=== PATIENT | male | born 1955 | race Caucasian/White ===

== ENCOUNTER → 2017-02-28 | Outpatient (CLI) | payer BC ==
--- NOTE | 2017-02-28 17:24 | US ---
EXAMINATION TYPE: US kidneys/renal and bladder DATE OF EXAM: 02/28/2017 4:52 PM COMPARISON: Previous CT scan of the abdomen dated 12/31/2014. CLINICAL HISTORY: N28.1 Cyst of Kidney Acquired. EXAM MEASUREMENTS: Right Kidney: 16.4 x 6.3 x 7.9 cm Left Kidney: 11.6 x 7.5 x 5.9 cm Right Kidney: large 9.2 x 8.5 x 9.7 cm cyst arising from lower pole Left Kidney: No hydronephrosis or masses seen Bladder: distended Bilateral Jets seen: no Large right renal cyst as noted above IMPRESSION: SIMPLE APPEARING 9.7 CM CYST ARISING FROM THE LOWER POLE OF THE RIGHT KIDNEY. PREVIOUSLY THIS WAS GIOVANNY SURED AT 9 CM.
== END | disposition home or self-care (01) ==
LOC: RADUSWWP 16:20
PROVIDERS: ATTEND Family Medicine
DX: N28.1 Cyst of kidney, acquired (principal)
CPT/HCPCS: 76770

== ENCOUNTER → 2020-05-30 | Outpatient (CLI) | payer MEDICARE, OTHER ==
[2020-05-30 19:35] LABS: African American GFR (CKD) >90 (>60 ml/min/1.73 sqM); Blood Urea Nitrogen 19 mg/dL (9-20); Non-African American GFR(CKD) >90 (>60 ml/min/1.73 sqM)
--- NOTE | 2020-05-31 08:20 | CT ---
EXAMINATION TYPE: CT angio neck DATE OF EXAM: 05/30/2020 HISTORY: Carotid stenosis and bilateral arm numbness. COMPARISON: None CT DLP: 256 mGycm. Automated Exposure Control for Dose Reduction was Utilized. TECHNIQUE: CTA scan of the neck is performed with IV Contrast, patient injected with 65ml mL of Isov ue 370, axial images are obtained, coronal and sagittal reformatted images are reviewed. Three-D diane nstructed images are created on an independent workstation and reviewed. FINDINGS: Motion is present on the exam. Carotid/Vascular Structures: Atheromatous changes are present at the carotid bifurcations. High-grade stenosis is present of the proximal internal carotid artery on the right. Stenosis is estimated at 8 0-90% diameter reduction by NASCET criteria, using same criteria estimated stenosis on the left is on ly approximately 50-60%. Other: Upper lobe emphysematous changes are moderate to severe bilaterally. Anterolisthesis grade 1 C 2-3. There is a fusion present anteriorly at C5-C7, degenerative disc changes are present. There is m ultilevel facet arthropathy change. IMPRESSION: Hemodynamically significant stenosis as described of the proximal right internal carotid artery greater than left. Additional findings above.
== END | disposition home or self-care (01) ==
LOC: RADCTMAIN 18:37
PROVIDERS: ATTEND Thoracic Surgery (Cardiothoracic Vascular Surgery)
DX: I65.23 Occlusion and stenosis of bilateral carotid arteries (principal)
CPT/HCPCS: 82565; 84520; 70498; 36415; Q9967

== ENCOUNTER → 2020-07-17 | Outpatient (CLI) | payer MEDICARE ==
[2020-07-17 11:59] LABS: Basophils # (A) 0.1 k/uL (0-0.2); Basophils % (A) 1 %; Eosinophils # (A) 0.3 k/uL (0-0.7); Eosinophils % (A) 4 %; HCT 43.1 % (39.0-53.0); HGB 13.2 gm/dL (13.0-17.5); Hypochromasia Slight; Lymphocytes # (A) 1.1 k/uL (1.0-4.8); Lymphocytes % (A) 15 %; MCH 28.9 pg (25.0-35.0); MCHC 30.5 g/dL (31.0-37.0); MCV 94.7 fL (80.0-100.0); Mean Platelet Volume 9.7; Monocytes # (A) 0.4 k/uL (0-1.0); Monocytes % (A) 6 %; Neutrophils % (A) 72 %; Platelet Count 191 k/uL (150-450); RBC 4.55 m/uL (4.30-5.90); RDW 13.5 % (11.5-15.5); WBC 6.9 k/uL (3.8-10.6)
[2020-07-17 12:24] LABS: Appearance,Urine Clear (Clear); Color,Urine Yellow
[2020-07-17 12:25] LABS: Bilirubin,Urine Negative (Negative); Blood,Urine Negative (Negative); Glucose,Urine (UA) Negative (Negative); Ketones,Urine Negative (Negative); Leukocyte Esterase,Urine Negative (Negative); Nitrite,Urine Negative (Negative); Protein,Urine Negative (Negative); Urobilinogen,Urine <2.0 mg/dL (<2.0)
[2020-07-17 17:00] LABS: African American GFR (CKD) 90.5 (60.0-200.0); Anion Gap 4.1 mmol/L (4.00-12.00); Carbon Dioxide 26.9 mmol/L (21.6-31.8); Non-African American GFR(CKD) 78.1 (60.0-200.0); Potassium 4.6 mmol/L (3.5-5.5)
== END | disposition home or self-care (01) ==
LOC: LABWHC1 11:12
PROVIDERS: ATTEND Surgery
DX: Z01.818 Encounter for other preprocedural examination (principal); I65.21 Occlusion and stenosis of right carotid artery
CPT/HCPCS: 36415; 80051; 81003; 82565; 84520; 85025

== ENCOUNTER 2020-07-21 07:38 | Inpatient (IN) | payer MEDICARE ==
[2020-07-14 17:03] VITALS: BMI 25.9
[~2020-07-21 07:38] MED LIST: DEXAMETHASONE SOD PHOSPHATE 10 MG/ML 1 ML VIAL IV ONE; HYDROmorphone 0.5 MG/0.5 ML SYRINGE IVP PRN; LACTATED RINGERS 1,000 ML IV SCH; MIDAZOLAM 2 MG/2 ML VIAL IV PRN; ONDANSETRON 4 MG/2 ML VIAL IVP ONE
[2020-07-21] MEDS ORDERED: LIDOCAINE 1% (10MG/ML) FOR IV START SQ ONE (08:27)
[2020-07-21] MEDS ORDERED: ONDANSETRON 4 MG/2 ML VIAL ONE (08:30)
[2020-07-21] MEDS ORDERED: MIDAZOLAM 2 MG/2 ML VIAL ONE (09:55)
[2020-07-21] MEDS ORDERED: VASOPRESSIN 20 UNIT/ML 1 ML VIAL ONE (09:55)
[2020-07-21] MEDS ORDERED: PROPOFOL 10 MG/ML 20 ML VIAL IV ONE (09:55)
[2020-07-21] MEDS ORDERED: PHENYLEPHRINE-0.9% NACL SYG 1 MG/10 ML SYRINGE ONE (09:55)
[2020-07-21] MEDS ORDERED: SUCCINYLCHOLINE CHLORIDE 100 MG/5 ML SYR IV ONE (09:55)
[2020-07-21] MEDS ORDERED: LIDOCAINE 1% INJ 10MG/ML (20 ML MDV) ONE (09:55)
[2020-07-21] MEDS ORDERED: ePHEDrine SULFATE/0.9% NACL/PF 50 MG/5 ML SYRINGE IV ONE (09:55)
[2020-07-21] MEDS ORDERED: fentaNYL (PF) 50 MCG/ML 2 ML AMP ONE (09:55)
[2020-07-21] MEDS ORDERED: GELATIN SPONGE,ABSORB (LARGE) 1 EACH SPONGE TOPICAL ONE (10:05)
[2020-07-21] MEDS ORDERED: HEPARIN SODIUM (1,000 UNIT/ML) 2,000 UNIT in SODIUM CHLORIDE 0.9% 1,000 ML IRRIGATION ONE (10:05)
[2020-07-21] MEDS ORDERED: ceFAZolin 2,000 MG in SODIUM CHLORIDE 0.9% 500 ML IRRIGATION ONE (10:05)
[2020-07-21] MEDS ORDERED: LIDOCAINE 1% INJ 10MG/ML (20 ML MDV) SQ ONE (10:05)
[2020-07-21] MEDS ORDERED: THROMBIN (BOVINE) 5,000 UNIT VIAL TOPICAL ONE (10:05)
[2020-07-21] MEDS ORDERED: PHENYLEPHRINE 40 MG in SODIUM CHLORIDE 0.9% 250 ML IV SCH (10:30)
[2020-07-21] MEDS ORDERED: LACTATED RINGERS 1,000 ML IV ONE (10:34)
--- NOTE | 2020-07-21 11:20 | P.OP ---
Date of Procedure: 07/21/20 Description of Procedure: Patient seen and examined in the preoperative area. His resting blood pressure there was normotensive. He was marked Questions are answered. Is brought to the operative suite. He is placed in supine position. An arterial line was placed, attempts previously to place a radial line were unsuccessful therefore brachial line was placed in the right side. A Mccullough catheter was placed after induction. Prior to any prepping draping, the patient's blood pressure began to drop and remained in the 60s over 30s for a significant period of time. He was treated with multiple medications without appropriate response. Finally vasopressin brought his blood pressure to 100. Given the significant, approximately 15-20 minutes of significant hypotension without improvement it was decided to cancel the case. He previously had cardiac evaluation and there was some question of a need for more invasive evaluation in the future, but he was cleared for surgery at this time. The patient was awakened from anesthesia and extubated. Transferred to PACU in stable condition. I will obtain an EKG and if everything goes okay from a PACU standpoint, he will be discharged home for further cardiac evaluation and workup prior to any further surgical intervention attempts. He likely will need to be performed as an awake carotid endarterectomy. Plan - Discharge Summary Discharge Rx Participant: No New Discharge Prescriptions: No Action Simvastatin [Zocor] 40 mg PO DAILY Aspirin 325 mg PO DAILY Magnesium Oxide [Fitzgerald] 500 mg PO DAILY lisinopriL [Zestril] 20 mg PO DAILY ALPRAZolam [Xanax] 1 mg PO TID PRN PRN Reason: Anxiety Acetaminophen [Tylenol Extra Strength] 500 - 1,000 mg PO DIRECTED PRN PRN Reason: Pain Discharge Medication List Aspirin 325 mg PO DAILY 06/28/14 [History] Simvastatin [Zocor] 40 mg PO DAILY 06/28/14 [History] ALPRAZolam [Xanax] 1 mg PO TID PRN 07/14/20 [History] Acetaminophen [Tylenol Extra Strength] 500 - 1,000 mg PO DIRECTED PRN 07/14/20 [History] Magnesium Oxide [Fitzgerald] 500 mg PO DAILY 07/14/20 [History] lisinopriL [Zestril] 20 mg PO DAILY 07/14/20 [History]
[2020-07-21 11:26] VITALS: TEMP 97
[2020-07-21 11:37] VITALS: RESP 16
[2020-07-21 13:09] VITALS: PULSE 82
[2020-07-21 13:11] VITALS: BP 114/72
== END 2020-07-21 13:30 | disposition home or self-care (01) | DRG 68 ==
LOC: 2ORMAIN 07:38
PROVIDERS: ADMIT Surgery; ATTEND Surgery
DX: I65.23 Occlusion and stenosis of bilateral carotid arteries (principal); I95.9 Hypotension, unspecified; I25.10 Atherosclerotic heart disease of native coronary artery without angina pectoris; F17.210 Nicotine dependence, cigarettes, uncomplicated; E78.5 Hyperlipidemia, unspecified; I10 Essential (primary) hypertension; Z98.1 Arthrodesis status; Z79.82 Long term (current) use of aspirin; Z79.899 Other long term (current) drug therapy; Z83.3 Family history of diabetes mellitus; Z82.3 Family history of stroke; Z53.09 Procedure and treatment not carried out because of other contraindication
CPT/HCPCS: 86850; 86900; 86901; 93005

== ENCOUNTER 2020-07-23 17:06 | Observation (INO) | payer MEDICARE ==
[2020-07-23] MEDS ORDERED: ASPIRIN 81 MG PO STA (17:21)
[2020-07-23] MEDS ORDERED: NITROGLYCERIN SL TABS 0.4 MG TAB SUBLINGUAL STA ×3 (17:21)
--- NOTE | 2020-07-23 17:27 | ED ---
General Adult HPI - General Chief complaint: Chest Pain Stated complaint: chest pain Time Seen by Provider: 07/23/20 17:12 Source: patient, RN notes reviewed Mode of arrival: wheelchair Limitations: no limitations - History of Present Illness Initial comments: Patient is a pleasant 64-year-old male presenting to the emergency Department with chest discomfort. Onset of symptoms was 2 days ago. Discomfort is difficult to describe. Patient has had some diaphoresis. No associated dyspnea or nausea. Discomfort is currently 6/10 in the left chest without radiation. No leg pain or leg swelling. Patient was recently in the hospital with plans to do carotid surgery however this was not done secondary to low blood pressure - Related Data Home Medications Medication Instructions Recorded Confirmed Aspirin 325 mg PO DAILY 06/28/14 07/21/20 Simvastatin [Zocor] 40 mg PO DAILY 06/28/14 07/14/20 ALPRAZolam [Xanax] 1 mg PO TID PRN 07/14/20 07/21/20 Acetaminophen [Tylenol Extra 500 - 1,000 mg PO DIRECTED PRN 07/14/20 07/14/20 Strength] Magnesium Oxide [Fitzgerald] 500 mg PO DAILY 07/14/20 07/21/20 lisinopriL [Zestril] 20 mg PO DAILY 07/14/20 07/21/20 Simvastatin 40 mg PO DAILY 07/23/20 07/23/20 Allergies Allergy/AdvReac Type Severity Reaction Status Date / Time No Known Allergies Allergy Verified 07/23/20 19:05 Review of Systems ROS Statement: Those systems with pertinent positive or pertinent negative responses have been documented in the HPI. ROS Other: All systems not noted in ROS Statement are negative. 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 Hx shingles Rt inner ear, wears hearing aids. BPH. 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 SOB w/activity. AAA, Dr monitoring. Mild edema ankles. Coronary Artery Stenosis. Last Myocardial Infarction Date:: unknown History of Any Multi-Drug Resistant Organisms: None Reported Past Surgical History: Heart Catheterization, Heart Catheterization With Stent, Hernia Repair, Tonsillectomy Additional Past Surgical History / Comment(s): 2013 Cervical Fusion. Umb hernia, ing hernia. Heart cath 2011. Past Anesthesia/Blood Transfusion Reactions: No Reported Reaction Date of Last Stent Placement:: 1997 Past Psychological History: Anxiety Smoking Status: Current every day smoker Past Alcohol Use History: None Reported Past Drug Use History: None Reported - Past Family History Brother(s) Family Medical History: Cancer, Diabetes Mellitus Additional Family Medical History / Comment(s): leukemia, lung cancer; another brother had DM, gangrene General Exam Limitations: no limitations General appearance: alert, in no apparent distress Head exam: Present: normocephalic Eye exam: Present: normal appearance Neck exam: Present: normal inspection Respiratory exam: Present: normal lung sounds bilaterally. Absent: chest wall tenderness Cardiovascular Exam: Present: regular rate, normal rhythm Expanded Peripheral pulses: 2+: Radial (R), Radial (L), Posterior Tibialis (R), Posterior Tibialis (L) GI/Abdominal exam: Present: soft. Absent: tenderness Extremities exam: Present: normal inspection. Absent: pedal edema, calf tenderness Neurological exam: Present: alert Psychiatric exam: Present: normal affect, normal mood Skin exam: Present: normal color Course Vital Signs 07/23/20 07/23/20 07/23/20 17:07 18:11 18:19 Temperature 97.5 F L 97.5 F L Pulse Rate 82 76 86 Respiratory 18 18 18 Rate Blood Pressure 103/64 137/60 137/83 O2 Sat by Pulse 100 100 97 Oximetry EKG Findings - EKG Comments: EKG Findings:: Normal sinus rhythm 88. MS 136. QRS 94. QT 372. QTC 450. Normal axis. Normal QRS. No acute ST change. Medical Decision Making - Medical Decision Making Patient reevaluated and updated. Case discussed with Dr. Gonzalez, who will admit for Dr. Henry. Patient is near symptom-free following nitroglycerin. - Lab Data Result diagrams: 07/23/20 17:24 07/23/20 17:24 Lab Results 07/23/20 07/23/20 07/23/20 Range/Units 17:24 17:24 17:24 WBC 8.2 (3.8-10.6) k/uL RBC 4.88 (4.30-5.90) m/uL Hgb 14.4 (13.0-17.5) gm/dL Hct 44.3 (39.0-53.0) % MCV 90.8 (80.0-100.0) fL MCH 29.5 (25.0-35.0) pg MCHC 32.5 (31.0-37.0) g/dL RDW 13.6 (11.5-15.5) % Plt Count 227 (150-450) k/uL Neutrophils % 67 % Lymphocytes % 21 % Monocytes % 6 % Eosinophils % 4 % Basophils % 1 % Neutrophils # 5.5 (1.3-7.7) k/uL Lymphocytes # 1.7 (1.0-4.8) k/uL Monocytes # 0.5 (0-1.0) k/uL Eosinophils # 0.3 (0-0.7) k/uL Basophils # 0.1 (0-0.2) k/uL PT 9.7 (9.0-12.0) sec INR 0.9 (<1.2) APTT 22.6 (22.0-30.0) sec Sodium 135 L (137-145) mmol/L Potassium 4.5 (3.5-5.1) mmol/L Chloride 104 (98-107) mmol/L Carbon Dioxide 24 (22-30) mmol/L Anion Gap 7 mmol/L BUN 13 (9-20) mg/dL Creatinine 0.69 (0.66-1.25) mg/dL Est GFR (CKD-EPI)AfAm >90 (>60 ml/min/1.73 sqM) Est GFR (CKD-EPI)NonAf >90 (>60 ml/min/1.73 sqM) Glucose 94 (74-99) mg/dL Calcium 9.4 (8.4-10.2) mg/dL Magnesium 1.8 (1.6-2.3) mg/dL Total Bilirubin 0.4 (0.2-1.3) mg/dL AST 20 (17-59) U/L ALT 16 (4-49) U/L Alkaline Phosphatase 100 (38-126) U/L Troponin I (0.000-0.034) ng/mL Total Protein 6.9 (6.3-8.2) g/dL Albumin 3.8 (3.5-5.0) g/dL 07/23/20 Range/Units 17:24 WBC (3.8-10.6) k/uL RBC (4.30-5.90) m/uL Hgb (13.0-17.5) gm/dL Hct (39.0-53.0) % MCV (80.0-100.0) fL MCH (25.0-35.0) pg MCHC (31.0-37.0) g/dL RDW (11.5-15.5) % Plt Count (150-450) k/uL Neutrophils % % Lymphocytes % % Monocytes % % Eosinophils % % Basophils % % Neutrophils # (1.3-7.7) k/uL Lymphocytes # (1.0-4.8) k/uL Monocytes # (0-1.0) k/uL Eosinophils # (0-0.7) k/uL Basophils # (0-0.2) k/uL PT (9.0-12.0) sec INR (<1.2) APTT (22.0-30.0) sec Sodium (137-145) mmol/L Potassium (3.5-5.1) mmol/L Chloride (98-107) mmol/L Carbon Dioxide (22-30) mmol/L Anion Gap mmol/L BUN (9-20) mg/dL Creatinine (0.66-1.25) mg/dL Est GFR (CKD-EPI)AfAm (>60 ml/min/1.73 sqM) Est GFR (CKD-EPI)NonAf (>60 ml/min/1.73 sqM) Glucose (74-99) mg/dL Calcium (8.4-10.2) mg/dL Magnesium (1.6-2.3) mg/dL Total Bilirubin (0.2-1.3) mg/dL AST (17-59) U/L ALT (4-49) U/L Alkaline Phosphatase (38-126) U/L Troponin I <0.012 (0.000-0.034) ng/mL Total Protein (6.3-8.2) g/dL Albumin (3.5-5.0) g/dL - Radiology Data Radiology results: image reviewed (Chest x-ray shows atelectasis and small effusions.) Disposition Clinical Impression: Chest pain Disposition: ADMITTED IP TO THIS HOSP Is patient prescribed a controlled substance at d/c from ED?: No Referrals: Radha Henry III, MD [Primary Care Provider] - 1-2 days
[2020-07-23 17:41] LABS: Basophils # (A) 0.1 k/uL (0-0.2); Basophils % (A) 1 %; Eosinophils # (A) 0.3 k/uL (0-0.7); Eosinophils % (A) 4 %; HCT 44.3 % (39.0-53.0); HGB 14.4 gm/dL (13.0-17.5); Lymphocytes # (A) 1.7 k/uL (1.0-4.8); Lymphocytes % (A) 21 %; MCH 29.5 pg (25.0-35.0); MCHC 32.5 g/dL (31.0-37.0); MCV 90.8 fL (80.0-100.0); Monocytes # (A) 0.5 k/uL (0-1.0); Monocytes % (A) 6 %; Neutrophils # (A) 5.5 k/uL (1.3-7.7); Neutrophils % (A) 67 %; Platelet Count 227 k/uL (150-450); RBC 4.88 m/uL (4.30-5.90); RDW 13.6 % (11.5-15.5); WBC 8.2 k/uL (3.8-10.6)
[2020-07-23 17:50] LABS: INR 0.9 (<1.2); Partial Thromboplastin Time 22.6 sec (22.0-30.0); Prothrombin Time 9.7 sec (9.0-12.0)
[2020-07-23 17:51] LABS: ALT 16 U/L (4-49); AST 20 U/L (17-59); African American GFR (CKD) >90 (>60 ml/min/1.73 sqM); Albumin 3.8 g/dL (3.5-5.0); Alkaline Phosphatase 100 U/L (38-126); Anion Gap 7 mmol/L; Blood Urea Nitrogen 13 mg/dL (9-20); Calcium 9.4 mg/dL (8.4-10.2); Carbon Dioxide 24 mmol/L (22-30); Chloride 104 mmol/L (98-107); Glucose 94 mg/dL (74-99); Magnesium 1.8 mg/dL (1.6-2.3); Non-African American GFR(CKD) >90 (>60 ml/min/1.73 sqM); Potassium 4.5 mmol/L (3.5-5.1); Sodium 135 mmol/L (137-145); Total Bilirubin 0.4 mg/dL (0.2-1.3); Total Protein 6.9 g/dL (6.3-8.2)
--- NOTE | 2020-07-23 18:01 | XR ---
EXAMINATION TYPE: XR chest 2V DATE OF EXAM: 07/23/2020 COMPARISON: 06/07/2014 HISTORY: Chest pain TECHNIQUE: FINDINGS: There is mild blunting of the costophrenic angles. Heart size is normal. There is no obviou s heart failure. There are chest leads. There are no hilar masses. Mediastinum is within normal limit s. Bony thorax appears intact. There are chest leads. IMPRESSION: Small pleural effusions and subsegmental atelectasis at the lung bases slightly increased compared to old exam. No obvious heart failure.
[2020-07-23] MEDS ORDERED: NITROGLYCERIN SL TABS 0.4 MG TAB SUBLINGUAL PRN (19:08)
[2020-07-23] MEDS ORDERED: ACETAMINOPHEN TAB 500 MG TAB PO PRN (23:27)
[2020-07-24] MEDS ORDERED: ALPRAZolam 1 MG TAB PO PRN (00:15)
[2020-07-24] MEDS: NITROGLYCERIN OINT 1 INCH/GM PACKET TOPICAL SCH ×2 (02:19→07:25)
[2020-07-24 06:27] LABS: Cholesterol 197 mg/dL (<200); HDL Cholesterol 49 mg/dL (40-60); LDL Cholesterol,Calculated 119 mg/dL (0-99); Triglycerides 146 mg/dL (<150)
[2020-07-24 06:52] VITALS: PULSE 89
[2020-07-24 08:18] VITALS: BP 135/81; RESP 16; TEMP 97.9
[2020-07-24] MEDS ORDERED: NON FORMULARY DRUG (Magnesium Oxide [Phillips] 500 MG) PO SCH (09:00)
[2020-07-24] MEDS ORDERED: ATORVASTATIN 40 MG TAB PO SCH (09:00)
[2020-07-24] MEDS ORDERED: HEPARIN SODIUM,PORCINE 5,000 UNIT/ML 1 ML VIAL SQ SCH (09:00)
[2020-07-24] MEDS ORDERED: FAMOTIDINE 20 MG/2 ML VIAL IV SCH (09:00)
[2020-07-24] MEDS ORDERED: lisinopriL 20 MG TAB PO SCH (09:00)
[2020-07-24] MEDS ORDERED: ASPIRIN 81 MG PO SCH (09:00)
[2020-07-24] MEDS ORDERED: ASPIRIN 325 MG TAB PO SCH (09:00)
--- NOTE | 2020-07-24 10:06 | P.HPIM ---
History of Present Illness Diagnoses: Chest pain, rule out cardiac causes Hypertension Hyperlipidemia Nicotine dependence History of coronary artery disease status post stenting COPD, not an acute issue History of CVA/TIA Primary osteoarthritis Severity, not active tissue Hospital course: This is a pleasant 64 years old male with past medical history of coronary artery disease, status post cardiac cath and stent, CVA, COPD, hyperlipidemia, hypertension, osteoarthritis. Cigarette smoker, anxiety, peripheral vascular disease and aortic aneurysm and he follows up with the vascular surgery. Last Friday, 3 days ago he supposed to get carotid endarterectomy with Dr. Mccullough and he came to this hospital where they found his blood pressure on the low side 90s over 50s so they canceled the surgery and stents at home and send a was dropping some cough and sore throat and They Friday and Friday he developed central and left-sided chest pain, nonradiating. O'clock sharp worse with coughing about 68/10 in severity. So he came to emergency room [facility] looks stable. Labs including CBC, BMP, liver enzymes, serial troponins 3 are unremarkable. Chest x-ray: Small pleural effusion and subsegmental atelectasis. No overt heart failure EKG showed normal sinus rhythm at 88 BPM with no significant ST-T changes. And emergency room patient was started on aspirin, nitroglycerin. However his chest pain coughing and all her symptoms have resolved now and he is back to his normal self, he denies dyspnea. He denies any change in his urine or bowel habits. No fever, no weakness, is eating well. Multiple Wire Sawyer evaluated the patient after him for discharge and patient agrees to go home Problems and management plan were discussed with the patient and he verbalized understanding and acceptance Patient was found stable and can be discharged home however he needs follow-up as an outpatient. Patient was instructed to follow up with PCP Dr. Henry within one week and patient agrees. Also patient was instructed to follow up with steel construction worker Dr. Bean in 2 weeks and he agrees. Patient states he can call and make his own appointment Review of systems: GENERAL: The patient is alert and oriented x3, not in any acute distress. Well developed, well nourished. HEENT: Pupils are round and equally reacting to light. EOMI. No scleral icterus. No conjunctival pallor. Normocephalic, atraumatic. No pharyngeal erythema. No thyromegaly. CARDIOVASCULAR: S1 and S2 present. No murmurs, rubs, or gallops. PULMONARY: Chest is clear to auscultation, no wheezing or crackles. ABDOMEN: Soft, nontender, nondistended, normoactive bowel sounds. No palpable o rganomegaly. MUSCULOSKELETAL: No joint swelling or deformity. EXTREMITIES: No cyanosis, clubbing, or pedal edema. NEUROLOGICAL: Gross neurological examination did not reveal any focal deficits. SKIN: No rashes. 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 Hx shingles Rt inner ear 2008, wears hearing aids. BPH. 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 SOB w/activity. AAA, Dr monitoring. Mild edema ankles. Coronary Artery Stenosis. Last Myocardial Infarction Date:: unknown History of Any Multi-Drug Resistant Organisms: None Reported Past Surgical History: Heart Catheterization, Heart Catheterization With Stent, Hernia Repair, Tonsillectomy Additional Past Surgical History / Comment(s): 2013 Cervical Fusion. Umb hernia, ing hernia. Heart cath 2011. Past Anesthesia/Blood Transfusion Reactions: No Reported Reaction Date of Last Stent Placement:: 1997 Past Psychological History: Anxiety Smoking Status: Current every day smoker Past Alcohol Use History: None Reported Additional Past Alcohol Use History / Comment(s): Smoking 1 ppd since age 3. Heavy drinker after 's , Quit 05/2018. Past Drug Use History: Marijuana Additional Drug Use History / Comment(s): Occasional marijuana use. - Past Family History Brother(s) Family Medical History: Cancer, Diabetes Mellitus Additional Family Medical History / Comment(s): leukemia, lung cancer; another brother had DM, gangrene Medications and Allergies Home Medications Medication Instructions Recorded Confirmed Type Aspirin 325 mg PO DAILY 06/28/14 07/23/20 History ALPRAZolam [Xanax] 1 mg PO TID PRN 07/14/20 07/23/20 History Acetaminophen [Tylenol Extra 500 - 1,000 mg PO Q6H PRN 07/14/20 07/23/20 History Strength] Magnesium Oxide [Fitzgerald] 500 mg PO DAILY 07/14/20 07/23/20 History lisinopriL [Zestril] 20 mg PO DAILY 07/14/20 07/23/20 History Simvastatin 40 mg PO DAILY 07/23/20 07/23/20 History Allergies Allergy/AdvReac Type Severity Reaction Status Date / Time No Known Allergies Allergy Verified 07/23/20 19:05 Physical Exam Vitals: Vital Signs Temp Pulse Pulse Pulse Resp BP BP 07/24/20 08:17 97.9 F 89 16 135/81 07/24/20 05:10 98.1 F 89 18 133/71 07/23/20 21:27 07/23/20 20:15 98.7 F 79 20 135/78 07/23/20 19:50 98.0 F 87 18 146/92 07/23/20 18:19 86 18 137/83 07/23/20 18:11 97.5 F L 76 18 137/60 07/23/20 17:07 97.5 F L 82 18 103/64 Pulse Ox 07/24/20 08:17 93 L 07/24/20 05:10 96 07/23/20 21:27 95 07/23/20 20:15 96 07/23/20 19:50 95 07/23/20 18:19 97 07/23/20 18:11 100 07/23/20 17:07 100 Intake and Output 07/23/20 07/24/20 07/24/20 22:59 06:59 14:59 Other: Voiding Method Toilet Toilet # Voids 1 2 Weight 81.193 kg Results CBC & Chem 7: 07/23/20 17:24 07/23/20 17:24 Labs: Abnormal Lab Results - Last 24 Hours (Table) 07/23/20 07/24/20 Range/Units 17:24 05:53 Sodium 135 L (137-145) mmol/L LDL Cholesterol, Calc 119 H (0-99) mg/dL Thrombosis Risk Factor Assmnt - Choose All That Apply Any of the Below Risk Factors Present?: Yes Each Factor Represents 1 point: Abnormal pulmonary function (COPD) Other Risk Factors: Yes Each Risk Factor Represents 2 Points: Age 61-74 years Thrombosis Risk Factor Assessment Total Risk Factor Score: 3 Thrombosis Risk Factor Assessment Level: Moderate Risk
--- NOTE | 2020-07-24 11:02 | CONS ---
CONSULTATION Mr. Haas is a 64-year-old male who presented with symptoms of chest discomfort. The patient has been followed by Dr. Elias on a regular basis, has a known history of coronary artery disease, underwent stenting in 1997 of the LAD, had a repeat cardiac catheterization by Dr. Elias in 2013. At that time, had a patent stent with chronic occluded right coronary artery. He was found to have severe obstructive disease in the right carotid artery. He was scheduled to undergo surgical intervention on the of this month, but in the operating room became very hypotensive and surgery was canceled. According to the patient, since that time, he has been complaining of chest discomfort, worse with deep breathing and coughing and because of that, he came into the emergency room. He has chronic dyspnea on exertion and chronic tobacco use. He is pain-free this morning. He denies any symptoms of chest pain prior to the . According to him, he has been reasonably stable except for the mild dyspnea on exertion. He has underwent a myocardial perfusion imaging by Dr. Elias recently, but the details of that are not available to me. He denies any dizziness or palpitation. No syncope. No PND. No orthopnea. He has some peripheral edema. His coronary risk factors are remarkable for hypertension, hyperlipidemia and smoking, he is nondiabetic. His medications include Zestril 20 mg daily, simvastatin 40 mg daily, aspirin once a day, and Xanax. REVIEW OF SYSTEMS: RESPIRATORY SYSTEM: He has a history of chronic tobacco use and chronic dyspnea on exertion. He has chronic cough. GI SYSTEM: No recent GI bleeding. No peptic ulcer disease. SYSTEM: No dysuria or hematuria. NERVOUS SYSTEM: No seizure, had a prior history of stroke affecting his left eye. PHYSICAL EXAMINATION: He is a 64-year-old male, alert, oriented, in no apparent distress. Blood pressure 133/70 with a heart rate in the 80s. HEAD: Normocephalic. EYES: Sclerae nonicteric. NECK: Good upstroke. No bruit. No venous distension. LUNGS: Decreased air exchange, no wheezes. HEART: Regular rate and rhythm, S1, S2. No S3 with systolic murmur at the base. No diastolic murmur, no rub. ABDOMEN: Soft, nontender, positive bowel sounds, no organomegaly. EXTREMITIES: Trace edema on the left side of the ankle. LAB DATA: Revealed troponin less than 0.012 for 3 samples. BUN and creatinine 13 and 0.69, potassium 4.5, hemoglobin of 14.4. EKG revealed a sinus mechanism, normal axis and intervals. No acute ST-segment changes. Chest x-ray shows a small pleural effusion with subsegmental atelectasis. IMPRESSION: 1. Symptoms of chest discomfort, have some atypical features for ischemic heart disease, probably noncardiac in etiology, probably related to the irritation of the trachea. 2. History of coronary artery disease with known chronically occluded right coronary artery: The patient had an MPI done recently. Will await results. 3. History of carotid disease. 4. History of hypertension. 5. Hyperlipidemia. 6. Chronic tobacco use. RECOMMENDATION: I will obtain the results of his most recent stress test and review the data and depending on that, recommendation will be made. In the meantime, will continue his present therapy and depending on his progress, further recommendation will be made. Thank you for this consult. Will follow with you. BRANDI / IJN: [id number] /
== END 2020-07-24 10:54 | disposition home or self-care (01) ==
LOC: EC 17:06 → 3NCARDOBS 19:08
PROVIDERS: ADMIT Internal Medicine; ATTEND Internal Medicine
DX: R07.89 Other chest pain (principal); I65.21 Occlusion and stenosis of right carotid artery; J44.9 Chronic obstructive pulmonary disease, unspecified; I25.10 Atherosclerotic heart disease of native coronary artery without angina pectoris; I10 Essential (primary) hypertension; J90 Pleural effusion, not elsewhere classified; J98.11 Atelectasis; E78.5 Hyperlipidemia, unspecified; I25.82 Chronic total occlusion of coronary artery; I73.9 Peripheral vascular disease, unspecified; N40.0 Benign prostatic hyperplasia without lower urinary tract symptoms; I71.4 Abdominal aortic aneurysm, without rupture; F41.9 Anxiety disorder, unspecified; F17.210 Nicotine dependence, cigarettes, uncomplicated; R60.0 Localized edema; R61 Generalized hyperhidrosis; M19.91 Primary osteoarthritis, unspecified site; M51.86 Other intervertebral disc disorders, lumbar region; H91.90 Unspecified hearing loss, unspecified ear; Z79.82 Long term (current) use of aspirin; Z79.899 Other long term (current) drug therapy; Z86.73 Personal history of transient ischemic attack (TIA), and cerebral infarction without residual deficits; I25.2 Old myocardial infarction; Z86.19 Personal history of other infectious and parasitic diseases; Z97.4 Presence of external hearing-aid; Z98.1 Arthrodesis status; Z95.5 Presence of coronary angioplasty implant and graft; Z98.890 Other specified postprocedural states; Z83.3 Family history of diabetes mellitus; Z80.6 Family history of leukemia; Z80.1 Family history of malignant neoplasm of trachea, bronchus and lung
CPT/HCPCS: 93005 ×2; 96374; 99285; 36415; 80061; 80053; 83735; 84484; 85025; 85610; 85730; 71046; G0378 ×2

== ENCOUNTER 2020-08-31 17:26 | Emergency (ER) | payer MEDICARE ==
[2020-08-31] MEDS ORDERED: METOCLOPRAMIDE 5 MG/ML 2 ML VIAL IVP STA (17:48)
[2020-08-31] MEDS ORDERED: SODIUM CHLORIDE 0.9% 1,000 ML IV STA (17:48)
[2020-08-31] MEDS ORDERED: HYDROmorphone 1 MG/ML 1 ML SYRINGE IVP STA (17:49)
--- NOTE | 2020-08-31 17:53 | ED ---
General Adult HPI - General Chief complaint: Headache Stated complaint: headache Time Seen by Provider: 08/31/20 17:34 Source: patient, family, RN notes reviewed Mode of arrival: ambulatory Limitations: no limitations - History of Present Illness Initial comments: Patient is a pleasant 64-year-old male presenting to emergency department complaints of headache. Onset of symptoms was yesterday evening. Headache was quick onset and fairly severe rated 9/10. Patient did have 2 episodes of nausea yesterday. No nausea at this time. Headache is more frontal. No speech from his. No visual changes. No weakness or confusion. No history of chronic h eadaches. Patient took Motrin without much improvement of symptoms. Patient did notice some swelling of his left lower jaw where he has a known tooth problem since yesterday. - Related Data Home Medications Medication Instructions Recorded Confirmed Aspirin 325 mg PO DAILY 06/28/14 07/23/20 ALPRAZolam [Xanax] 1 mg PO TID PRN 07/14/20 07/23/20 Acetaminophen [Tylenol Extra 500 - 1,000 mg PO Q6H PRN 07/14/20 07/23/20 Strength] Magnesium Oxide [Fitzgerald] 500 mg PO DAILY 07/14/20 07/23/20 lisinopriL [Zestril] 20 mg PO DAILY 07/14/20 07/23/20 Simvastatin 40 mg PO DAILY 07/23/20 07/23/20 Previous Rx's Medication Instructions Recorded Atorvastatin [Lipitor] 40 mg PO DAILY #30 tab 07/24/20 Nitroglycerin Sl Tabs [Nitrostat] 0.4 mg SUBLINGUAL Q5M PRN #20 tab 07/24/20 Allergies Allergy/AdvReac Type Severity Reaction Status Date / Time No Known Allergies Allergy Verified 08/31/20 17:27 Review of Systems ROS Statement: Those systems with pertinent positive or pertinent negative responses have been documented in the HPI. ROS Other: All systems not noted in ROS Statement are negative. Constitutional: Denies: fever Eyes: Denies: eye pain ENT: Reports: as per HPI. Denies: ear pain Respiratory: Denies: cough, dyspnea Cardiovascular: Denies: chest pain Endocrine: Denies: fatigue Gastrointestinal: Denies: abdominal pain Genitourinary: Denies: urgency Musculoskeletal: Denies: back pain Skin: Denies: rash Neurological: Reports: headache. Denies: weakness, confusion Past Medical History Past Medical History: Coronary Artery Disease (CAD), COPD, CVA/TIA, Hearing Disorder / Deafness, Hyperlipidemia, Hypertension, Myocardial Infarction ([place]), Osteoarthritis (OA), Prostate Disorder Additional Past Medical History / Comment(s): Stroke left eye 2006 -most of visi on returned. Hx shingles Rt inner ear 2008, wears hearing aids. BPH. 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 SOB w/activity. AAA, Dr monitoring. Mild edema ankles. Coronary Artery Stenosis. Last Myocardial Infarction Date:: unknown History of Any Multi-Drug Resistant Organisms: None Reported Past Surgical History: Heart Catheterization, Heart Catheterization With Stent, Hernia Repair, Tonsillectomy Additional Past Surgical History / Comment(s): 2013 Cervical Fusion. Umb hernia, ing hernia. Heart cath 2011. Past Anesthesia/Blood Transfusion Reactions: No Reported Reaction Date of Last Stent Placement:: 1997 Past Psychological History: Anxiety Smoking Status: Current every day smoker Past Alcohol Use History: None Reported Past Drug Use History: Marijuana - Past Family History Brother(s) Family Medical History: Cancer, Diabetes Mellitus Additional Family Medical History / Comment(s): leukemia, lung cancer; another brother had DM, gangrene General Exam Limitations: no limitations General appearance: alert, in no apparent distress Head exam: Present: normocephalic Eye exam: Present: normal appearance, PERRL, EOMI. Absent: nystagmus ENT exam: Present: normal oropharynx, other (Left lower canine and premolar with tooth decay. There is mild lateral swelling.) Neck exam: Present: normal inspection. Absent: tenderness, meningismus Respiratory exam: Present: normal lung sounds bilaterally Cardiovascular Exam: Present: regular rate, normal rhythm GI/Abdominal exam: Present: soft. Absent: tenderness Extremities exam: Present: normal inspection Neurological exam: Present: alert, CN II-XII intact. Absent: motor sensory deficit Expanded Neurological exam: Present: protecting the airway Speech: Present: fluid speech Cranial nerves: EOM's Intact: Normal, Facial Sensation: Normal Sensory exam: Upper Extremity Light Touch: Normal, Lower Extremity Light Touch: Normal Motor strength exam: RUE: 5, LUE: 5, RLE: 5, LLE: 5 Eye Response: (4) open spontaneously Motor Response: (6) obeys commands Verbal Response: (5) oriented Psychiatric exam: Present: normal affect, normal mood Skin exam: Present: normal color Course Vital Signs 08/31/20 17:27 Temperature 98 F Pulse Rate 91 Respiratory 18 Rate Blood Pressure 137/81 O2 Sat by Pulse 99 Oximetry Medical Decision Making - Medical Decision Making Patient reevaluated and resting comfortably in bed. Discomfort is significantly improved following medications. Patient and family updated on results and need for follow-up. - Lab Data Result diagrams: 08/31/20 18:09 08/31/20 18:09 Lab Results 08/31/20 08/31/20 08/31/20 Range/Units 18:09 18:09 18:09 WBC 11.9 H (3.8-10.6) k/uL RBC 5.16 (4.30-5.90) m/uL Hgb 15.0 (13.0-17.5) gm/dL Hct 47.1 (39.0-53.0) % MCV 91.3 (80.0-100.0) fL MCH 29.2 (25.0-35.0) pg MCHC 32.0 (31.0-37.0) g/dL RDW 13.5 (11.5-15.5) % Plt Count 199 (150-450) k/uL Neutrophils % 76 % Lymphocytes % 13 % Monocytes % 6 % Eosinophils % 3 % Basophils % 1 % Neutrophils # 9.1 H (1.3-7.7) k/uL Lymphocytes # 1.6 (1.0-4.8) k/uL Monocytes # 0.7 (0-1.0) k/uL Eosinophils # 0.4 (0-0.7) k/uL Basophils # 0.1 (0-0.2) k/uL ESR 25 H (0-15) mm/hr PT 9.6 (9.0-12.0) sec INR 0.9 (<1.2) APTT 22.7 (22.0-30.0) sec Sodium 138 (137-145) mmol/L Potassium 4.4 (3.5-5.1) mmol/L Chloride 106 (98-107) mmol/L Carbon Dioxide 26 (22-30) mmol/L Anion Gap 6 mmol/L BUN 12 (9-20) mg/dL Creatinine 0.68 (0.66-1.25) mg/dL Est GFR (CKD-EPI)AfAm >90 (>60 ml/min/1.73 sqM) Est GFR (CKD-EPI)NonAf >90 (>60 ml/min/1.73 sqM) Glucose 119 H (74-99) mg/dL Calcium 9.4 (8.4-10.2) mg/dL Total Bilirubin 0.5 (0.2-1.3) mg/dL AST 20 (17-59) U/L ALT 17 (4-49) U/L Alkaline Phosphatase 101 (38-126) U/L Total Protein 7.1 (6.3-8.2) g/dL Albumin 4.0 (3.5-5.0) g/dL - Radiology Data Radiology results: report reviewed (Computed tomography scan of the brain shows atrophy. No acute intercranial abnormality. CT angios shows subtotal lesion right internal carotid artery not significantly different from previous. Some progression of stenosis on the left.) Disposition Clinical Impression: Cephalgia, Dental abscess Disposition: HOME SELF-CARE Condition: Stable Instructions (If sedation given, give patient instructions): Acute Headache (ED), Dental Abscess (ED) Additional Instructions: Please follow-up with dentist in the next couple days for recheck. Please also follow-up with Dr. Mccullough in the next couple of days for recheck, call her tomorrow and let her know urine emergency department. Please also follow-up with primary care physician in the next couple of days. Return for increased mouth swelling or pain, fevers, weakness or confusion, worsening or changing symptoms or other concerns. Is patient prescribed a controlled substance at d/c from ED?: No Referrals: Olivia Mccullough DO [STAFF PHYSICIAN] - 1-2 days Benito Martinez MD [STAFF PHYSICIAN] - 1-2 days Time of Disposition: 20:07
[2020-08-31 18:21] LABS: Basophils # (A) 0.1 k/uL (0-0.2); Basophils % (A) 1 %; Eosinophils # (A) 0.4 k/uL (0-0.7); Eosinophils % (A) 3 %; HCT 47.1 % (39.0-53.0); Lymphocytes # (A) 1.6 k/uL (1.0-4.8); Lymphocytes % (A) 13 %; MCH 29.2 pg (25.0-35.0); MCV 91.3 fL (80.0-100.0); Mean Platelet Volume 7.8; Monocytes # (A) 0.7 k/uL (0-1.0); Monocytes % (A) 6 %; Neutrophils # (A) 9.1 k/uL (1.3-7.7); Neutrophils % (A) 76 %; Platelet Count 199 k/uL (150-450); RBC 5.16 m/uL (4.30-5.90); RDW 13.5 % (11.5-15.5); WBC 11.9 k/uL (3.8-10.6)
[2020-08-31 18:30] LABS: ALT 17 U/L (4-49); AST 20 U/L (17-59); African American GFR (CKD) >90 (>60 ml/min/1.73 sqM); Alkaline Phosphatase 101 U/L (38-126); Anion Gap 6 mmol/L; Blood Urea Nitrogen 12 mg/dL (9-20); Calcium 9.4 mg/dL (8.4-10.2); Carbon Dioxide 26 mmol/L (22-30); Chloride 106 mmol/L (98-107); Glucose 119 mg/dL (74-99); Non-African American GFR(CKD) >90 (>60 ml/min/1.73 sqM); Potassium 4.4 mmol/L (3.5-5.1); Sodium 138 mmol/L (137-145); Total Bilirubin 0.5 mg/dL (0.2-1.3); Total Protein 7.1 g/dL (6.3-8.2)
[2020-08-31 18:31] LABS: INR 0.9 (<1.2); Partial Thromboplastin Time 22.7 sec (22.0-30.0); Prothrombin Time 9.6 sec (9.0-12.0)
--- NOTE | 2020-08-31 19:22 | CT ---
EXAMINATION TYPE: CT brain wo con DATE OF EXAM: 08/31/2020 COMPARISON: None HISTORY: headache CT DLP: 1069 mGycm Automated exposure control for dose reduction was used. There is mild cerebral atrophy. There is no mass effect nor midline shift. There is no sign of intrac ranial hemorrhage. Calvarium is intact. There is no sign of cortical infarct. There is limited pneumatization of the mastoid sinuses. IMPRESSION: Cerebral atrophy. No acute intracranial abnormality.
[2020-08-31 19:42] LABS: Erythrocyte Sedimentation Rate 25 mm/hr (0-15)
--- NOTE | 2020-08-31 19:54 | CT ---
EXAMINATION TYPE: CT angio head neck DATE OF EXAM: 08/31/2020 COMPARISON: 05/30/2020 HISTORY: headache CT DLP: 441.9 mGycm Automated exposure control for dose reduction was used. CONTRAST: Performed with IV Contrast, patient injected with 100 mL of Isovue 370. There are 3-D post processed images. There is normal branching pattern of the great vessels on the aortic arch. There is bilateral arteria l flow in the subclavian arteries. There is arterial flow in the common internal and external carotid arteries bilaterally. There is arterial flow in both vertebral arteries. There is long segment of lumen narrowing of the left common carotid artery. There is severe stenosis of the proximal left internal carotid artery with 80-90% diameter narrowing. There is plaque formatio n at the right carotid artery bifurcation. There is subtotal occlusion of the right internal carotid artery near the origin. Stenosis is more than 90%. There is arterial flow in both vertebral arteries. There is arterial flow in the vertebrobasilar melchor ry system. There is arterial flow in the anterior middle and posterior cerebral arteries. I see no evidence of i ntracranial arterial stenosis. There is normal contrast opacification of the venous sinuses. There is no mass effect. There is no evidence of intracranial aneurysm or neovascularity. IMPRESSION: Subtotal occlusion of the right internal carotid artery not significantly different than last exam. T here is some progression of the hemodynamic stenosis of the left internal carotid artery compared to old exam. No significant intracranial angiographic abnormality.
[2020-08-31] MEDS ORDERED: PENICILLIN G POTASSIUM 2,000,000 UNIT in DEXTROSE 5% IN WATER 100 ML IVPB STA ×2 (20:00)
[2020-08-31] MEDS ORDERED: ACET/COD 300 MG/30 MG STARTER PACK 6 TAB BTL PO STA (20:08)
[2020-08-31 21:46] VITALS: BP 129/69; PULSE 80; RESP 19; TEMP 97.6
== END 2020-08-31 21:46 | disposition home or self-care (01) ==
LOC: EC 17:26
DX: K04.7 Periapical abscess without sinus (principal); I25.10 Atherosclerotic heart disease of native coronary artery without angina pectoris; I10 Essential (primary) hypertension; E78.5 Hyperlipidemia, unspecified; I25.2 Old myocardial infarction; F41.9 Anxiety disorder, unspecified; F17.200 Nicotine dependence, unspecified, uncomplicated; Z79.82 Long term (current) use of aspirin; Z79.899 Other long term (current) drug therapy; Z86.73 Personal history of transient ischemic attack (TIA), and cerebral infarction without residual deficits; Z98.1 Arthrodesis status; Z95.5 Presence of coronary angioplasty implant and graft; R51.9 Headache, unspecified
CPT/HCPCS: 99284 ×2; 96365 ×2; 96375 ×3; 96361 ×4; 36415; 80053; 85652; 85025; 85610; 85730; 87040; 70496; 70450; 70498; J2765; J1170; J2540; Q9967

== ENCOUNTER 2020-09-02 16:18 | Emergency (ER) | payer MEDICARE ==
[2020-09-02 16:26] VITALS: TEMP 98.1
--- NOTE | 2020-09-02 16:29 | ED ---
General Adult HPI - General Chief complaint: Chest Pain Stated complaint: chest pain Time Seen by Provider: 09/02/20 16:27 Source: patient Mode of arrival: ambulatory Limitations: no limitations - History of Present Illness Initial comments: Patient presents the ED with his girlfriend for evaluation. Patient states that he was outside with his dogs about an hour ago when he developed lower substernal chest pressure. Patient also admits to having associated dyspnea and nausea. Patient states that he took a dose of his nitroglycerin with minimal re lief. Patient states that his pain is currently 6 out of 10 in severity. Patient admits to taking a full dose aspirin earlier today. Patient states that he has had a cardiac stent placement the past. Patient states that he has a pack-a-day smoker. Patient denies trauma or injury, radiation of his pain, fever or chills, headache, focal numbness/weakness/neuro deficit, neck/arm/jaw/back pain, pleuritic pain, leg or calf swelling or pain, cough or cold symptoms, palpitations, dizziness, nausea/vomiting/diaphoresis, abdominal pain, diarrhea or constipation, bloody or melanotic stool, or any other symptoms or complaints. - Related Data Home Medications Medication Instructions Recorded Confirmed Aspirin 325 mg PO DAILY 06/28/14 07/23/20 ALPRAZolam [Xanax] 1 mg PO TID PRN 07/14/20 07/23/20 Acetaminophen [Tylenol Extra 500 - 1,000 mg PO Q6H PRN 07/14/20 07/23/20 Strength] Magnesium Oxide [Fitzgerald] 500 mg PO DAILY 07/14/20 07/23/20 lisinopriL [Zestril] 20 mg PO DAILY 07/14/20 07/23/20 Simvastatin 40 mg PO DAILY 07/23/20 07/23/20 Previous Rx's Medication Instructions Recorded Atorvastatin [Lipitor] 40 mg PO DAILY #30 tab 07/24/20 Nitroglycerin Sl Tabs [Nitrostat] 0.4 mg SUBLINGUAL Q5M PRN #20 tab 07/24/20 Penicillin V Potassium [Pen Vee K] 500 mg PO QID #40 tablet 08/31/20 Allergies Allergy/AdvReac Type Severity Reaction Status Date / Time No Known Allergies Allergy Verified 09/02/20 16:26 Review of Systems ROS Statement: Those systems with pertinent positive or pertinent negative responses have been documented in the HPI. ROS Other: All systems not noted in ROS Statement are negative. Past Medical History Past Medical History: Coronary Artery Disease (CAD), COPD, CVA/TIA, Hearing Disorder / Deafness, Hyperlipidemia, Hypertension, Myocardial Infarction ([place]), Osteoarthritis ([place]), Prostate Disorder Additional Past Medical History / Comment(s): Stroke left eye 2006 -most of vision returned. Hx shingles Rt inner ear 2008, wears hearing aids. BPH. 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 SOB w/activity. AAA, Dr monitoring. Mild edema ankles. Coronary Artery Stenosis. Last Myocardial Infarction Date:: unknown History of Any Multi-Drug Resistant Organisms: None Reported Past Surgical History: Heart Catheterization, Heart Catheterization With Stent, Hernia Repair, Tonsillectomy Additional Past Surgical History / Comment(s): 2013 Cervical Fusion. Umb hernia, ing hernia. Heart cath 2011. Past Anesthesia/Blood Transfusion Reactions: No Reported Reaction Date of Last Stent Placement:: 1997 Past Psychological History: Anxiety Smoking Status: Current every day smoker Past Alcohol Use History: None Reported Past Drug Use History: Marijuana - Past Family History Brother(s) Family Medical History: Cancer, Diabetes Mellitus Additional Family Medical History / Comment(s): leukemia, lung cancer; another brother had DM, gangrene General Exam Limitations: no limitations General appearance: alert, in no apparent distress Head exam: Present: atraumatic, normocephalic Eye exam: Present: normal appearance, EOMI ENT exam: Present: mucous membranes moist Neck exam: Present: other (Trachea is in midline) Respiratory exam: Present: normal lung sounds bilaterally. Absent: respiratory distress, wheezes, rales, rhonchi, chest wall tenderness Cardiovascular Exam: Present: regular rate, normal rhythm, normal heart sounds, other (Normal radial pulses bilaterally) GI/Abdominal exam: Present: soft. Absent: distended, tenderness, guarding Extremities exam: Present: other (Negative Homans sign bilaterally). Absent: tenderness, pedal edema, calf tenderness Neurological exam: Present: alert, oriented X3. Absent: motor sensory deficit Psychiatric exam: Present: normal affect, normal mood Skin exam: Present: warm, dry, intact, normal color Course Vital Signs 09/02/20 09/02/20 16:23 18:05 Temperature 98.1 F Pulse Rate 100 84 Respiratory 20 16 Rate Blood Pressure 104/67 131/82 O2 Sat by Pulse 98 97 Oximetry - Reevaluation(s) Reevaluation #1: 09/02/20 19:04 Case, H&P, test results and ED/prehospital management were discussed with MARIUM Salinas. He accepts hospital admission on behalf of himself and Dr. Dobson. He recommends cardiology consultation. He has no further recommendations at this time. 09/02/20 19:17 Patient was accepted for admission by MARIUM Salinas, but patient now states that he wishes to leave AGAINST MEDICAL ADVICE. Patient states that his chest pain pain has completely resolved, and he denies having any symptoms currently. Patient remains alert and breathing comfortably. I have explained to the patient that given his symptoms and cardiac history, I would strongly recommend hospital admission for further cardiac evaluation. Patient is A and O 4 and completely coherent at this time. I have explained to the patient the risks of leaving AMA, including further morbidity and even in the worst case situation. Patient is able to verbalize understanding of these risks, and he still wishes to leave AMA at this time. Patient agrees to sign AMA form. Patient was counseled about chest pain. He was instructed to return to the ED should he change his mind, or should he develop new or worsening symptoms. Patient was also instructed to follow up closely with his primary care provider. Patient feels comfortable with this plan. EKG Findings - EKG Comments: EKG Findings:: Normal sinus rhythm, ventricular rate of 97 bpm, no ectopy, normal NE and QRS intervals, normal QT interval, normal axis, no ST or T-wave abnormality Medical Decision Making - Lab Data Result diagrams: 09/02/20 16:51 09/02/20 16:51 Lab Results 09/02/20 09/02/20 09/02/20 Range/Units 16:51 16:51 16:51 WBC 9.9 (3.8-10.6) k/uL RBC 4.92 (4.30-5.90) m/uL Hgb 14.3 (13.0-17.5) gm/dL Hct 45.1 (39.0-53.0) % MCV 91.7 (80.0-100.0) fL MCH 29.1 (25.0-35.0) pg MCHC 31.7 (31.0-37.0) g/dL RDW 13.7 (11.5-15.5) % Plt Count 209 (150-450) k/uL Neutrophils % 72 % Lymphocytes % 17 % Monocytes % 6 % Eosinophils % 3 % Basophils % 1 % Neutrophils # 7.1 (1.3-7.7) k/uL Lymphocytes # 1.6 (1.0-4.8) k/uL Monocytes # 0.6 (0-1.0) k/uL Eosinophils # 0.3 (0-0.7) k/uL Basophils # 0.1 (0-0.2) k/uL PT 10.3 (9.0-12.0) sec INR 1.0 (<1.2) APTT 24.6 (22.0-30.0) sec D-Dimer 1.02 H (<0.60) mg/L FEU Sodium 137 (137-145) mmol/L Potassium 4.2 (3.5-5.1) mmol/L Chloride 105 (98-107) mmol/L Carbon Dioxide 25 (22-30) mmol/L Anion Gap 7 mmol/L BUN 12 (9-20) mg/dL Creatinine 0.72 (0.66-1.25) mg/dL Est GFR (CKD-EPI)AfAm >90 (>60 ml/min/1.73 sqM) Est GFR (CKD-EPI)NonAf >90 (>60 ml/min/1.73 sqM) Glucose 132 H (74-99) mg/dL Calcium 9.2 (8.4-10.2) mg/dL Magnesium 1.8 (1.6-2.3) mg/dL Total Bilirubin 0.5 (0.2-1.3) mg/dL AST 20 (17-59) U/L ALT 15 (4-49) U/L Alkaline Phosphatase 88 (38-126) U/L Troponin I (0.000-0.034) ng/mL NT-Pro-B Natriuret Pep pg/mL Total Protein 7.0 (6.3-8.2) g/dL Albumin 3.9 (3.5-5.0) g/dL Lipase 333 H (23-300) U/L 09/02/20 09/02/20 Range/Units 16:51 16:51 WBC (3.8-10.6) k/uL RBC (4.30-5.90) m/uL Hgb (13.0-17.5) gm/dL Hct (39.0-53.0) % MCV (80.0-100.0) fL MCH (25.0-35.0) pg MCHC (31.0-37.0) g/dL RDW (11.5-15.5) % Plt Count (150-450) k/uL Neutrophils % % Lymphocytes % % Monocytes % % Eosinophils % % Basophils % % Neutrophils # (1.3-7.7) k/uL Lymphocytes # (1.0-4.8) k/uL Monocytes # (0-1.0) k/uL Eosinophils # (0-0.7) k/uL Basophils # (0-0.2) k/uL PT (9.0-12.0) sec INR (<1.2) APTT (22.0-30.0) sec D-Dimer (<0.60) mg/L FEU Sodium (137-145) mmol/L Potassium (3.5-5.1) mmol/L Chloride (98-107) mmol/L Carbon Dioxide (22-30) mmol/L Anion Gap mmol/L BUN (9-20) mg/dL Creatinine (0.66-1.25) mg/dL Est GFR (CKD-EPI)AfAm (>60 ml/min/1.73 sqM) Est GFR (CKD-EPI)NonAf (>60 ml/min/1.73 sqM) Glucose (74-99) mg/dL Calcium (8.4-10.2) mg/dL Magnesium (1.6-2.3) mg/dL Total Bilirubin (0.2-1.3) mg/dL AST (17-59) U/L ALT (4-49) U/L Alkaline Phosphatase (38-126) U/L Troponin I <0.012 (0.000-0.034) ng/mL NT-Pro-B Natriuret Pep 183 pg/mL Total Protein (6.3-8.2) g/dL Albumin (3.5-5.0) g/dL Lipase (23-300) U/L - Radiology Data Radiology results: report reviewed (Chest x-ray: mild subsegmental atelectasis at posterior lung bases similar to old exam, normal heart; CT angiogram chest: Atherosclerotic vascular disease, no evidence of pulmonary embolism, pulmonary fibrotic changes, COPD) Disposition Clinical Impression: Chest pain Disposition: Left Against Medical Advice Condition: Stable Instructions (If sedation given, give patient instructions): Chest Pain (ED) Additional Instructions: Return to the ER immediately should you change your mind or develop new or worsening symptoms. Follow up closely with your primary care provider. Is patient prescribed a controlled substance at d/c from ED?: No Referrals: Radha Henry III, MD [Primary Care Provider] - 1-2 days Time of Disposition: 19:21
[2020-09-02] MEDS ORDERED: NITROGLYCERIN SL TABS 0.4 MG TAB SUBLINGUAL STA (16:45)
[2020-09-02] MEDS ORDERED: ONDANSETRON 4 MG/2 ML VIAL IVP STA (16:45)
[2020-09-02 16:59] LABS: Basophils # (A) 0.1 k/uL (0-0.2); Basophils % (A) 1 %; Eosinophils # (A) 0.3 k/uL (0-0.7); Eosinophils % (A) 3 %; HCT 45.1 % (39.0-53.0); HGB 14.3 gm/dL (13.0-17.5); Lymphocytes # (A) 1.6 k/uL (1.0-4.8); Lymphocytes % (A) 17 %; MCH 29.1 pg (25.0-35.0); MCHC 31.7 g/dL (31.0-37.0); MCV 91.7 fL (80.0-100.0); Mean Platelet Volume 7.9; Monocytes # (A) 0.6 k/uL (0-1.0); Monocytes % (A) 6 %; Neutrophils # (A) 7.1 k/uL (1.3-7.7); Neutrophils % (A) 72 %; Platelet Count 209 k/uL (150-450); RBC 4.92 m/uL (4.30-5.90); RDW 13.7 % (11.5-15.5); WBC 9.9 k/uL (3.8-10.6)
[2020-09-02 17:09] LABS: ALT 15 U/L (4-49); AST 20 U/L (17-59); African American GFR (CKD) >90 (>60 ml/min/1.73 sqM); Albumin 3.9 g/dL (3.5-5.0); Alkaline Phosphatase 88 U/L (38-126); Anion Gap 7 mmol/L; Blood Urea Nitrogen 12 mg/dL (9-20); Calcium 9.2 mg/dL (8.4-10.2); Carbon Dioxide 25 mmol/L (22-30); Chloride 105 mmol/L (98-107); Glucose 132 mg/dL (74-99); Magnesium 1.8 mg/dL (1.6-2.3); Non-African American GFR(CKD) >90 (>60 ml/min/1.73 sqM); Potassium 4.2 mmol/L (3.5-5.1); Sodium 137 mmol/L (137-145); Total Bilirubin 0.5 mg/dL (0.2-1.3)
[2020-09-02 17:20] LABS: Partial Thromboplastin Time 24.6 sec (22.0-30.0); Prothrombin Time 10.3 sec (9.0-12.0)
[2020-09-02] MEDS ORDERED: KETOROLAC 15 MG/ML 1 ML VIAL IVP STA (17:20)
[2020-09-02] MEDS ORDERED: KETOROLAC 15 MG/ML 1 ML VIAL ONE (17:20)
--- NOTE | 2020-09-02 17:25 | XR ---
EXAMINATION TYPE: XR chest 2V DATE OF EXAM: 09/02/2020 COMPARISON: NONE HISTORY: Chest pain TECHNIQUE: 2 views FINDINGS: Heart is normal. Lungs are clear of consolidation. There is no heart failure. There is some mild linear density at the lung bases. Thoracic aorta is atheromatous. There are chest leads. IMPRESSION: Mild subsegmental atelectasis at the posterior lung bases similar to old exam. Normal hea rt..
[2020-09-02 17:29] LABS: D-Dimer 1.02 mg/L FEU (<0.60)
[2020-09-02] MEDS ORDERED: SODIUM CHLORIDE 0.9% 500 ML 500 ML IV ONE (17:30)
[2020-09-02 18:06] VITALS: BP 131/82; PULSE 84; RESP 16
--- NOTE | 2020-09-02 18:54 | CT ---
EXAMINATION TYPE: CT chest angio for PE DATE OF EXAM: 09/02/2020 COMPARISON: None HISTORY: Chest pain, dyspnea, elevated d-dimer, Hx stroke, heart cath w/ stent CT DLP: 423.8 mGycm Automated exposure control for dose reduction was used. CONTRAST: Performed with IV Contrast, patient injected with 100 mL of Isovue 370. There are 3-D post processed images. There is bullous pulmonary emphysema in both upper lobes. There is coarse interstitial density in the lungs posteriorly. There is some atelectasis at the posterior l hemanth bases. There is no pleural effusion. There is no pericardial effusion. There is coronary artery c alcification. Thoracic aorta is intact. There is no aneurysm or dissection. Ascending aorta measures 3.6 cm. There are no hilar masses. There is no mediastinal adenopathy. There are a few bilateral bronchial lymph no jamie that measure up to 1 cm. The bony thorax is intact. IMPRESSION: Atherosclerotic vascular disease. No evidence of pulmonary embolism. Pulmonary fibrotic changes. COPD .
[2020-09-02] MEDS ORDERED: PENICILLIN VK 500MG STARTER 4 TAB BTL PO SCH (22:00)
[2020-09-03] MEDS ORDERED: lisinopriL 20 MG TAB PO SCH (09:00)
[2020-09-03] MEDS ORDERED: ASPIRIN 325 MG TAB PO SCH (09:00)
== END 2020-09-02 19:20 | disposition left against medical advice (07) ==
LOC: EC 16:18
DX: R07.89 Other chest pain (principal); F17.200 Nicotine dependence, unspecified, uncomplicated; F41.9 Anxiety disorder, unspecified; Z79.82 Long term (current) use of aspirin; Z79.899 Other long term (current) drug therapy; I25.2 Old myocardial infarction; Z98.1 Arthrodesis status; Z86.73 Personal history of transient ischemic attack (TIA), and cerebral infarction without residual deficits; Z53.29 Procedure and treatment not carried out because of patient's decision for other reasons
CPT/HCPCS: 36415; 93005; 85379; 83880; 80053; 83690; 83735; 84484; 85025; 85610; 85730; 71046; 71275; 99285; 96374; 96375; J2405; J1885; Q9967

== ENCOUNTER 2020-09-27 05:50 | Inpatient (IN) | payer MEDICARE ==
[2020-09-21 11:14] VITALS: BMI 27.6
[~2020-09-27 05:50] MED LIST changes: -DEXAMETHASONE SOD PHOSPHATE 10 MG/ML 1 ML VIAL IV ONE; -ONDANSETRON 4 MG/2 ML VIAL IVP ONE; +ONDANSETRON 4 MG/2 ML VIAL IVP PRN; +fentaNYL (PF) 50 MCG/ML 2 ML AMP IV PRN; +fentaNYL (PF) 50 MCG/ML 2 ML AMP IVP PRN
[2020-09-27] MEDS ORDERED: DEXAMETHASONE SOD PHOSPHATE 10 MG/ML 1 ML VIAL IV ONE (06:40)
[2020-09-27] MEDS ORDERED: LIDOCAINE 1% INJ 10MG/ML (20 ML MDV) ONE ×2 (07:08→07:25)
[2020-09-27] MEDS ORDERED: ePHEDrine SULFATE/0.9% NACL/PF 50 MG/5 ML SYRINGE IV ONE (07:25)
[2020-09-27] MEDS ORDERED: SUCCINYLCHOLINE CHLORIDE 100 MG/5 ML SYR IV ONE (07:25)
[2020-09-27] MEDS ORDERED: PHENYLEPHRINE-0.9% NACL SYG 1 MG/10 ML SYRINGE ONE (07:25)
[2020-09-27] MEDS ORDERED: MIDAZOLAM 2 MG/2 ML VIAL ONE (07:25)
[2020-09-27] MEDS ORDERED: NEOSTIGMINE 1 MG/ML 10 ML VIAL ONE (07:25)
[2020-09-27] MEDS ORDERED: HEPARIN SODIUM,PORCINE 10,000 UNIT/ML 1 ML VIAL ONE (07:25)
[2020-09-27] MEDS ORDERED: PROPOFOL 10 MG/ML 20 ML VIAL IV ONE (07:25)
[2020-09-27] MEDS ORDERED: CALCIUM CHLORIDE 100 MG/ML 10 ML SYRINGE ONE (07:25)
[2020-09-27] MEDS ORDERED: GLYCOPYRROLATE 0.2 MG/ML 2 ML VIAL ONE (07:25)
[2020-09-27] MEDS ORDERED: fentaNYL (PF) 50 MCG/ML 2 ML AMP ONE (07:25)
[2020-09-27] MEDS ORDERED: ROCURONIUM 10 MG/ML (10 ML VIAL) IV ONE (07:25)
[2020-09-27] MEDS ORDERED: LIDOCAINE 1% (PF) 10 MG/ML (30 ML SDV) SQ ONE (07:30)
--- NOTE | 2020-09-27 07:40 | P.HPIHPCON ---
History of Present Illness H&P Date: 09/27/20 Meet is a 64-year-old male here in the hospital for carotid artery stenosis undergoing a right carotid endarterectomy. This was initially attempted previously for a systolic velocity of 339 with a ratio of 3.3, there is a computed tomography scan which confirmed 80-99% stenosis. There were attempts to undergo this previously but at the time of the procedure he had significant hypotension therefore the injury was canceled and further cardiac workup was performed. He was found to be cleared from all cardiac standpoint for anesthesia and the procedure itself. The instrument was elucidated that the patient was using illicit drugs and prior to the surgery had utilized methamphetamines within the week or so prior. At that time a rescheduling he was found to have a tooth abscess that preadmission testing therefore was postponed once more who appropriately treat his infection. Given all the things, he has been cleared at this time to go forth with interventions. He denies chest pains, shortness of breath, unilateral weakness, word finding difficulties or issues otherwise. He has been utilizing his statin and aspirin medication. He states he has not utilized any illicit drugs since the last hospitalization. Consent for Procedure: I have explained the operation/procedure to the patient, including the risks, benefits, side effects, alternative therapies (including not receiving the proposed treatment or service), the likelihood of the patient achieving his/her goals, and potential recuperation problems for the procedure/sedation/analgesia, as well as any blood products, if indicated. I also explained to the patient the risks, benefits and side effects of the alternatives, as well as the risks related to not receiving the proposed procedure, care, treatment, or services. - Review of Systems Comment: This 14 point review of systems is performed. 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 Hx shingles Rt inner ear 2008, wears hearing aids. BPH, ED. Missing disc lumbar spine. SOB w/activity. AAA, Dr monitoring. Hx sl edema ankles. Rt carotid stenosis. Abscessed tooth sev wks ago, completed AB Rx. Last Myocardial Infarction Date:: unknown History of Any Multi-Drug Resistant Organisms: None Reported Past Surgical History: Heart Catheterization, Heart Catheterization With Stent, Hernia Repair, Tonsillectomy Additional Past Surgical History / Comment(s): 2013 Cervical Fusion. Umb hernia, ing hernia. Heart cath 2011. Bilat Cataracts Past Anesthesia/Blood Transfusion Reactions: No Reported Reaction Date of Last Stent Placement:: 1997 Smoking Status: Current every day smoker - Past Family History Brother(s) Family Medical History: Cancer, Diabetes Mellitus Additional Family Medical History / Comment(s): leukemia, lung cancer; another brother had DM, gangrene Medications and Allergies Home Medications Medication Instructions Recorded Confirmed Type Aspirin 325 mg PO DAILY 06/28/14 09/21/20 History ALPRAZolam [Xanax] 1 mg PO TID PRN 07/14/20 09/21/20 History Acetaminophen [Tylenol Extra 500 - 1,000 mg PO Q6H PRN 07/14/20 09/21/20 History Strength] lisinopriL [Zestril] 2.5 mg PO DAILY 07/14/20 09/21/20 History Simvastatin 80 mg PO DAILY 07/23/20 09/21/20 History Nitroglycerin Sl Tabs [Nitrostat] 0.4 mg SUBLINGUAL Q5M PRN #20 tab 07/24/20 09/21/20 Rx Ergocalciferol [Vitamin D2 50,000 unit PO HURTADO 09/21/20 09/21/20 History (DRISDOL)] Allergies Allergy/AdvReac Type Severity Reaction Status Date / Time No Known Allergies Allergy Verified 09/21/20 10:38 Surgical - Exam Vital Signs Temp Pulse Resp BP Pulse Ox 97.5 F L 86 16 145/67 95 09/27/20 06:30 09/27/20 06:30 09/27/20 06:30 09/27/20 06:30 09/27/20 06:30 Gen. is a pleasant and cooperative male in no acute distress. HEENT is normocephalic, atraumatic, extraocular motion intact. Heart is regular in rate and rhythm. Lungs are clear bilaterally. Abdomen is soft, nontender and nondistended. Extremity show no clubbing, cyanosis or edema. Normal mood and affect. Cranial nerves II through XII grossly intact Results US and CTA results reviewed from previous Assessment and Plan Assessment: 1. High-grade right internal carotid artery stenosis #2 high-grade left internal carotid artery stenosis #3 hypertension #4 history of illicit drug use Plan: Having been cleared from all preoperative concerns regarding his cardiac, we plan to go forth today with a right carotid endarterectomy with patch angioplasty. Discussion was had with anesthesia regarding his previous issues and we will plan to treat medically during the procedure. Risks and benefits were passed with the patient and family at the bedside. They seemingly understand and are willing to proceed
[2020-09-27] MEDS ORDERED: HEPARIN SODIUM (1,000 UNIT/ML) 2,000 UNIT in SODIUM CHLORIDE 0.9% 1,000 ML IRRIGATION ONE (08:24)
[2020-09-27] MEDS ORDERED: ceFAZolin 2,000 MG in SODIUM CHLORIDE 0.9% 500 ML IRRIGATION ONE (08:25)
[2020-09-27] MEDS ORDERED: MAG HYDROX/AL HYDROX/SIMETH 30 ML CUP PO PRN (10:21)
[2020-09-27] MEDS ORDERED: TRIMETHOBENZAMIDE 100 MG/ML 2 ML VIAL IM PRN (10:21)
--- NOTE | 2020-09-27 10:21 | P.OP ---
Date of Procedure: 09/27/20 Description of Procedure: Preoperative Diagnosis: [High grade right] Internal carotid artery stenosis Postoperative Diagnosis: Same Procedure: [Right] carotid endarterectomy with patch angioplasty Anesthesia: GET Surgeon: Olivia Mccullough DO Estimated Blood Loss (ml): [30 mL] IV Fluids: [800 mL] Urine Output: [See records] Specimen: [Right carotid plaque, right cervical lymph nodes] Condition: stable Disposition: PACU Findings and indications: [The patient is a 64-year-old male with high-grade right internal carotid stenosis and some findings on ophthalmologic exam consistent with a symptomatic right carotid stenosis. He did not have any signs of weakness, lateralizing symptoms, facial droop or word finding difficulties., he initially presented for revascularization but at that time had significant hypotension at the time of induction, therefore the case was canceled and further cardiac work up was performed. It was also elucidated that he had utilized amphetamines in the weeks before the surgery. Given all these findings his workup was performed and he was cleared for intervention. He is brought to the operative suite today after risks and benefits were discussed with he and his family. They seemingly understood and are willing to proceed. There was significant high-grade stenosis, near occlusive. There is also significantly enlarged right cervical lymph nodes which were sent for pathology] Procedure in detail: After written informed consent was obtained the patient all risks benefits and competitions were described the patient is brought to the operative suite and laid in a supine position. The area of the neck was prepped and draped in usual sterile fashion after appropriate anesthetic was performed per the anesthesiologist. A timeout was performed in normal fashion and antibiotics were administered prior to incision. An oblique incision was then created just anterior to the sternocleidomastoid musculature with a 10 blade scalpel and dissection was carried down to the carotid sheath. After transection of the platysma, the very enlarged asked her jugular vein was again tied. It was doubly clamped ligated and sutured with 3-0 silk. The carotid sheath was then entered after facial vein was located and suture ligated in normal fashion. After entering the carotid sheath, the patient was heparinized and ACT is were followed. The common carotid, internal carotid, external carotid and superior thyroid arteries were located and dissected free in a meticulous fashion circumferentially and controlled with vessel loops. Attention was then placed to locating the vagus nerve as well as hypoglossal nerve which were both spared. Once ACT was appropriate, the proximal and distal aspects of the dissection were then controlled with vascular clamps. Arteriotomy was then created with 11 blade scalpel and extended with Hinds Reyes scissors. Utilizing pressure tubing stump pressures were obtained and were in the 60s. No shunt was required. An endarterectomy was then performed with a [place] elevator. The plaque was transected proximally and then feathered at the distal aspect of the internal carotid artery and removed. The area was copiously irrigated with heparinized saline and all free debris was removed. The distal area was tacked with 7-0 Prolene to ensure no flap A 0.8 x 8 cm bovine pericardial patch was then chosen and patch angioplasty was performed with 6-0 Prolene suture in a running fashion. Prior to last sutures being placed the inflow was released flushing any free debris out of the patch. This was reclamped and the internal carotid artery was released revealing good brisk flow and was once again reclamped. The external carotid and superior thyroid artery were then released followed by the common carotid artery to allow any free debris to be flushed into the external system. Final sutures were placed and secured. Internal carotid artery control was then released. Good pulsatile flow was noted through the patch and a Doppler was utilized demonstrating good brisk flow into the internal, external carotid arteries without any signs of obstruction. Hemostasis was then assured with interrupted sutures of 6-0 Prolene as well as surgicell. A 10-Iranian DIONE drain was then placed in normal fashion and secured w ith 3-0 silk suture. The incision was then closed in a multilayer fashion after hemostasis was assured. The skin was then cleansed and dressings were placed. Patient tolerated the procedure well and was following commands and moving all extremities. Patient was then sent to PACU for recovery.
[2020-09-27 10:47] LABS: Glucose,Whole Blood 191 mg/dL (75-99)
[2020-09-27] MEDS: PHENYLEPHRINE 40 MG in SODIUM CHLORIDE 0.9% 250 ML IV SCH ×2 (10:58→21:07)
[2020-09-27] MEDS: LACTATED RINGERS 1,000 ML IV SCH (11:30)
[2020-09-27 11:54] LABS: Glucose,Whole Blood 212 mg/dL (75-99)
[2020-09-27] MEDS ORDERED: ATROPINE SULFATE 0.1 MG/ML 10ML SYRINGE ONE (12:01)
[2020-09-27] MEDS ORDERED: HYDROcodone/APAP 5-325MG 1 EACH TAB PO PRN (12:10)
[2020-09-27] MEDS ORDERED: MORPHINE SULFATE 4 MG/ML SYRINGE IVP PRN (12:10)
[2020-09-27] MEDS: INSULIN ASPART (NovoLOG) 100 UNIT/ML VIAL SQ SCH ×3 (13:55→21:04)
[2020-09-27] MEDS: ALPRAZolam 0.5 MG TAB PO PRN ×2 (14:51→16:11)
--- NOTE | 2020-09-27 16:20 | P.CNPUL ---
History of Present Illness Consult date: 09/27/20 Chief complaint: Post carotid artery endarterectomy History of present illness: This is a 64-year-old male patient continued to underwent a right carotid endarterectomy with patch angioplasty. Estimated blood loss was 30 mL. IV fluids given Intra-Op was 800 mL and the patient is currently in the intensive care unit being monitored neurologically and hemodynamically. Noted the patient had high-grade right internal carotid artery stenosis and some findings on ophthalmologic exam consistent with symptomatic right carotid artery stenosis. He did not have any signs of weakness or lateralizing symptoms or facial droop or any word finding difficulties. The patient was to get revascularization earlier, however the procedure got canceled and the patient got quite hypotensive the time of induction. He was advised for him to undergo a cardiac evaluation. It was also elucidated that he had utilizing phentermine in the weeks before the surgery. Ultimately was cleared for the procedure and he was brought into the operating room and he underwent surgery and he was brought into the intensive care unit. The patient had a right internal carotid artery stenosis in the order of 80-99%. He is known to have hypertension and hyperlipidemia. He is currently on Miguel-Synephrine for blood pressure control which is running at 0.5 g per KG per minute. His most recent blood pressure is in the order of 127/51. His is sinus bradycardia with a heart rate of 43 and the respirations are 12. He is on 2 L of oxygen by nasal cannula with a pulse ox above 90%. Cardiac clearance was given to him by Dr. Wray. The patient is known to have coronary artery disease and chronic total occlusion of the RCA as well as stenting of the LAD. He has hypertension and hyperlipidemia and history of smoking as well as an abdominal aortic aneurysm. His catheterization was done on 06/29/2014 indicating 100% proximal RCA lesion and a mild restenosis of the mid LAD lesion. His echocardiogram showed a normal ejection fraction from 06/28/2020. Review of Systems Constitutional: Denies chills, Denies fever Eyes: denies as per HPI, denies blurred vision, denies bulging eye, denies decreased vision, denies diplopia, denies discharge, denies dry eye, denies irritation, denies itching, denies pain, denies photophobia, denies loss of peripheral vision, denies loss of vision, denies tunnel vision/blind spots Ears: deny: decreased hearing, ear discharge, earache, tinnitus Ears, nose, mouth and throat: Reports as per HPI Breasts: absent: as per HPI, gynecomastia Cardiovascular: Reports as per HPI Respiratory: Reports as per HPI Gastrointestinal: Reports as per HPI Genitourinary: Reports as per HPI Musculoskeletal: Reports as per HPI Musculoskeletal: absent: ankle pain, ankle stiffness, ankle swelling Integumentary: Reports as per HPI Neurological: Reports as per HPI Psychiatric: Reports as per HPI Endocrine: Reports as per HPI Hematologic/Lymphatic: Reports as per HPI Allergic/Immunologic: Reports as per HPI Past Medical History Past Medical History: Coronary Artery Disease (CAD), Chest Pain / Angina, COPD, CVA/TIA, Hearing Disorder / Deafness, Hyperlipidemia, Hypertension, Myocardial Infarction ([place]), Musculoskeletal Disorder, Osteoarthritis (OA), Prostate Disorder Additional Past Medical History / Comment(s): Stroke left eye 2006, 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 Hx shingles Rt inner ear 2008, wears hearing aids. BPH, ED, disc lumbar spine. SOB w/activity. AAA, Rt carotid stenosis. Abscessed tooth sev wks ago, completed AB Rx. Last Myocardial Infarction Date:: unknown History of Any Multi-Drug Resistant Organisms: None Reported Past Surgical History: Heart Catheterization, Heart Catheterization With Stent, Hernia Repair, Tonsillectomy Additional Past Surgical History / Comment(s): 2013 Cervical Fusion. Umb hernia, ing hernia. Heart cath 2011. Bilat Cataracts Past Anesthesia/Blood Transfusion Reactions: No Reported Reaction Date of Last Stent Placement:: 1997 Smoking Status: Current every day smoker - Past Family History Brother(s) Family Medical History: Cancer, Diabetes Mellitus Additional Family Medical History / Comment(s): leukemia, lung cancer; another brother had DM, gangrene Medications and Allergies Home Medications Medication Instructions Recorded Confirmed Type Aspirin 325 mg PO DAILY 06/28/14 09/21/20 History ALPRAZolam [Xanax] 1 mg PO TID PRN 07/14/20 09/21/20 History Acetaminophen [Tylenol Extra 500 - 1,000 mg PO Q6H PRN 07/14/20 09/21/20 History Strength] lisinopriL [Zestril] 2.5 mg PO DAILY 07/14/20 09/21/20 History Simvastatin 80 mg PO DAILY 07/23/20 09/21/20 History Nitroglycerin Sl Tabs [Nitrostat] 0.4 mg SUBLINGUAL Q5M PRN #20 tab 07/24/20 09/21/20 Rx Ergocalciferol [Vitamin D2 50,000 unit PO HURTADO 09/21/20 09/21/20 History (DRISDOL)] Allergies Allergy/AdvReac Type Severity Reaction Status Date / Time No Known Allergies Allergy Verified 09/21/20 10:38 Physical Exam Vitals: Vital Signs Temp Pulse Pulse Resp BP BP BP 09/27/20 13:50 43 L 12 09/27/20 13:45 39 L 15 116/59 09/27/20 13:40 42 L 17 116/59 09/27/20 13:35 44 L 16 116/59 09/27/20 13:30 47 L 18 09/27/20 13:00 53 L 14 09/27/20 12:30 48 L 12 09/27/20 12:00 45 L 17 09/27/20 11:40 97.8 F 61 13 114/55 09/27/20 11:10 56 L 16 125/60 09/27/20 10:55 97.3 F L 59 L 16 124/56 09/27/20 10:40 70 16 110/56 09/27/20 10:25 70 16 116/59 09/27/20 10:10 97.3 F L 72 16 09/27/20 06:30 97.5 F L 86 16 135/68 BP Pulse Ox 09/27/20 13:50 97 09/27/20 13:45 98 09/27/20 13:40 98 09/27/20 13:35 97 09/27/20 13:30 96 09/27/20 13:00 97 09/27/20 12:30 98 09/27/20 12:00 97 09/27/20 11:40 95 09/27/20 11:10 121/60 97 09/27/20 10:55 121/60 97 09/27/20 10:40 114/57 99 09/27/20 10:25 116/56 99 09/27/20 10:10 122/58 99 09/27/20 06:30 145/67 95 Intake and Output 09/26/20 09/27/20 09/27/20 22:59 06:59 14:59 Intake Total 200 2532.070 Output Total 930 Balance 200 1602.070 Intake: IV 200 2520 Lactated Ringers 1,000 ml 160 @ 80 mls/hr IV .[id number] GIAN Rx#:[id number] Intake, IV Titration 12.070 Amount Phenylephrine 40 mg In 12.070 Sodium Chloride 0.9% 250 ml @ 0.5 MCG/KG/MIN 16. 535 mls/hr IV .[id number] GIAN Rx#:[id number] Output: Urine 900 Estimated Blood Loss 30 Other: Weight 86.8 kg ABP, PAP, CO, CI - Last 8 Hours Arterial Blood Pressure 127/51 Arterial Blood Pressure 122/48 Arterial Blood Pressure 122/49 Arterial Blood Pressure 108/46 Arterial Blood Pressure 117/49 Arterial Blood Pressure 115/54 Arterial Blood Pressure 118/53 Arterial Blood Pressure 133/52 The patient appeared well nourished and normally developed. Vital signs as documented. Head exam is unremarkable. No scleral icterus or corneal arcus noted. Neck is without jugular venous distension, thyromegaly, or carotid bruits. Carotid upstrokes are brisk bilaterally. This surgical wound site over the right carotid area dry clean and intact. No swelling. No ecchymosis or erythema. the patient has a DIONE drain in the right neck and also from the DIONE is been in the order of 20 mL of serosanguineous material since his arrival from the operating room. Lungs are clear to auscultation and percussion. Cardiac exam reveals the PMI to be normally sized and situated. Rhythm is regular. First and second heart sounds normal. No murmurs, rubs or gallops. Abdominal exam reveals normal bowel sounds, no masses, no organomegaly and no aortic enlargement. Extremities are nonedematous and both femoral and pedal pulses are normal.Examination of the skin revealed no evidence of significant rashes, suspicious appearing nevi or other concerning lesions.Neurologically, the patient is awake and alert and the patient does not have any focal neurological deficit. Cranial nerves are essentially intact. Results - Laboratory Findings Abnormal lab findings: Abnormal Labs 09/27/20 09/27/20 10:45 11:53 POC Glucose (mg/dL) 191 H 212 H Assessment and Plan Plan: 1 carotid endarterectomy with patch and opacity and the patient is postop day #0. The patient a high-grade stenosis of the right internal carotid artery, symptomatic 2 sinusbradycardia and hypotension postop currently on phenylephrine drip for hemodynamic support. This is probably related to autonomic ulcerations following carotid surgery. The patient is maintaining an adequate blood pressure while being on phenylephrine at a dose of 0.5 g per KG per minute. Hemodynamic being monitored 3 coronary artery disease with previous stenting of the LAD. The patient a total occlusion of the RCA. Please refer to the cardiac catheter insertion from 2013. He has a preserved LV function 4 hypertension 5 hyperlipidemia 6 history of CVA/TIA and CVA involving the left eye in 2006 7 degenerative lumbar disc disease 8 BPH 9 history of cervical spine fusion 10 abdominal aortic and isn't being monitored on outpatient basis Plan Monitor hemodynamics in the intensive care unit Monitor the surgical wound site Keep the patient on phenylephrine drip for now at a dose of 0.5 mg per KG per minute and maintain a mean atrial pressure above 65 Dilaudid for pain control 0.5 mg every 4-6 hours on a when necessary basis Lactated Ringer at the rate of 80 mL an hour Continue aspirin 160 mg by mouth daily We'll continue to follow. No neurological deficit at this point in time.
[2020-09-27 17:13] LABS: Glucose,Whole Blood 175 mg/dL (75-99)
[2020-09-27] MEDS: BENZOCAINE/MENTHOL LOZENG 1 EACH LOZENGE MUCOUS MEM PRN ×2 (18:15→21:06)
[2020-09-27 20:57] LABS: Glucose,Whole Blood 225 mg/dL (75-99)
[2020-09-27] MEDS: HEPARIN SODIUM,PORCINE 5,000 UNIT/ML 1 ML VIAL SQ SCH (21:03)
[2020-09-28] MEDS: LACTATED RINGERS 1,000 ML IV SCH ×2 (00:45→13:26)
[2020-09-28] MEDS: NOREPINEPHRINE 4 MG in SODIUM CHLORIDE 0.9% 250 ML IV SCH ×2 (02:04→10:48)
[2020-09-28 04:43] LABS: Basophils % (A) 0 %; Eosinophils # (A) 0.2 k/uL (0-0.7); Eosinophils % (A) 1 %; HCT 43.4 % (39.0-53.0); HGB 12.9 gm/dL (13.0-17.5); Hypochromasia Moderate; Lymphocytes # (A) 2.4 k/uL (1.0-4.8); Lymphocytes % (A) 16 %; MCHC 29.8 g/dL (31.0-37.0); Monocytes # (A) 0.9 k/uL (0-1.0); Monocytes % (A) 6 %; Neutrophils % (A) 76 %; Platelet Count 235 k/uL (150-450); RBC 4.46 m/uL (4.30-5.90); WBC 15.7 k/uL (3.8-10.6)
[2020-09-28 04:52] LABS: MCV 97.4 fL (80.0-100.0)
[2020-09-28 05:52] LABS: African American GFR (CKD) >90 (>60 ml/min/1.73 sqM); Anion Gap 4 mmol/L; Blood Urea Nitrogen 16 mg/dL (9-20); Calcium 9.6 mg/dL (8.4-10.2); Carbon Dioxide 26 mmol/L (22-30); Chloride 106 mmol/L (98-107); Glucose 155 mg/dL (74-99); Magnesium 1.9 mg/dL (1.6-2.3); Non-African American GFR(CKD) >90 (>60 ml/min/1.73 sqM); Potassium 4.4 mmol/L (3.5-5.1); Sodium 136 mmol/L (137-145)
[2020-09-28 06:22] LABS: Glucose,Whole Blood 151 mg/dL (75-99)
[2020-09-28] MEDS: INSULIN ASPART (NovoLOG) 100 UNIT/ML VIAL SQ SCH ×4 (06:25→21:58)
[2020-09-28] MEDS: PHENYLEPHRINE 40 MG in SODIUM CHLORIDE 0.9% 250 ML IV SCH (06:25)
[2020-09-28] MEDS: MAGNESIUM SULFATE-D5W PMX 1 GM in DEXTROSE/WATER 1 100ML.BAG IVPB SCH ×2 (06:31→12:15)
--- NOTE | 2020-09-28 07:02 | P.CONS ---
History of Present Illness - History of Present Illness This is a pleasant 64 years old male with past medical history of coronary ar cheryl disease, COPD, CVA/TIA, hyperlipidemia, hypertension, musculoskeletal disorders with osteoarthritis, benign prostatic hypertrophy, and right carotid stenosis, Anxiety. Patient was admitted for elective right carotid artery endarterectomy for his right internal carotid artery stenosis of 80-99%. Postoperatively he was lying comfortable in the ICU, he denies any specific complaint. Denies chest pain or dyspnea. No GI or urinary complaints. Vitals checked and looks stable, no fever, slightly bradycardic. He is currently on cefazolin, morphine as needed for, Xanax as needed for anxiety, insulin sliding scale needing A few extra units of coverage Review of Systems CONSTITUTIONAL: No fever, no malaise, no fatigue. HEENT: No recent visual problems or hearing problems. Denied any sore throat. CARDIOVASCULAR: No orthopnea, PND, no palpitations, no syncope. PULMONARY: No shortness of breath, no cough, no hemoptysis. GASTROINTESTINAL: No diarrhea, no nausea, no vomiting, no abdominal pain. Normoactive bowel sounds. NEUROLOGICAL: No headaches, no weakness, no numbness. HEMATOLOGICAL: Denies any bleeding or petechiae. GENITOURINARY: Denies any burning micturition, frequency, or urgency. MUSCULOSKELETAL/RHEUMATOLOGICAL: Denies any joint pain, swelling, or any muscle pain. ENDOCRINE: Denies any polyuria or polydipsia. 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 Hx shingles Rt inner ear 2008, wears hearing aids. BPH, ED, disc lumbar spine. SOB w/activity. AAA, Rt carotid stenosis. Abscessed tooth sev wks ago, completed AB Rx. Last Myocardial Infarction Date:: unknown History of Any Multi-Drug Resistant Organisms: None Reported Past Surgical History: Heart Catheterization, Heart Catheterization With Stent, Hernia Repair, Tonsillectomy Additional Past Surgical History / Comment(s): 2013 Cervical Fusion. Umb hernia, ing hernia. Heart cath 2011. Bilat Cataracts Past Anesthesia/Blood Transfusion Reactions: No Reported Reaction Date of Last Stent Placement:: 1997 Smoking Status: Current every day smoker - Past Family History Brother(s) Family Medical History: Cancer, Diabetes Mellitus Additional Family Medical History / Comment(s): leukemia, lung cancer; another brother had DM, gangrene Medications and Allergies Home Medications Medication Instructions Recorded Confirmed Type Aspirin 325 mg PO DAILY 06/28/14 09/21/20 History ALPRAZolam [Xanax] 1 mg PO TID PRN 07/14/20 09/21/20 History Acetaminophen [Tylenol Extra 500 - 1,000 mg PO Q6H PRN 07/14/20 09/21/20 History Strength] lisinopriL [Zestril] 2.5 mg PO DAILY 07/14/20 09/21/20 History Simvastatin 80 mg PO DAILY 07/23/20 09/21/20 History Nitroglycerin Sl Tabs [Nitrostat] 0.4 mg SUBLINGUAL Q5M PRN #20 tab 07/24/20 09/21/20 Rx Ergocalciferol [Vitamin D2 50,000 unit PO HURTADO 09/21/20 09/21/20 History (DRISDOL)] Allergies Allergy/AdvReac Type Severity Reaction Status Date / Time No Known Allergies Allergy Verified 09/21/20 10:38 Physical Exam Vitals: Vital Signs Temp Pulse Pulse Pulse Resp BP BP 09/28/20 06:30 44 L 18 131/66 09/28/20 06:00 46 L 18 119/58 09/28/20 05:30 53 L 17 124/60 09/28/20 05:00 47 L 18 110/64 09/28/20 04:30 46 L 16 135/69 09/28/20 04:00 97.9 F 44 L 20 128/65 09/28/20 03:30 47 L 17 134/67 09/28/20 03:00 44 L 18 123/61 09/28/20 02:30 48 L 17 126/57 09/28/20 02:00 50 L 18 124/63 09/28/20 01:30 46 L 21 124/67 09/28/20 01:00 48 L 20 117/59 09/28/20 00:30 46 L 17 124/62 09/28/20 00:00 98.1 F 49 L 19 125/63 09/27/20 23:30 45 L 19 126/66 09/27/20 23:00 45 L 18 128/67 09/27/20 22:30 46 L 20 123/69 09/27/20 22:17 48 L 19 09/27/20 22:00 45 L 23 135/68 09/27/20 21:00 55 L 16 130/60 09/27/20 20:00 98.3 F 49 L 19 122/57 09/27/20 19:00 48 L 17 124/57 09/27/20 18:00 56 L 20 187/80 09/27/20 17:00 45 L 15 118/65 09/27/20 16:15 43 L 21 09/27/20 16:00 53 L 21 112/57 09/27/20 15:00 43 L 14 120/61 09/27/20 14:00 42 L 17 09/27/20 13:50 43 L 12 09/27/20 13:45 39 L 15 116/59 09/27/20 13:40 42 L 17 116/59 09/27/20 13:35 44 L 16 116/59 09/27/20 13:30 47 L 18 09/27/20 13:00 53 L 14 09/27/20 12:30 48 L 12 09/27/20 12:00 45 L 43 L 17 09/27/20 11:40 97.8 F 61 13 114/55 09/27/20 11:10 56 L 16 125/60 09/27/20 10:55 97.3 F L 59 L 16 124/56 09/27/20 10:40 70 16 110/56 09/27/20 10:25 70 16 116/59 09/27/20 10:10 97.3 F L 72 16 BP Pulse Ox 09/28/20 06:30 95 09/28/20 06:00 96 09/28/20 05:30 95 09/28/20 05:00 93 L 09/28/20 04:30 95 09/28/20 04:00 95 09/28/20 03:30 96 09/28/20 03:00 96 09/28/20 02:30 96 09/28/20 02:00 95 09/28/20 01:30 96 09/28/20 01:00 95 09/28/20 00:30 96 09/28/20 00:00 95 09/27/20 23:30 95 09/27/20 23:00 95 09/27/20 22:30 94 L 09/27/20 22:17 95 09/27/20 22:00 90 L 09/27/20 21:00 92 L 09/27/20 20:00 92 L 09/27/20 19:00 92 L 09/27/20 18:00 92 L 09/27/20 17:00 92 L 09/27/20 16:15 09/27/20 16:00 97 09/27/20 15:00 97 09/27/20 14:00 98 09/27/20 13:50 97 09/27/20 13:45 98 09/27/20 13:40 98 09/27/20 13:35 97 09/27/20 13:30 96 09/27/20 13:00 97 09/27/20 12:30 98 09/27/20 12:00 97 09/27/20 11:40 95 09/27/20 11:10 121/60 97 09/27/20 10:55 121/60 97 09/27/20 10:40 114/57 99 09/27/20 10:25 116/56 99 09/27/20 10:10 122/58 99 Intake and Output 09/27/20 09/27/20 09/28/20 14:59 22:59 06:59 Intake Total 2655.668 1054.860 938.232 Output Total 668 027 3908 Balance 1675.668 204.860 -101.768 Intake: IV 2600 640 640 Lactated Ringers 1,000 ml 240 640 640 @ 80 mls/hr IV .[id number] [facility] Rx#:[id number] Intake, IV Titration 55.668 164.860 298.232 Amount Phenylephrine 40 mg In 55.668 164.860 248.232 Sodium Chloride 0.9% 250 ml @ 0.5 MCG/KG/MIN 16. 535 mls/hr IV .[id number] [facility] Rx#:[id number] ceFAZolin 2 gm In Sodium 50 Chloride 0.9% 50 ml @ 100 mls/hr IVPB ONCE ONE Rx# :[id number] Oral 250 Output: Drainage 20 Right Neck 20 Urine 008 570 3947 Estimated Blood Loss 30 Other: Voiding Method Indwelling Catheter Indwelling Catheter Indwelling Catheter Weight 88.2 kg ABP, PAP, CO, CI - Last 8 Hours Arterial Blood Pressure 129/51 Arterial Blood Pressure 137/52 Arterial Blood Pressure 129/54 Arterial Blood Pressure 119/46 Arterial Blood Pressure 130/51 Arterial Blood Pressure 136/51 Arterial Blood Pressure 142/53 Arterial Blood Pressure 131/51 Arterial Blood Pressure 127/49 Arterial Blood Pressure 117/47 Arterial Blood Pressure 121/48 Arterial Blood Pressure 129/52 Arterial Blood Pressure 119/49 Arterial Blood Pressure 126/50 Arterial Blood Pressure 122/48 Arterial Blood Pressure 127/50 GENERAL: The patient is alert and oriented x3, not in any acute distress. Well developed, well nourished. -HEENT: Pupils are round and equally reacting to light. EOMI. No scleral icterus. No conjunctival pallor. Normocephalic, atraumatic. No pharyngeal erythema. No thyromegaly. Right neck surgical wound with dressing is in place CARDIOVASCULAR: S1 and S2 present. No murmurs, rubs, or gallops. PULMONARY: Chest is clear to auscultation, no wheezing or crackles. ABDOMEN: Soft, nontender, nondistended, normoactive bowel sounds. No palpable organomegaly. MUSCULOSKELETAL: No joint swelling or deformity. EXTREMITIES: No cyanosis, clubbing, or pedal edema. NEUROLOGICAL: Gross neurological examination did not reveal any focal deficits. SKIN: No rashes. No petechiae Results CBC & Chem 7: 09/28/20 04:25 09/28/20 04:25 Labs: Abnormal Lab Results - Last 24 Hours (Table) 09/27/20 09/27/20 09/27/20 Range/Units 10:45 11:53 17:12 WBC (3.8-10.6) k/uL Hgb (13.0-17.5) gm/dL MCHC (31.0-37.0) g/dL Neutrophils # (1.3-7.7) k/uL Sodium (137-145) mmol/L Glucose (74-99) mg/dL POC Glucose (mg/dL) 191 H 212 H 175 H (75-99) mg/dL 09/27/20 09/28/20 09/28/20 Range/Units 20:55 04:25 04:25 WBC 15.7 H (3.8-10.6) k/uL Hgb 12.9 L (13.0-17.5) gm/dL MCHC 29.8 L (31.0-37.0) g/dL Neutrophils # 12.0 H (1.3-7.7) k/uL Sodium 136 L (137-145) mmol/L Glucose 155 H (74-99) mg/dL POC Glucose (mg/dL) 225 H (75-99) mg/dL 09/28/20 Range/Units 06:21 WBC (3.8-10.6) k/uL Hgb (13.0-17.5) gm/dL MCHC (31.0-37.0) g/dL Neutrophils # (1.3-7.7) k/uL Sodium (137-145) mmol/L Glucose (74-99) mg/dL POC Glucose (mg/dL) 151 H (75-99) mg/dL Assessment and Plan Assessment: Right carotid artery stenosis status post right endarterectomy Hypertension Hyperlipidemia Prostatic hypertrophy History of Aortic aneurysm Osteoarthritis Anxiety no active tissue Plan: This is a pleasant 64 years old male who presents with right endarterectomy. Continue with pain management. Labs and medication were reviewed.. Continue same treatment. Continue with symptomatic treatment. Resume home medication. Monitor lytes and vitals. DVT and GI prophylaxis. Further recommendationsas per clinical course of the patient DVT prophylaxis: Subcutaneous heparin Thank you for consulting us
--- NOTE | 2020-09-28 11:15 | P.DS ---
Providers Date of admission: 09/27/20 05:50 Attending physician: Olivia Mccullough, Consults: 09/27/20 10:21 Consult Physician Routine Consulting Provider: Otilia Polo Consult Reason/Comments: icu mgmnt, post CEA Do you want consulting provider notified?: Yes 09/27/20 10:26 Consult Physician Routine Consulting Provider: Radha Henry III Consult Reason/Comments: post op CEA Do you want consulting provider notified?: Yes 09/27/20 12:23 Consult Physician Routine Consulting Provider: Ponce Ocampo Consult Reason/Comments: medical management Do you want consulting provider notified?: Yes Primary care physician: Radha Sharif [facility] Course: This is a 64-year-old male patient that was scheduled for a right carotid endarterectomy for right carotid artery stenosis estimated 80-99%. He is postop day #1 for a right carotid endarterectomy with patch angioplasty. He was admitted into the ICU from recovery room for close observation. He had a DIONE drain in which gave out approximately 20-30 mL of serosanguineous drainage. He still had a Mccullough catheter and arterial line intact. The patient is on Levophed. He has been sinus bradycardia. He required 2 L of oxygen by nasal c annula to keep the pulse ox above 90%. This morning upon evaluation he denied any shortness of breath, chest pain, upper extremity weakness, visual changes, or speech difficulties. The patient denies any use of home oxygen. Assessment: General appearance: The patient is alert, oriented, in no acute distress. HET: Head is normocephalic and atraumatic. Pupils are equal and reactive. Oropharynx is clear without lesions. Neck: Supple without lymphadenopathy. Trachea midline. Right side of neck with incision with dressing clean dry and intact and DIONE drain. Resting and DIONE drain removed, no ecchymosis or erythema.. Sterile 4 x 4 and Tegaderm applied. Heart: S1 S2. Regular rate and rhythm. Lungs: Clear to auscultation Abdomen: Soft, nontender, nondistended with bowel sounds. Extremities: Normal skin color and turgor. No cyanosis, rash, ulceration, clubbing, or edema. Radial pulses are 2/4 bilaterally. Neurological: No focal deficits. Strength and sensation are grossly intact. Assessment: 1. Right internal carotid artery stenosis, status post op day #1 for right carotid endarterectomy with angioplasty 2. Sinus bradycardia and hypotension postop, currently on levophed 3. Hypertension 4. Coronary artery disease with previous stenting of the LAD 5. Hyperlipidemia 6. History of CVA/TIA 7. Tobacco use 8. History of abdominal aortic aneurysm Plan: 1. DIONE drain removed 2. Discontinue Mccullough catheter 3. Cardiology consult 4. Try to decrease pressors, if MAP remains greater than 60 patient may be discharged home if cleared by cardiology The impression and plan of care has been dictated as directed. Dr. Mccullough I performed a history and examination of this patient, discussed the same with the dictator. I agree with the dictator's note ,documented as a scribe. Any additional findings or plans will be noted. Procedures: Carotid endarterectomy with patch angioplasty Plan - Discharge Summary Discharge Rx Participant: No New Discharge Prescriptions: Continue Aspirin 325 mg PO DAILY lisinopriL [Zestril] 2.5 mg PO DAILY ALPRAZolam [Xanax] 1 mg PO TID PRN PRN Reason: Anxiety Acetaminophen [Tylenol Extra Strength] 500 - 1,000 mg PO Q6H PRN PRN Reason: Pain Simvastatin 80 mg PO DAILY Nitroglycerin Sl Tabs [Nitrostat] 0.4 mg SUBLINGUAL Q5M PRN #20 tab PRN Reason: Chest Pain Ergocalciferol [Vitamin D2 (DRISDOL)] 50,000 unit PO HURTADO Discharge Medication List Aspirin 325 mg PO DAILY 06/28/14 [History] ALPRAZolam [Xanax] 1 mg PO TID PRN 07/14/20 [History] Acetaminophen [Tylenol Extra Strength] 500 - 1,000 mg PO Q6H PRN 07/14/20 [History] lisinopriL [Zestril] 2.5 mg PO DAILY 07/14/20 [History] Simvastatin 80 mg PO DAILY 07/23/20 [History] Nitroglycerin Sl Tabs [Nitrostat] 0.4 mg SUBLINGUAL Q5M PRN #20 tab 07/24/20 [Rx] Ergocalciferol [Vitamin D2 (DRISDOL)] 50,000 unit PO HURTADO 09/21/20 [History] Follow up Appointment(s)/Referral(s): Olivia Mccullough DO [STAFF PHYSICIAN] - 1 Week Activity/Diet/Wound Care/Special Instructions: Patient may shower tomorrow, keep incision clean and dry. Watch for signs of infection including redness, fever greater than 100.4 No heavy lifting greater than 10 pounds 2 weeks. Discharge Disposition: HOME SELF-CARE
[2020-09-28 11:48] LABS: Glucose,Whole Blood 164 mg/dL (75-99)
[2020-09-28] MEDS: HEPARIN SODIUM,PORCINE 5,000 UNIT/ML 1 ML VIAL SQ SCH ×2 (12:15→18:15)
[2020-09-28] MEDS: ASPIRIN 81 MG PO SCH (12:16)
--- NOTE | 2020-09-28 13:56 | P.PN ---
Subjective Progress Note Date: 09/28/20 On 09/28/2020, the patient is postop day #1. The DIONE drain from the right neck has been removed. The patient surgical with that dry clean and intact. The patient remains on a low dose of phenylephrine infusion running at 43 g per minute. This can be easily weaned off. No respiratory distress. No cough or sputum production. No chest pain. No focal neurological deficits. The patient is on room air oxygen. Hoarseness has improved. No stridor. The patient is on normal saline running at 80 mL an hour. No other significant events overnight. Mccullough catheter will be taken out today. Objective - Vital Signs Vital signs: Vital Signs Temp 98.2 F 09/28/20 12:00 Pulse 72 09/28/20 13:00 Resp 24 09/28/20 13:00 BP 89/57 09/28/20 13:00 Pulse Ox 92 L 09/28/20 13:00 Intake & Output 09/27/20 09/28/20 09/28/20 18:59 06:59 18:59 Intake Total 3316.614 1332.146 660 Output Total 1460 1410 775 Balance 1856.614 -77.854 -115 Weight 88.2 kg Intake: IV 2920 960 560 Lactated Ringers 1,000 ml 560 960 560 @ 80 mls/hr IV .[id number] [facility] Rx#:[id number] Intake, IV Titration 146.614 372.146 100 Amount Magnesium Sulfate-D5w Pmx 100 1 gm In Dextrose/Water 1 100ml.bag @ 100 mls/hr IVPB Q1H [facility] Rx#: [id number] Phenylephrine 40 mg In 146.614 322.146 Sodium Chloride 0.9% 250 ml @ 0.5 MCG/KG/MIN 16. 535 mls/hr IV .[id number] [facility] Rx#:[id number] ceFAZolin 2 gm In Sodium 50 Chloride 0.9% 50 ml @ 100 mls/hr IVPB ONCE ONE Rx# :[id number] Oral 250 Output: Drainage 20 Right Neck 20 Urine 1430 1390 775 Estimated Blood Loss 30 Other: Voiding Method Indwelling Catheter Indwelling Catheter Indwelling Catheter ABP, PAP, CO, CI - Last Documented Arterial Blood Pressure 96/67 - Exam The patient appeared well nourished and normally developed. Vital signs as documented. Head exam is unremarkable. No scleral icterus or corneal arcus noted. Neck is without jugular venous distension, thyromegaly, or carotid bruits. Carotid upstrokes are brisk bilaterally. This surgical wound site over the right carotid area dry clean and intact. No swelling. No ecchymosis or erythema. . Lungs are clear to auscultation and percussion. Cardiac exam reveals the PMI to be normally sized and situated. Rhythm is regular. First and second heart sounds normal. No murmurs, rubs or gallops. Abdominal exam reveals normal bowel sounds, no masses, no organomegaly and no aortic enlargement. Extre mities are nonedematous and both femoral and pedal pulses are normal.Examination of the skin revealed no evidence of significant rashes, suspicious appearing nevi or other concerning lesions.Neurologically, the patient is awake and alert and the patient does not have any focal neurological deficit. Cranial nerves are essentially intact. - Labs CBC & Chem 7: 09/28/20 04:25 09/28/20 04:25 Labs: Abnormal Lab Results - Last 24 Hours (Table) 09/27/20 09/27/20 09/28/20 Range/Units 17:12 20:55 04:25 WBC 15.7 H (3.8-10.6) k/uL Hgb 12.9 L (13.0-17.5) gm/dL MCHC 29.8 L (31.0-37.0) g/dL Neutrophils # 12.0 H (1.3-7.7) k/uL Sodium (137-145) mmol/L Glucose (74-99) mg/dL POC Glucose (mg/dL) 175 H 225 H (75-99) mg/dL 09/28/20 09/28/20 09/28/20 Range/Units 04:25 06:21 11:47 WBC (3.8-10.6) k/uL Hgb (13.0-17.5) gm/dL MCHC (31.0-37.0) g/dL Neutrophils # (1.3-7.7) k/uL Sodium 136 L (137-145) mmol/L Glucose 155 H (74-99) mg/dL POC Glucose (mg/dL) 151 H 164 H (75-99) mg/dL Assessment and Plan Plan: 1 carotid endarterectomy with patch and opacity and the patient is postop day # 1. The patient a high-grade stenosis of the right internal carotid artery, symptomatic 2 sinus bradycardia and hypotension postop currently on phenylephrine drip for hemodynamic support. The patient is also receiving fluids with normal saline at rate of 80 mL an hour 3 coronary artery disease with previous stenting of the LAD. The patient a total occlusion of the RCA. Please refer to the cardiac catheter insertion from 2013. He has a preserved LV function 4 hypertension 5 hyperlipidemia 6 history of CVA/TIA and CVA involving the left eye in 2006 7 degenerative lumbar disc disease 8 BPH 9 history of cervical spine fusion 10 abdominal aortic and isn't being monitored on outpatient basis Plan Monitor hemodynamics in the intensive care unit Wean off the phenylephrine infusion DIONE drain has been removed Remove the Mccullough catheter We'll continue to follow. No neurological deficit at this point in time.
--- NOTE | 2020-09-28 14:54 | CDI ---
Documentation Clarification Form Date: 09/28/2020 02:14:57 PM From: Karlee Jo Admit Date: 09/27/2020 05:50:00 AM Patient Name: Meet Haas Visit Number: [id number] Discharge Date: ATTENTION: The Clinical Documentation Specialists (CDI) and [facility] Coding Staff appreciate your assistance in clarifying documentation. Please respond to the clarification below the line at the bottom and electronically sign. The CDI & [facility] Coding staff will review the response and follow-up if needed. Please note: Queries are made part of the Legal Health Record. If you have any questions, please contact the author of this message via ITS. Dr. Olivia Mccullough Sinus bradycardia and hypotension postop, currently on Levophed is documented in the Discharge Summary 09/28/20 Patients Admitting Diagnosis: High grade right Internal carotid artery stenosis Post-Operative Diagnosis: High grade right Internal carotid artery stenosis Procedure performed: Right carotid endarterectomy with patch angioplasty History/Risk Factors: 64-year-old male presents to [facility] for elective Right carotid endarterectomy. Medical History: CAD; Angina; COPD; HTN; and [facility] Clinical Indicators: 09/27 10:10 B/P: 122/58; HR: 72; Temp 97.3 F Temporal; RR: 16; SpO2: 99% Simple mask 8L; Sitting 09/27 10:25 B/P: 116/59; HR: 70; RR: 16; SpO2: 99% Simple mask 8L; Sitting 09/27 10:40 B/P: 110/56; HR: 70; RR: 16; SpO2: 99% Simple mask 8L; Sitting 09/27 10:55 B/P: 124/56; HR; 59; RR 16; SpO2: 97% Simple mask 8L; Sitting 09/27 12:00 HR: 43; RR: 12; 09/27 12:00 B/P: 133/52; HR: 45; RR: 17; SpO2 97% 2L nasal cannula 09/27 12:30 B/P: 118/53; HR: 48; RR; 12; SpO2 98% 2L nasal cannula Treatment: Phenylephrine dose of 0.5 mcg per KG per minute. 09/27 Critical Care Consult 09/27: Sinus bradycardia and hypotension postop currently on phenylephrine drip for hemodynamic support. This is probably related to autonomic ulcerations following carotid surgery. In order to accurately reflect this patients severity of illness, please clarify if the hypotension postop: -is an expected outcome of the surgical procedure MTDD
[2020-09-28 17:39] LABS: Glucose,Whole Blood 157 mg/dL (75-99)
[2020-09-28 17:40] LABS: Hemoglobin A1C 6.9 % (4.0-6.0)
[2020-09-28] MEDS: ALPRAZolam 1 MG TAB PO PRN (18:15)
[2020-09-28] MEDS: ACETAMINOPHEN TAB 325 MG TAB PO PRN (18:21)
[2020-09-28 21:49] LABS: Glucose,Whole Blood 136 mg/dL (75-99)
[2020-09-29] MEDS: HEPARIN SODIUM,PORCINE 5,000 UNIT/ML 1 ML VIAL SQ SCH ×2 (00:29→09:17)
[2020-09-29] MEDS: ACETAMINOPHEN TAB 325 MG TAB PO PRN (03:02)
[2020-09-29 06:35] LABS: Glucose,Whole Blood 117 mg/dL (75-99)
[2020-09-29] MEDS: LACTATED RINGERS 1,000 ML IV SCH (06:37)
[2020-09-29] MEDS: INSULIN ASPART (NovoLOG) 100 UNIT/ML VIAL SQ SCH ×2 (06:38→12:05)
[2020-09-29] MEDS: PHENYLEPHRINE 40 MG in SODIUM CHLORIDE 0.9% 250 ML IV SCH (08:59)
[2020-09-29] MEDS: NOREPINEPHRINE 4 MG in SODIUM CHLORIDE 0.9% 250 ML IV SCH (08:59)
[2020-09-29] MEDS ORDERED: ATORVASTATIN 40 MG TAB PO SCH (09:00)
[2020-09-29] MEDS: ASPIRIN 81 MG PO SCH (09:18)
[2020-09-29 09:27] VITALS: TEMP 98.1
[2020-09-29] MEDS: ALPRAZolam 1 MG TAB PO PRN (09:32)
[2020-09-29] MEDS ORDERED: IPRATROPIUM-ALBUTEROL 3 ML NEB INHALATION PRN (09:44)
--- NOTE | 2020-09-29 10:38 | XR ---
EXAMINATION TYPE: XR chest 1V portable DATE OF EXAM: 09/29/2020 CLINICAL HISTORY: Cough. TECHNIQUE: Single AP portable frontal upright view of the chest is obtained. COMPARISON: CTA chest and chest x-ray September 02, 2020 FINDINGS: There is background chronic emphysematous and parenchymal change with new right basilar op acity. There is new small to tiny left pleural effusion . The cardiac silhouette size is upper limits of normal with atherosclerotic change aortic knob. Anterior fusion plate in the cervical spine is re demonstrated. IMPRESSION: Chronic emphysematous change with new small to tiny left pleural effusion and associated left basilar atelectasis. More suspicious new right basilar acute infiltrate is felt present. Progres s study advised.
--- NOTE | 2020-09-29 11:40 | P.CRDCN ---
History of Present Illness Consult date: 09/29/20 Reason for Consult (text): Bradycardia Consult reason: hypotension Chief complaint: status post right carotid endarterectomy History of present illness: this is a pleasant 64-year-old gentleman who follows regularly with Dr. Wray in the office. He has a history of hypertension, hyperlipidemia, nicotine dependence, coronary artery disease with known chronic total occlusion of the RCA as well as prior stenting of the LAD, abdominal aortic aneurysm, high-grade stenosis of the right internal carotid artery for which the patient underwent a carotid endarterectomy. He is postoperative day #2.cardiology consultation had been requested because of some postoperative hypotension and bradycardia.his chest x-ray from this morning showed chronic emphysema changes with new small tiny left pleural effusions. Suspicious that there may be an new right basilar acute infiltrate.blood pressure 132/70 with a heart rate in the 60s to 70s, 98.1 temperature, 94% on room air. No laboratory data today.the patients lab data from yesterday, white blood cell count 15.7, hemoglobin 12.9, platelet count 235. Sodium 136, potassium 4.4, BUN 16, creatinine 0.6.magnesium 1.9.patient was seen and examined in the intensive care unit this morning, feels well, no complaints. 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 Hx shingles Rt inner ear 2008, wears hearing aids. BPH, ED, disc lumbar spine. SOB w/activity. AAA, Rt carotid stenosis. Abscessed tooth sev wks ago, completed AB Rx. Last Myocardial Infarction Date:: unknown History of Any Multi-Drug Resistant Organisms: None Reported Past Surgical History: Heart Catheterization, Heart Catheterization With Stent, Hernia Repair, Tonsillectomy Additional Past Surgical History / Comment(s): 2013 Cervical Fusion. Umb hernia, ing hernia. Heart cath 2011. Bilat Cataracts Past Anesthesia/Blood Transfusion Reactions: No Reported Reaction Date of Last Stent Placement:: 1997 Smoking Status: Current every day smoker - Past Family History Brother(s) Family Medical History: Cancer, Diabetes Mellitus Additional Family Medical History / Comment(s): leukemia, lung cancer; another brother had DM, gangrene Medications and Allergies Home Medications Medication Instructions Recorded Confirmed Type Aspirin 325 mg PO DAILY 06/28/14 09/21/20 History ALPRAZolam [Xanax] 1 mg PO TID PRN 07/14/20 09/21/20 History Acetaminophen [Tylenol Extra 500 - 1,000 mg PO Q6H PRN 07/14/20 09/21/20 History Strength] lisinopriL [Zestril] 2.5 mg PO DAILY 07/14/20 09/21/20 History Simvastatin 80 mg PO DAILY 07/23/20 09/21/20 History Nitroglycerin Sl Tabs [Nitrostat] 0.4 mg SUBLINGUAL Q5M PRN #20 tab 07/24/20 09/21/20 Rx Ergocalciferol [Vitamin D2 50,000 unit PO HURTADO 09/21/20 09/21/20 History (DRISDOL)] Allergies Allergy/AdvReac Type Severity Reaction Status Date / Time No Known Allergies Allergy Verified 09/21/20 10:38 Physical Exam Vitals: Vital Signs Temp Pulse Resp BP Pulse Ox 09/29/20 11:29 76 09/29/20 08:00 98.1 F 68 19 133/78 94 L 09/29/20 06:00 98.4 F 70 22 110/56 91 L 09/29/20 05:00 75 20 110/56 91 L 09/29/20 04:00 98.4 F 68 17 115/65 90 L 09/29/20 03:00 70 22 90 L 09/29/20 02:00 74 20 105/56 92 L 09/29/20 01:00 73 24 94 L 09/29/20 00:05 73 22 92 L 09/29/20 00:00 72 22 107/72 93 L 09/28/20 23:00 71 22 107/72 93 L 09/28/20 22:00 75 21 117/67 93 L 09/28/20 21:00 65 21 94 L 09/28/20 20:00 98.3 F 81 22 110/58 92 L 09/28/20 19:00 77 25 H 108/75 92 L 09/28/20 18:00 74 14 93 L 09/28/20 17:00 71 19 90 L 09/28/20 16:00 97.4 F L 90 22 109/69 92 L 09/28/20 15:00 74 21 107/57 89 L 09/28/20 14:30 72 20 104/53 90 L 09/28/20 14:00 75 22 110/56 90 L 09/28/20 13:30 73 22 109/56 90 L 09/28/20 13:00 72 24 89/57 92 L 09/28/20 12:30 82 24 106/54 92 L 09/28/20 12:00 98.2 F 69 21 125/63 91 L Intake and Output 09/28/20 09/29/20 09/29/20 22:59 06:59 14:59 Intake Total 652.346 130 Output Total 75 0 Balance 577.346 130 Intake: IV 400 80 Lactated Ringers 1,000 ml 400 80 @ 80 mls/hr IV .[id number] [facility] Rx#:[id number] Intake, IV Titration 252.346 50 Amount Phenylephrine 40 mg In 252.346 Sodium Chloride 0.9% 250 ml @ 0.5 MCG/KG/MIN 16. 535 mls/hr IV .[id number] [facility] Rx#:[id number] ceFAZolin 2 gm In Sodium 50 Chloride 0.9% 50 ml @ 100 mls/hr IVPB Q8HR [facility] Rx# :[id number] Output: Urine 75 0 Other: Voiding Method Urinal Urinal Urinal # Bowel Movements 1 1 Weight 88 kg PHYSICAL EXAMINATION: GENERAL:64-year-old gentleman in no acute distress at the time of my examination HEENT: Head is atraumatic, normocephalic. Pupils equal, round. Sclera anicteric. Conjunctiva are clear. Mucous membranes of the mouth are moist. Neck is supple. There is no elevated jugular venous pressure.dressing in place at right carotid surgical site. Dressing dry and intact HEART EXAMINATION: [Heart S1, S2 normal. No murmur or gallop heard.] CHEST EXAMINATION:[ Lungs are clear to auscultation and precussion. No chest wall tenderness is noted on palpation or with deep breathing.] ABDOMEN: [ Soft, nontender. Bowel sounds are heard. No organomegaly noted]. EXTREMITIES:[ 2+ peripheral pulses with no evidence of peripheral edema and no calf tenderness noted]. NEUROLOGIC [patient is awake, alert and oriented 3.] . Results 09/28/20 04:25 09/28/20 04:25 Current Medications Generic Name Dose Route Start Last Admin Trade Name Freq PRN Reason Stop Dose Admin Acetaminophen 650 mg 09/27/20 10:21 09/29/20 03:02 Acetaminophen Tab 325 Mg Tab PO 650 mg Q4HR PRN Administration Pain Hydrocodone Bitart/Acetaminophen 1 each 09/27/20 12:10 Hydrocodone/Apap 5-325mg 1 Each Tab PO Q4HR PRN Pain Al Hydroxide/Mg Hydroxide 30 ml 09/27/20 10:21 Mag Hydrox/Al Hydrox/Simeth 30 Ml Cup PO Q6HR PRN Indigestion Albuterol/Ipratropium 3 ml 09/29/20 13:00 09/29/20 11:29 Ipratropium-Albuterol 3 Ml Neb INHALATION 3 ml RT-TID [facility] Administration Albuterol/Ipratropium 3 ml 09/29/20 09:44 Ipratropium-Albuterol 3 Ml Neb INHALATION RT-Q2H PRN Shortness Of Breath Or Wheezing Alprazolam 0.5 mg 09/27/20 14:44 09/27/20 16:11 Alprazolam 0.5 Mg Tab PO 0.5 mg TID PRN Administration Anxiety Alprazolam 1 mg 09/27/20 14:45 09/29/20 09:32 Alprazolam 1 Mg Tab PO 1 mg TID PRN Administration Anxiety Aspirin 162 mg 09/28/20 09:00 09/29/20 09:18 Aspirin 81 Mg PO 162 mg DAILY [facility] Administration Atorvastatin Calcium 40 mg 09/29/20 09:00 09/29/20 09:18 Atorvastatin 40 Mg Tab PO Not Given DAILY [facility] Benzocaine/Menthol 1 each 09/27/20 10:21 09/27/20 21:06 Benzocaine/Menthol Lozeng 1 Each Lozenge MUCOUS MEM 1 each Q2HR PRN Administration Sore Throat Heparin Sodium (Porcine) 5,000 unit 09/28/20 00:00 09/29/20 09:17 Heparin Sodium,Porcine 5,000 Unit/Ml 1 Ml Vial SQ 5,000 unit Q8HR [facility] Administration Cefazolin Sodium 2 gm/ Sodium 50 mls @ 100 mls/hr 09/27/20 16:00 09/29/20 09:32 Chloride IVPB 100 mls/hr Q8HR [facility] Administration Phenylephrine HCl 40 mg/ 254 mls @ 16.535 mls/hr 09/27/20 10:45 09/29/20 08:59 Sodium Chloride IV Not Given .[id number] [facility] Protocol 0.5 MCG/KG/MIN Lactated Ringer's 1,000 mls @ 80 mls/hr 09/27/20 12:12 09/29/20 06:37 Lactated Ringers IV 80 mls/hr .[id number] [facility] Administration Norepinephrine Bitartrate 4 mg 254 mls @ 16.535 mls/hr 09/27/20 17:45 1 08:59 / Sodium Chloride IV Not Given .[id number] [facility] Protocol 0.05 MCG/KG/MIN Insulin Aspart 0 unit 09/27/20 12:30 09/29/20 06:38 Insulin Aspart (Novolog) 100 Unit/Ml Vial SQ Not Given ACHS [facility] Protocol Lisinopril 2.5 mg 09/29/20 09:00 09/29/20 09:17 Lisinopril 2.5 Mg Tab PO 2.5 mg DAILY [facility] Administration Morphine Sulfate 4 mg 09/27/20 12:10 Morphine Sulfate 4 Mg/Ml Syringe IVP Q2HR PRN Pain Trimethobenzamide HCl 200 mg 09/27/20 10:21 Trimethobenzamide 100 Mg/Ml 2 Ml Vial IM Q4HR PRN Nausea And Vomiting Intake and Output 09/28/20 09/29/20 09/29/20 22:59 06:59 14:59 Intake Total 652.346 130 Output Total 75 0 Balance 577.346 130 Intake: IV 400 80 Lactated Ringers 1,000 ml 400 80 @ 80 mls/hr IV .[id number] [facility] Rx#:[id number] Intake, IV Titration 252.346 50 Amount Phenylephrine 40 mg In 252.346 Sodium Chloride 0.9% 250 ml @ 0.5 MCG/KG/MIN 16. 535 mls/hr IV .[id number] [facility] Rx#:[id number] ceFAZolin 2 gm In Sodium 50 Chloride 0.9% 50 ml @ 100 mls/hr IVPB Q8HR [facility] Rx# :[id number] Output: Urine 75 0 Other: Voiding Method Urinal Urinal Urinal # Bowel Movements 1 1 Weight 88 kg 09/28/20 04:25 09/28/20 04:25 EKG Interpretations (text) EKG shows a normal sinus rhythm with no acute changes. Assessment and Plan Plan: Assessment and plan #1 status post right carotid endarterectomy with patch for high grade stenosis of the right internal carotid artery, symptomatic #2 bradycardia and hypotension postoperatively, resolved, hemodynamically stable #3 coronary artery disease with prior LAD stenting, patient has a known [employer] of the RCA, preserved LV function #4 hypertension #5 hyperlipidemia #6 history of CVA/TIA #7 nicotine dependence #8 abdominal aortic aneurysm, monitored as an outpatient Plan From cardiology's perspective, the patient may be discharged home once cleared by vascular surgery. We will make him a follow-up appointment to see Dr. Wray in the office post discharge. DNP note has been reviewed, I agree with a documented findings and plan of care. Patient was seen and examined.
[2020-09-29 11:51] LABS: Glucose,Whole Blood 143 mg/dL (75-99)
[2020-09-29] MEDS ORDERED: IPRATROPIUM-ALBUTEROL 3 ML NEB INHALATION SCH (13:00)
[2020-09-29 13:20] VITALS: BP 134/69; PULSE 76; RESP 23
--- NOTE | 2020-09-29 13:42 | P.PN ---
Subjective Progress Note Date: 09/29/20 09/29/2020, the patient is off phenylephrine effusion that was started postop for hypotension. The patient also had some sinus bradycardia which improved. The patient's blood pressure improved and the patient is currently off the phenylephrine drip. Doing well. No specific complaints. The only issue is some drop in her pulse ox down to 88-89% and this was attributed to his underlying COPD. The patient is a congested cough and some increased wheeze. He was provided incentive spirometer. He was started on some prednisone about treatments around the clock. Surgical site over the neck area dry clean and intact. No neurologic abnormalities. No stridor. Overall, the patient is doing well. His heart is up to 85 beats per minute, sinus. The chest x-ray was done and showed emphysema along with a tiny left-sided pleural effusion and some atelectasis left lung base. Objective - Vital Signs Vital signs: Vital Signs Temp 98.1 F 09/29/20 12:00 Pulse 76 09/29/20 12:00 Resp 23 09/29/20 12:00 BP 134/69 09/29/20 12:00 Pulse Ox 95 09/29/20 12:00 Intake & Output 09/28/20 09/29/20 09/29/20 18:59 06:59 18:59 Intake Total 1060 462.346 Output Total 925 0 Balance 135 462.346 Weight 88 kg Intake: IV 960 160 Lactated Ringers 1,000 ml 960 160 @ 80 mls/hr IV .[id number] [facility] Rx#:[id number] Intake, IV Titration 100 302.346 Amount Magnesium Sulfate-D5w Pmx 100 1 gm In Dextrose/Water 1 100ml.bag @ 100 mls/hr IVPB Q1H [facility] Rx#: [id number] Phenylephrine 40 mg In 252.346 Sodium Chloride 0.9% 250 ml @ 0.5 MCG/KG/MIN 16. 535 mls/hr IV .[id number] [facility] Rx#:[id number] ceFAZolin 2 gm In Sodium 50 Chloride 0.9% 50 ml @ 100 mls/hr IVPB Q8HR [facility] Rx# :[id number] Output: Urine 925 0 Other: Voiding Method Indwelling Catheter Urinal Urinal # Voids 1 # Bowel Movements 1 ABP, PAP, CO, CI - Last Documented Arterial Blood Pressure 75/50 - Exam The patient appeared well nourished and normally developed. Vital signs as documented. Head exam is unremarkable. No scleral icterus or corneal arcus noted. Neck is without jugular venous distension, thyromegaly, or carotid bruit s. Carotid upstrokes are brisk bilaterally. This surgical wound site over the right carotid area dry clean and intact. No swelling. No ecchymosis or erythema. . Lungs are clear to auscultation and percussion. Cardiac exam reveals the PMI to be normally sized and situated. Rhythm is regular. First and second heart sounds normal. No murmurs, rubs or gallops. Abdominal exam reveals normal bowel sounds, no masses, no organomegaly and no aortic enlargement. Extremities are nonedematous and both femoral and pedal pulses are normal.Examination of the skin revealed no evidence of significant rashes, suspicious appearing nevi or other concerning lesions.Neurologically, the patient is awake and alert and the patient does not have any focal neurological deficit. Cranial nerves are essentially intact. - Labs CBC & Chem 7: 09/28/20 04:25 09/28/20 04:25 Labs: Abnormal Lab Results - Last 24 Hours (Table) 09/28/20 09/28/20 09/28/20 Range/Units 04:25 17:38 21:47 POC Glucose (mg/dL) 157 H 136 H (75-99) mg/dL Hemoglobin A1c 6.9 H (4.0-6.0) % 09/29/20 09/29/20 Range/Units 06:34 11:49 POC Glucose (mg/dL) 117 H 143 H (75-99) mg/dL Hemoglobin A1c (4.0-6.0) % Assessment and Plan Plan: 1 carotid endarterectomy with patch and opacity and the patient is postop day # 2. The patient a high-grade stenosis of the right internal carotid artery, symptomatic. 2 sinus bradycardia and hypotension postop currently on phenylephrine drip for hemodynamic support. The patient's hypotension recovered and the heart is also improved and the patient is currently on mechanical ventilation. 3 coronary artery disease with previous stenting of the LAD. The patient a total occlusion of the RCA. Please refer to the cardiac catheter insertion from 2013. He has a preserved LV function 4 hypertension, history of 5 hyperlipidemia 6 history of CVA/TIA and CVA involving the left eye in 2007 7 degenerative lumbar disc disease 8 BPH 9 history of cervical spine fusion 10 abdominal aortic and isn't being monitored on outpatient basis 11 COPD, with secondary hypoxemia 12 smoker 13 small left-sided pleural effusion/atelectasis. Plan The patient incentive spirometer. Give the patient is on nebulized treatments. Deep breathing and monitor the oxygenation and his current pulse ox up to 94% Surgical wound site over the neck area dry clean and intact No neurologic deficits Smoking cessation counseling was done May be able to discharge home today. Cardiology will see the patient prior to his discharge.
== END 2020-09-29 14:15 | disposition home or self-care (01) | DRG 38 ==
LOC: 2ORMAIN 05:50 → 2SICU 10:18
PROVIDERS: ADMIT Surgery; ATTEND Surgery
PROC: 03UK0KZ Supplement Right Internal Carotid Artery with Nonautologous Tissue Substitute, Open Approach (ICD-10-PCS; 2020-09-27)
PROC: 3E033XZ Introduction of Vasopressor into Peripheral Vein, Percutaneous Approach (ICD-10-PCS; 2020-09-27)
PROC: 03CK0ZZ Extirpation of Matter from Right Internal Carotid Artery, Open Approach (ICD-10-PCS; principal; 2020-09-27 07:30)
DX: I65.23 Occlusion and stenosis of bilateral carotid arteries (principal); J98.11 Atelectasis; I25.82 Chronic total occlusion of coronary artery; I95.9 Hypotension, unspecified; I71.4 Abdominal aortic aneurysm, without rupture; J43.9 Emphysema, unspecified; E78.5 Hyperlipidemia, unspecified; I10 Essential (primary) hypertension; R00.1 Bradycardia, unspecified; I25.10 Atherosclerotic heart disease of native coronary artery without angina pectoris; F17.210 Nicotine dependence, cigarettes, uncomplicated; H91.90 Unspecified hearing loss, unspecified ear; I25.2 Old myocardial infarction; M19.90 Unspecified osteoarthritis, unspecified site; N40.0 Benign prostatic hyperplasia without lower urinary tract symptoms; B02.9 Zoster without complications; F41.9 Anxiety disorder, unspecified; M51.36 Other intervertebral disc degeneration, lumbar region; R09.02 Hypoxemia; Z79.899 Other long term (current) drug therapy; Z79.82 Long term (current) use of aspirin; Z95.5 Presence of coronary angioplasty implant and graft; Z86.73 Personal history of transient ischemic attack (TIA), and cerebral infarction without residual deficits; Z97.4 Presence of external hearing-aid; Z98.42 Cataract extraction status, left eye; Z98.41 Cataract extraction status, right eye; Z98.1 Arthrodesis status; Z98.890 Other specified postprocedural states; Z80.1 Family history of malignant neoplasm of trachea, bronchus and lung; Z80.6 Family history of leukemia; Z83.3 Family history of diabetes mellitus
CPT/HCPCS: 36415; 71045; 80048; 83036; 83735; 85025; 86850; 86900; 86901; 88304; 88305; 94640

== ENCOUNTER 2022-06-02 07:51 | Inpatient (IN) | payer MEDICARE ==
[2022-06-02] MEDS ORDERED: methylPREDNISolone SOD SUCCI 125 MG/2 ML VIAL IV STA (08:22)
[2022-06-02] MEDS ORDERED: IPRATROPIUM 0.5 MG/2.5 ML NEBU INHALATION STA (08:22)
[2022-06-02] MEDS ORDERED: ALBUTEROL NEBULIZED 2.5 MG/3 ML INHALATION STA (08:22)
[2022-06-02 08:57] LABS: Basophils # (A) 0.1 k/uL (0-0.2); Basophils % (A) 1 %; Eosinophils # (A) 0.2 k/uL (0-0.7); Eosinophils % (A) 2 %; HCT 38.9 % (39.0-53.0); HGB 12.5 gm/dL (13.0-17.5); Hypochromasia Slight; Lymphocytes # (A) 1.1 k/uL (1.0-4.8); Lymphocytes % (A) 13 %; MCH 30.2 pg (25.0-35.0); MCV 94.4 fL (80.0-100.0); Mean Platelet Volume 8.3; Monocytes # (A) 0.5 k/uL (0-1.0); Monocytes % (A) 6 %; Neutrophils # (A) 6.6 k/uL (1.3-7.7); Neutrophils % (A) 77 %; Platelet Count 185 k/uL (150-450); RBC 4.12 m/uL (4.30-5.90); RDW 13.4 % (11.5-15.5); WBC 8.7 k/uL (3.8-10.6)
[2022-06-02 09:08] LABS: ALT 11 U/L (4-49); AST 17 U/L (17-59); African American GFR (CKD) >90 (>60 ml/min/1.73 sqM); Albumin 3.6 g/dL (3.5-5.0); Alkaline Phosphatase 97 U/L (38-126); Anion Gap 8 mmol/L; Blood Urea Nitrogen 13 mg/dL (9-20); Calcium 8.4 mg/dL (8.4-10.2); Carbon Dioxide 23 mmol/L (22-30); Chloride 107 mmol/L (98-107); Glucose 179 mg/dL (74-99); Magnesium 1.8 mg/dL (1.6-2.3); Non-African American GFR(CKD) 89 (>60 ml/min/1.73 sqM); Potassium 4.3 mmol/L (3.5-5.1); Sodium 138 mmol/L (137-145); Total Bilirubin 0.3 mg/dL (0.2-1.3); Total Protein 6.4 g/dL (6.3-8.2)
[2022-06-02 09:26] LABS: Partial Thromboplastin Time 23.7 sec (22.0-30.0); Prothrombin Time 10.8 sec (9.0-12.0)
--- NOTE | 2022-06-02 09:36 | ED ---
General Adult HPI - General Chief complaint: Shortness of Breath Stated complaint: SOB Time Seen by Provider: 06/02/22 07:55 Source: patient, RN notes reviewed, old records reviewed Mode of arrival: wheelchair Limitations: no limitations - History of Present Illness Initial comments: This a 66-year-old male who presents to the emergency department with a past medical history significant for COPD he continues to smoke and has had a history of congestive heart failure. Patient states he came up from [place] did not bring his oxygen because he stated it was difficult to do. Patient states he woke this morning having difficulty breathing and some chest pain and he states the chest pain is the typical chest pain he has when he has difficulty breathing. Patient states he decided to go out and smoke this morning and see if that improved his breathing it did not so he came to the emergency department. Patient denies any recent fever chills or cough. Patient denies any abdominal pain. Patient denies any nausea vomiting diarrhea. Patient denies any lightheadedness dizziness or near syncopal episode. - Related Data Home Medications Medication Instructions Recorded Confirmed Aspirin 325 mg PO DAILY 06/28/14 09/21/20 ALPRAZolam [Xanax] 1 mg PO TID PRN 07/14/20 09/21/20 Acetaminophen [Tylenol Extra 500 - 1,000 mg PO Q6H PRN 07/14/20 09/21/20 Strength] lisinopriL [Zestril] 2.5 mg PO DAILY 07/14/20 09/21/20 Simvastatin 80 mg PO DAILY 07/23/20 09/21/20 Ergocalciferol [Vitamin D2 50,000 unit PO HURTADO 09/21/20 09/21/20 (DRISDOL)] Previous Rx's Medication Instructions Recorded Nitroglycerin Sl Tabs [Nitrostat] 0.4 mg SUBLINGUAL Q5M PRN #20 tab 07/24/20 Allergies Allergy/AdvReac Type Severity Reaction Status Date / Time codeine Allergy Unknown Verified 06/02/22 07:58 Review of Systems ROS Statement: Those systems with pertinent positive or pertinent negative responses have been documented in the HPI. ROS Other: All systems not noted in ROS Statement are negative. 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 Hx shingles Rt inner ear 2008, wears hearing aids. BPH, ED, disc lumbar spine. SOB w/activity. AAA, Rt carotid stenosis. Abscessed tooth sev wks ago, completed AB Rx. Last Myocardial Infarction Date:: unknown History of Any Multi-Drug Resistant Organisms: None Reported Past Surgical History: Heart Catheterization, Heart Catheterization With Stent, Hernia Repair, Tonsillectomy Additional Past Surgical History / Comment(s): 2013 Cervical Fusion. Umb hernia, ing hernia. Heart cath 2011. Bilat Cataracts Past Anesthesia/Blood Transfusion Reactions: No Reported Reaction Date of Last Stent Placement:: 1997 Past Psychological History: Anxiety Smoking Status: Current every day smoker Past Alcohol Use History: Occasional Past Drug Use History: None Reported - Past Family History Brother(s) Family Medical History: Cancer, Diabetes Mellitus Additional Family Medical History / Comment(s): leukemia, lung cancer; another brother had DM, gangrene General Exam - General Exam Comments Initial Comments: GENERAL: Patient is well-developed and well-nourished. Patient is nontoxic and well- hydrated and is in mild distress. ENT: Neck is soft and supple. No significant lymphadenopathy is noted. Oropharynx is clear. Moist mucous membranes. Neck has full range of motion without eliciting any pain. EYES: The sclera were anicteric and conjunctiva were pink and moist. Extraocular movements were intact and pupils were equal round and reactive to light. Eyeli ds were unremarkable. PULMONARY: Patient has diffuse expiratory wheezing. CARDIOVASCULAR: There is a regular rate and rhythm without any murmurs gallops or rubs. ABDOMEN: Soft and nontender with normal bowel sounds. SKIN: Skin is clear with no lesions or rashes and otherwise unremarkable. NEUROLOGIC: Patient is alert and oriented x3. Cranial nerves II through XII are grossly intact. Motor and sensory are also intact. Normal speech, volume and content. Symmetrical smile. MUSCULOSKELETAL: Normal extremities with adequate strength and full range of motion. LYMPHATICS: No significant lymphadenopathy is noted PSYCHIATRIC: Normal psychiatric evaluation. Limitations: no limitations Course Vital Signs 06/02/22 06/02/22 06/02/22 07:54 09:00 09:14 Temperature 98.4 F Pulse Rate 97 87 87 Respiratory 20 Rate Blood Pressure 125/75 O2 Sat by Pulse 94 L Oximetry 06/02/22 10:12 Temperature Pulse Rate 89 Respiratory 18 Rate Blood Pressure 126/79 O2 Sat by Pulse 96 Oximetry Medical Decision Making - Medical Decision Making EKG shows sinus rhythm at 89 bpm NM interval 158 QRSs 106 QT interval 390 QTC is 437. Patient's EKG shows no ST segment elevation or depression. Patient received 2 breathing treatments as well as steroids. Patient chest x-ray shows pulmonary vascular congestion. Patient was given Lasix at this time. I spoke with some physicians agreed to admit the patient admitted the patient I wrote admitting orders. - Lab Data Result diagrams: 06/02/22 08:49 06/02/22 08:49 Lab Results 06/02/22 06/02/22 06/02/22 Range/Units 08:49 08:49 08:49 WBC 8.7 (3.8-10.6) k/uL RBC 4.12 L (4.30-5.90) m/uL Hgb 12.5 L (13.0-17.5) gm/dL Hct 38.9 L (39.0-53.0) % MCV 94.4 (80.0-100.0) fL MCH 30.2 (25.0-35.0) pg MCHC 32.0 (31.0-37.0) g/dL RDW 13.4 (11.5-15.5) % Plt Count 185 (150-450) k/uL MPV 8.3 Neutrophils % 77 % Lymphocytes % 13 % Monocytes % 6 % Eosinophils % 2 % Basophils % 1 % Neutrophils # 6.6 (1.3-7.7) k/uL Lymphocytes # 1.1 (1.0-4.8) k/uL Monocytes # 0.5 (0-1.0) k/uL Eosinophils # 0.2 (0-0.7) k/uL Basophils # 0.1 (0-0.2) k/uL Hypochromasia Slight PT 10.8 (9.0-12.0) sec INR 1.0 (<1.2) APTT 23.7 (22.0-30.0) sec Sodium 138 (137-145) mmol/L Potassium 4.3 (3.5-5.1) mmol/L Chloride 107 (98-107) mmol/L Carbon Dioxide 23 (22-30) mmol/L Anion Gap 8 mmol/L BUN 13 (9-20) mg/dL Creatinine 0.88 (0.66-1.25) mg/dL Est GFR (CKD-EPI)AfAm >90 (>60 ml/min/1.73 sqM) Est GFR (CKD-EPI)NonAf 89 (>60 ml/min/1.73 sqM) Glucose 179 H (74-99) mg/dL Plasma Lactic Acid Lion (0.7-2.0) mmol/L Calcium 8.4 (8.4-10.2) mg/dL Magnesium 1.8 (1.6-2.3) mg/dL Total Bilirubin 0.3 (0.2-1.3) mg/dL AST 17 (17-59) U/L ALT 11 (4-49) U/L Alkaline Phosphatase 97 (38-126) U/L Troponin I (0.000-0.034) ng/mL NT-Pro-B Natriuret Pep pg/mL Total Protein 6.4 (6.3-8.2) g/dL Albumin 3.6 (3.5-5.0) g/dL 06/02/22 06/02/22 06/02/22 Range/Units 08:49 08:49 08:49 WBC (3.8-10.6) k/uL RBC (4.30-5.90) m/uL Hgb (13.0-17.5) gm/dL Hct (39.0-53.0) % MCV (80.0-100.0) fL MCH (25.0-35.0) pg MCHC (31.0-37.0) g/dL RDW (11.5-15.5) % Plt Count (150-450) k/uL MPV Neutrophils % % Lymphocytes % % Monocytes % % Eosinophils % % Basophils % % Neutrophils # (1.3-7.7) k/uL Lymphocytes # (1.0-4.8) k/uL Monocytes # (0-1.0) k/uL Eosinophils # (0-0.7) k/uL Basophils # (0-0.2) k/uL Hypochromasia PT (9.0-12.0) sec INR (<1.2) APTT (22.0-30.0) sec Sodium (137-145) mmol/L Potassium (3.5-5.1) mmol/L Chloride (98-107) mmol/L Carbon Dioxide (22-30) mmol/L Anion Gap mmol/L BUN (9-20) mg/dL Creatinine (0.66-1.25) mg/dL Est GFR (CKD-EPI)AfAm (>60 ml/min/1.73 sqM) Est GFR (CKD-EPI)NonAf (>60 ml/min/1.73 sqM) Glucose (74-99) mg/dL Plasma Lactic Acid Lion 1.3 (0.7-2.0) mmol/L Calcium (8.4-10.2) mg/dL Magnesium (1.6-2.3) mg/dL Total Bilirubin (0.2-1.3) mg/dL AST (17-59) U/L ALT (4-49) U/L Alkaline Phosphatase (38-126) U/L Troponin I 0.057 H* (0.000-0.034) ng/mL NT-Pro-B Natriuret Pep 6410 pg/mL Total Protein (6.3-8.2) g/dL Albumin (3.5-5.0) g/dL Critical Care Time Critical Care Time: Yes Total Critical Care Time: 35 Disposition Clinical Impression: COPD exacerbation, Acute pulmonary edema, Elevated troponin Disposition: ADMITTED IP TO THIS HOSP Referrals: Radha Henry III, MD [Primary Care Provider] - 1-2 days Time of Disposition: 09:52
--- NOTE | 2022-06-02 09:49 | XR ---
EXAMINATION TYPE: XR chest 2V DATE OF EXAM: 06/02/2022 8:55 AM COMPARISON: Chest radiographs from 09/02/2020 TECHNIQUE: XR chest 2V Frontal and lateral views of the chest. CLINICAL INDICATION:Male, 66 years old with history of difficulty breathing; FINDINGS: Lungs/Pleura: There is no evidence of pleural effusion, or pneumothorax. Increased haziness througho ut the lungs compared to 09/02/2020 with more airspace opacities in the bases . Pulmonary vascularity: Mild pulmonary vascular congestion. Heart/mediastinum: Cardiomediastinal silhouette is prominent in size. Musculoskeletal: No acute osseous pathology. There is fixation hardware in the lower cervical spine. IMPRESSION: Increased haziness throughout the lungs compared to 09/02/2020 correlate for pneumonia.
[2022-06-02] MEDS ORDERED: FUROSEMIDE 10 MG/ML 4 ML VIAL IV STA (09:51)
[2022-06-02] MEDS ORDERED: IPRATROPIUM-ALBUTEROL 3 ML NEB INHALATION PRN (10:36)
[2022-06-02 11:56] LABS: Glucose,Whole Blood 141 mg/dL (70-110)
--- NOTE | 2022-06-02 12:31 | P.CRDCN ---
History of Present Illness Consult date: 06/02/22 History of present illness: History of Present Illness: The patient is a 58 year old male with a known history of CAD, PAD, hyperlipidemia, and chronic tobacco use who presented with symptoms of progressive dyspnea. While in [place] in January he was admitted twice to the hospital with symptoms of CHF and exacerbation of COPD. Yesterday the patient said he became quite short of breath, went out and had a cigarette with improvement in his symptoms and then it reoccurred and when he took his second cigarettes it wasn't getting better so he came into the emergency room. He has some discomfort midsternal, he had some peripheral edema but better today after diuresis. He has chronic cough and wheezing and is smoking about a pack and a half a day. He denies any dizziness or palpitations. He has no PND or orthopnea. He has been followed by Dr. Elias the past and has a known chronically occluded RCA with stent of the LAD. He has a history of carotid disease, status post right carotid endarterectomy, has been seen by Dr. Mccullough in the past. He has a history of abdominal aortic aneurysm. He's feeling better this morning. He had mild elevation of the troponin, he was in sinus mechanism on presentation. His coronary risk factors are positive for hypertension, hyperlipidemia, diabetes mellitus and chronic tobacco use Medications: Lasix 20 mg daily, metformin, aspirin, Zestril 2.5 mg daily Review of Systems: Respiratory: He has chronic dyspnea on exertion with wheezing and cough GI: No nausea or vomiting . No history of peptic ulcer disease. No recent GI bleed. : No hematuria or dysuria. Nervous System: He had a prior stroke in the past, affecting his vision, no seizure. Physical Examination: 66-year-old male, alert and oriented no apparent distress,Blood pressure when 31/80, Heart rate 80 Head: Normocephalic. Eyes: Sclerae nonicteric. Neck: Good carotid upstroke, scar noted on the right side with bruit, no jugular venous distention. Lungs: Significant decrease in the air exchange with scattered rhonchi Heart: Regular rate and rhythm, S1-S2, no S3, no rub. Systolic ejection murmur. Abdomen: Soft nontender, positive bowel sounds no organomegaly. Extremities: No edema, intact distal pulses. Labs: Troponin 0.057, NT proBNP 6410. BUN 13, creatinine 0.88. Potassium 4.3, hemoglobin 12.5. Chest x-ray was haziness, rule out pneumonia EKG: Sinus mechanism normal axis and intervals with nonspecific ST-T wave changes Impression: 1. Progressive dyspnea with evidence of CHF, systolic function unknown with a combination of exacerbation of COPD 2. Mild troponin elevation, most likely type II event. Patient has a known chronically occluded RCA 3. Chronic tobacco use with COPD 4. History of carotid disease and abdominal aortic aneurysm 5. History of diabetes, induced by steroids 6. History of hypertension 7. Hyperlipidemia Plan: 1. Add beta jenny and KIM inhibitor 2. Start statin 3. Obtain an echocardiogram with Doppler 4. Smoking cessation 5. Pulmonary consultation 6. Depending on the rest of his lab work in the results of his echocardiogram further recommendation will be made 7. Thank you for this consult we will follow with you. 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 Hx shingles Rt inner ear 2008, wears hearing aids. BPH, ED, disc lumbar spine. SOB w/activity. AAA, Rt carotid stenosis. Abscessed tooth sev wks ago, completed AB Rx. Last Myocardial Infarction Date:: unknown History of Any Multi-Drug Resistant Organisms: None Reported Past Surgical History: Heart Catheterization, Heart Catheterization With Stent, Hernia Repair, Tonsillectomy Additional Past Surgical History / Comment(s): 2013 Cervical Fusion. Umb herni a, ing hernia. Heart cath 2011. Bilat Cataracts Past Anesthesia/Blood Transfusion Reactions: No Reported Reaction Date of Last Stent Placement:: 1997 Past Psychological History: Anxiety Smoking Status: Current every day smoker Past Alcohol Use History: Occasional Past Drug Use History: None Reported - Past Family History Brother(s) Family Medical History: Cancer, Diabetes Mellitus Additional Family Medical History / Comment(s): leukemia, lung cancer; another brother had DM, gangrene Medications and Allergies Home Medications Medication Instructions Recorded Confirmed Type Aspirin 325 mg PO DAILY 06/28/14 06/02/22 History ALPRAZolam [Xanax] 1 mg PO TID PRN 07/14/20 09/21/20 History Acetaminophen [Tylenol Extra 500 - 1,000 mg PO Q6H PRN 07/14/20 06/02/22 History Strength] lisinopriL [Zestril] 2.5 mg PO DAILY 07/14/20 09/21/20 History Nitroglycerin Sl Tabs [Nitrostat] 0.4 mg SUBLINGUAL Q5M PRN #20 tab 07/24/20 06/02/22 Rx Ergocalciferol [Vitamin D2 50,000 unit PO HURTADO 09/21/20 09/21/20 History (DRISDOL)] Budesonide [Pulmicort] 0.5 mg INHALATION RT-BID 06/02/22 06/02/22 History Furosemide [Lasix] 20 mg PO DAILY PRN 06/02/22 06/02/22 History metFORMIN HCL 500 mg PO BID PRN 06/02/22 06/02/22 History Allergies Allergy/AdvReac Type Severity Reaction Status Date / Time codeine Allergy Unknown Verified 06/02/22 11:48 Physical Exam Vitals: Vital Signs Temp Pulse Pulse Resp BP BP Pulse Ox 06/02/22 11:50 97.5 F L 89 131/81 97 06/02/22 11:02 72 18 136/89 99 06/02/22 10:12 89 18 126/79 96 06/02/22 09:14 87 06/02/22 09:00 87 06/02/22 07:54 98.4 F 97 20 125/75 94 L Intake and Output 06/01/22 06/02/22 06/02/22 22:59 06:59 14:59 Other: Weight 83.915 kg Results 06/02/22 08:49 06/02/22 08:49 Cardiac Enzymes 06/02/22 06/02/22 Range/Units 08:49 08:49 AST 17 (17-59) U/L Troponin I 0.057 H* (0.000-0.034) ng/mL Coagulation 06/02/22 Range/Units 08:49 PT 10.8 (9.0-12.0) sec APTT 23.7 (22.0-30.0) sec CBC 06/02/22 Range/Units 08:49 WBC 8.7 (3.8-10.6) k/uL RBC 4.12 L (4.30-5.90) m/uL Hgb 12.5 L (13.0-17.5) gm/dL Hct 38.9 L (39.0-53.0) % Plt Count 185 (150-450) k/uL Comprehensive Metabolic Panel 06/02/22 Range/Units 08:49 Sodium 138 (137-145) mmol/L Potassium 4.3 (3.5-5.1) mmol/L Chloride 107 (98-107) mmol/L Carbon Dioxide 23 (22-30) mmol/L BUN 13 (9-20) mg/dL Creatinine 0.88 (0.66-1.25) mg/dL Glucose 179 H (74-99) mg/dL Calcium 8.4 (8.4-10.2) mg/dL AST 17 (17-59) U/L ALT 11 (4-49) U/L Alkaline Phosphatase 97 (38-126) U/L Total Protein 6.4 (6.3-8.2) g/dL Albumin 3.6 (3.5-5.0) g/dL Current Medications Generic Name Dose Route Start Last Admin Trade Name Freq PRN Reason Stop Dose Admin Albuterol/Ipratropium 3 ml 06/02/22 10:36 Ipratropium-Albuterol 3 Ml Neb INHALATION RT-Q4H PRN Shortness Of Breath Or Wheezing Aspirin 81 mg 06/02/22 12:30 Aspirin 81 Mg PO DAILY GIAN Atorvastatin Calcium 40 mg 06/02/22 12:30 Atorvastatin 40 Mg Tab PO DAILY GIAN Furosemide 40 mg 06/02/22 21:00 Furosemide 10 Mg/Ml 4 Ml Vial IV Q12HR GIAN Lisinopril 2.5 mg 06/02/22 12:30 Lisinopril 2.5 Mg Tab PO BID GIAN Methylprednisolone Sodium Succinate 60 mg 06/02/22 16:00 Methylprednisolone Sod Succi 125 Mg/2 Ml Vial IV Q6H GIAN Metoprolol Tartrate 25 mg 06/02/22 12:30 Metoprolol Tartrate 25 Mg Tab PO BID GIAN Intake and Output 06/01/22 06/02/22 06/02/22 22:59 06:59 14:59 Other: Weight 83.915 kg Patient Weight 06/03/22 06:59 Weight 83.915 kg 06/02/22 08:49 06/02/22 08:49
[2022-06-02] MEDS: ATORVASTATIN 40 MG TAB PO SCH (12:45)
[2022-06-02] MEDS: ASPIRIN 81 MG PO SCH (12:45)
[2022-06-02] MEDS: METOPROLOL TARTRATE 25 MG TAB PO SCH ×2 (12:45→20:17)
[2022-06-02] MEDS ORDERED: ALBUTEROL NEBULIZED 2.5 MG/3 ML INHALATION PRN (13:49)
--- NOTE | 2022-06-02 14:16 | P.HPIM ---
History of Present Illness H&P Date: 06/02/22 Chief Complaint: Shortness of breath Patient is a 66-year-old male with a past medical history of coronary artery disease, COPD, CVA/TIA, hyperlipidemia, hypertension, osteoarthritis, BPH, right carotid status post right carotid artery endarterectomy stenosis, anxiety, diabetes, who presents to the ED with shortness of breath. Patient states that during the courtney he lives in [place] and during the summer he comes back home to [place]. He states that this year he returned from [place] to [place] in March 2022. He states that he was supposed to be on 3 L oxygen however did not bring his oxygen with him from [place]. He also states that he cannot find a physician to refill his Lasix. So he states that he was taking Lasix from a friend. He states he was taking it as needed and not daily. Last night he states that he was short of breath and could not catch his breath. He also had pressure-like chest pain in the middle of his chest 8 out of 10 nonradiating. He did a breathing treatment however did not help so he came into the ED. Patient states that he continues to smoke about a pack per day. In the ED patient's chest x- ray showed increased haziness throughout the lungs with mild pulmonary vascular congestion. Patient also found to have bilateral wheezing. He was put on oxygen and was given breathing treatments and steroids after which the patient states he was feeling much better and his chest pain has resolved. Patient was also given 1 dose of IV Lasix. Patient also had an elevated troponin of 0.056 - > 0.053 Review of Systems 10 ROS reviewed and are negative except as noted in HPI Past Medical History Past Medical History: Coronary Artery Disease (CAD), Chest Pain / Angina, COPD, CVA/TIA, Hearing Disorder / Deafness, Hyperlipidemia, Hypertension, Myocardial Infarction ([place]), Musculoskeletal Disorder, Osteoarthritis (OA), Prostate Disorder Additional Past Medical History / Comment(s): Stroke left eye 2006, 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 Hx shingles Rt inner ear 2008, wears hearing aids. BPH, ED, disc lumbar spine. SOB w/activity. AAA, Rt carotid stenosis. Abscessed tooth sev wks ago, completed AB Rx. Last Myocardial Infarction Date:: unknown History of Any Multi-Drug Resistant Organisms: None Reported Past Surgical History: Heart Catheterization, Heart Catheterization With Stent, Hernia Repair, Tonsillectomy Additional Past Surgical History / Comment(s): 2014 Cervical Fusion. Umb hernia, ing hernia. Heart cath 2011. Bilat Cataracts Past Anesthesia/Blood Transfusion Reactions: No Reported Reaction Date of Last Stent Placement:: 1997 Past Psychological History: Anxiety Smoking Status: Current every day smoker Past Alcohol Use History: Occasional Past Drug Use History: None Reported - Past Family History Brother(s) Family Medical History: Cancer, Diabetes Mellitus Additional Family Medical History / Comment(s): leukemia, lung cancer; another brother had DM, gangrene Medications and Allergies Home Medications Medication Instructions Recorded Confirmed Type Aspirin 325 mg PO DAILY 06/28/14 06/02/22 History ALPRAZolam [Xanax] 1 mg PO TID PRN 07/14/20 06/02/22 History Acetaminophen [Tylenol Extra 500 - 1,000 mg PO Q6H PRN 07/14/20 06/02/22 History Strength] lisinopriL [Zestril] 2.5 mg PO DAILY 07/14/20 06/02/22 History Nitroglycerin Sl Tabs [Nitrostat] 0.4 mg SUBLINGUAL Q5M PRN #20 tab 07/24/20 06/02/22 Rx Ergocalciferol [Vitamin D2 50,000 unit PO HURTADO 09/21/20 06/02/22 History (DRISDOL)] Albuterol Nebulized [Ventolin 2.5 mg INHALATION RT-Q4H PRN 06/02/22 06/02/22 History Nebulized] Budesonide [Pulmicort] 0.5 mg INHALATION RT-BID 06/02/22 06/02/22 History Furosemide [Lasix] 20 mg PO DAILY PRN 06/02/22 06/02/22 History Ipratropium-Albuterol Nebulize 3 ml INHALATION RT-QID PRN 06/02/22 06/02/22 History [Duoneb 0.5 mg-3 mg/3 ml Soln] Rosuvastatin Calcium [Crestor] 20 mg PO HS 06/02/22 06/02/22 History Tamsulosin [Flomax] 0.4 mg PO DAILY 06/02/22 06/02/22 History metFORMIN HCL 500 mg PO BID PRN 06/02/22 06/02/22 History Allergies Allergy/AdvReac Type Severity Reaction Status Date / Time codeine Allergy Unknown Verified 06/02/22 11:48 Physical Exam Osteopathic Statement: *. No significant issues noted on an osteopathic structural exam other than those noted in the History and Physical/Consult. Vitals: Vital Signs Temp Pulse Pulse Resp BP BP Pulse Ox 06/02/22 11:50 97.5 F L 89 131/81 97 06/02/22 11:02 72 18 136/89 99 06/02/22 10:12 89 18 126/79 96 06/02/22 09:14 87 06/02/22 09:00 87 06/02/22 07:54 98.4 F 97 20 125/75 94 L Intake and Output 06/01/22 06/02/22 06/02/22 22:59 06:59 14:59 Output Total 400 Balance -400 Output: Stool 400 Other: # Voids 1 Weight 83.915 kg General: [Alert and oriented, in mild respiratory distress, pulmonary cachexia, appears chronically debilitated]. Eye: [PERRL, EOMI, normal conjunctiva]. HENT: [Normocephalic, clear tympanic membranes, normal hearing, moist oral mucosa, no scleral icterus, no sinus tenderness]. Neck: [Supple, non-tender, no carotid bruits, no JVD, no lymphadenopathy]. Lungs: [Bilateral wheezing, non-labored respiration]. Heart: [Normal rate, regular rhythm, no murmur, gallop or edema]. Abdomen: [Soft, non-tender, non-distended, normal bowel sounds, no masses]. Musculoskeletal: [Normal range of motion and strength, no tenderness or swelling]. Skin: [Skin is warm, dry and pink, no rashes or lesions]. Neurologic: [Awake, alert, and oriented X3, CN II-XII intact]. Psychiatric: [Cooperative, appropriate mood and affect]. Results CBC & Chem 7: 06/02/22 08:49 06/02/22 08:49 Labs: Abnormal Lab Results - Last 24 Hours (Table) 06/02/22 06/02/22 06/02/22 Range/Units 08:49 08:49 08:49 RBC 4.12 L (4.30-5.90) m/uL Hgb 12.5 L (13.0-17.5) gm/dL Hct 38.9 L (39.0-53.0) % Glucose 179 H (74-99) mg/dL POC Glucose (mg/dL) (70-110) mg/dL Troponin I 0.057 H* (0.000-0.034) ng/mL 06/02/22 06/02/22 Range/Units 11:37 12:04 RBC (4.30-5.90) m/uL Hgb (13.0-17.5) gm/dL Hct (39.0-53.0) % Glucose (74-99) mg/dL POC Glucose (mg/dL) 141 H (70-110) mg/dL Troponin I 0.053 H* (0.000-0.034) ng/mL Thrombosis Risk Factor Assmnt - Choose All That Apply Each Factor Represents 1 point: Abnormal pulmonary function (COPD), Varicose veins Each Risk Factor Represents 2 Points: Age 61-74 years Thrombosis Risk Factor Assessment Total Risk Factor Score: 4 Thrombosis Risk Factor Assessment Level: Moderate Risk Assessment and Plan Assessment: Acute respiratory distress Acute on chronic systolic heart failure Acute COPD exacerbation -Resume IV Lasix 40 mg twice a day -Resume IV Solu-Medrol 60 mg every 6 hours -Doxycycline for COPD exacerbation -Resume DuoNeb as needed and standing -Patient currently satting well on his home O2 at 3 L. He left his oxygen in [place]. -Will need home O2 eval prior to discharge. If he does qualifies will need CM to set up the oxygen. -Echocardiogram ordered -Cardiology and pulmonology consult Mild troponin elevation likely type II secondary to heart failure and COPD exacerbation -Resume aspirin and statin. 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 Cardiology started metoprolol. Tobacco abuse -Patient counseled on smoking cessation CODE STATUS:full code DPOA: Daughter DVT prophylaxis: SC heparin Discussed with: Patient, ER, rn Anticipated length of stay < than [address]: home A total of 50 minutes was spent on the care of this complex patient more than 50% of the time was spent in counseling and care coordination.
[2022-06-02] MEDS: IPRATROPIUM-ALBUTEROL 3 ML NEB INHALATION SCH ×2 (15:05→19:06)
[2022-06-02] MEDS: ALPRAZolam 1 MG TAB PO PRN (15:11)
[2022-06-02] MEDS: methylPREDNISolone SOD SUCCI 125 MG/2 ML VIAL IV SCH ×2 (15:11→23:05)
[2022-06-02] MEDS: HEPARIN SODIUM,PORCINE/PF 5,000 UNIT/0.5 ML SYRINGE SQ SCH ×2 (15:12→23:05)
[2022-06-02] MEDS: NICOTINE 21MG/24HR PATCH TRANSDERM SCH (15:12)
[2022-06-02 17:06] LABS: Glucose,Whole Blood 255 mg/dL (70-110)
[2022-06-02] MEDS: INSULIN ASPART (NovoLOG) 100 UNIT/ML VIAL SQ SCH ×2 (17:20→20:18)
[2022-06-02] MEDS: BUDESONIDE 0.5 MG/2 ML NEBU INHALATION SCH (19:06)
[2022-06-02 19:58] LABS: Glucose,Whole Blood 560 mg/dL (70-110)
[2022-06-02 19:59] LABS: Glucose,Whole Blood 337 mg/dL (70-110)
[2022-06-02] MEDS: FUROSEMIDE 10 MG/ML 4 ML VIAL IV SCH (20:17)
[2022-06-02] MEDS: DOXYCYCLINE 100 MG CAP PO SCH (20:17)
[2022-06-02] MEDS ORDERED: NON FORMULARY DRUG (Rosuvastatin Calcium [Crestor] 40 MG Tablet) PO SCH (21:00)
[2022-06-03] MEDS: methylPREDNISolone SOD SUCCI 125 MG/2 ML VIAL IV SCH ×3 (03:00→16:59)
[2022-06-03 06:33] LABS: Glucose,Whole Blood 162 mg/dL (70-110)
[2022-06-03] MEDS: INSULIN ASPART (NovoLOG) 100 UNIT/ML VIAL SQ SCH ×4 (06:36→20:14)
[2022-06-03] MEDS: BUDESONIDE 0.5 MG/2 ML NEBU INHALATION SCH ×2 (08:29→20:37)
[2022-06-03] MEDS: ASPIRIN 81 MG PO SCH (08:29)
[2022-06-03] MEDS: DOXYCYCLINE 100 MG CAP PO SCH ×2 (08:29→20:14)
[2022-06-03] MEDS: TAMSULOSIN 0.4 MG CAP.ER.24H PO SCH (08:29)
[2022-06-03] MEDS: HEPARIN SODIUM,PORCINE/PF 5,000 UNIT/0.5 ML SYRINGE SQ SCH ×3 (08:29→23:10)
[2022-06-03] MEDS: ATORVASTATIN 40 MG TAB PO SCH (08:29)
[2022-06-03] MEDS: METOPROLOL TARTRATE 25 MG TAB PO SCH ×2 (08:30→20:05)
[2022-06-03] MEDS: IPRATROPIUM-ALBUTEROL 3 ML NEB INHALATION SCH ×4 (08:30→20:38)
[2022-06-03] MEDS: FUROSEMIDE 10 MG/ML 4 ML VIAL IV SCH (08:30)
[2022-06-03] MEDS: NICOTINE 21MG/24HR PATCH TRANSDERM SCH (08:30)
[2022-06-03] MEDS: ALPRAZolam 1 MG TAB PO PRN ×2 (08:31→20:14)
[2022-06-03 08:39] LABS: HCT 41.1 % (39.0-53.0); Hypochromasia Slight; MCH 30.1 pg (25.0-35.0); MCHC 31.6 g/dL (31.0-37.0); MCV 95.4 fL (80.0-100.0); Mean Platelet Volume 8.7; Platelet Count 212 k/uL (150-450); RBC 4.31 m/uL (4.30-5.90); RDW 13.3 % (11.5-15.5); WBC 8.6 k/uL (3.8-10.6)
[2022-06-03 08:51] LABS: Calcium 8.9 mg/dL (8.4-10.2); Potassium 4.5 mmol/L (3.5-5.1)
[2022-06-03] MEDS ORDERED: lisinopriL 20 MG TAB PO SCH (09:00)
[2022-06-03] MEDS ORDERED: ASPIRIN 325 MG TAB PO SCH (09:00)
--- NOTE | 2022-06-03 10:09 | P.PN ---
Subjective The patient is a 58 year old male with a known history of coronary artery disease s/p PCI LAD and chronically totally occluded RCA, PAD, hyperlipidemia, and chronic tobacco use, diabetes, hypertension abdominal aortic aneurysm. He has a history of carotid disease, status post right carotid endarterectomy, has been seen by Dr. Mccullough in the past He has been followed by Dr. Elias. We have been asked to see in consultation for elevated troponin. He presented with symptoms of progressive dyspnea. He had mild elevation of the troponin, he was in sinus mechanism on presentation. EKG revealed Sinus mechanism normal axis and intervals with nonspecific ST-T wave changes. 06/03/2022 Patient seen and examined at bedside, no acute distress. His shortness of breath has improved. He states he is feeling much better. He denies any chest pain. 3.2L urine output over the past 24 hours. Decreased in weight noted. Vital signs are stable. Labs pending. PHYSICAL EXAMINATION Vitals reviewed Head: Normocephalic. Eyes: Sclerae nonicteric. Neck: Good carotid upstroke, scar noted on the right side with bruit, no jugular venous distention. Lungs: Significant decrease in the air exchange with scattered rhonchi, crackles in the bases Heart: Regular rate and rhythm, S1-S2, no S3, no rub. Systolic ejection murmur. Abdomen: Soft nontender, positive bowel sounds no organomegaly. Extremities: No edema, intact distal pulses. ASSESSMENT Progressive dyspnea with evidence of CHF, systolic function unknown with a combination of exacerbation of COPD Mild troponin elevation, most likely type II event. Patient has a known chronically occluded RCA Chronic tobacco use with COPD History of carotid disease and abdominal aortic aneurysm History of diabetes, induced by steroids History of hypertension Hyperlipidemia PLAN Continue aspirin, statin, metoprolol tartrate lisinopril Transition to PO Lasix 40mg BID Monitor I/Os, daily weights, renal function and electrolytes. Obtain an echocardiogram with Doppler Smoking cessation discussed and highly recommended Pulmonary consultation Further recommendations based on clinical course Nurse practitioner note has been reviewed by physician. Signing provider agrees with the documented findings, assessment, and plan of care. Objective - Vital Signs Vital signs: Vital Signs Temp 97.4 F L 06/02/22 15:26 Pulse 84 06/02/22 15:26 Resp 25 H 06/02/22 15:26 BP 130/75 07/03/22 15:26 Pulse Ox 94 L 06/02/22 15:26 FiO2 Intake & Output 06/01/22 06/02/22 06/02/22 18:59 06:59 18:59 Output Total 725 Balance -725 Weight 83.915 kg Output: Urine 325 Stool 400 Other: # Voids 1 - Labs CBC & Chem 7: 06/03/22 08:01 06/03/22 08:01 Labs: Abnormal Lab Results - Last 24 Hours (Table) 06/02/22 06/02/22 06/02/22 Range/Units 08:49 08:49 08:49 RBC 4.12 L (4.30-5.90) m/uL Hgb 12.5 L (13.0-17.5) gm/dL Hct 38.9 L (39.0-53.0) % Glucose 179 H (74-99) mg/dL POC Glucose (mg/dL) (70-110) mg/dL Troponin I 0.057 H* (0.000-0.034) ng/mL 06/02/22 06/02/22 06/02/22 Range/Units 11:37 12:04 15:01 RBC (4.30-5.90) m/uL Hgb (13.0-17.5) gm/dL Hct (39.0-53.0) % Glucose (74-99) mg/dL POC Glucose (mg/dL) 141 H (70-110) mg/dL Troponin I 0.053 H* 0.049 H* (0.000-0.034) ng/mL
[2022-06-03 11:39] LABS: Glucose,Whole Blood 342 mg/dL (70-110)
--- NOTE | 2022-06-03 13:43 | P.CNPUL ---
History of Present Illness Consult date: 06/03/22 Reason for consult: dyspnea History of present illness: A pleasant 58-year-old male patient with known history of COPD. The patient last COPD exacerbation was in [place] where he was given steroids and breathing treatments and the patient had an episode back in January 2022. The patient came into the hospital because of worsening shortness of breath. He is known to have COPD, previous CVA, hypertension and hyperlipidemia and BPH and is also known to have coronary artery disease and the patient has undergone a right carotid endarterectomy urine output. The patient lives between [place] and [place]. The patient is not using oxygen regular basis. He has home O2 which she was on basis. Denies having any chest pain. No pleurisy. No hemoptysis.. Have increased cough and congestion along with some chest prior bypass without any radiation. In the ED, the patient's chest x-ray is consistent with COPD and there was also increase in pulmonary vascular markings. The patient was given a dose of Lasix. Troponins were minimally elevated and the patient's proBNP level was 6410. Based on that, the patient was admitted to the hospital. Cardiology and pulmonary consultation was requested. Echocardiogram is pending for now. Meanwhile, the patient on DuoNeb nebulized treatments around the clock, the patient was started on IV Solu-Medrol. The patient is receiving Lasix initially IV and currently on Lasix 40 mg by mouth twice a day.. The patient is a chronic smoker. The patient has completed his COVID 19 vaccination 2 including a booster. Review of Systems Constitutional: Reports fatigue Eyes: denies as per HPI, denies blurred vision, denies bulging eye, denies decreased vision, denies diplopia, denies discharge, denies dry eye, denies irritation, denies itching, denies pain, denies photophobia, denies loss of peripheral vision, denies loss of vision, denies tunnel vision/blind spots Ears: deny: decreased hearing, ear discharge, earache, tinnitus Ears, nose, mouth and throat: Reports as per HPI Breasts: absent: as per HPI, gynecomastia Cardiovascular: Reports decreased exercise tolerance, Reports dyspnea on exertion Gastrointestinal: Reports as per HPI Genitourinary: Reports as per HPI Musculoskeletal: Reports as per HPI Musculoskeletal: absent: ankle pain, ankle stiffness, ankle swelling Integumentary: Reports as per HPI Neurological: Reports as per HPI Psychiatric: Reports as per HPI Endocrine: Reports as per HPI Hematologic/Lymphatic: Reports as per HPI Allergic/Immunologic: Reports as per HPI Past Medical History Past Medical History: Coronary Artery Disease (CAD), Chest Pain / Angina, COPD, CVA/TIA, Hearing Disorder / Deafness, Hyperlipidemia, Hypertension, Myocardial Infarction (ID), Musculoskeletal Disorder, Osteoarthritis (OA), Prostate Di sorder Additional Past Medical History / Comment(s): Stroke left eye 2006, 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 Hx shingles Rt inner ear 2008, wears hearing aids. BPH, ED, disc lumbar spine. SOB w/activity. AAA, Rt carotid stenosis. Abscessed tooth sev wks ago, completed AB Rx. Last Myocardial Infarction Date:: unknown History of Any Multi-Drug Resistant Organisms: None Reported Past Surgical History: Heart Catheterization, Heart Catheterization With Stent, Hernia Repair, Tonsillectomy Additional Past Surgical History / Comment(s): 2013 Cervical Fusion. Umb hernia, ing hernia. Heart cath 2011. Bilat Cataracts Past Anesthesia/Blood Transfusion Reactions: No Reported Reaction Date of Last Stent Placement:: 1997 Past Psychological History: Anxiety Smoking Status: Current every day smoker Past Alcohol Use History: Occasional Past Drug Use History: None Reported - Past Family History Brother(s) Family Medical History: Cancer, Diabetes Mellitus Additional Family Medical History / Comment(s): leukemia, lung cancer; another brother had DM, gangrene Medications and Allergies Home Medications Medication Instructions Recorded Confirmed Type Aspirin 325 mg PO DAILY 06/28/14 06/02/22 History ALPRAZolam [Xanax] 1 mg PO TID PRN 07/14/20 06/02/22 History Acetaminophen [Tylenol Extra 500 - 1,000 mg PO Q6H PRN 07/14/20 06/02/22 History Strength] lisinopriL [Zestril] 2.5 mg PO DAILY 07/14/20 06/02/22 History Nitroglycerin Sl Tabs [Nitrostat] 0.4 mg SUBLINGUAL Q5M PRN #20 tab 07/24/20 Rx Ergocalciferol [Vitamin D2 50,000 unit PO HURTADO 09/21/20 06/02/22 History (DRISDOL)] Albuterol Nebulized [Ventolin 2.5 mg INHALATION RT-Q4H PRN 06/02/22 06/02/22 History Nebulized] Budesonide [Pulmicort] 0.5 mg INHALATION RT-BID 06/02/22 06/02/22 History Furosemide [Lasix] 20 mg PO DAILY PRN 06/02/22 06/02/22 History Ipratropium-Albuterol Nebulize 3 ml INHALATION RT-QID PRN 06/02/22 06/02/22 History [Duoneb 0.5 mg-3 mg/3 ml Soln] Rosuvastatin Calcium [Crestor] 20 mg PO HS 06/02/22 06/02/22 History Tamsulosin [Flomax] 0.4 mg PO DAILY 06/02/22 06/02/22 History metFORMIN HCL 500 mg PO BID PRN 06/02/22 06/02/22 History Allergies Allergy/AdvReac Type Severity Reaction Status Date / Time codeine Allergy Unknown Verified 06/02/22 11:48 Physical Exam Vitals: Vital Signs Temp Pulse Pulse Pulse Pulse Resp BP 06/03/22 10:43 84 89 06/03/22 08:45 80 06/03/22 08:30 80 06/03/22 08:00 97.8 F 81 20 06/03/22 03:47 97.8 F 86 20 06/03/22 00:00 98.1 F 83 19 06/02/22 20:00 97.5 F L 83 20 06/02/22 19:17 88 06/02/22 19:06 86 06/02/22 15:26 97.4 F L 84 25 H 06/02/22 15:08 88 16 06/02/22 11:50 97.5 F L 89 06/02/22 11:02 72 18 136/89 BP Pulse Ox Pulse Ox Pulse Ox 06/03/22 10:43 94 L 91 L 06/03/22 08:45 06/03/22 08:30 06/03/22 08:00 108/59 98 06/03/22 03:47 112/71 93 L 06/03/22 00:00 114/61 94 L 06/02/22 20:00 106/66 93 L 06/02/22 19:17 06/02/22 19:06 06/02/22 15:26 130/75 94 L 06/02/22 15:08 06/02/22 11:50 131/81 97 06/02/22 11:02 99 Intake and Output 06/02/22 06/03/22 06/03/22 22:59 06:59 14:59 Intake Total 600 600 Output Total 1175 1300 Balance -575 -1300 600 Intake: Oral 600 600 Output: Urine 1175 1300 Other: Voiding Method Urinal Urinal # Voids 2 Weight 80.9 kg Results - Laboratory Findings CBC and BMP: 06/03/22 08:01 06/03/22 08:01 PT/INR, D-dimer PT 10.8 sec (9.0-12.0) 06/02/22 08:49 INR 1.0 (<1.2) 06/02/22 08:49 Abnormal lab findings: Abnormal Labs 06/02/22 06/02/22 06/02/22 08:49 08:49 08:49 RBC 4.12 L Hgb 12.5 L Hct 38.9 L Sodium Glucose 179 H POC Glucose (mg/dL) Hemoglobin A1c Troponin I 0.057 H* 06/02/22 06/02/22 06/02/22 08:49 11:37 12:04 RBC Hgb Hct Sodium Glucose POC Glucose (mg/dL) 141 H Hemoglobin A1c 6.6 H Troponin I 0.053 H* 06/02/22 06/02/22 06/02/22 15:01 16:52 19:56 RBC Hgb Hct Sodium Glucose POC Glucose (mg/dL) 255 H 560 H Hemoglobin A1c Troponin I 0.049 H* 06/02/22 06/03/22 06/03/22 19:58 06:32 08:01 RBC Hgb Hct Sodium 136 L Glucose 289 H POC Glucose (mg/dL) 337 H 162 H Hemoglobin A1c Troponin I - Diagnostic Findings Chest x-ray: image reviewed Assessment and Plan Plan: Acute dyspnea, a combination of COPD/CHF exacerbation CHF, clinically suspected. ProBNP level is elevated COPD , based on severity is not known. Nevertheless, the patient seems to have advanced COPD, using oxygen only as needed. No maintenance inhaler. Using albuterol updrafts on a when necessary basis. Vaccinated for, COVID 192 in addition to booster J & J shot Mild troponin elevation, most likely type II event. Patient has a known chronically occluded RCA carotid endarterectomy . The patient a high-grade stenosis of the right internal carotid artery, symptomatic coronary artery disease with previous stenting of the LAD. The patient a total occlusion of the RCA. Please refer to the cardiac catheter insertion from 2013. He has a preserved LV function hypertension hyperlipidemia history of CVA/TIA and CVA involving the left eye in 2006 degenerative lumbar disc disease BPH history of cervical spine fusion abdominal aortic and is being monitored on outpatient basis Smoker Moderna x2 and then a booster J & J shot Plan Agree on the current management Continue bronchodilators Continue IV Solu-Medrol Continue Lasix orally Echocardiogram to assess LV function Smoking cessation counseling Outpatient PFTs to evaluate severity of COPD and make further adjustments on his maintenance asthma medications
[2022-06-03 16:52] LABS: Glucose,Whole Blood 381 mg/dL (70-110)
[2022-06-03] MEDS: FUROSEMIDE 40 MG TAB PO SCH (16:59)
--- NOTE | 2022-06-03 17:34 | P.PN ---
Subjective Progress Note Date: 06/03/22 Principal diagnosis: COPD exacerbation, heart failure exacerbation Patient states that he is feeling much better today. He feels he is back to his baseline. Cardiology is patient to oral diuretics. Patient had home O2 eval done and he does not need oxygen. Objective - Vital Signs Vital signs: Vital Signs Temp 98 F 06/03/22 12:17 Pulse 96 06/03/22 16:07 Resp 16 06/03/22 12:17 BP 138/72 06/03/22 12:17 Pulse Ox 94 L 06/03/22 12:17 FiO2 Intake & Output 06/02/22 06/03/22 06/03/22 18:59 06:59 18:59 Intake Total 724 057 5553 Output Total 1000 2200 1000 Balance -640 -1960 560 Weight 83.915 kg 80.9 kg Intake: Oral 896 206 5077 Output: Urine 600 2200 1000 Stool 400 Other: Voiding Method Urinal # Voids 1 2 - Exam General examination - Alert and Oriented 3 in NAD Heart - + S1S2 no murmurs Lungs - Clear to auscultation Abdomen soft NT ND +ve BS Extremities - No edema [employer]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 Psych - Calm and cooperative - Labs CBC & Chem 7: 06/03/22 08:01 06/03/22 08:01 Labs: Abnormal Lab Results - Last 24 Hours (Table) 06/02/22 06/02/22 06/02/22 Range/Units 08:49 19:56 19:58 Sodium (137-145) mmol/L Glucose (74-99) mg/dL POC Glucose (mg/dL) 560 H 337 H (70-110) mg/dL Hemoglobin A1c 6.6 H (0.0-6.0) % 06/03/22 06/03/22 06/03/22 Range/Units 06:32 08:01 11:35 Sodium 136 L (137-145) mmol/L Glucose 289 H (74-99) mg/dL POC Glucose (mg/dL) 162 H 342 H (70-110) mg/dL Hemoglobin A1c (0.0-6.0) % 06/03/22 Range/Units 16:37 Sodium (137-145) mmol/L Glucose (74-99) mg/dL POC Glucose (mg/dL) 381 H (70-110) mg/dL Hemoglobin A1c (0.0-6.0) % Assessment and Plan Assessment: Acute respiratory distress Acute on chronic systolic heart failure Acute COPD exacerbation -Cardiology transition the patient to oral Lasix 40 mg twice a day -We'll transition the patient to oral steroids -Doxycycline for COPD exacerbation -Resume DuoNeb as needed and standing -Patient had home O2 eval and did not qualify for oxygen -Echocardiogram pending -Cardiology and pulmonology following Mild troponin elevation likely type II secondary to heart failure and COPD exacerbation -Resume aspirin and statin. 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 Cardiology started metoprolol. Tobacco abuse -Patient counseled on smoking cessation CODE STATUS:full code DPOA: Daughter DVT prophylaxis: SC heparin Anticipated length of stay : Patient can be discharged tomorrow if echocardiogram is unremarkable Anticipated discharge place: home
[2022-06-03 20:04] LABS: Glucose,Whole Blood 316 mg/dL (70-110)
[2022-06-04 06:12] LABS: Glucose,Whole Blood 154 mg/dL (70-110)
[2022-06-04] MEDS: INSULIN ASPART (NovoLOG) 100 UNIT/ML VIAL SQ SCH ×4 (06:46→20:45)
[2022-06-04] MEDS: BUDESONIDE 0.5 MG/2 ML NEBU INHALATION SCH ×2 (07:09→19:36)
[2022-06-04] MEDS: IPRATROPIUM-ALBUTEROL 3 ML NEB INHALATION SCH ×4 (07:09→19:36)
[2022-06-04 08:05] LABS: Calcium 9.1 mg/dL (8.4-10.2)
[2022-06-04 08:10] LABS: Potassium 4.6 mmol/L (3.5-5.1)
[2022-06-04] MEDS: ASPIRIN 81 MG PO SCH (08:30)
[2022-06-04] MEDS: HEPARIN SODIUM,PORCINE/PF 5,000 UNIT/0.5 ML SYRINGE SQ SCH ×3 (08:30→23:23)
[2022-06-04] MEDS: FUROSEMIDE 40 MG TAB PO SCH (08:30)
[2022-06-04] MEDS: DOXYCYCLINE 100 MG CAP PO SCH ×2 (08:30→20:45)
[2022-06-04] MEDS: predniSONE 20 MG TAB PO SCH (08:30)
[2022-06-04] MEDS: ATORVASTATIN 40 MG TAB PO SCH (08:30)
[2022-06-04] MEDS: TAMSULOSIN 0.4 MG CAP.ER.24H PO SCH (08:30)
[2022-06-04] MEDS: NICOTINE 21MG/24HR PATCH TRANSDERM SCH (08:31)
[2022-06-04] MEDS: METOPROLOL TARTRATE 25 MG TAB PO SCH ×2 (08:31→20:34)
[2022-06-04] MEDS: ALPRAZolam 1 MG TAB PO PRN ×2 (08:32→20:45)
[2022-06-04 11:44] LABS: Glucose,Whole Blood 163 mg/dL (70-110)
[2022-06-04] MEDS ORDERED: SODIUM CHLORIDE 0.9% 1,000 ML IV ONE (13:21)
--- NOTE | 2022-06-04 14:08 | P.PN ---
Subjective The patient is a 58 year old male with a known history of coronary artery disease s/p PCI LAD and chronically totally occluded RCA, PAD, hyperlipidemia, and chronic tobacco use, diabetes, hypertension abdominal aortic aneurysm. He has a history of carotid disease, status post right carotid endarterectomy, has been seen by Dr. Mccullough in the past He has been followed by Dr. Elias. We have been asked to see in consultation for elevated troponin. He presented with symptoms of progressive dyspnea. He had mild elevation of the troponin, he was in sinus mechanism on presentation. EKG revealed Sinus mechanism normal axis and intervals with nonspecific ST-T wave changes. 06/04/2022 Patient seen and examined at bedside, no acute distress. His shortness of breath has improved. He states he is feeling much better. He denies any chest pain. 1575L urine output over the past 24 hours. Decreased in weight noted. Vital signs are stable. He has been transition to PO Lasix. Telemetry reviewed, patient maintaining sinus mechanism with one 10beat run of NSVT no further episodes. patient asymptomatic. Sodium 139, potassium 4.6, BUN 37, serum creatinine 1.1. PHYSICAL EXAMINATION Vitals reviewed Head: Normocephalic. Eyes: Sclerae nonicteric. Neck: Good carotid upstroke, scar noted on the right side with bruit, no jugular venous distention. Lungs: Significant decrease in the air exchange with scattered rhonchi, crackles in the bases Heart: Regular rate and rhythm, S1-S2, no S3, no rub. Systolic ejection murmur. Abdomen: Soft nontender, positive bowel sounds no organomegaly. Extremities: No edema, intact distal pulses. ASSESSMENT Progressive dyspnea with evidence of CHF, systolic function unknown with a combination of exacerbation of COPD Mild troponin elevation, most likely type II event. Patient has a known chronically occluded RCA Chronic tobacco use with COPD History of carotid disease and abdominal aortic aneurysm History of diabetes, induced by steroids History of hypertension Hyperlipidemia PLAN Continue aspirin, statin, metoprolol tartrate lisinopril Continue PO Lasix 40mg BID Smoking cessation discussed and highly recommended From cardiology perspective, patient stable. If echocardiogram with no acute findings, Follow up outpatient with Dr. Elias. Please reach out with any further questions or concerns. Nurse practitioner note has been reviewed by physician. Signing provider agrees with the documented findings, assessment, and plan of care. Objective - Vital Signs Vital signs: Vital Signs Temp 97.6 F 06/04/22 08:26 Pulse 84 06/04/22 11:08 Resp 20 06/04/22 08:26 BP 119/62 06/04/22 08:26 Pulse Ox 94 L 06/04/22 08:26 FiO2 Intake & Output 06/03/22 06/04/22 06/04/22 18:59 06:59 18:59 Intake Total 1560 240 Output Total 1000 575 Balance 560 -335 Weight 81.5 kg Intake: Oral 1560 240 Output: Urine 1000 575 Other: Voiding Method Urinal - Labs CBC & Chem 7: 06/03/22 08:01 06/04/22 07:13 Labs: Abnormal Lab Results - Last 24 Hours (Table) 06/03/22 06/03/22 06/03/22 Range/Units 11:35 16:37 20:03 BUN (9-20) mg/dL Glucose (74-99) mg/dL POC Glucose (mg/dL) 342 H 381 H 316 H (70-110) mg/dL 06/04/22 06/04/22 Range/Units 06:11 07:13 BUN 37 H (9-20) mg/dL Glucose 161 H (74-99) mg/dL POC Glucose (mg/dL) 154 H (70-110) mg/dL
--- NOTE | 2022-06-04 14:59 | P.PN ---
Subjective Progress Note Date: 06/04/22 Principal diagnosis: Dyspnea A pleasant 58-year-old male patient with known history of COPD. The patient last COPD exacerbation was in [place] where he was given steroids and breathing treatments and the patient had an episode back in January 2022. The patient came into the hospital because of worsening shortness of breath. He is known to have COPD, previous CVA, hypertension and hyperlipidemia and BPH and is also known to have coronary artery disease and the patient has undergone a right carotid endarterectomy urine output. The patient lives between [place] and [place]. The patient is not using oxygen regular basis. He has home O2 which she was on basis. Denies having any chest pain. No pleurisy. No hemoptysis.. Have increased cough and congestion along with some chest prior bypass without any radiation. In the ED, the patient's chest x-ray is consistent with COPD and there was also increase in pulmonary vascular markings. The patient was given a dose of Lasix. Troponins were minimally elevated and the patient's proBNP level was 6410. Based on that, the patient was admitted to the hospital. Cardiology and pulmonary consultation was requested. Echocardiogram is pending for now. Meanwhile, the patient on DuoNeb nebulized treatments around the clock, the patient was started on IV Solu-Medrol. The patient is receiving Lasix initially IV and currently on Lasix 40 mg by mouth twice a day.. The patient is a chronic smoker. The patient has completed his COVID 19 vaccination 2 including a booster. On 06/04/2022 patient seen in follow-up on selective care unit, he is awake and alert, in no acute distress, states his breathing is improving, still has a congested cough, no, but the chest discomfort, he is on room air with a pulse ox of 93-94%, afebrile, hemodynamically stable. His admission chest x-ray showed increased haziness throughout the lungs, with increased air space opacities at the bases. Patient had a elevated proBNP level of 6410, consistent with acute exacerbation of CHF and patient has been diuresed, and transitioned over to oral Lasix. Patient is also on doxycycline for acute exacerbation of COPD. Patient is in -750 ML no fluid balance over the last 24 hours. Electrolytes were within normal limits, BUN is 37 and creatinine is 1.12. Objective - Vital Signs Vital signs: Vital Signs Temp 97.8 F 06/04/22 12:34 Pulse 92 06/04/22 12:34 Resp 20 06/04/22 08:26 BP 119/68 06/04/22 12:34 Pulse Ox 93 L 06/04/22 12:34 FiO2 Intake & Output 06/03/22 06/04/22 06/04/22 18:59 06:59 18:59 Intake Total 1560 240 Output Total 1000 575 750 Balance 560 335 -750 Weight 81.5 kg Intake: Oral 1560 240 Output: Urine 1000 575 750 Other: Voiding Method Urinal # Voids 2 - Exam GENERAL EXAM: Alert, very pleasant, 66-year-old white male on room air with a pulse ox of 93-94% comfortable in no apparent distress. HEAD: Normocephalic/atraumatic. EYES: Normal reaction of pupils, equal size. Conjunctiva pink, sclera white. NOSE: Clear with pink turbinates. THROAT: No erythema or exudates. NECK: No masses, no JVD, no thyroid enlargement, no adenopathy. CHEST: No chest wall deformity. Symmetrical expansion. LUNGS: Equal air entry with no crackles, wheeze, rhonchi or dullness. CVS: Regular rate and rhythm, normal S1 and S2, no gallops, no murmurs, no rubs ABDOMEN: Soft, nontender. No hepatosplenomegaly, normal bowel sounds, no guarding or rigidity. EXTREMITIES: No clubbing, no edema, no cyanosis, 2+ pulses and upper and lower extremities. MUSCULOSKELETAL: Muscle strength and tone normal. SPINE: No scoliosis or deformity SKIN: No rashes CENTRAL NERVOUS SYSTEM: Alert and oriented -3. No focal deficits, tone is normal in all 4 extremities. PSYCHIATRIC: Alert and oriented -3. Appropriate affect. Intact judgment and insight. - Labs CBC & Chem 7: 06/03/22 08:01 06/04/22 07:13 Labs: Abnormal Lab Results - Last 24 Hours (Table) 06/03/22 06/03/22 06/04/22 Range/Units 16:37 20:03 06:11 BUN (9-20) mg/dL Glucose (74-99) mg/dL POC Glucose (mg/dL) 381 H 316 H 154 H (70-110) mg/dL 06/04/22 06/04/22 Range/Units 07:13 11:43 BUN 37 H (9-20) mg/dL Glucose 161 H (74-99) mg/dL POC Glucose (mg/dL) 163 H (70-110) mg/dL Assessment and Plan Plan: Assessment: Acute dyspnea, a combination of COPD/CHF exacerbation CHF, clinically suspected. ProBNP level is elevated COPD , based on severity is not known. Nevertheless, the patient seems to have advanced COPD, using oxygen only as needed. No maintenance inhaler. Using albuterol updrafts on a when necessary basis. Vaccinated for, COVID 192 in addition to booster J & J shot Mild troponin elevation, most likely type II event. Patient has a known chronically occluded RCA carotid endarterectomy . The patient a high-grade stenosis of the right internal carotid artery, symptomatic coronary artery disease with previous stenting of the LAD. The patient a total occlusion of the RCA. Please refer to the cardiac catheter insertion from 2013. He has a preserved LV function hypertension hyperlipidemia history of CVA/TIA and CVA involving the left eye in 2006 degenerative lumbar disc disease BPH history of cervical spine fusion abdominal aortic and is being monitored on outpatient basis Smoker Moderna x2 and then a booster J & J shot Plan: Continue diuretics, Patient is maintaining negative fluid balance Continue oral steroids and bronchodilators Echocardiogram has been completed, results are pending Increase activity as tolerated Continue to follow Follow-up chest x-ray tomorrow I have personally seen and examined the patient, performed the documentation and the assessment and plan as written. Number of minutes spent on the visit: [10] Time with Patient: Less than 30
[2022-06-04 16:12] LABS: Glucose,Whole Blood 348 mg/dL (70-110)
--- NOTE | 2022-06-04 17:37 | P.PN ---
Subjective Progress Note Date: 06/04/22 (delayed charting seen at 0945) Patient is a 66-year-old male with COPD, prior CVA and hypertension, dyslipidemia, diabetes, and congestive heart failure who presented to the ER with complaint of shortness of breath. He had run out of his Lasix. In the ER he was found have acute exacerbation of COPD and possible CHF. He was admitted and started on steroids, bronchodilators, and Lasix. Cardiology and pulmonary were following. He had a successful improvement in his symptoms. We're hoping to discharge him home on 06/04 however echocardiogram was not available. Patient seen and examined at bedside. Breathing is much better and back to baseline. Lower extremity edema has resolved. Feeling that he can manage at home. General: nontoxic, no distress, appears at stated age Derm: warm, dry Head: atraumatic, normocephalic, symmetric Eyes: EOMI, no lid lag, anicteric sclera Mouth: no lip lesion, mucus membranes moist Cardiovascular: S1S2 reg, no murmur, positive posterior tibial pulse bilateral, Lungs: CTA bilateral, no rhonchi, no rales , no accessory muscle use Abdominal: soft, nontender to palpation, no guarding, no appreciable organomegaly Ext: no gross muscle atrophy, trace edema, no contractures Neuro: CN II-XI grossly intact, no focal neuro deficits Psych: Alert, oriented, appropriate affect Assessment: Acute exacerbation of COPD Acute exacerbation of congestive heart failure Non-ST segment elevated myocardial infarction Chronic tobacco abuse Coronary artery disease Steroid induced Type 2 diabetes, A1C 6.6 continue with dietiary modifications Dyslipidemia Hypertension - was hoping to discharge home but echo report still not available at 1732 - cardio and pulm recs - conitnue with doxy, prednisone , and bronchodilators - conitnue with lasix but decreased to once daily. home in AM once echo available Objective - Vital Signs Vital signs: Vital Signs Temp 97.9 F 06/04/22 15:20 Pulse 85 06/04/22 15:45 Resp 25 H 06/04/22 15:45 BP 122/63 06/04/22 15:20 Pulse Ox 91 L 06/04/22 15:32 FiO2 Intake & Output 06/03/22 06/04/22 06/04/22 18:59 06:59 18:59 Intake Total 1560 240 Output Total 1000 575 750 Balance 560 -335 -750 Weight 81.5 kg Intake: Oral 1560 240 Output: Urine 1000 575 750 Other: Voiding Method Urinal # Voids 2 - Labs CBC & Chem 7: 06/03/22 08:01 06/04/22 07:13 Labs: Abnormal Lab Results - Last 24 Hours (Table) 06/03/22 06/04/22 06/04/22 Range/Units 20:03 06:11 07:13 BUN 37 H (9-20) mg/dL Glucose 161 H (74-99) mg/dL POC Glucose (mg/dL) 316 H 154 H (70-110) mg/dL 06/04/22 06/04/22 Range/Units 11:43 16:10 BUN (9-20) mg/dL Glucose (74-99) mg/dL POC Glucose (mg/dL) 163 H 348 H (70-110) mg/dL
[2022-06-04 20:11] LABS: Glucose,Whole Blood 403 mg/dL (70-110)
[2022-06-05 06:04] LABS: Glucose,Whole Blood 151 mg/dL (70-110)
[2022-06-05] MEDS: INSULIN ASPART (NovoLOG) 100 UNIT/ML VIAL SQ SCH ×4 (06:31→20:11)
--- NOTE | 2022-06-05 07:08 | XR ---
EXAMINATION TYPE: XR chest 1V portable DATE OF EXAM: 06/05/2022 CLINICAL HISTORY: Dyspnea progress study. TECHNIQUE: Single AP portable upright view of the chest is obtained. COMPARISON: Chest x-ray from 3 days earlier and older studies. FINDINGS: Stable mild cardiomegaly with atherosclerotic thoracic aorta. Anterior fusion plate in the mid to lower cervical spine is redemonstrated. Increased interstitial markings in the periphery of b oth lungs remains present. Improved bilateral pleural effusions. No pneumothorax evident bilaterally. IMPRESSION: Improved bilateral pleural effusions. Cardiomegaly with mild bilateral interstitial edema redemonstrated. Findings consistent with improving CHF exacerbation thought present, correlate clini georgina.
[2022-06-05] MEDS ORDERED: FUROSEMIDE 40 MG TAB PO SCH (09:00)
[2022-06-05] MEDS: BUDESONIDE 0.5 MG/2 ML NEBU INHALATION SCH (09:09)
[2022-06-05] MEDS: IPRATROPIUM-ALBUTEROL 3 ML NEB INHALATION SCH ×4 (09:10→19:12)
--- NOTE | 2022-06-05 10:02 | CA ---
Transthoracic Echo Report Name: Meet Haas Age: 66 Gender: M : 1955 Exam Date: 06/04/2022 11:18 Exam Location: [place] [facility] Ht (in): 69 Wt (lb): 179 Ordering Physician: Pedro Luis Ulloa MD ([id number]) Attending/Referring Phys: [facility], [facility] [employer] Jnael Rosenthal RDCS Procedure CPT: Indications: CAD Cardiac Hx: Technical Quality: Fair Contrast 1: Total Dose (mL): Contrast 2: Total Dose (mL): MEASUREMENTS (Male / Female) Normal Values 2D ECHO LV Diastolic Diameter PLAX 5.9 cm 4.2 - 5.9 / 3.9 - 5.3 cm LV Systolic Diameter PLAX 5.3 cm IVS Diastolic Thickness 1.4 cm 0.6 - 1.0 / 0.6 - 0.9 cm LVPW Diastolic Thickness 1.4 cm 0.6 - 1.0 / 0.6 - 0.9 cm LV Relative Wall Thickness 0.5 RV Internal Dim ED PLAX 3.7 cm LA Volume 105.5 cm??? 18 - 58 / 22 - 52 cm??? M-MODE Aortic Root Diameter MM 3.0 cm LA Systolic Diameter MM 4.8 cm LA Ao Ratio MM 1.6 AV Cusp Separation MM 1.6 cm DOPPLER AV Peak Velocity 153.2 cm/s AV Peak Gradient 9.4 mmHg LVOT Peak Velocity 64.0 cm/s LVOT Peak Gradient 1.6 mmHg MV Area PHT 6.2 cm??? Mitral E Point Velocity 98.1 cm/s Mitral A Point Velocity 48.2 cm/s Mitral E to A Ratio 2.0 MV Deceleration Time 122.3 ms TR Peak Velocity 312.6 cm/s TR Peak Gradient 39.1 mmHg Right Ventricular Systolic Press 41.4 mmHg FINDINGS Left Ventricle Moderately increased left ventricular wall thickness. Moderately reduced global left ventricular systolic function. Left ventricular ejection fraction is estimated at 25-30 %. Right Ventricle Moderate right ventricular dilatation. Mild pulmonary hypertension. Right Atrium Normal right atrial size. Left Atrium Severely increased left atrial volume. No evidence for an atrial septal defect. Mitral Valve Mild mitral annular calcification. [id number] mitral regurgitation. Aortic Valve No aortic valve stenosis or regurgitation. Aortic valve sclerosis. Tricuspid Valve Structurally normal tricuspid valve. Moderate tricuspid regurgitation. Pulmonic Valve Trace pulmonic regurgitation. Pericardium No pericardial or pleural effusion. Aorta Normal size aortic root and proximal ascending aorta. CONCLUSIONS Impaired LV function with EF between 25-30% with global hypokinesia and dilated LV Moderate to severe mitral regurgitation Previewed by: Dr. Chuy Elias MD (Electronically Signed) Final Date: 05 June 2022 10:01
[2022-06-05] MEDS: METOPROLOL TARTRATE 25 MG TAB PO SCH (10:05)
[2022-06-05] MEDS: TAMSULOSIN 0.4 MG CAP.ER.24H PO SCH (10:06)
[2022-06-05] MEDS: predniSONE 20 MG TAB PO SCH (10:06)
[2022-06-05] MEDS: ATORVASTATIN 40 MG TAB PO SCH (10:08)
[2022-06-05] MEDS: DOXYCYCLINE 100 MG CAP PO SCH ×2 (10:08→20:11)
[2022-06-05] MEDS: ASPIRIN 81 MG PO SCH (10:08)
[2022-06-05] MEDS: HEPARIN SODIUM,PORCINE/PF 5,000 UNIT/0.5 ML SYRINGE SQ SCH ×2 (10:09→15:29)
[2022-06-05] MEDS: ALPRAZolam 1 MG TAB PO PRN (10:11)
[2022-06-05] MEDS: NICOTINE 21MG/24HR PATCH TRANSDERM SCH (10:14)
[2022-06-05 11:45] LABS: Glucose,Whole Blood 295 mg/dL (70-110)
[2022-06-05] MEDS: methylPREDNISolone SOD SUCCI 125 MG/2 ML VIAL IV SCH ×2 (12:45→18:29)
--- NOTE | 2022-06-05 13:12 | P.PN ---
Subjective The patient is a 58 year old male with a known history of coronary artery disease s/p PCI LAD and chronically totally occluded RCA, PAD, hyperlipidemia, and chronic tobacco use, diabetes, hypertension abdominal aortic aneurysm. He has a history of carotid disease, status post right carotid endarterectomy, has been seen by Dr. Mccullough in the past He has been followed by Dr. Elias. We have been asked to see in consultation for elevated troponin. He presented with symptoms of progressive dyspnea. He had mild elevation of the troponin, he was in sinus mechanism on presentation. EKG revealed Sinus mechanism normal axis and intervals with nonspecific ST-T wave changes. 06/05/2022 Patient seen and examined at bedside, no acute distress. He states his shortness of breath has improved, however patient appears to be short of breath on exam. He thinks he his back at baseline. He denies any chest pain. 1575L urine output over the past 24 hours. Decreased in weight noted. Vital signs are stable. He has been transition to PO Lasix. Telemetry reviewed, patient maintaining sinus mechanism. Echocardiogram revealed EF 25-30%, moderate to severe MR PHYSICAL EXAMINATION Vitals reviewed Head: Normocephalic. Eyes: Sclerae nonicteric. Neck: Good carotid upstroke, scar noted on the right side with bruit, no jugular venous distention. Lungs: Significant decrease in the air exchange with scattered rhonchi bilaterally Heart: Regular rate and rhythm, S1-S2, no S3, no rub. Systolic ejection murmur. Abdomen: Soft nontender, positive bowel sounds no organomegaly. Extremities: No edema, intact distal pulses. ASSESSMENT Progressive dyspnea with evidence of acute congestive heart failure with reduced ejection fraction Mild troponin elevation, most likely type II event. 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 Currently CXray mostly improved and today feeling much worse with increased wheeze, suspect more pulmonary. Likely will need catheterization and may consider if more stable from respiratory standpoint however may be performed on an outpt basis as well. Transition to carvedilol 3.125mg BID Continue aspirin, statin, lisinopril Continue PO Lasix 40mg BID Smoking cessation discussed and highly recommended Nurse practitioner note has been reviewed by physician. Signing provider agrees with the documented findings, assessment, and plan of care. Objective - Vital Signs Vital signs: Vital Signs Temp 97.9 F 06/05/22 12:00 Pulse 97 06/05/22 12:00 Resp 26 H 06/05/22 12:00 BP 133/78 06/05/22 12:00 Pulse Ox 96 06/05/22 12:00 FiO2 Intake & Output 06/04/22 06/05/22 06/05/22 18:59 06:59 18:59 Intake Total 240 240 240 Output Total 750 1250 Balance -510 -1010 240 Weight 82.5 kg Intake: Oral 240 240 240 Output: Urine 750 1250 Other: Voiding Method Urinal # Voids 2 - Labs CBC & Chem 7: 06/03/22 08:01 06/04/22 07:13 Labs: Abnormal Lab Results - Last 24 Hours (Table) 06/04/22 06/04/22 06/05/22 Range/Units 16:10 20:08 06:02 POC Glucose (mg/dL) 348 H 403 H 151 H (70-110) mg/dL 06/05/22 Range/Units 11:44 POC Glucose (mg/dL) 295 H (70-110) mg/dL
--- NOTE | 2022-06-05 13:51 | P.PN ---
Subjective Progress Note Date: 06/05/22 Principal diagnosis: Dyspnea A pleasant 58-year-old male patient with known history of COPD. The patient last COPD exacerbation was in [place] where he was given steroids and breathing treatments and the patient had an episode back in January 2022. The patient came into the hospital because of worsening shortness of breath. He is known to have COPD, previous CVA, hypertension and hyperlipidemia and BPH and is also known to have coronary artery disease and the patient has undergone a right carotid endarterectomy urine output. The patient lives between [place] and [place]. The patient is not using oxygen regular basis. He has home O2 which she was on basis. Denies having any chest pain. No pleurisy. No hemoptysis.. Have increased cough and congestion along with some chest prior bypass without any radiation. In the ED, the patient's chest x-ray is consistent with COPD and there was also increase in pulmonary vascular markings. The patient was given a dose of Lasix. Troponins were minimally elevated and the patient's proBNP level was 6410. Based on that, the patient was admitted to the hospital. Cardiology and pulmonary consultation was requested. Echocardiogram is pending for now. Meanwhile, the patient on DuoNeb nebulized treatments around the clock, the patient was started on IV Solu-Medrol. The patient is receiving Lasix initially IV and currently on Lasix 40 mg by mouth twice a day.. The patient is a chronic smoker. The patient has completed his COVID 19 vaccination 2 including a booster. On 06/04/2022 patient seen in follow-up on selective care unit, he is awake and alert, in no acute distress, states his breathing is improving, still has a congested cough, no, but the chest discomfort, he is on room air with a pulse ox of 93-94%, afebrile, hemodynamically stable. His admission chest x-ray showed increased haziness throughout the lungs, with increased air space opacities at the bases. Patient had a elevated proBNP level of 6410, consistent with acute exacerbation of CHF and patient has been diuresed, and transitioned over to oral Lasix. Patient is also on doxycycline for acute exacerbation of COPD. Patient is in -750 ML no fluid balance over the last 24 hours. Electrolytes were within normal limits, BUN is 37 and creatinine is 1.12. On 06/05/2022 patient seen in follow-up on selective care unit. Patient is up i n a chair, however very bronchospastic, and short of breath with conversation and any activity, he is currently on 2 L of oxygen pulse ox is 96%, his Lasix is currently down to 40 mg once daily, his chest x-ray does show improved bilateral pleural effusions, cardiomegaly with mild bilateral interstitial edema. Patient continues on nebulized bronchodilators and prednisone however he continues to be very short of breath. His echocardiogram showed moderately reduced global left ventricular systolic function with EF of 25-30%, moderate to severe mitral regurgitation. Overall patient is in -1.5 L net fluid balance over the last 24 hours. Today's labs are still pending. Patient seems to be very frustrated with slow improvement, he wants to go home, however he understands the consequences of going home AGAINST MEDICAL ADVICE. Objective - Vital Signs Vital signs: Vital Signs Temp 97.9 F 06/05/22 12:00 Pulse 97 06/05/22 12:00 Resp 26 H 06/05/22 12:00 BP 133/78 06/05/22 12:00 Pulse Ox 96 06/05/22 12:00 FiO2 Intake & Output 06/04/22 06/05/22 06/05/22 18:59 06:59 18:59 Intake Total 240 240 240 Output Total 750 1250 Balance -510 -1010 240 Weight 82.5 kg Intake: Oral 240 240 240 Output: Urine 750 1250 Other: Voiding Method Urinal # Voids 2 - Exam GENERAL EXAM: Alert, very pleasant, 66-year-old white male 2 L of oxygen and the pulse ox of 96% comfortable in no apparent distress. HEAD: Normocephalic/atraumatic. EYES: Normal reaction of pupils, equal size. Conjunctiva pink, sclera white. NOSE: Clear with pink turbinates. THROAT: No erythema or exudates. NECK: No masses, no JVD, no thyroid enlargement, no adenopathy. CHEST: No chest wall deformity. Symmetrical expansion. LUNGS: Equal air entry with no crackles, wheeze, rhonchi or dullness. CVS: Regular rate and rhythm, normal S1 and S2, no gallops, no murmurs, no rubs ABDOMEN: Soft, nontender. No hepatosplenomegaly, normal bowel sounds, no guarding or rigidity. EXTREMITIES: No clubbing, no edema, no cyanosis, 2+ pulses and upper and lower extremities. MUSCULOSKELETAL: Muscle strength and tone normal. SPINE: No scoliosis or deformity SKIN: No rashes CENTRAL NERVOUS SYSTEM: Alert and oriented -3. No focal deficits, tone is normal in all 4 extremities. PSYCHIATRIC: Alert and oriented -3. Appropriate affect. Intact judgment and i nsight. - Labs CBC & Chem 7: 06/03/22 08:01 06/04/22 07:13 Labs: Abnormal Lab Results - Last 24 Hours (Table) 06/04/22 06/04/22 06/05/22 Range/Units 16:10 20:08 06:02 POC Glucose (mg/dL) 348 H 403 H 151 H (70-110) mg/dL 06/05/22 Range/Units 11:44 POC Glucose (mg/dL) 295 H (70-110) mg/dL Assessment and Plan Plan: Assessment: #1. Acute dyspnea, a combination of COPD/CHF exacerbation #2. CHF, clinically suspected. ProBNP level is elevated #3. COPD , based on severity is not known. Nevertheless, the patient seems to have advanced COPD, using oxygen only as needed. No maintenance inhaler. Using albuterol updrafts on a when necessary basis. Vaccinated for, COVID 192 in addition to booster J & J shot #4. Mild troponin elevation, most likely type II event. Patient has a known chronically occluded RCA #5. Carotid endarterectomy . The patient a high-grade stenosis of the right internal carotid artery, symptomatic #6. Coronary artery disease with previous stenting of the LAD. The patient a total occlusion of the RCA. Please refer to the cardiac catheter insertion from 2013. He has a preserved LV function #7. Hypertension #8. Hyperlipidemia #9. 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 Degenerative lumbar disc disease #11. BPH #12. History of cervical spine fusion #13. Abdominal aortic and is being monitored on outpatient basis #14. Smoker Plan: Follow-up chest x-ray has been reviewed showing improvement in the appearance of interstitial infiltrates However patient is still quite short of breath, and bronchospastic We will increase the oral diuretics to 40 mg twice daily We'll switch the patient to IV steroids with Solu-Medrol 60 mg every 6 hours Daily labs including electrolytes and renal profile We'll continue to follow I have personally seen and examined the patient, performed the documentation and the assessment and plan as written. Number of minutes spent on the visit: [10] Time with Patient: Less than 30
--- NOTE | 2022-06-05 14:10 | P.PN ---
Subjective Progress Note Date: 06/05/22 (delayed charting seen at 1030) Patient is a 66-year-old male with COPD, prior CVA and hypertension, dyslipidemia, diabetes, and congestive heart failure who presented to the ER with complaint of shortness of breath. He had run out of his Lasix. In the ER he was found have acute exacerbation of COPD and possible CHF. He was admitted and started on steroids, bronchodilators, and Lasix. Cardiology and pulmonary were following. He had a successful improvement in his symptoms. Initially, and was for discharge after echocardiogram. Echo came back showing an ejection fraction of 25-30%, which is newly known for patient. He also developed worsening of his respiratory status and wheezing after transition to oral steroids. Patient seen and examined at bedside. Breathing is much better and back to baseline. Lower extremity edema has resolved. Feeling that he can manage at home. General: nontoxic, no distress, appears at stated age Derm: warm, dry Head: atraumatic, normocephalic, symmetric Eyes: EOMI, no lid lag, anicteric sclera Mouth: no lip lesion, mucus membranes moist Cardiovascular: S1S2 reg, no murmur, positive posterior tibial pulse bilateral, Lungs: 3-word conversational dyspnea, significant wheezing Abdominal: soft, nontender to palpation, no guarding, no appreciable organomegaly Ext: no gross muscle atrophy, trace edema, no contractures Neuro: CN II-XI grossly intact, no focal neuro deficits Psych: Alert, oriented, appropriate affect Assessment: Acute exacerbation of COPD -Worsening wheezing today -Pulmonary recommendations appreciated -Patient resumed on IV Solu-Medrol -Continue with bronchodilators - Doxy Acute exacerbation of systolic congestive heart failure and newly discovered- ejection fraction 25-30% Non-ST segment elevated myocardial infarction Coronary artery disease - Lasix - D/W cardiology due to significant respiratory difficulties recommend outpatient cath with Dr. Elias - transition from metoprolol to coreg as patient has not tolerated coreg in the past - lasix increased, add aldactone in BP and renal function can tolerate Steroid induced Type 2 diabetes, -A1C 6.6 continue with dietiary modifications - SSI Chronic tobacco abuse Dyslipidemia Hypertension Resistant to inpatient status. Awaiting call back from [facility] Re: accepting patient to their service. Objective - Vital Signs Vital signs: Vital Signs Temp 97.9 F 06/05/22 12:00 Pulse 97 06/05/22 12:00 Resp 26 H 06/05/22 12:00 BP 133/78 06/05/22 12:00 Pulse Ox 96 06/05/22 12:00 FiO2 Intake & Output 06/04/22 06/05/22 06/05/22 18:59 06:59 18:59 Intake Total 240 240 240 Output Total 750 1250 Balance -510 -1010 240 Weight 82.5 kg Intake: Oral 240 240 240 Output: Urine 750 1250 Other: Voiding Method Urinal # Voids 2 - Labs CBC & Chem 7: 06/03/22 08:01 06/04/22 07:13 Labs: Abnormal Lab Results - Last 24 Hours (Table) 06/04/22 06/04/22 06/05/22 Range/Units 16:10 20:08 06:02 POC Glucose (mg/dL) 348 H 403 H 151 H (70-110) mg/dL 06/05/22 Range/Units 11:44 POC Glucose (mg/dL) 295 H (70-110) mg/dL
[2022-06-05] MEDS ORDERED: FUROSEMIDE 10 MG/ML 4 ML VIAL IV STA (14:54)
[2022-06-05] MEDS: FUROSEMIDE 40 MG TAB PO SCH (14:55)
[2022-06-05 17:03] LABS: Glucose,Whole Blood 227 mg/dL (70-110)
[2022-06-05] MEDS: carvediloL 3.125 MG TAB PO SCH (18:30)
[2022-06-05] MEDS: SYMBICORT 160-4.5 MCG INHALER INHALATION SCH (19:12)
[2022-06-05 20:05] LABS: Glucose,Whole Blood 452 mg/dL (70-110)
[2022-06-05] MEDS: INSULIN DETEMIR (LEVEMIR) 100 UNIT/ML SYR SQ SCH (21:04)
[2022-06-06] MEDS: methylPREDNISolone SOD SUCCI 125 MG/2 ML VIAL IV SCH ×2 (00:40→05:26)
[2022-06-06] MEDS: HEPARIN SODIUM,PORCINE/PF 5,000 UNIT/0.5 ML SYRINGE SQ SCH ×3 (00:40→16:54)
[2022-06-06 06:10] LABS: Glucose,Whole Blood 208 mg/dL (70-110)
[2022-06-06] MEDS: carvediloL 3.125 MG TAB PO SCH ×2 (06:41→16:54)
[2022-06-06] MEDS: INSULIN DETEMIR (LEVEMIR) 100 UNIT/ML SYR SQ SCH (06:41)
[2022-06-06] MEDS: INSULIN ASPART (NovoLOG) 100 UNIT/ML VIAL SQ SCH ×4 (06:41→21:40)
[2022-06-06] MEDS ORDERED: metFORMIN 500 MG TAB PO PRN (06:55)
[2022-06-06] MEDS: SYMBICORT 160-4.5 MCG INHALER INHALATION SCH ×3 (07:34→19:53)
[2022-06-06] MEDS: IPRATROPIUM-ALBUTEROL 3 ML NEB INHALATION SCH ×4 (07:34→19:53)
[2022-06-06] MEDS: ASPIRIN 81 MG PO SCH (08:48)
[2022-06-06] MEDS: FUROSEMIDE 40 MG TAB PO SCH ×2 (08:49→16:55)
[2022-06-06] MEDS: TAMSULOSIN 0.4 MG CAP.ER.24H PO SCH (08:49)
[2022-06-06] MEDS: ATORVASTATIN 40 MG TAB PO SCH (08:49)
[2022-06-06] MEDS: ALPRAZolam 1 MG TAB PO PRN ×2 (08:53→16:54)
[2022-06-06] MEDS: DOXYCYCLINE 100 MG CAP PO SCH ×2 (08:53→21:40)
[2022-06-06 09:12] LABS: Calcium 9.4 mg/dL (8.4-10.2); Potassium 4.3 mmol/L (3.5-5.1)
[2022-06-06 09:39] LABS: HCT 46.1 % (39.0-53.0); HGB 14.7 gm/dL (13.0-17.5); Hypochromasia Slight; MCH 30.4 pg (25.0-35.0); MCHC 31.9 g/dL (31.0-37.0); MCV 95.1 fL (80.0-100.0); Mean Platelet Volume 8.6; Platelet Count 236 k/uL (150-450); RBC 4.85 m/uL (4.30-5.90); RDW 13.3 % (11.5-15.5)
--- NOTE | 2022-06-06 10:19 | CDI ---
Documentation Clarification Form Date: 06/06/2022 09:40:01 AM From: Tiffanie Larsen RN, CCDS Admit Date: 06/05/2022 01:56:00 PM Patient Name: Meet Haas Visit Number: [id number] Discharge Date: ATTENTION: The Clinical Documentation Specialists (CDI) and [facility] Coding Staff appreciate your assistance in clarifying documentation. Please respond to the clarification below the line at the bottom and electronically sign. The CDI & [facility] Coding staff will review the response and follow-up if needed. Please note: Queries are made part of the Legal Health Record. If you have any questions, please contact the author of this message via ITS. Dr. Joan Villalba Conflicting documentation has been found in the medical record. As attending physician, please provide clarification. 06/02 Cardiology consult and subsequent documentation: Mild troponin elevation, most likely type II event. Patient with known chronically occluded RCA 06/02 H/P: Mild troponin elevation likely type II secondary to heart failure and COPD exacerbation 06/04 Attending progress notes: Non-ST segment elevated myocardial infarction History/Risk Factors: COPD, CHF, Hypertension, [place], Clinical Indicators: 66-year-old with complaints of shortness of breath and some chest pain typical when he has difficulty breathing. 06/02 Troponin I: 0.057, 0.049, BNP 6410 06/02 CXR: Increased haziness throughout the lungs compared to 09/02/2020 correlate for pneumonia. 06/02 EKG: sinus rhythm at [address]pm[address] no [address] elevation or depression. Cardiology assessment (06/02) EKG sinus mechanism normal axis and intervals with nonspecific ST-T wave changes. 06/04 ECHO: Impaired LV function with EF between 25-30 % with global hypokinesia and dilated LV Moderate to severe mitral regurgitation. Treatment: Cardiac/Telemetry monitoring ASA 81 mg po daily, Coreg 3.125 mg po bid, Lipitor 40 mg po daily, Zestril 2.5 mg po daily Lasix 40 mg IV once (06/05) 40 po bid Duoneb 3 ml inhalation RT-QID Please clarify which diagnosis is most appropriate: [X ] Non-ST segment elevated myocardial infarction, Type II [place] due to CHF and COPD [ ] Non-ST segment myocardial infarction [ ] Other (please specify) [ ] Unable to determine (Template Last Revised: January 2021) MTDD
--- NOTE | 2022-06-06 12:17 | P.PN ---
Subjective This is a pleasant 58 inches old male with past medical history of hypertension, hyperlipidemia, pulmonary embolism, hypothyroidism, coronary artery disease status post stent and pacemaker. He was admitted on 06/02 to the general medical floor for acute respiratory distress and his been diagnosed with acute on chronic systolic heart failure secondary to acute COPD exacerbation with elevated troponin. 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 This morning he was still short of breath . He was saturating 92% on 3 L oxygen via nasal cannula. His WBC is 10.0, hemoglobin 14.7, platelet count 236. INR is 1.0. Sodium 141, creatinine 1.0. Glucose was elevated at 452 last night and we started him on Levemir 7 units daily. His glucose this morning is better controlled to 108 and 178. Troponin is elevated at 0.05 [place] [address]. Liver enzymes not elevated. Chest x-ray: Improved bilateral pleural effusions. Cardiomegaly with mild bilateral interstitial edema abdomen demonstrated. Findings consistent with improvement CHF exacerbation. Present. Correlate clinically. Echocardiogram showed ejection fraction of 25-30% with global hypokinesia and dilated left ventricle with moderate to severe mitral regurgitation Objective - Vital Signs Vital signs: Vital Signs Temp 98.0 F 06/06/22 08:32 Pulse 85 06/06/22 08:32 Resp 20 06/06/22 08:32 BP 134/72 06/06/22 08:32 Pulse Ox 93 L 06/06/22 08:32 FiO2 Intake & Output 06/05/22 06/06/22 06/06/22 18:59 06:59 18:59 Intake Total 240 0 Output Total 398 763 4901 Balance -291 -850 Weight 79.8 kg Intake: Oral 240 0 Output: Urine 557 642 7829 Other: Voiding Method Urinal - Exam GENERAL: The patient is alert and oriented x3, not in any acute distress. Well developed, well nourished. HEENT: Pupils are round and equally reacting to light. EOMI. No scleral icterus. No conjunctival pallor. Normocephalic, atraumatic. No pharyngeal erythema. No thyromegaly. CARDIOVASCULAR: S1 and S2 present. No murmurs, rubs, or gallops. -PULMONARY: Chest is clear to auscultation, no wheezing bilateral scattered wheezing and bilateral basal crepitation ABDOMEN: Soft, nontender, nondistended, normoactive bowel sounds. No palpable organomegaly. MUSCULOSKELETAL: No joint swelling or deformity. -EXTREMITIES: No cyanosis, clubbing,. Bilateral bilateral patellar ligament edema NEUROLOGICAL: Gross neurological examination did not reveal any focal deficits. SKIN: No rashes. no petechiae. - Labs CBC & Chem 7: 06/06/22 08:32 06/06/22 08:32 Labs: Abnormal Lab Results - Last 24 Hours (Table) 06/05/22 06/05/22 06/05/22 Range/Units 11:44 16:57 20:03 Carbon Dioxide (22-30) mmol/L BUN (9-20) mg/dL Glucose (74-99) mg/dL POC Glucose (mg/dL) 295 H 227 H 452 H (70-110) mg/dL 06/06/22 06/06/22 Range/Units 06:08 08:32 Carbon Dioxide 35 H (22-30) mmol/L BUN 40 H (9-20) mg/dL Glucose 178 H (74-99) mg/dL POC Glucose (mg/dL) 208 H (70-110) mg/dL Assessment and Plan Assessment: Acute on chronic systolic CHF with ejection fraction of 25-30% Elevated troponin, patient will need cardiac cath went respiratory status is more stable. Echocardiogram showed global hypokinesia Moderate to severe mitral regurgitation Coronary artery disease status post stent Acute hypoxic respiratory failure Acute COPD exacerbation Hyperlipidemia Hypertension Hypothyroidism History of pulmonary embolism Plan: This is a pleasant 66 years old male with CHF and COPD. Continue with steroids and bronchodilators Continue with aspirin Follow-up with cardiology and pulmonary consult Check urinalysis Labs and medication were reviewed.. Continue same treatment. Continue with symptomatic treatment. Resume home medication. Monitor lytes and vitals. DVT and GI prophylaxis. Further recommendationsas per clinical course of the patient DVT prophylaxis: Subcutaneous heparin GI Prophylaxis: Pepcid PT/OT: Pending Prognosis is guarded
[2022-06-06 12:18] LABS: Glucose,Whole Blood 169 mg/dL (70-110)
--- NOTE | 2022-06-06 13:24 | P.PN ---
Subjective Progress Note Date: 06/06/22 Principal diagnosis: Dyspnea A pleasant 58-year-old male patient with known history of COPD. The patient last COPD exacerbation was in [place] where he was given steroids and breathing treatments and the patient had an episode back in January 2022. The patient came into the hospital because of worsening shortness of breath. He is known to have COPD, previous CVA, hypertension and hyperlipidemia and BPH and is also known to have coronary artery disease and the patient has undergone a right carotid endarterectomy urine output. The patient lives between [place] and [place]. The patient is not using oxygen regular basis. He has home O2 which she was on basis. Denies having any chest pain. No pleurisy. No hemoptysis.. Have increased cough and congestion along with some chest prior bypass without any radiation. In the ED, the patient's chest x-ray is consistent with COPD and there was also increase in pulmonary vascular markings. The patient was given a dose of Lasix. Troponins were minimally elevated and the patient's proBNP level was 6410. Based on that, the patient was admitted to the hospital. Cardiology and pulmonary consultation was requested. Echocardiogram is pending for now. Meanwhile, the patient on DuoNeb nebulized treatments around the clock, the patient was started on IV Solu-Medrol. The patient is receiving Lasix initially IV and currently on Lasix 40 mg by mouth twice a day.. The patient is a chronic smoker. The patient has completed his COVID 19 vaccination 2 including a booster. On 06/04/2022 patient seen in follow-up on selective care unit, he is awake and alert, in no acute distress, states his breathing is improving, still has a congested cough, no, but the chest discomfort, he is on room air with a pulse ox of 93-94%, afebrile, hemodynamically stable. His admission chest x-ray showed increased haziness throughout the lungs, with increased air space opacities at the bases. Patient had a elevated proBNP level of 6410, consistent with acute exacerbation of CHF and patient has been diuresed, and transitioned over to oral Lasix. Patient is also on doxycycline for acute exacerbation of COPD. Patient is in -750 ML no fluid balance over the last 24 hours. Electrolytes were within normal limits, BUN is 37 and creatinine is 1.12. On 06/05/2022 patient seen in follow-up on selective care unit. Patient is up i n a chair, however very bronchospastic, and short of breath with conversation and any activity, he is currently on 2 L of oxygen pulse ox is 96%, his Lasix is currently down to 40 mg once daily, his chest x-ray does show improved bilateral pleural effusions, cardiomegaly with mild bilateral interstitial edema. Patient continues on nebulized bronchodilators and prednisone however he continues to be very short of breath. His echocardiogram showed moderately reduced global left ventricular systolic function with EF of 25-30%, moderate to severe mitral regurgitation. Overall patient is in -1.5 L net fluid balance over the last 24 hours. Today's labs are still pending. Patient seems to be very frustrated with slow improvement, he wants to go home, however he understands the consequences of going home AGAINST MEDICAL ADVICE. On 06/06/2022 patient seen in follow-up on selective care unit, still bronchospastic, but seems to have slightly improved. Short of breath with exertion, but no acute distress, yesterday he received an extra dose of IV Lasix, he continues on Lasix 40 mg twice a day, he is a -2.7 kg her last 24 hours. he was also transitioned back to IV steroids. Remains on nebulized bronchodilators, still has a mildly congested cough, no hemoptysis, no phlegm production, no chest pain. Yesterday's chest x-ray showed improving but persistent changes of CHF. Today's labs have been reviewed, white blood cell count is 10.0, hemoglobin is 14.7, sodium is 141, potassium is 4.3, chloride is 98, CO2 is 35, BUN is 40, creatinine is 1.04. Patient continues on oral doxycycline 100 mg twice a day. Objective - Vital Signs Vital signs: Vital Signs Temp 98.5 F 06/06/22 12:49 Pulse 82 06/06/22 12:49 Resp 20 06/06/22 12:49 BP 96/57 06/06/22 12:49 Pulse Ox 96 06/06/22 12:49 FiO2 Intake & Output 06/05/22 06/06/22 06/06/22 18:59 06:59 18:59 Intake Total 240 0 675 Output Total 014 882 6704 Weight 79.8 kg Intake: Oral 240 0 675 Output: Urine 120 583 5018 Other: Voiding Method Urinal Urinal - Exam GENERAL EXAM: Alert, very pleasant, 66-year-old white male 2 L of oxygen and the pulse ox of 96% comfortable in no apparent distress. HEAD: Normocephalic/atraumatic. EYES: Normal reaction of pupils, equal size. Conjunctiva pink, sclera white. NOSE: Clear with pink turbinates. THROAT: No erythema or exudates. NECK: No masses, no JVD, no thyroid enlargement, no adenopathy. CHEST: No chest wall deformity. Symmetrical expansion. LUNGS: Equal air entry with no crackles, wheeze, rhonchi or dullness. CVS: Regular rate and rhythm, normal S1 and S2, no gallops, no murmurs, no rubs ABDOMEN: Soft, nontender. No hepatosplenomegaly, normal bowel sounds, no guarding or rigidity. EXTREMITIES: No clubbing, no edema, no cyanosis, 2+ pulses and upper and lower extremities. MUSCULOSKELETAL: Muscle strength and tone normal. SPINE: No scoliosis or deformity SKIN: No rashes CENTRAL NERVOUS SYSTEM: Alert and oriented -3. No focal deficits, tone is normal in all 4 extremities. PSYCHIATRIC: Alert and oriented -3. Appropriate affect. Intact judgment and insight. - Labs CBC & Chem 7: 06/06/22 08:32 06/06/22 08:32 Labs: Abnormal Lab Results - Last 24 Hours (Table) 06/05/22 06/05/22 06/06/22 Range/Units 16:57 20:03 06:08 Carbon Dioxide (22-30) mmol/L BUN (9-20) mg/dL Glucose (74-99) mg/dL POC Glucose (mg/dL) 227 H 452 H 208 H (70-110) mg/dL 06/06/22 06/06/22 Range/Units 08:32 12:00 Carbon Dioxide 35 H (22-30) mmol/L BUN 40 H (9-20) mg/dL Glucose 178 H (74-99) mg/dL POC Glucose (mg/dL) 169 H (70-110) mg/dL Assessment and Plan Plan: Assessment: #1. Acute dyspnea, a combination of COPD/CHF exacerbation #2. CHF, clinically suspected. ProBNP level is elevated #3. COPD , based on severity is not known. Nevertheless, the patient seems to have advanced COPD, using oxygen only as needed. No maintenance inhaler. Using albuterol updrafts on a when necessary basis. Vaccinated for, COVID 192 in addition to booster J & J shot #4. Mild troponin elevation, most likely type II event. Patient has a known chronically occluded RCA #5. Carotid endarterectomy . The patient a high-grade stenosis of the right internal carotid artery, symptomatic #6. Coronary artery disease with previous stenting of the LAD. The patient a total occlusion of the RCA. Please refer to the cardiac catheter insertion from 2013. He has a preserved LV function #7. Hypertension #8. Hyperlipidemia #9. 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 Degenerative lumbar disc disease #11. BPH #12. History of cervical spine fusion #13. Abdominal aortic and is being monitored on outpatient basis #14. Smoker Plan: Still bronchospastic, but improving Yesterday he received an extra dose of Lasix, he is in negative net fluid balance No acute events overnight Patient has underlying COPD, and ischemic cardiomyopathy, chronic systolic CHF Patient is a high risk for readmission He is frustrated, he wants to go home He was advised to continue with current inpatient treatment We'll switch his IV steroids to prednisone Continue current dose of Lasix Follow-up chest x-ray tomorrow I have personally seen and examined the patient, performed the documentation and the assessment and plan as written. Number of minutes spent on the visit: [10] Time with Patient: Less than 30
--- NOTE | 2022-06-06 14:07 | P.PN ---
Subjective The patient is a 58 year old male with a known history of coronary artery disease s/p PCI LAD and chronically totally occluded RCA, PAD, hyperlipidemia, and chronic tobacco use, diabetes, hypertension abdominal aortic aneurysm. He has a history of carotid disease, status post right carotid endarterectomy, has been seen by Dr. Mccullough in the past He has been followed by Dr. Elias. We have been asked to see in consultation for elevated troponin. He presented with symptoms of progressive dyspnea. He had mild elevation of the troponin, he was in sinus mechanism on presentation. EKG revealed Sinus mechanism normal axis and intervals with nonspecific ST-T wave changes. 06/06/2022 Patient seen and examined at bedside, no acute distress. He states his shortness of breath has improved, however patient continues to appear short of breath on exam and wheezing. Shortness of breath worse with activity. He denies any chest pain. 2650mL urine output over the past 24 hours. Decreased in weight noted since admission. Vital signs are stable. He has been transition to PO Lasix. Telemetry reviewed, patient maintaining sinus mechanism. Echocardiogram revealed EF 25-30%, moderate to severe MR PHYSICAL EXAMINATION Vitals reviewed Head: Normocephalic. Eyes: Sclerae nonicteric. Neck: Good carotid upstroke, scar noted on the right side with bruit, no jugular venous distention. Lungs: Significant decrease in the air exchange with scattered rhonchi b ilaterally Heart: Regular rate and rhythm, S1-S2, no S3, no rub. Systolic ejection murmur. Abdomen: Soft nontender, positive bowel sounds no organomegaly. Extremities: No edema, intact distal pulses. ASSESSMENT Progressive dyspnea with evidence of acute congestive heart failure with reduced ejection fraction Mild troponin elevation, most likely type II event. 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 Currently chest xray mostly improved and today feeling much worse with increased wheeze, suspect more pulmonary. Likely will need catheterization and may consider if more stable from respiratory standpoint however may be performed on an outpatient basis as well. Patient to follow up with Dr. Elias as an outpatient Continue carvedilol 3.125mg BID, aspirin, statin, lisinopril Continue PO Lasix 40mg BID Smoking cessation discussed and highly recommended We will follow the patient as needed. Patient with a follow up appointment on 06/11/[address] Elias Nurse practitioner note has been reviewed by physician. Signing provider agrees with the documented findings, assessment, and plan of care. Objective - Vital Signs Vital signs: Vital Signs Temp 98.5 F 06/06/22 12:49 Pulse 82 06/06/22 12:49 Resp 20 06/06/22 12:49 BP 96/57 06/06/22 12:49 Pulse Ox 96 06/06/22 12:49 FiO2 Intake & Output 06/05/22 06/06/22 06/06/22 18:59 06:59 18:59 Intake Total 240 0 675 Output Total 587 603 6563 Weight 79.8 kg Intake: Oral 240 0 675 Output: Urine 008 722 9343 Other: Voiding Method Urinal Urinal - Labs CBC & Chem 7: 06/06/22 08:32 06/06/22 08:32 Labs: Abnormal Lab Results - Last 24 Hours (Table) 06/05/22 06/05/22 06/06/22 Range/Units 16:57 20:03 06:08 Carbon Dioxide (22-30) mmol/L BUN (9-20) mg/dL Glucose (74-99) mg/dL POC Glucose (mg/dL) 227 H 452 H 208 H (70-110) mg/dL 06/06/22 06/06/22 Range/Units 08:32 12:00 Carbon Dioxide 35 H (22-30) mmol/L BUN 40 H (9-20) mg/dL Glucose 178 H (74-99) mg/dL POC Glucose (mg/dL) 169 H (70-110) mg/dL
[2022-06-06 16:22] LABS: Appearance,Urine Clear (Clear); Bilirubin,Urine Negative (Negative); Blood,Urine Negative (Negative); Color,Urine Light Yellow; Glucose,Urine (UA) 3+ (Negative); Ketones,Urine Negative (Negative); Leukocyte Esterase,Urine Negative (Negative); Nitrite,Urine Negative (Negative); PH, Urine 6.5 (5.0-8.0); Protein,Urine Negative (Negative); Urobilinogen,Urine <2.0 mg/dL (<2.0)
[2022-06-06 16:37] LABS: Glucose,Whole Blood 219 mg/dL (70-110)
[2022-06-06] MEDS: NICOTINE 21MG/24HR PATCH TRANSDERM SCH (16:55)
[2022-06-06 20:17] LABS: Glucose,Whole Blood 149 mg/dL (70-110)
[2022-06-07] MEDS: HEPARIN SODIUM,PORCINE/PF 5,000 UNIT/0.5 ML SYRINGE SQ SCH ×2 (00:26→10:02)
[2022-06-07] MEDS: ALPRAZolam 1 MG TAB PO PRN (00:29)
[2022-06-07 02:06] VITALS: RESP 20
[2022-06-07 05:59] VITALS: TEMP 97.8
[2022-06-07 06:05] LABS: Glucose,Whole Blood 145 mg/dL (70-110)
[2022-06-07] MEDS: INSULIN DETEMIR (LEVEMIR) 100 UNIT/ML SYR SQ SCH (06:50)
[2022-06-07] MEDS: carvediloL 3.125 MG TAB PO SCH ×2 (06:50→16:36)
[2022-06-07] MEDS: INSULIN ASPART (NovoLOG) 100 UNIT/ML VIAL SQ SCH ×2 (06:50→12:24)
[2022-06-07] MEDS: IPRATROPIUM-ALBUTEROL 3 ML NEB INHALATION SCH ×3 (07:39→15:37)
[2022-06-07] MEDS: SYMBICORT 160-4.5 MCG INHALER INHALATION SCH (07:39)
--- NOTE | 2022-06-07 08:41 | XR ---
EXAMINATION TYPE: XR chest 1V portable DATE OF EXAM: 06/07/2022 CLINICAL HISTORY: Difficulty breathing progress study. TECHNIQUE: Single AP portable upright view of the chest is obtained. COMPARISON: Chest x-ray from 2 days earlier FINDINGS: Anterior fusion plate lower cervical spine is redemonstrated. New bibasilar opacities on c urrent study. Stable mild cardiomegaly. Patient more rotated to the right. IMPRESSION: Persistent cardiomegaly with developing right greater than left side bibasilar acute infi ltrates and/or atelectasis.
[2022-06-07] MEDS ORDERED: predniSONE 20 MG TAB PO SCH (09:00)
[2022-06-07 09:05] LABS: Basophils % (A) 0 %; Eosinophils # (A) 0.1 k/uL (0-0.7); Eosinophils % (A) 1 %; HCT 46.7 % (39.0-53.0); HGB 15.1 gm/dL (13.0-17.5); Lymphocytes # (A) 2.5 k/uL (1.0-4.8); Lymphocytes % (A) 28 %; MCH 30.7 pg (25.0-35.0); MCHC 32.3 g/dL (31.0-37.0); MCV 95.1 fL (80.0-100.0); Mean Platelet Volume 8.6; Monocytes # (A) 0.6 k/uL (0-1.0); Monocytes % (A) 7 %; Neutrophils # (A) 5.6 k/uL (1.3-7.7); Neutrophils % (A) 62 %; Platelet Count 212 k/uL (150-450); RBC 4.91 m/uL (4.30-5.90); RDW 13.7 % (11.5-15.5)
[2022-06-07 09:39] LABS: Albumin 3.6 g/dL (3.5-5.0); Calcium 8.9 mg/dL (8.4-10.2); Potassium 4.2 mmol/L (3.5-5.1); Total Bilirubin 0.5 mg/dL (0.2-1.3); Total Protein 6.4 g/dL (6.3-8.2)
[2022-06-07] MEDS: ATORVASTATIN 40 MG TAB PO SCH (10:02)
[2022-06-07] MEDS: TAMSULOSIN 0.4 MG CAP.ER.24H PO SCH (10:02)
[2022-06-07] MEDS: ASPIRIN 81 MG PO SCH (10:02)
[2022-06-07] MEDS: FUROSEMIDE 40 MG TAB PO SCH ×2 (10:02→16:36)
[2022-06-07] MEDS: DOXYCYCLINE 100 MG CAP PO SCH (10:02)
[2022-06-07] MEDS: NICOTINE 21MG/24HR PATCH TRANSDERM SCH (10:07)
[2022-06-07 11:58] LABS: Glucose,Whole Blood 121 mg/dL (70-110)
--- NOTE | 2022-06-07 14:12 | P.PN ---
Subjective Progress Note Date: 06/07/22 Principal diagnosis: Shortness of breath secondary to acute COPD exacerbation and acute on chronic systolic congestive heart failure ejection fraction of 20 5. A pleasant 58-year-old male patient with known history of COPD. The patient last COPD exacerbation was in [place] where he was given steroids and breathing treatments and the patient had an episode back in January 2022. The patient came into the hospital because of worsening shortness of breath. He is known to have COPD, previous CVA, hypertension and hyperlipidemia and BPH and is also known to have coronary artery disease and the patient has undergone a right carotid endarterectomy urine output. The patient lives between [place] and [place]. The patient is not using oxygen regular basis. He has home O2 which she was on basis. Denies having any chest pain. No pleurisy. No hemoptysis.. Have increased cough and congestion along with some chest prior bypass without any radiation. In the ED, the patient's chest x-ray is consistent with COPD and there was also increase in pulmonary vascular markings. The patient was given a dose of Lasix. Troponins were minimally elevated and the patient's proBNP level was 6410. Based on that, the patient was admitted to the hospital. Cardiology and pulmonary consultation was requested. Echocardiogram is pending for now. Meanwhile, the patient on DuoNeb nebulized treatments around the clock, the patient was started on IV Solu-Medrol. The patient is receiving Lasix initially IV and currently on Lasix 40 mg by mouth twice a day.. The patient is a chronic smoker. The patient has completed his COVID 19 vaccination 2 including a booster. On 06/04/2022 patient seen in follow-up on selective care unit, he is awake and alert, in no acute distress, states his breathing is improving, still has a congested cough, no, but the chest discomfort, he is on room air with a pulse ox of 93-94%, afebrile, hemodynamically stable. His admission chest x-ray showed increased haziness throughout the lungs, with increased air space opacities at the bases. Patient had a elevated proBNP level of 6410, consistent with acute exacerbation of CHF and patient has been diuresed, and transitioned over to oral Lasix. Patient is also on doxycycline for acute exacerbation of COPD. Patient is in -750 ML no fluid balance over the last 24 hours. Electrolytes were within normal limits, BUN is 37 and creatinine is 1.12. On 06/05/2022 patient seen in follow-up on selective care unit. Patient is up in a chair, however very bronchospastic, and short of breath with conversation and any activity, he is currently on 2 L of oxygen pulse ox is 96%, his Lasix is currently down to 40 mg once daily, his chest x-ray does show improved bilateral pleural effusions, cardiomegaly with mild bilateral interstitial edema. Patient continues on nebulized bronchodilators and prednisone however he continues to be very short of breath. His echocardiogram showed moderately reduced global left ventricular systolic function with EF of 25-30%, moderate to severe mitral regurgitation. Overall patient is in -1.5 L net fluid balance over the last 24 hours. Today's labs are still pending. Patient seems to be very frustrated with slow improvement, he wants to go home, however he understands the consequences of going home AGAINST MEDICAL ADVICE. On 06/06/2022 patient seen in follow-up on selective care unit, still bronchospastic, but seems to have slightly improved. Short of breath with exertion, but no acute distress, yesterday he received an extra dose of IV Lasix, he continues on Lasix 40 mg twice a day, he is a -2.7 kg her last 24 hours. he was also transitioned back to IV steroids. Remains on nebulized bronchodilators, still has a mildly congested cough, no hemoptysis, no phlegm production, no chest pain. Yesterday's chest x-ray showed improving but persist ent changes of CHF. Today's labs have been reviewed, white blood cell count is 10.0, hemoglobin is 14.7, sodium is 141, potassium is 4.3, chloride is 98, CO2 is 35, BUN is 40, creatinine is 1.04. Patient continues on oral doxycycline 100 mg twice a day. Reevaluated today on 06/07/2022, patient is feeling better, he would like to go home. Chest x-ray showed slight improvement in his pulmonary edema, on physical examination he sounds much better today compared to the last few days. Hence I will clear the patient for discharge if cleared by other consultants/cardiology. Objective - Vital Signs Vital signs: Vital Signs Temp 97.8 F 06/07/22 12:00 Pulse 82 06/07/22 12:00 Resp 20 06/07/22 12:00 BP 101/56 06/07/22 12:00 Pulse Ox 94 L 06/07/22 12:00 FiO2 Intake & Output 06/06/22 06/07/22 06/07/22 18:59 06:59 18:59 Intake Total 675 0 Output Total 2650 300 650 Balance -1974 -639 -118 Intake: Oral 675 0 Output: Urine 2650 300 650 Other: Voiding Method Urinal Urinal # Voids 1 - Exam Physical Exam: Revealed a 66-year-old white male in no distress, on 3 L nasal cannula O2 sats is 95%. HEENT:[Neck is supple.] [No neck masses.] [No thyromegaly.] [No JVD.] Chest: [Minimal crackles and some wheezing on forced expiratory maneuver.] Cardiac Exam: [Normal S1 and S2, no S3 gallop, 2/6 systolic murmur thought the precordium. Abdomen: [Soft, nontender, no megaly, no rebound, no guarding, normal bowel sounds.] Extremities: [No clubbing, no edema, no cyanosis.] Neurological Exam: [No focal neurologic deficit. Alert oriented 3.] - Labs CBC & Chem 7: 06/07/22 07:47 06/07/22 07:47 Labs: Abnormal Lab Results - Last 24 Hours (Table) 06/06/22 06/06/22 06/06/22 Range/Units 16:12 16:31 20:16 Chloride (98-107) mmol/L Carbon Dioxide (22-30) mmol/L BUN (9-20) mg/dL Glucose (74-99) mg/dL POC Glucose (mg/dL) 219 H 149 H (70-110) mg/dL Urine Glucose (UA) 3+ H (Negative) 06/07/22 06/07/22 06/07/22 Range/Units 06:03 07:47 11:57 Chloride 95 L (98-107) mmol/L Carbon Dioxide 36 H (22-30) mmol/L BUN 47 H (9-20) mg/dL Glucose 123 H (74-99) mg/dL POC Glucose (mg/dL) 145 H 121 H (70-110) mg/dL Urine Glucose (UA) (Negative) Assessment and Plan Assessment: Impression: Acute on chronic hypoxic respiratory failure secondary to COPD exacerbation and acute on chronic systolic congestive heart failure Benign essential hypertension Coronary artery disease and suspect underlying ischemic cardiomyopathy, ech ocardiogram from 06/04 showed ejection fraction of 25-30% with moderate to severe mitral regurgitation History of CVA Abdominal aortic aneurysm Tobacco dependence syndrome less history of carotid endarterectomy Recommendation: We'll clear the patient to be discharged home if cleared by other consultants Patient to continue his cardiac and his pulmonary medications Taper prednisone on outpatient basis starting at 30 mg daily tapered over the next 2 weeks until discontinued. Continue Symbicort Continue DuoNeb updrafts 4 times a day and when necessary Continue oxygen Will follow as needed Time with Patient: Less than 30
[2022-06-07 16:29] LABS: Glucose,Whole Blood 171 mg/dL (70-110)
[2022-06-07 17:12] VITALS: BP 88/53; PULSE 86
--- NOTE | 2022-06-07 19:02 | P.DS ---
Providers Date of admission: 06/05/22 13:56 Expected date of discharge: 06/07/22 Attending physician: Delbert Dobson Consults: 06/02/22 10:36 Consult Physician Urgent Consulting Provider: [facility] Consult Reason/Comments: Pulmonary edema, elevated troponin Do you want consulting provider notified?: Yes 06/02/22 12:19 Consult Physician Routine Consulting Provider: Otilia Polo Consult Reason/Comments: copd Do you want consulting provider notified?: Already Contacted Primary care physician: Radha Olguin [facility] Course: 58-year-old male patient with known history of COPD. The patient last COPD exacerbation was in [place] where he was given steroids and breathing treatments and the patient had an episode back in January 2022. The patient came into the hospital because of worsening shortness of breath. He is known to have COPD, previous CVA, hypertension and hyperlipidemia and BPH and is also known to have coronary artery disease and the patient has undergone a right carotid endarterectomy urine output. The patient lives between [place] and [place]. The patient is not using oxygen regular basis. He has home O2 which she was on basis. Denies having any chest pain. No pleurisy. No hemoptysis.. Have increased cough and congestion along with some chest prior bypass without any radiation. In the ED, the patient's chest x-ray is consistent with COPD and there was also increase in pulmonary vascular markings. The patient was given a dose of Lasix. Troponins were minimally elevated and the patient's proBNP level was 6410. Based on that, the patient was admitted to the hospital. Cardiology and pulmonary consultation was requested. Echocardiogram is pending for now. Meanwhile, the patient on DuoNeb nebulized treatments around the clock, the patient was started on IV Solu-Medrol. The patient is receiving Lasix initially IV and currently on Lasix 40 mg by mouth twice a day.. The patient is a chronic smoker. The patient has completed his COVID 19 vaccination 2 including a booster. On 06/04/2022 patient seen in follow-up on selective care unit, he is awake and alert, in no acute distress, states his breathing is improving, still has a congested cough, no, but the chest discomfort, he is on room air with a pulse ox of 93-94%, afebrile, hemodynamically stable. His admission chest x-ray showed increased haziness throughout the lungs, with increased air space opacities at the bases. Patient had a elevated proBNP level of 6410, consistent with acute exacerbation of CHF and patient has been diuresed, and transitioned over to oral Lasix. Patient is also on doxycycline for acute exacerbation of COPD. Patient is in -750 ML no fluid balance over the last 24 hours. Electrolytes were within normal limits, BUN is 37 and creatinine is 1.12. On 06/05/2022 patient seen in follow-up on selective care unit. Patient is up in a chair, however very bronchospastic, and short of breath with conversation and any activity, he is currently on 2 L of oxygen pulse ox is 96%, his Lasix is currently down to 40 mg once daily, his chest x-ray does show improved bilateral pleural effusions, cardiomegaly with mild bilateral interstitial edema. Patient continues on nebulized bronchodilators and prednisone however he continues to be very short of breath. His echocardiogram showed moderately reduced global left ventricular systolic function with EF of 25-30%, moderate to severe mitral regurgitation. Overall patient is in -1.5 L net fluid balance over the last 24 hours. Today's labs are still pending. Patient seems to be very frustrated with slow improvement, he wants to go home, however he understands the consequences of going home AGAINST MEDICAL ADVICE. On 06/06/2022 patient seen in follow-up on selective care unit, still bronchospastic, but seems to have slightly improved. Short of breath with exertion, but no acute distress, yesterday he received an extra dose of IV Lasix, he continues on Lasix 40 mg twice a day, he is a -2.7 kg her last 24 hours. he was also transitioned back to IV steroids. Remains on nebulized bronchodilators, still has a mildly congested cough, no hemoptysis, no phlegm production, no chest pain. Yesterday's chest x-ray showed improving but persistent changes of CHF. Today's labs have been reviewed, white blood cell count is 10.0, hemoglobin is 14.7, sodium is 141, potassium is 4.3, chloride is 98, CO2 is 35, BUN is 40, creatinine is 1.04. Patient continues on oral doxycycline 100 mg twice a day. Reevaluated today on 06/07/2022, patient is feeling better, he would like to go home. Chest x-ray showed slight improvement in his pulmonary edema, on physical examination he sounds much better today compared to the last few days. Hence I will clear the patient for discharge if cleared by other consultants/cardiology. Patient discharged home on prednisone taper starting with 30 mg daily and taper slowly over 2 weeks and doxycycline for 7 days Patient Condition at Discharge: Stable Plan - Discharge Summary New Discharge Prescriptions: New Furosemide [Lasix] 40 mg PO BID@0900,1600 30 Days #60 tab Atorvastatin [Lipitor] 40 mg PO DAILY 30 Days #30 tab predniSONE 10 mg PO DIRECTED 15 Days #30 tab Budesonide-Formot 160-4.5 Mcg [Symbicort 160-4.5 Mcg Inhaler] 2 puff INHALATION RT-BID 30 Days #1 each lisinopriL [Zestril] 2.5 mg PO DAILY 30 Days #30 tab carvediloL [Coreg] 3.125 mg PO BID-W/MEALS 30 Days #60 tab Doxycycline [Vibramycin] 100 mg PO BID 7 Days #7 cap Continue Aspirin 325 mg PO DAILY ALPRAZolam [Xanax] 1 mg PO TID PRN PRN Reason: Anxiety Acetaminophen [Tylenol Extra Strength] 500 - 1,000 mg PO Q6H PRN PRN Reason: Pain Nitroglycerin Sl Tabs [Nitrostat] 0.4 mg SUBLINGUAL Q5M PRN #20 tab PRN Reason: Chest Pain Ergocalciferol [Vitamin D2 (DRISDOL)] 50,000 unit PO HURTADO metFORMIN HCL 500 mg PO BID PRN PRN Reason: HIGH BLOOD SUGAR Albuterol Nebulized [Ventolin Nebulized] 2.5 mg INHALATION RT-Q4H PRN PRN Reason: Shortness Of Breath Ipratropium-Albuterol Nebulize [Duoneb 0.5 mg-3 mg/3 ml Soln] 3 ml INHALATION RT-QID PRN PRN Reason: Shortness Of Breath Budesonide [Pulmicort] 0.5 mg INHALATION RT-BID Rosuvastatin Calcium [Crestor] 20 mg PO HS Tamsulosin [Flomax] 0.4 mg PO DAILY Discontinued lisinopriL [Zestril] 2.5 mg PO DAILY Furosemide [Lasix] 20 mg PO DAILY PRN PRN Reason: Edema Discharge Medication List Aspirin 325 mg PO DAILY 07/29/14 [History] ALPRAZolam [Xanax] 1 mg PO TID PRN 07/14/20 [History] Acetaminophen [Tylenol Extra Strength] 500 - 1,000 mg PO Q6H PRN 07/14/20 [History] Nitroglycerin Sl Tabs [Nitrostat] 0.4 mg SUBLINGUAL Q5M PRN #20 tab 07/24/20 [Rx] Ergocalciferol [Vitamin D2 (DRISDOL)] 50,000 unit PO HURTADO 09/21/20 [History] Albuterol Nebulized [Ventolin Nebulized] 2.5 mg INHALATION RT-Q4H PRN 06/02/22 [History] Budesonide [Pulmicort] 0.5 mg INHALATION RT-BID 06/02/22 [History] Ipratropium-Albuterol Nebulize [Duoneb 0.5 mg-3 mg/3 ml Soln] 3 ml INHALATION RT-QID PRN 06/02/22 [History] Rosuvastatin Calcium [Crestor] 20 mg PO HS 06/02/22 [History] Tamsulosin [Flomax] 0.4 mg PO DAILY 06/02/22 [History] metFORMIN HCL 500 mg PO BID PRN 06/02/22 [History] Atorvastatin [Lipitor] 40 mg PO DAILY 30 Days #30 tab 06/07/22 [Rx] Budesonide-Formot 160-4.5 Mcg [Symbicort 160-4.5 Mcg Inhaler] 2 puff INHALATION RT-BID 30 Days #1 each 06/07/22 [Rx] Doxycycline [Vibramycin] 100 mg PO BID 7 Days #7 cap 06/07/22 [Rx] Furosemide [Lasix] 40 mg PO BID@0900,1600 30 Days #60 tab 06/07/22 [Rx] carvediloL [Coreg] 3.125 mg PO BID-W/MEALS 30 Days #60 tab 06/07/22 [Rx] lisinopriL [Zestril] 2.5 mg PO DAILY 30 Days #30 tab 06/07/22 [Rx] predniSONE 10 mg PO DIRECTED 15 Days #30 tab 06/07/22 [Rx] Follow up Appointment(s)/Referral(s): Chuy Elias MD [STAFF PHYSICIAN] - 06/11/22 9:45 am Radha Henry III, MD [Primary Care Provider] - 1-2 days (call when office is open to set up follow up appointment) Patient Instructions/Handouts: COPD (Chronic Obstructive Pulmonary Disease) (DC) Discharge Disposition: HOME SELF-CARE
== END 2022-06-07 18:17 | disposition home or self-care (01) | DRG 280 ==
LOC: EC 07:51 → 3SCARD 10:36 → OBSVTOIN 06-05 13:56
PROVIDERS: ADMIT Hospitalist; ATTEND Hospitalist
DX: I11.0 Hypertensive heart disease with heart failure (principal); I21.A1 Myocardial infarction type 2; I50.23 Acute on chronic systolic (congestive) heart failure; J96.21 Acute and chronic respiratory failure with hypoxia; R64 Cachexia; I47.2 Ventricular tachycardia; J44.1 Chronic obstructive pulmonary disease with (acute) exacerbation; I73.9 Peripheral vascular disease, unspecified; E09.9 Drug or chemical induced diabetes mellitus without complications; I71.4 Abdominal aortic aneurysm, without rupture; I65.21 Occlusion and stenosis of right carotid artery; T38.0X5A Adverse effect of glucocorticoids and synthetic analogues, initial encounter; I25.10 Atherosclerotic heart disease of native coronary artery without angina pectoris; I69.398 Other sequelae of cerebral infarction; H54.40 Blindness, one eye, unspecified eye; F41.9 Anxiety disorder, unspecified; E78.5 Hyperlipidemia, unspecified; E03.9 Hypothyroidism, unspecified; I25.5 Ischemic cardiomyopathy; I34.0 Nonrheumatic mitral (valve) insufficiency; M51.36 Other intervertebral disc degeneration, lumbar region; N40.0 Benign prostatic hyperplasia without lower urinary tract symptoms; I25.2 Old myocardial infarction; H91.90 Unspecified hearing loss, unspecified ear; M19.90 Unspecified osteoarthritis, unspecified site; F17.210 Nicotine dependence, cigarettes, uncomplicated; Z71.9 Counseling, unspecified; Z79.51 Long term (current) use of inhaled steroids; Z79.82 Long term (current) use of aspirin; Z79.84 Long term (current) use of oral hypoglycemic drugs; Z79.899 Other long term (current) drug therapy; Z86.711 Personal history of pulmonary embolism; Z95.5 Presence of coronary angioplasty implant and graft; Z98.1 Arthrodesis status; Z88.5 Allergy status to narcotic agent
CPT/HCPCS: 36415; 71045; 71046; 80048; 80053; 81003; 83036; 83605; 83735; 83880; 84484; 85025; 85027; 85610; 85730; 93005; 93306; 94640; 94760; 96374; 96375; 99291

== ENCOUNTER 2022-06-24 10:57 | Day surgery (SDC) | payer MEDICARE ==
[~2022-06-24 10:57] MED LIST changes: +ALPRAZolam 0.25 MG TAB PO PRN; +ALPRAZolam 0.5 MG TAB PO PRN; +ASPIRIN 325 MG TAB PO ONE; -HYDROmorphone 0.5 MG/0.5 ML SYRINGE IVP PRN; -LACTATED RINGERS 1,000 ML IV SCH; -MIDAZOLAM 2 MG/2 ML VIAL IV PRN; +NITROGLYCERIN SL TABS 0.4 MG TAB SUBLINGUAL PRN; -ONDANSETRON 4 MG/2 ML VIAL IVP PRN; -fentaNYL (PF) 50 MCG/ML 2 ML AMP IV PRN; -fentaNYL (PF) 50 MCG/ML 2 ML AMP IVP PRN
[2022-06-24] MEDS: SODIUM CHLORIDE 0.9% 1,000 ML in EMPTY BAG 1 BAG IV SCH (11:10)
[2022-06-24 11:30] LABS: Glucose,Whole Blood 155 mg/dL (70-110)
[2022-06-24] MEDS ORDERED: SODIUM CHLORIDE 0.9% 1,000 ML IV ONE (11:34)
[2022-06-24] MEDS ORDERED: ACETAMINOPHEN TAB 325 MG TAB ONE (13:33)
[2022-06-24] MEDS ORDERED: IPRATROPIUM-ALBUTEROL 3 ML NEB INHALATION PRN (15:37)
[2022-06-24] MEDS: MIDAZOLAM 2 MG/2 ML VIAL IV ONE ×2 (18:15→18:22)
[2022-06-24] MEDS ORDERED: VERAPAMIL 2.5 MG/ML 2 ML AMP ONE (18:16)
[2022-06-24] MEDS ORDERED: LIDOCAINE 1% INJ 10MG/ML (5 ML VIAL-PF) SQ ONE ×3 (18:20→18:24)
[2022-06-24] MEDS ORDERED: VERAPAMIL SYRINGE (5 MG/10 ML) INTRAARTER ONE (18:22)
[2022-06-24] MEDS ORDERED: HEPARIN SODIUM 1,000 UN/ML (10ML VL) ONE (18:38)
[2022-06-24] MEDS ORDERED: TICAGRELOR 90 MG TAB PO ONE (19:02)
[2022-06-24] MEDS ORDERED: TICAGRELOR 90 MG TAB ONE (19:02)
[2022-06-24] MEDS ORDERED: IOPAMIDOL-370 125ML BTL INJ ONE (19:16)
[2022-06-24] MEDS ORDERED: NITROGLYCERIN 1000MCG/10ML SYRINGE IV ONE (19:25)
[2022-06-24] MEDS ORDERED: IOPAMIDOL-370 100ML BTL INJ ONE (19:26)
[2022-06-24] MEDS ORDERED: NITROGLYCERIN SL TABS 0.4 MG TAB SUBLINGUAL PRN ×2 (19:41→19:42)
[2022-06-24] MEDS ORDERED: ALPRAZolam 1 MG TAB PO PRN (19:41)
[2022-06-24] MEDS ORDERED: MAG HYDROX/AL HYDROX/SIMETH 30 ML CUP PO PRN (19:42)
[2022-06-24] MEDS ORDERED: ATROPINE SULFATE 0.1 MG/ML 10ML SYRINGE IV PRN (19:42)
[2022-06-24] MEDS ORDERED: ZOLPIDEM 5 MG TAB PO PRN (19:42)
[2022-06-24] MEDS ORDERED: RX INFO: IV CONTRAST WAS GIVEN 1 EACH MISC MISCELLANE PRN (19:42)
[2022-06-24] MEDS ORDERED: SODIUM CHLORIDE 0.9% 1,000 ML in EMPTY BAG 1 BAG IV SCH (19:45)
[2022-06-24 20:18] LABS: Glucose,Whole Blood 213 mg/dL (70-110)
[2022-06-24] MEDS ORDERED: ATORVASTATIN 40 MG TAB PO SCH (21:00)
--- NOTE | 2022-06-24 21:02 | P.PCN ---
Date of Procedure: 06/24/22 Operative Findings: CARDIAC CATHETERIZATION AND PERCUTANEOUS CORONARY INTERVENTION PERFORMING PHYSICIAN: Chuy Elias MD, [facility] PROCEDURE PERFORMED: 1. Selective right and left coronary angiogram 2. Left heart catheterization 3. Successful stenting of LCx using 3.5 x 15 and 3.0 x 12 Xience JONO with an excellent angiographic results 4. Successful balloon angioplasty of the LAD using 3.5 mm balloon with adequate good result 5. iFR of the LCX an LAD 6. Gradient measurement across the right common/external iliac artery 7. Right common femoral artery angiogram INDICATION: This is a 66-year-old gentleman with CAD and prior stenting of the LAD as well as known chronic total occlusion of the RCA as well as significant history of smoking and hypertension and dyslipidemia was diagnosed recently with cardiomyopathy. The EF was 20-25%. In the light of that a heart catheterization was advised to rule out severe CAD COMPLICATION: None APPROACH: Right common femoral artery LEVEL OF SEDATION: Moderate with the sedation time off 75 minutes PROCEDURE DESCRIPTION: After obtaining informed consent the patient was brought to the cardiac nitriles lab technician. Initially attempted accessing the right radial artery but the right radial artery pulse was weak. I decided at that point to access the right common femoral artery. Right common femoral artery was cannulated using micropuncture technique under ultrasound guidance, the micropuncture wire passed easily then I placed initially an 11 cm 6 Turkish 8 at the right common femoral artery but subsequently I did change my 11 cm 6 Turkish sheath into a 35 mm 6 Turkish sheath because the right iliac was extremely tortuous and with extreme resistance/friction of the catheter upon torquing it. Selective right and left coronary angiogram was performed using JR4 and JL 4 catheters. After that I did left heart catheterization using 6 Turkish pigtail catheter. After that I did intervene on the LCx and LAD. The procedure was completed without any Medication SELECTIVE CORONARY ANGIOGRAM: The right coronary artery: The RCA is chronically occluded in the proximal portion fills by collateral from the left coronary system. Left main: Calcified with mild disease only. Bifurcates into LCx and LAD The left circumflex: Is a large caliber vessel and nondominant vessel. The left circumflex gives rise into a large OM branch which has a lesion in the midportion appeared to be in the range of 60%. I did an FFR of the lesion and that came in to be ischemic. The left anterior descending artery: The proximal LAD is a stented. There is intermediate in-stent restenosis. Also I did an FFR of that lesion and that came in to be ischemic. The LAD in the mid and distal portion appears to have mild disease only. The LAD gives as into multiple small diagonal branches. HEMODYNAMICS: The LVEDP was 10-12 mmHg was no significant gradient across the aortic valve PCI OF THE LAD and LCx: Anticoagulation was initiated and continued using heparin with continuous ACT monitoring throughout the case. After zeroing the Doppler wire and equalizing between the Doppler wire and the guiding catheter which was JL 4.5 guiding catheter I did pass FFR wire distal to the lesion in the proximal left anterior descending artery. As a matter of fact we did not have to do an FFR because the iFR are came in to be ischemic for the LAD at 0.75. Subsequently I pulled the wire back and I did an FFR of the OM1. Dad also came in to be ischemic without FFR only with iFR and that came in to be ischemic at 0.80. For that reason I decided to do angioplasty of both. For the LAD I did an angioplasty using initially 3.5 x 12 mm balloon and subsequently 3.0 x 10 mm angiosculp balloon. The following angiogram showed adequate angiographic results and I decided not to place another layer of metal in the LAD. The final angiographic results showed a stenosis around 40-50%. Subsequently I did leave the wire in the LAD and I wired the left circumflex using a rental wire. Balloon angioplasty was performed using 3.5 x 12 mm balloon. Subsequently I deployed in the OM 3.5 x 15 mm stent where the stent was positioned under fluoroscopy guidance and deployed under its nominal pressure. The following angiogram showed distal edge dissection probably from the balloon. I decided to cover that with a stent so I placed a 3.0 x 12 mm and the other stent with about 1 mm overlap between the first and second stent. The final angiogram showed good angiographic results and the procedure was completed without any complication CONCLUSION: 1.Recently diagnosed is off cardiomyopathy in this 66-year-old gentleman with known CAD as well as known multiple risk factors for CAD including smoking 2.Chronic total occlusion of the RCA which is a known finding from before 3.Severe disease involving the proximal LAD, in-stent restenosis with a focal lesion 4.Severe de thomas disease involving large OM branch with also a focal lesion 5.Normal left-sided filling pressure NumberSevere right aortoiliac disease POSTPROCEDURE MANAGEMENT: #1 dual antiplatelet therapy using aspirin and Brilinta for 12 months #2 aggressive cholesterol control #3 follow-up with the patient
[2022-06-25] MEDS: SODIUM CHLORIDE 0.9% 1,000 ML in EMPTY BAG 1 BAG IV SCH ×2 (02:59→06:23)
[2022-06-25 06:13] LABS: Glucose,Whole Blood 145 mg/dL (70-110)
[2022-06-25] MEDS ORDERED: carvediloL 3.125 MG TAB PO SCH (07:30)
[2022-06-25] MEDS ORDERED: TICAGRELOR 90 MG TAB PO SCH (09:00)
[2022-06-25] MEDS ORDERED: ASPIRIN 325 MG TAB PO SCH (09:00)
[2022-06-25] MEDS ORDERED: TAMSULOSIN 0.4 MG CAP.ER.24H PO SCH (09:00)
[2022-06-25] MEDS ORDERED: FUROSEMIDE 40 MG TAB PO SCH (09:00)
[2022-06-25] MEDS ORDERED: predniSONE 10 MG TAB PO SCH (09:00)
[2022-06-25] MEDS ORDERED: ASPIRIN 81 MG PO SCH (09:00)
[2022-06-25 09:06] VITALS: BP 115/71; PULSE 77; RESP 20; TEMP 97.6
[2022-06-25 09:36] LABS: Basophils % (A) 0 %; Eosinophils # (A) 0.3 k/uL (0-0.7); Eosinophils % (A) 4 %; HCT 42.4 % (39.0-53.0); HGB 13.4 gm/dL (13.0-17.5); Lymphocytes # (A) 1.1 k/uL (1.0-4.8); Lymphocytes % (A) 12 %; MCH 29.6 pg (25.0-35.0); MCHC 31.5 g/dL (31.0-37.0); MCV 93.9 fL (80.0-100.0); Mean Platelet Volume 8.5; Monocytes # (A) 0.5 k/uL (0-1.0); Monocytes % (A) 6 %; Neutrophils # (A) 7.2 k/uL (1.3-7.7); Neutrophils % (A) 78 %; Platelet Count 141 k/uL (150-450); RBC 4.51 m/uL (4.30-5.90); RDW 13.4 % (11.5-15.5); WBC 9.2 k/uL (3.8-10.6)
[2022-06-25 09:42] LABS: African American GFR (CKD) >90 (>60 ml/min/1.73 sqM); Anion Gap 2 mmol/L; Blood Urea Nitrogen 15 mg/dL (9-20); Calcium 8.5 mg/dL (8.4-10.2); Carbon Dioxide 30 mmol/L (22-30); Chloride 107 mmol/L (98-107); Glucose 153 mg/dL (74-99); Non-African American GFR(CKD) 89 (>60 ml/min/1.73 sqM); Potassium 4.4 mmol/L (3.5-5.1); Sodium 139 mmol/L (137-145)
== END 2022-06-25 11:24 | disposition home or self-care (01) ==
LOC: CATHCVL 10:57 → 3SCARD 19:51 → CATHCVL 06-25 11:24
PROVIDERS: ATTEND Internal Medicine Interventional Cardiology
DX: I25.10 Atherosclerotic heart disease of native coronary artery without angina pectoris (principal); I25.82 Chronic total occlusion of coronary artery; Z95.5 Presence of coronary angioplasty implant and graft; Z20.822 Contact with and (suspected) exposure to COVID-19; Z87.891 Personal history of nicotine dependence; E78.5 Hyperlipidemia, unspecified
CPT/HCPCS: 94640; 93458; 93799; 92920; 80048; 85025; 87635; C9600; C1769 ×5; C1887; C1894 ×3; C1725 ×2; C1874 ×2; J2250; J2001; J1644; J7512; Q9967 ×2

== ENCOUNTER 2022-06-28 07:44 | Observation (INO) | payer MEDICARE ==
[2022-06-28] MEDS ORDERED: IPRATROPIUM-ALBUTEROL 3 ML NEB INHALATION STA (08:04)
[2022-06-28] MEDS ORDERED: DEXAMETHASONE SOD PHOSPHATE 10 MG/ML 1 ML VIAL IV STA (08:04)
[2022-06-28 08:05] LABS: Basophils % (A) 0 %; Eosinophils # (A) 0.6 k/uL (0-0.7); Eosinophils % (A) 6 %; HCT 41.2 % (39.0-53.0); HGB 13.3 gm/dL (13.0-17.5); Lymphocytes # (A) 1.3 k/uL (1.0-4.8); Lymphocytes % (A) 13 %; MCH 29.7 pg (25.0-35.0); MCHC 32.2 g/dL (31.0-37.0); MCV 92.3 fL (80.0-100.0); Mean Platelet Volume 8.4; Monocytes # (A) 0.6 k/uL (0-1.0); Monocytes % (A) 5 %; Neutrophils # (A) 7.6 k/uL (1.3-7.7); Neutrophils % (A) 75 %; Platelet Count 139 k/uL (150-450); RBC 4.47 m/uL (4.30-5.90); RDW 13.6 % (11.5-15.5); WBC 10.2 k/uL (3.8-10.6)
--- NOTE | 2022-06-28 08:08 | ED ---
General Adult HPI - General Chief complaint: Shortness of Breath Stated complaint: SOB Time Seen by Provider: 06/28/22 07:46 Source: EMS Mode of arrival: EMS Limitations: no limitations - History of Present Illness Initial comments: Dictation was produced using [employer] dictation software. please excuse any grammatical, word or spelling errors. Chief Complaint: Patient is a 66-year-old male past medical history of COPD. 4 days ago had coronary artery stent placed presents to the ER for cough, shortness of breath History of Present Illness: 66-year-old male he has multiple comorbidities. Patient's history of COPD continues to use tobacco. Patient states that her last 48 hours his develop worsening shortness of breath. Patient was seen here 4 days ago where a coronary artery stent was placed. Patient has any issues post procedure. Patient states that yesterday he started coughing. His cough is productive of white sputum. He has been feeling short of breath. This morning at approximately 1 AM and shortness of breath acutely worsened. He provided himself with breathing treatments however symptoms did not improve e nough so he called EMS and was brought to the ER. EMS reports the patient was hypoxic into the upper 80s without oxygen. Patient does have prescription for when necessary supplemental oxygen. He was given a breathing treatment per EMS which improved his symptoms. Patient denies any orthopnea however he has not tried to sleep laying flat in several weeks. The ROS documented in this emergency department record has been reviewed and confirmed by me. Those systems with pertinent positive or negative responses have been documented in the HPI. All other systems are other negative and/or noncontributory. PHYSICAL EXAM: General Impression: Alert and oriented x3, not in acute distress HEENT: Normocephalic atraumatic, extra-ocular movements intact, pupils equal and reactive to light bilaterally, mucous membranes moist. Cardiovascular: Heart regular rate and rhythm Chest: 7 word sentences, diffuse rhonchi and wheezes, very mild retractions Abdomen: abdomen soft, non-tender, non-distended, no organomegaly Musculoskeletal: Pulses present and equal in all extremities, no peripheral edema Motor: no focal deficits noted Neurological: CN II-XII grossly intact, no focal motor or sensory deficits noted Skin: Intact with no visualized rashes Psych: Normal affect and mood ED course: 66-year-old male presents emergency department for chief complaint of dyspnea. His multiple comorbidities. Patient recently had coronary artery stent placed 4 days ago. Signs upon arrival are within acceptable limits. Laboratory evaluation obtained. CBC, coag panel, metabolic panel is unremarkable. Troponin is elevated 0.841 however this to be expected given that patient had cardiac catheterization 4 days ago. Prematurity peptide is 2640. Per's to be lower than patient's baseline. Chest x-ray is unremarkable. Patient reevaluated after Atrovent containing breathing treatment with even furt her improvement of symptoms. Patient still however requiring supplemental oxygen. Given patient's clinical presentation he would benefit from inpatient admission with pulmonology consult. Unlikely that patient's symptomatology is secondary to, patient's from recent cardiac catheterization. Patient will be further monitored from a cardiac standpoint. Clinical presentation is COPD exacerbation with component of hypoxic respiratory failure. Patient started on daily azithromycin orally. Pulmonology consultation for this admission. EKG interpretation: Ventricular rate 73, sinus rhythm, MT interval 154, QS 106, QTC 426. No MT prolongation, no QTC prolongation, no ST or T-wave changes noted. Overall, this EKG is unremarkable - Related Data Home Medications Medication Instructions Recorded Confirmed Aspirin 325 mg PO DAILY 06/28/14 06/24/22 ALPRAZolam [Xanax] 1 mg PO TID PRN 07/14/20 06/24/22 Acetaminophen [Tylenol Extra 500 - 1,000 mg PO Q6H PRN 07/14/20 06/24/22 Strength] Ipratropium-Albuterol Nebulize 3 ml INHALATION RT-QID PRN 06/02/22 06/24/22 [Duoneb 0.5 mg-3 mg/3 ml Soln] Rosuvastatin Calcium [Crestor] 20 mg PO HS 06/02/22 06/24/22 Tamsulosin [Flomax] 0.4 mg PO DAILY 06/02/22 06/24/22 Previous Rx's Medication Instructions Recorded Nitroglycerin Sl Tabs [Nitrostat] 0.4 mg SUBLINGUAL Q5M PRN #20 tab 07/24/20 Furosemide [Lasix] 40 mg PO BID@0900,1600 30 Days #60 06/07/22 tab carvediloL [Coreg] 3.125 mg PO BID-W/MEALS 30 Days 06/07/22 #60 tab lisinopriL [Zestril] 2.5 mg PO DAILY 30 Days #30 tab 06/07/22 predniSONE 10 mg PO DIRECTED 15 Days #30 06/07/22 tab Ticagrelor [Brilinta] 90 mg PO BID #90 tab 06/25/22 Allergies Allergy/AdvReac Type Severity Reaction Status Date / Time codeine Allergy Unknown Verified 06/28/22 07:53 Review of Systems ROS Statement: Those systems with pertinent positive or pertinent negative responses have been documented in the HPI. ROS Other: All systems not noted in ROS Statement are negative. 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 Hx shingles Rt inner ear 2008, wears hearing aids. BPH, ED, disc lumbar spine. SOB w/activity. AAA, Rt carotid stenosis. Abscessed tooth sev wks ago, completed AB Rx. Last Myocardial Infarction Date:: unknown History of Any Multi-Drug Resistant Organisms: None Reported Past Surgical History: Heart Catheterization, Heart Catheterization With Stent, Hernia Repair, Tonsillectomy Additional Past Surgical History / Comment(s): 2013 Cervical Fusion. Umb hernia, ing hernia. Heart cath 2011. Bilat Cataracts Past Anesthesia/Blood Transfusion Reactions: No Reported Reaction Date of Last Stent Placement:: 1997 Past Psychological History: Anxiety Smoking Status: Current every day smoker Past Alcohol Use History: Occasional Past Drug Use History: None Reported - Past Family History Brother(s) Family Medical History: Cancer, Diabetes Mellitus Additional Family Medical History / Comment(s): leukemia, lung cancer; another brother had DM, gangrene General Exam Limitations: no limitations Course Vital Signs 06/28/22 06/28/22 06/28/22 07:47 08:18 08:26 Temperature 97.4 F L Pulse Rate 76 76 72 Respiratory 18 Rate Blood Pressure 121/71 O2 Sat by Pulse 97 Oximetry 06/28/22 06/28/22 08:29 09:19 Temperature Pulse Rate 76 74 Respiratory 20 20 Rate Blood Pressure 100/66 139/83 O2 Sat by Pulse 98 99 Oximetry Medical Decision Making - Lab Data Result diagrams: 06/28/22 07:54 06/28/22 07:54 Lab Results 06/28/22 06/28/22 06/28/22 Range/Units 07:54 07:54 07:54 WBC 10.2 (3.8-10.6) k/uL RBC 4.47 (4.30-5.90) m/uL Hgb 13.3 (13.0-17.5) gm/dL Hct 41.2 (39.0-53.0) % MCV 92.3 (80.0-100.0) fL MCH 29.7 (25.0-35.0) pg MCHC 32.2 (31.0-37.0) g/dL RDW 13.6 (11.5-15.5) % Plt Count 139 L (150-450) k/uL MPV 8.4 Neutrophils % 75 % Lymphocytes % 13 % Monocytes % 5 % Eosinophils % 6 % Basophils % 0 % Neutrophils # 7.6 (1.3-7.7) k/uL Lymphocytes # 1.3 (1.0-4.8) k/uL Monocytes # 0.6 (0-1.0) k/uL Eosinophils # 0.6 (0-0.7) k/uL Basophils # 0.0 (0-0.2) k/uL PT 10.3 (9.0-12.0) sec INR 0.9 (<1.2) APTT 22.4 (22.0-30.0) sec Sodium 139 (137-145) mmol/L Potassium 3.8 (3.5-5.1) mmol/L Chloride 107 (98-107) mmol/L Carbon Dioxide 26 (22-30) mmol/L Anion Gap 6 mmol/L BUN 20 (9-20) mg/dL Creatinine 0.86 (0.66-1.25) mg/dL Est GFR (CKD-EPI)AfAm >90 (>60 ml/min/1.73 sqM) Est GFR (CKD-EPI)NonAf 89 (>60 ml/min/1.73 sqM) Glucose 135 H (74-99) mg/dL Calcium 8.8 (8.4-10.2) mg/dL Magnesium 1.7 (1.6-2.3) mg/dL Total Bilirubin 0.6 (0.2-1.3) mg/dL AST 16 L (17-59) U/L ALT 12 (4-49) U/L Alkaline Phosphatase 88 (38-126) U/L CK-MB (CK-2) (0.0-2.4) ng/mL Troponin I (0.000-0.034) ng/mL NT-Pro-B Natriuret Pep pg/mL Total Protein 6.2 L (6.3-8.2) g/dL Albumin 3.6 (3.5-5.0) g/dL 06/28/22 06/28/22 Range/Units 07:54 07:54 WBC (3.8-10.6) k/uL RBC (4.30-5.90) m/uL Hgb (13.0-17.5) gm/dL Hct (39.0-53.0) % MCV (80.0-100.0) fL MCH (25.0-35.0) pg MCHC (31.0-37.0) g/dL RDW (11.5-15.5) % Plt Count (150-450) k/uL MPV Neutrophils % % Lymphocytes % % Monocytes % % Eosinophils % % Basophils % % Neutrophils # (1.3-7.7) k/uL Lymphocytes # (1.0-4.8) k/uL Monocytes # (0-1.0) k/uL Eosinophils # (0-0.7) k/uL Basophils # (0-0.2) k/uL PT (9.0-12.0) sec INR (<1.2) APTT (22.0-30.0) sec Sodium (137-145) mmol/L Potassium (3.5-5.1) mmol/L Chloride (98-107) mmol/L Carbon Dioxide (22-30) mmol/L Anion Gap mmol/L BUN (9-20) mg/dL Creatinine (0.66-1.25) mg/dL Est GFR (CKD-EPI)AfAm (>60 ml/min/1.73 sqM) Est GFR (CKD-EPI)NonAf (>60 ml/min/1.73 sqM) Glucose (74-99) mg/dL Calcium (8.4-10.2) mg/dL Magnesium (1.6-2.3) mg/dL Total Bilirubin (0.2-1.3) mg/dL AST (17-59) U/L ALT (4-49) U/L Alkaline Phosphatase (38-126) U/L CK-MB (CK-2) 2.7 H (0.0-2.4) ng/mL Troponin I 0.841 H* (0.000-0.034) ng/mL NT-Pro-B Natriuret Pep 2640 pg/mL Total Protein (6.3-8.2) g/dL Albumin (3.5-5.0) g/dL Critical Care Time Critical Care Time: Yes Total Critical Care Time: 33 Disposition Clinical Impression: COPD exacerbation, Hypoxia Disposition: ADMITTED IP TO THIS HOSP Condition: Fair Referrals: Radha Henry III, MD [Primary Care Provider] - 1-2 days Decision Time: 09:32
[2022-06-28] MEDS ORDERED: ACETAMINOPHEN TAB 500 MG TAB PO STA (08:14)
[2022-06-28 08:16] LABS: INR 0.9 (<1.2); Partial Thromboplastin Time 22.4 sec (22.0-30.0); Prothrombin Time 10.3 sec (9.0-12.0)
--- NOTE | 2022-06-28 08:18 | XR ---
EXAMINATION TYPE: XR chest 1V portable DATE OF EXAM: 06/28/2022 COMPARISON: 06/07/2022 INDICATION: Dyspnea short of breath TECHNIQUE: Single frontal view of the chest is obtained. FINDINGS: The heart size is normal. The pulmonary vasculature is normal. The lungs are clear. IMPRESSION: 1. No acute pulmonary process.
[2022-06-28 08:22] LABS: ALT 12 U/L (4-49); AST 16 U/L (17-59); African American GFR (CKD) >90 (>60 ml/min/1.73 sqM); Albumin 3.6 g/dL (3.5-5.0); Alkaline Phosphatase 88 U/L (38-126); Anion Gap 6 mmol/L; Blood Urea Nitrogen 20 mg/dL (9-20); Calcium 8.8 mg/dL (8.4-10.2); Carbon Dioxide 26 mmol/L (22-30); Chloride 107 mmol/L (98-107); Glucose 135 mg/dL (74-99); Magnesium 1.7 mg/dL (1.6-2.3); Non-African American GFR(CKD) 89 (>60 ml/min/1.73 sqM); Potassium 3.8 mmol/L (3.5-5.1); Sodium 139 mmol/L (137-145); Total Bilirubin 0.6 mg/dL (0.2-1.3); Total Protein 6.2 g/dL (6.3-8.2)
[2022-06-28 08:32] LABS: Creatine Kinase MB 2.7 ng/mL (0.0-2.4)
[2022-06-28 09:04] LABS: Troponin I 0.841 ng/mL (0.000-0.034)
[2022-06-28] MEDS ORDERED: NALOXONE 0.4 MG/ML 1 ML VIAL IVP PRN (09:29)
[2022-06-28] MEDS ORDERED: NICOTINE GUM (POLACRILEX) 2 MG GUM BUCCAL PRN (09:29)
[2022-06-28] MEDS: AZITHROMYCIN 500 MG TAB PO SCH (10:48)
[2022-06-28] MEDS ORDERED: FUROSEMIDE 20 MG TAB PO SCH (11:15)
[2022-06-28] MEDS: IPRATROPIUM-ALBUTEROL 3 ML NEB INHALATION SCH ×3 (11:20→20:57)
--- NOTE | 2022-06-28 11:27 | P.CRDCN ---
History of Present Illness Consult date: 06/28/22 History of present illness: Patient has a known history of multivessel coronary artery disease, and is post stent to the LAD and a totally occluded RCA, COPD, hyperlipidemia, hypertension, cardiomyopathy with an EF of 2025%, moderate to severe mitral regurgitation, current smoker. Patient follows with Dr. Elias in the office. 4 days ago patient underwent a cardiac catheterization with Dr. Elias and received PCI to the circumflex and balloon angioplasty to the LAD. He presented to the ER with cough and increased shortness of breath. Patient was at home woke up in the [place] night short of breath he has supplemental oxygen at home took a breathing treatment and was not receiving any relief. Called EMS and was found to be hypoxic in the upper 80s on room air. Patient was placed on supplemental oxygen and received another breathing treatment. Shortness of breath was improved. Initial EKG showed sinus rhythm. Chest x-ray was negative for acute cardiopulm onary process. Initial troponin was 0.841 and BNP was 2640. Additional labs show WBC 10.2 Hbg13.3 platelets 139 sodium 139 potassium 3.8 BUN 20 creatinine 0.86 magnesium 1.7 AST 16 ALT 12. Blood pressure 139/83 pulse 74, oxygen 99% on 2 L nasal cannula. Will obtain a limited 2-D echo, will reorder home medications including Brilinta. Will start IV Lasix 40 mg twice a day Review of Systems REVIEW OF SYSTEMS At the time of my exam: CONSTITUTIONAL: Denies fever or chills. EYES: Negative for vision changes ENT: Negative for hearing loss CARDIOVASCULAR: Denies chest pain, shortness of breath, diaphoresis, orthopnea, PND or palpitations. VASCULAR: Denies edema RESPIRATORY: Denies cough. GASTROINTESTINAL: Denies abdominal pain, diarrhea, constipation, nausea or vomiting. MUSCULOSKELETAL: Denies myalgias. NEUROLOGIC: Denies numbness, tingling, headache or weakness. ENDOCRINE: Denies fatigue, weight change, polydipsia or polyurina. GENITOURINARY: Denies burning, hematuria or urgency with micturation. HEMATOLOGIC: Denies history of anemia or bleeding. DERMATOLOGY: Denies rash or skin sores PSYCH: Negative for depression or hallucinations. Past Medical History Past Medical History: Coronary Artery Disease (CAD), Chest Pain / Angina, COPD, CVA/TIA, Hearing Disorder / Deafness, Hyperlipidemia, Hypertension, Myocardial Infarction ([place]), Musculoskeletal Disorder, Osteoarthritis (OA), Prostate Disorder Additional Past Medical History / Comment(s): Stroke left eye 2006, 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 Hx shingles Rt inner ear 2008, wears hearing aids. BPH, ED, disc lumbar spine. SOB w/activity. AAA, Rt carotid stenosis. Abscessed tooth sev wks ago, completed AB Rx. Last Myocardial Infarction Date:: unknown History of Any Multi-Drug Resistant Organisms: None Reported Past Surgical History: Heart Catheterization, Heart Catheterization With Stent, Hernia Repair, Tonsillectomy Additional Past Surgical History / Comment(s): 2013 Cervical Fusion. Umb hernia, ing hernia. Heart cath 2011. Bilat Cataracts Past Anesthesia/Blood Transfusion Reactions: No Reported Reaction Date of Last Stent Placement:: 1997 Past Psychological History: Anxiety Smoking Status: Current every day smoker Past Alcohol Use History: Occasional Past Drug Use History: None Reported - Past Family History Brother(s) Family Medical History: Cancer, Diabetes Mellitus Additional Family Medical History / Comment(s): leukemia, lung cancer; another brother had DM, gangrene Medications and Allergies Home Medications Medication Instructions Recorded Confirmed Type Aspirin 325 mg PO DAILY 06/28/14 06/24/22 History ALPRAZolam [Xanax] 1 mg PO TID PRN 07/14/20 06/24/22 History Acetaminophen [Tylenol Extra 500 - 1,000 mg PO Q6H PRN 07/14/20 06/24/22 History Strength] Nitroglycerin Sl Tabs [Nitrostat] 0.4 mg SUBLINGUAL Q5M PRN #20 tab 07/24/20 06/24/22 Rx Ipratropium-Albuterol Nebulize 3 ml INHALATION RT-QID PRN 06/02/22 06/24/22 History [Duoneb 0.5 mg-3 mg/3 ml Soln] Rosuvastatin Calcium [Crestor] 20 mg PO HS 06/02/22 06/24/22 History Tamsulosin [Flomax] 0.4 mg PO DAILY 06/02/22 06/24/22 History Furosemide [Lasix] 40 mg PO BID@0900,1600 30 Days #60 06/07/22 06/24/22 Rx tab carvediloL [Coreg] 3.125 mg PO BID-W/MEALS 30 Days 06/07/22 06/24/22 Rx #60 tab lisinopriL [Zestril] 2.5 mg PO DAILY 30 Days #30 tab 06/07/22 06/24/22 Rx predniSONE 10 mg PO DIRECTED 15 Days #30 06/07/22 06/24/22 Rx tab Ticagrelor [Brilinta] 90 mg PO BID #90 tab 06/25/22 Rx Allergies Allergy/AdvReac Type Severity Reaction Status Date / Time codeine Allergy Unknown Verified 06/28/22 07:53 Physical Exam Vitals: Vital Signs Temp Pulse Resp BP Pulse Ox 06/28/22 09:19 74 20 139/83 99 06/28/22 08:29 76 20 100/66 98 06/28/22 08:26 72 06/28/22 08:18 76 06/28/22 07:47 97.4 F L 76 18 121/71 97 Intake and Output 06/27/22 06/28/22 06/28/22 22:59 06:59 14:59 Other: Weight 79.832 kg General: The patient is awake and alert, in no distress, and does not appear acutely ill. Skin: Skin is warm and dry and no rashes or lesions are noted. Eye: Pupils are equal, round and reactive to light, extra-ocular movements are intact; there is normal conjunctiva bilaterally. Ears, nose, mouth and throat: There are moist mucous membranes and no oral lesions. Neck: The neck is supple, there is no tenderness or JVD. Cardiovascular: There is irregular regular rate and rhythm. No murmur, rub or gallop is appreciated. Respiratory: Lungs are clear to auscultation, respirations are non-labored, breath sounds are equal. Gastrointestinal: Soft, non-distended, non-tender abdomen without masses or organomegaly noted. There is no rebound or guarding present. Bowel sounds are unremarkable. Back: There is no tenderness to palpation in the midline. There is no obvious deformity. Musculoskeletal: Normal ROM, no tenderness, There is no pedal edema. There is no calf tenderness or swelling. Extremities: Mild bilateral pitting edema Vascular: Femoral pulse is normal. Posterior tibial pulses are normal .Dorsalis pedis is palpable. Neurological: CN II-XII intact. There are no obvious motor or sensory deficits. Speech is normal. Psychiatric: Cooperative, appropriate mood & affect, normal judgment Results 06/28/22 07:54 06/28/22 07:54 Cardiac Enzymes 06/28/22 06/28/22 Range/Units 07:54 07:54 AST 16 L (17-59) U/L CK-MB (CK-2) 2.7 H (0.0-2.4) ng/mL Troponin I 0.841 H* (0.000-0.034) ng/mL Coagulation 06/28/22 Range/Units 07:54 PT 10.3 (9.0-12.0) sec APTT 22.4 (22.0-30.0) sec CBC 06/28/22 Range/Units 07:54 WBC 10.2 (3.8-10.6) k/uL RBC 4.47 (4.30-5.90) m/uL Hgb 13.3 (13.0-17.5) gm/dL Hct 41.2 (39.0-53.0) % Plt Count 139 L (150-450) k/uL Comprehensive Metabolic Panel 06/28/22 Range/Units 07:54 Sodium 139 (137-145) mmol/L Potassium 3.8 (3.5-5.1) mmol/L Chloride 107 (98-107) mmol/L Carbon Dioxide 26 (22-30) mmol/L BUN 20 (9-20) mg/dL Creatinine 0.86 (0.66-1.25) mg/dL Glucose 135 H (74-99) mg/dL Calcium 8.8 (8.4-10.2) mg/dL AST 16 L (17-59) U/L ALT 12 (4-49) U/L Alkaline Phosphatase 88 (38-126) U/L Total Protein 6.2 L (6.3-8.2) g/dL Albumin 3.6 (3.5-5.0) g/dL Current Medications Generic Name Dose Route Start Last Admin Trade Name Freq PRN Reason Stop Dose Admin Albuterol/Ipratropium 3 ml 06/28/22 12:00 Ipratropium-Albuterol 3 Ml Neb INHALATION RT-QID GIAN Azithromycin 500 mg 06/28/22 09:30 06/28/22 10:48 Azithromycin 500 Mg Tab PO 07/01/22 09:31 500 mg DAILY [facility] Administration Protocol Budesonide/Formoterol Fumarate 2 puff 06/28/22 20:00 Symbicort 160-4.5 Mcg Inhaler INHALATION RT-BID GIAN Furosemide 20 mg 06/28/22 11:15 Furosemide 20 Mg Tab PO DAILY GIAN Methylprednisolone Sodium Succinate 60 mg 06/28/22 12:00 Methylprednisolone Sod Succi 125 Mg/2 Ml Vial IV Q6HR GIAN Naloxone HCl 0.2 mg 06/28/22 09:29 Naloxone 0.4 Mg/Ml 1 Ml Vial IVP Q2M PRN Opioid Reversal Nicotine Polacrilex 2 mg 06/28/22 09:29 Nicotine Gum (Polacrilex) 2 Mg Gum BUCCAL Q2H PRN smoking cessation Intake and Output 06/27/22 06/28/22 06/28/22 22:59 06:59 14:59 Other: Weight 79.832 kg Patient Weight 06/29/22 06:59 Weight 79.832 kg 06/28/22 07:54 06/28/22 07:54 Assessment and Plan Assessment: Acute on chronic systolic congestive heart failure Elevated troponin probably secondary to acute heart failure Multivessel coronary artery disease Acute on chronic COPD exacerbation Hypoxia Plan: Obtain and review and limited 2-D echocardiogram Resume all home medications Start IV Lasix twice a day Continue with telemetry monitoring Continue with accurate I's and O's and daily weights Further recommendations based on clinical course The above impression and plan of care have been discussed and directed by the signing physician. Teresa Buck, nurse practitioner, acting as scribe for signing physician.
[2022-06-28] MEDS: methylPREDNISolone SOD SUCCI 125 MG/2 ML VIAL IV SCH ×3 (11:45→22:31)
[2022-06-28] MEDS: carvediloL 3.125 MG TAB PO SCH ×2 (11:48→17:04)
[2022-06-28] MEDS: TAMSULOSIN 0.4 MG CAP.ER.24H PO SCH (11:48)
[2022-06-28] MEDS: TICAGRELOR 90 MG TAB PO SCH ×2 (11:48→20:47)
[2022-06-28] MEDS: FUROSEMIDE 10 MG/ML 4 ML VIAL IV SCH ×2 (11:48→20:46)
--- NOTE | 2022-06-28 12:52 | P.CNPUL ---
History of Present Illness Consult date: 06/28/22 Requesting physician: Delbert Dobson Reason for consult: dyspnea, COPD Chief complaint: Shortness of breath, chest tightness and congestion History of present illness: This is a 66-year-old male patient with a history of chronic tobacco dependence, abdominal aortic aneurysm, CVA/TIA involving the left eye in 2006, degenerative lumbar disc, BPH, hypertension, hyperlipidemia, history of high-grade stenosis of the right internal carotid artery, chronic obstructive pulmonary disease with home oxygen, congestive heart failure. He has been vaccinated and boosted against the coronavirus. He has a significant history of coronary artery disease with previous stenting to the LAD and a total occlusion of the RCA. On 06/24/2022 he was admitted electively by Dr. Elias and had undergone successful b alloon angioplasty of the LAD, stenting of the circumflex. RCA remains chronically occluded with collaterals from the left coronary system. He is maintained on Brilinta and aspirin. The patient's ejection fraction is 20-25%. He presented to the emergency room early this morning with complaints of increasing shortness of breath, cough congestion chest tightness and wheezing. Chest x-ray reveals no acute pulmonary process. EKG did not reveal any significant ST or T-wave abnormality. White count 10.2. Hemoglobin 13.3. Platelets 139. Sodium 139. Potassium 3.8. BUN 20. Creatinine 0.6. Glucose 135. AST 16. ALT 12. Troponin 0.841. ProBNP 2640. Review of Systems REVIEW OF SYSTEMS: CONSTITUTIONAL: Denies any recent significant weight loss or weight gain. EYES: Denies change in vision. EARS, NOSE, MOUTH, THROAT: Denies headaches, denies sore throat. CARDIOVASCULAR: Positive for chest pain, no palpitations or syncopal episodes. RESPIRATORY: Positive for shortness of breath, cough, congestion or hemoptysis. GASTROINTESTINAL: Denies change in appetite, denies abdominal pain GENITOURINARY: Denies hematuria, denies infections. MUSKULOSKELETAL: Denies pain, denies swelling. INTEGUMENTARY: Denies rash, denies eczema. NEUROLOGICAL: Denies recent memory loss, no recent seizure activity. PSYCHIATRIC: Denies anxiety, denies depression. HEMATOLOGIC/LYMPHATIC: Denies anemia, denies enlarged lymph nodes. 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 Hx shingles Rt inner ear 2008, wears hearing aids. BPH, ED, disc lumbar spine. SOB w/activity. AAA, Rt carotid stenosis. Abscessed tooth sev wks ago, completed AB Rx. Last Myocardial Infarction Date:: unknown History of Any Multi-Drug Resistant Organisms: None Reported Past Surgical History: Heart Catheterization, Heart Catheterization With Stent, Hernia Repair, Tonsillectomy Additional Past Surgical History / Comment(s): 2013 Cervical Fusion. Umb hernia, ing hernia. Heart cath 2011. Bilat Cataracts Past Anesthesia/Blood Transfusion Reactions: No Reported Reaction Date of Last Stent Placement:: 1997 Past Psychological History: Anxiety Smoking Status: Current every day smoker Past Alcohol Use History: Occasional Past Drug Use History: None Reported - Past Family History Brother(s) Family Medical History: Cancer, Diabetes Mellitus Additional Family Medical History / Comment(s): leukemia, lung cancer; another brother had DM, gangrene Medications and Allergies Home Medications Medication Instructions Recorded Confirmed Type Aspirin 325 mg PO DAILY 06/28/14 06/28/22 History ALPRAZolam [Xanax] 1 mg PO TID PRN 07/14/20 06/28/22 History Nitroglycerin Sl Tabs [Nitrostat] 0.4 mg SUBLINGUAL Q5M PRN #20 tab 07/24/20 06/28/22 Rx Rosuvastatin Calcium [Crestor] 20 mg PO HS 06/02/22 06/28/22 History Tamsulosin [Flomax] 0.4 mg PO DAILY 06/02/22 06/28/22 History carvediloL [Coreg] 3.125 mg PO BID-W/MEALS 30 Days 06/07/22 06/28/22 Rx #60 tab Ticagrelor [Brilinta] 90 mg PO BID #90 tab 06/25/22 06/28/22 Rx Furosemide [Lasix] 20 mg PO DAILY PRN 06/28/22 06/28/22 History lisinopriL [Zestril] 1.25 mg PO DAILY 06/28/22 06/28/22 History Allergies Allergy/AdvReac Type Severity Reaction Status Date / Time codeine Allergy Unknown Verified 06/28/22 11:28 Physical Exam Vitals: Vital Signs Temp Pulse Resp BP Pulse Ox 06/28/22 11:29 73 06/28/22 11:20 76 06/28/22 09:19 74 20 139/83 99 06/28/22 08:29 76 20 100/66 98 06/28/22 08:26 72 06/28/22 08:18 76 06/28/22 07:47 97.4 F L 76 18 121/71 97 Intake and Output 06/27/22 06/28/22 06/28/22 22:59 06:59 14:59 Other: Weight 79.832 kg GENERAL EXAM: Alert, pleasant 66-year-old male patient, on 2 L nasal cannula, fairly comfortable in no apparent distress. HEAD: Normocephalic. EYES: Normal reaction of pupils, equal size. NOSE: Clear with pink turbinates. THROAT: No erythema or exudates. NECK: No masses, no JVD. CHEST: No chest wall deformity. LUNGS: Equal air entry with no crackles, wheeze, rhonchi or dullness. CVS: S1 and S2 normal with no audible murmur, regular rhythm. ABDOMEN: No hepatosplenomegaly, normal bowel sounds, no guarding or rigidity. SPINE: No scoliosis or deformity SKIN: No rashes CENTRAL NERVOUS SYSTEM: No focal deficits, tone is normal in all 4 extremities. EXTREMITIES: There is no peripheral edema. No clubbing, no cyanosis. Peripheral pulses are intact. Results - Laboratory Findings CBC and BMP: 06/28/22 07:54 06/28/22 07:54 PT/INR, D-dimer PT 10.3 sec (9.0-12.0) 06/28/22 07:54 INR 0.9 (<1.2) 06/28/22 07:54 Abnormal lab findings: Abnormal Labs 06/28/22 06/28/22 06/28/22 07:54 07:54 07:54 Plt Count 139 L Glucose 135 H AST 16 L CK-MB (CK-2) 2.7 H Troponin I 0.841 H* Total Protein 6.2 L - Diagnostic Findings Chest x-ray: image reviewed Assessment and Plan Assessment: 1 Acute exacerbation of chronic obstructive pulmonary disease. No clear evidence of pneumonia 2 Acute exacerbation of chronic systolic congestive heart failure 3 Severe ischemic cardiomyopathy with ejection fraction 20-25% 4 Recent stenting to the circumflex and PTBA to the LAD on 06/24/2022 5 History of coronary artery disease with previous stenting to the LAD and a chronically occluded RCA 6 Chronic and ongoing tobacco dependence 7 Hypertension 8 Hyperlipidemia 9 Troponin leak Plan: The patient was seen and evaluated Chest x-ray, labs and medications reviewed Continue Symbicort, DuoNeb inhalations, IV Solu-Medrol Continue IV diuretics Test for COVID-19 infection Titrate the FiO2 as tolerated Educated regarding the importance of complete smoking cessation We will continue to follow and make further recommendations based on his clinical status I have personally seen and examined the patient, performed the documentation and the assessment and plan as written. Number of minutes spent on the visit: 20.
--- NOTE | 2022-06-28 13:15 | CA ---
Transthoracic Echo Report Name: Meet Haas Age: 66 Gender: M : 1955 Exam Date: 06/28/2022 11:53 Exam Location: [facility] Ht (in): 69 Wt (lb): 176 Ordering Physician: Teresa Buck Attending/Referring Phys: Jewelry Sales Coordinator Janel Rosenthal RDCS Procedure CPT: Indications: CAD Cardiac Hx: Technical Quality: Poor Contrast 1: Lumason Total Dose (mL): 3 Contrast 2: Total Dose (mL): MEASUREMENTS (Male / Female) Normal Values FINDINGS Left Ventricle Limited study. Left ventricular ejection fraction is estimated at about 30% with hypokinesia involving the anterolateral wall. Limited study Right Ventricle Right Atrium Left Atrium Mitral Valve Aortic Valve Tricuspid Valve Pulmonic Valve Pericardium No pericardial effusion. Aorta CONCLUSIONS Ischemic cardiomyopathy with anterolateral wall hypokinesis and estimated ejection fraction of 30% Previewed by: Dr. Harsh Arita MD (Electronically Signed) Final Date: 28 June 2022 13:14
--- NOTE | 2022-06-28 13:39 | HP ---
HISTORY AND PHYSICAL CHIEF COMPLAINT: Shortness of breath. HISTORY OF PRESENT ILLNESS: This 66-year-old gentleman with a past medical history of COPD and CAD also had stents placed. Currently the patient is complaining of increasing shortness of breath. Because of lack of improvement, the patient came to [facility] and was admitted for further evaluation and treatment. There is no history of any fever, rigors or chills. No history of headache, loss of consciousness, seizures. PAST MEDICAL HISTORY: COPD, CAD, stents. The rest of the history is reviewed. HOME MEDICATIONS: Again reviewed, which include Xanax. Doses and the rest of the medications are reviewed. ALLERGIES: ALLERGIES INCLUDE CODEINE. FAMILY HISTORY: History of diabetes mellitus and cancer. SOCIAL HISTORY: Smoking currently. Occasional alcohol. REVIEW OF SYSTEMS: Fourteen-point review of systems negative except as mentioned earlier. PHYSICAL EXAMINATION: Pulse is 74, blood pressure 113/83, respiration 28. HEENT: Conjunctivae normal. NECK: No jugular venous distention. CARDIOVASCULAR: S1, S2 muffled. RESPIRATION: Bilateral scattered rhonchi and expiratory wheezing. ABDOMEN: Soft, nontender. LEGS: No edema. No swelling. NERVOUS SYSTEM: No focal deficit. LABS: CBC within normal limits. The rest of the labs are noted. Troponin 0.841. ASSESSMENT: 1. Chronic obstructive pulmonary disease, acute exacerbation. 2. Troponin 0.841. Possible acute pwc-GW-doswxsm-elevation myocardial infarction. 3. History of coronary artery disease, stent. 4. Hypertension. 5. Hyperlipidemia. 6. Multiple medical issues. RECOMMENDATIONS AND DISCUSSION: In this 66-year-old gentleman who presented with multiple complex medical issues, we will monitor the patient closely. We will optimize bronchodilator treatment, empiric antibiotics. Pulmonary consultation. Cardiology consultation. Antiplatelet agents. Prognosis is guarded because of multiple complex medical issues. Further recommendations to follow. A copy of this dictation is being forwarded to Dr. Henry, who is the primary physician. Will repeat labs tomorrow. MMODL / IJN: [id number] /
[2022-06-28] MEDS ORDERED: IPRATROPIUM-ALBUTEROL 3 ML NEB INHALATION PRN (13:59)
[2022-06-28] MEDS ORDERED: NITROGLYCERIN SL TABS 0.4 MG TAB SUBLINGUAL PRN (14:00)
[2022-06-28] MEDS ORDERED: AZITHROMYCIN 500 MG in SODIUM CHLORIDE 0.9% 250 ML IVPB SCH (14:30)
[2022-06-28] MEDS: HEPARIN SODIUM,PORCINE/PF 5,000 UNIT/0.5 ML SYRINGE SQ SCH ×2 (14:46→20:47)
[2022-06-28] MEDS ORDERED: SYMBICORT 160-4.5 MCG INHALER INHALATION SCH (20:00)
[2022-06-28] MEDS: ATORVASTATIN 40 MG TAB PO SCH (20:47)
[2022-06-28] MEDS: FORMOTEROL FUMARATE 20 MCG/2 ML NEBU INHALATION SCH (20:57)
[2022-06-28] MEDS: BUDESONIDE 1 MG/2 ML NEBU INHALATION SCH (20:57)
[2022-06-28] MEDS: HYDROcodone/APAP 10-325MG 1 EACH TAB PO PRN (22:31)
[2022-06-28] MEDS: ALPRAZolam 1 MG TAB PO PRN (22:31)
[2022-06-29] MEDS: HYDROcodone/APAP 10-325MG 1 EACH TAB PO PRN ×2 (05:36→20:17)
[2022-06-29] MEDS: methylPREDNISolone SOD SUCCI 125 MG/2 ML VIAL IV SCH ×3 (05:37→17:29)
[2022-06-29] MEDS: carvediloL 3.125 MG TAB PO SCH ×2 (05:37→17:29)
[2022-06-29] MEDS: BUDESONIDE 1 MG/2 ML NEBU INHALATION SCH ×2 (07:35→21:16)
[2022-06-29] MEDS: IPRATROPIUM-ALBUTEROL 3 ML NEB INHALATION SCH ×4 (07:35→21:16)
[2022-06-29] MEDS: FORMOTEROL FUMARATE 20 MCG/2 ML NEBU INHALATION SCH ×2 (07:35→21:16)
[2022-06-29 07:40] LABS: Basophils % (A) 0 %; Eosinophils % (A) 0 %; HCT 44.6 % (39.0-53.0); HGB 14.1 gm/dL (13.0-17.5); Hypochromasia Slight; Lymphocytes # (A) 0.6 k/uL (1.0-4.8); Lymphocytes % (A) 6 %; MCH 29.9 pg (25.0-35.0); MCHC 31.5 g/dL (31.0-37.0); MCV 94.9 fL (80.0-100.0); Mean Platelet Volume 8.6; Monocytes # (A) 0.4 k/uL (0-1.0); Monocytes % (A) 4 %; Neutrophils # (A) 7.9 k/uL (1.3-7.7); Neutrophils % (A) 89 %; Platelet Count 184 k/uL (150-450); RDW 13.4 % (11.5-15.5); WBC 8.9 k/uL (3.8-10.6)
[2022-06-29] MEDS: ALPRAZolam 1 MG TAB PO PRN ×2 (07:46→21:20)
[2022-06-29] MEDS: HEPARIN SODIUM,PORCINE/PF 5,000 UNIT/0.5 ML SYRINGE SQ SCH ×2 (07:46→20:17)
[2022-06-29] MEDS: TICAGRELOR 90 MG TAB PO SCH ×2 (07:47→20:17)
[2022-06-29] MEDS: ASPIRIN 325 MG TAB PO SCH (07:47)
[2022-06-29] MEDS: AZITHROMYCIN 500 MG TAB PO SCH (07:47)
[2022-06-29] MEDS: TAMSULOSIN 0.4 MG CAP.ER.24H PO SCH (07:47)
[2022-06-29] MEDS: FUROSEMIDE 10 MG/ML 4 ML VIAL IV SCH ×2 (07:47→20:17)
[2022-06-29 08:23] LABS: African American GFR (CKD) >90 (>60 ml/min/1.73 sqM); Anion Gap 10 mmol/L; Blood Urea Nitrogen 30 mg/dL (9-20); Carbon Dioxide 24 mmol/L (22-30); Chloride 104 mmol/L (98-107); Glucose 243 mg/dL (74-99); Non-African American GFR(CKD) 82 (>60 ml/min/1.73 sqM); Potassium 4.3 mmol/L (3.5-5.1); Sodium 138 mmol/L (137-145)
[2022-06-29] MEDS ORDERED: ASPIRIN 81 MG PO SCH (09:00)
--- NOTE | 2022-06-29 12:50 | P.PN ---
Subjective Progress Note Date: 06/29/22 Principal diagnosis: Acute exacerbation of COPD This is a 66-year-old male patient with a history of chronic tobacco dependence, abdominal aortic aneurysm, CVA/TIA involving the left eye in 2006, degenerative lumbar disc, BPH, hypertension, hyperlipidemia, history of high-grade stenosis of the right internal carotid artery, chronic obstructive pulmonary disease with home oxygen, congestive heart failure. He has been vaccinated and boosted against the coronavirus. He has a significant history of coronary artery disease with previous stenting to the LAD and a total occlusion of the RCA. On 06/24/2022 he was admitted electively by Dr. Elias and had undergone successful balloon angioplasty of the LAD, stenting of the circumflex. RCA remains chronically occluded with collaterals from the left coronary system. He is maintained on Brilinta and aspirin. The patient's ejection fraction is 20-25%. He presented to the emergency room early this morning with complaints of increasing shortness of breath, cough congestion chest tightness and wheezing. Chest x-ray reveals no acute pulmonary process. EKG did not reveal any significant ST or T-wave abnormality. White count 10.2. Hemoglobin 13.3. Platelets 139. Sodium 139. Potassium 3.8. BUN 20. Creatinine 0.6. Glucose 135. AST 16. ALT 12. Troponin 0.841. ProBNP 2640. Reevaluated today on 06/29/22, patient is feeling better, but continues to have some intermittent cough and wheezing. No fever no chills no hemoptysis. Patient remains on bronchodilators, antibiotics, Lasix 40 mg IV push twice a day, some improvement over the last 24 hours but not back to his baseline. CBC is relatively normal lites are normal renal profile is normal with slight rise in his BUN up to 30 from 20 yesterday, creatinine remains 0.96 Objective - Vital Signs Vital signs: Vital Signs Temp 98.1 F 06/29/22 07:34 Pulse 83 06/29/22 11:20 Resp 20 06/29/22 11:20 BP 93/54 06/29/22 11:20 Pulse Ox 93 L 06/29/22 07:34 FiO2 Intake & Output 06/28/22 06/29/22 06/29/22 18:59 06:59 18:59 Intake Total 526 360 Output Total 900 300 Balance 526 -900 60 Weight 79.832 kg 65.9 kg Intake: Intake, IV Titration 50 Amount cefTRIAXone 2 gm In 50 Sodium Chloride 0.9% 50 ml @ 100 mls/hr IVPB Q24HR [facility] Rx#:[id number] Oral 476 360 Output: Urine 900 300 Other: Voiding Method Toilet Urinal # Voids 1 1 - Exam Physical Exam: Revealed a 66-year-old white male in no distress, on nasal cannula Head: Atraumatic normal HEENT:[Neck is supple.] [No neck masses.] [No thyromegaly.] [No JVD.] Chest: [Symmetrical chest expansion, scattered rhonchi and wheezes noted bilaterally. Cardiac: Distant S1 and S2, no S3 gallop, 2/6 systolic murmur thought the precordium. Abdomen: [Soft, nontender, no megaly, no rebound, no guarding, normal bowel sounds.] Extremities: [No clubbing, no edema, no cyanosis.] Neurological Exam: [No focal neurologic deficit.] psychiatric: Normal mood affect and normal mental status examination. skin: No rashes. - Labs CBC & Chem 7: 06/29/22 07:20 06/29/22 07:20 Labs: Abnormal Lab Results - Last 24 Hours (Table) 06/29/22 06/29/22 Range/Units 07:20 07:20 Neutrophils # 7.9 H (1.3-7.7) k/uL Lymphocytes # 0.6 L (1.0-4.8) k/uL BUN 30 H (9-20) mg/dL Glucose 243 H (74-99) mg/dL Assessment and Plan Assessment: Impression: Acute exacerbation of COPD, no clear-cut evidence of pneumonia Acute on chronic systolic congestive heart failure, patient has severe ischemic cardiomyopathy and ejection fraction of 20-25% Coronary artery disease and recent stenting to circumflex and PTCA of the LAD 06/24 Tobacco dependence syndrome Benign essential hypertension Dyslipidemia Elevated troponin Recommendation: Continue bronchodilators including Solu-Medrol and DuoNeb and Symbicort Continue diuretics Titrate FiO2 accordingly Counseled regarding smoking cessation We will continue to follow Not ready for discharge planning Time with Patient: Less than 30
--- NOTE | 2022-06-29 14:59 | P.PN ---
Subjective HISTORY OF PRESENTING ILLNESS Patient has a known history of multivessel coronary artery disease, and is post stent to the LAD and a totally occluded RCA, COPD, hyperlipidemia, hypertension, cardiomyopathy with an EF of 2025%, moderate to severe mitral regurgitation, current smoker. Patient follows with Dr. Elias in the office. 4 days ago luisa michaels underwent a cardiac catheterization with Dr. Elias and received PCI to the circumflex and balloon angioplasty to the LAD. He presented to the ER with cough and increased shortness of breath. Patient was at home woke up in the [place] night short of breath he has supplemental oxygen at home took a breathing treatment and was not receiving any relief. Called EMS and was found to be hypoxic in the upper 80s on room air. Patient was placed on supplemental oxygen and received another breathing treatment. Shortness of breath was improved. Initial EKG showed sinus rhythm. Chest x-ray was negative for acute cardiopulmonary process. Initial troponin was 0.841 and BNP was 2640. Additional labs show WBC 10.2 Hbg13.3 platelets 139 sodium 139 potassium 3.8 BUN 20 creatinine 0.86 magnesium 1.7 AST 16 ALT 12. Blood pressure 139/83 pulse 74, oxygen 99% on 2 L nasal cannula. 06/29 Patient seen and examined. He admits his shortness breath is better however "still not great ". Has had good urine output with the Lasix. Denies any chest pain or pressure. PHYSICAL EXAMINATION Vital signs reviewed. CONSTITUTIONAL: No apparent distress. HEENT: Head is normocephalic. Pupils are equal, round. Sclerae anicteric. Mucous membranes of the mouth are moist. No JVD. No carotid bruit. CHEST EXAMINATION: Lungs are clear to auscultation. No chest wall tenderness is noted on palpation or with deep breathing. HEART EXAMINATION: Regular rate and rhythm. S1, S2 heard. No murmurs, gallops or rub. ABDOMEN: Soft, nontender. Positive bowel sounds. EXTREMITIES: 2+ peripheral pulses, no lower extremity edema and no calf tenderness. NEUROLOGIC EXAMINATION: Patient is awake, alert and oriented x3. Assessment Acute on chronic systolic congestive heart failure Elevated troponin possibly related to CHF Multivessel coronary artery disease, status post recent PCI of circumflex as well as LAD 06/24 with known POWDER NIPPER of RCA Acute on chronic COPD exacerbation Hypoxia Plan: Repeat limited 2-D echo shows mild improvement in ejection fraction to 30%. No significant angina-type symptoms currently however continue to trend out troponins with recent intervention 06/24. Continue with diuretics and heart failure regimen as well as treatment for COPD. Further recommendations to follow. Objective - Vital Signs Vital signs: Vital Signs Temp 98.1 F 06/29/22 07:34 Pulse 83 06/29/22 13:05 Resp 20 06/29/22 11:20 BP 93/54 06/29/22 11:20 Pulse Ox 93 L 06/29/22 07:34 FiO2 Intake & Output 06/28/22 06/29/22 06/29/22 18:59 06:59 18:59 Intake Total 526 360 Output Total 900 800 Balance 320 -960 -410 Weight 79.832 kg 65.9 kg Intake: Intake, IV Titration 50 Amount cefTRIAXone 2 gm In 50 Sodium Chloride 0.9% 50 ml @ 100 mls/hr IVPB Q24HR [facility] Rx#:[id number] Oral 476 360 Output: Urine 900 800 Other: Voiding Method Toilet Urinal # Voids 1 1 - Labs CBC & Chem 7: 06/29/22 07:20 06/29/22 07:20 Labs: Abnormal Lab Results - Last 24 Hours (Table) 06/29/22 06/29/22 Range/Units 07:20 07:20 Neutrophils # 7.9 H (1.3-7.7) k/uL Lymphocytes # 0.6 L (1.0-4.8) k/uL BUN 30 H (9-20) mg/dL Glucose 243 H (74-99) mg/dL
--- NOTE | 2022-06-29 17:46 | PN ---
PROGRESS NOTE DATE OF SERVICE: 06/29/2022 This 66-year-old gentleman, admitted with COPD and multiple medical problems, is being closely monitored at this time. Multiple consultants are following the patient closely. Patient is still wheezing at this time. No chest pain, no palpitations, no fever. PHYSICAL EXAMINATION: Pulse 83, blood pressure 93/54, respiration 20. HEENT: Conjunctivae normal. NECK: No jugular venous distention. CARDIOVASCULAR: S1, S2 muffled. RESPIRATION: Bilateral scattered rhonchi and crackles. ABDOMEN: Soft. NERVOUS SYSTEM: No focal deficit. LABS: Reviewed. COVID-19 is negative. ASSESSMENT: 1. Chronic obstructive pulmonary disease, acute exacerbation. 2. Troponin 0.841. Possible acute brf-OB-badedbx-elevation myocardial infarction. 3. History of coronary artery disease and stent. 4. Hypertension. 5. Hyperlipidemia. 6. Multiple medical issues. RECOMMENDATIONS AND DISCUSSION: I recommend to continue current medications, continue with the monitoring, symptomatic treatment. Hold lisinopril if the systolic blood pressure is less than 100. Otherwise, continue with the bronchodilators and steroids and IV antibiotics. Closely follow with multiple consultants. Prognosis guarded. MMODL / IJN: [id number] /
[2022-06-29] MEDS: ATORVASTATIN 40 MG TAB PO SCH (20:17)
[2022-06-30] MEDS: methylPREDNISolone SOD SUCCI 125 MG/2 ML VIAL IV SCH ×5 (00:06→23:04)
[2022-06-30] MEDS: carvediloL 3.125 MG TAB PO SCH ×2 (06:30→16:57)
[2022-06-30] MEDS: HEPARIN SODIUM,PORCINE/PF 5,000 UNIT/0.5 ML SYRINGE SQ SCH ×2 (07:45→19:59)
[2022-06-30] MEDS: AZITHROMYCIN 500 MG TAB PO SCH (07:45)
[2022-06-30] MEDS: TAMSULOSIN 0.4 MG CAP.ER.24H PO SCH (07:45)
[2022-06-30] MEDS: ASPIRIN 325 MG TAB PO SCH (07:45)
[2022-06-30] MEDS: TICAGRELOR 90 MG TAB PO SCH ×2 (07:45→19:59)
[2022-06-30] MEDS: FUROSEMIDE 10 MG/ML 4 ML VIAL IV SCH ×2 (07:46→19:59)
[2022-06-30] MEDS: IPRATROPIUM-ALBUTEROL 3 ML NEB INHALATION SCH ×4 (08:01→21:15)
[2022-06-30] MEDS: FORMOTEROL FUMARATE 20 MCG/2 ML NEBU INHALATION SCH ×2 (08:01→21:15)
[2022-06-30] MEDS: BUDESONIDE 1 MG/2 ML NEBU INHALATION SCH ×2 (08:01→21:15)
--- NOTE | 2022-06-30 12:42 | P.PN ---
Subjective Progress Note Date: 06/30/22 Principal diagnosis: Acute exacerbation of COPD This is a 66-year-old male patient with a history of chronic tobacco dependence, abdominal aortic aneurysm, CVA/TIA involving the left eye in 2006, degenerative lumbar disc, BPH, hypertension, hyperlipidemia, history of high-grade stenosis of the right internal carotid artery, chronic obstructive pulmonary disease with home oxygen, congestive heart failure. He has been vaccinated and boosted against the coronavirus. He has a significant history of coronary artery disease with previous stenting to the LAD and a total occlusion of the RCA. On 06/24/2022 he was admitted electively by Dr. Elias and had undergone successful balloon angioplasty of the LAD, stenting of the circumflex. RCA remains chronically occluded with collaterals from the left coronary system. He is maintained on Brilinta and aspirin. The patient's ejection fraction is 20-25%. He presented to the emergency room early this morning with complaints of increasing shortness of breath, cough congestion chest tightness and wheezing. Chest x-ray reveals no acute pulmonary process. EKG did not reveal any significant ST or T-wave abnormality. White count 10.2. Hemoglobin 13.3. Platelets 139. Sodium 139. Potassium 3.8. BUN 20. Creatinine 0.6. Glucose 135. AST 16. ALT 12. Troponin 0.841. ProBNP 2640. Reevaluated today on 06/29/22, patient is feeling better, but continues to have some intermittent cough and wheezing. No fever no chills no hemoptysis. Patient remains on bronchodilators, antibiotics, Lasix 40 mg IV push twice a day, some improvement over the last 24 hours but not back to his baseline. CBC is relatively normal lites are normal renal profile is normal with slight rise in his BUN up to 30 from 20 yesterday, creatinine remains 0.96 Reevaluated today on 06/30 patient is feeling and doing much better today. Hardly any cough no wheezing no shortness of breath. Remains on bronchodilators, remains on diuretics, significant improvement since admission. CBC is relatively normal electrocerebral normal renal profile is normal, blood cultures remain normal. Objective - Vital Signs Vital signs: Vital Signs Temp 98.3 F 06/30/22 07:41 Pulse 77 06/30/22 11:11 Resp 20 06/30/22 11:00 BP 97/54 06/30/22 11:00 Pulse Ox 95 06/30/22 11:00 FiO2 Intake & Output 06/29/22 06/30/22 06/30/22 18:59 06:59 18:59 Intake Total 360 360 500 Output Total 1250 1450 700 Balance -890 -1090 -200 Weight 76.6 kg Intake: Oral 360 360 500 Output: Urine 1250 1450 700 Other: Voiding Method Urinal Urinal - Exam Physical Exam: Revealed a 66-year-old white male in no distress, on 2 L nasal cannula, O2 saturations 95% Head: Atraumatic normal HEENT:[Neck is supple.] [No neck masses.] [No thyromegaly.] [No JVD.] Chest: [Symmetrical chest expansion, minimal scattered wheezing noted. Much improved compared to the last 2 days Cardiac: Distant S1 and S2, no S3 gallop, 2/6 systolic murmur thought the precordium. Abdomen: [Soft, nontender, no megaly, no rebound, no guarding, normal bowel sounds.] Extremities: [No clubbing, no edema, no cyanosis.] Neurological Exam: [No focal neurologic deficit.] psychiatric: Normal mood affect and normal mental status examination. skin: No rashes. - Labs CBC & Chem 7: 06/29/22 07:20 06/29/22 07:20 Labs: Abnormal Lab Results - Last 24 Hours (Table) 06/29/22 Range/Units 07:20 Troponin I 0.277 H* (0.000-0.034) ng/mL Microbiology - Last 24 Hours (Table) 06/28/22 17:41 Blood Culture - Preliminary Blood No Growth after 24 hours 06/28/22 17:41 Blood Culture - Preliminary Blood No Growth after 24 hours Assessment and Plan Assessment: Impression: Acute exacerbation of COPD, no clear-cut evidence of pneumonia Acute on chronic systolic congestive heart failure, patient has severe ischemic cardiomyopathy and ejection fraction of 20-25% Coronary artery disease and recent stenting to circumflex and PTCA of the LAD 06/24 Tobacco dependence syndrome Benign essential hypertension Dyslipidemia Elevated troponin Recommendation: Continue bronchodilators including Solu-Medrol and DuoNeb and Symbicort Continue diuretics, patient is on Lasix 40 mg twice a day. Titrate FiO2 accordingly Possible discharge planning in the next 24 hours and follow-up on outpatient basis. We'll continue to follow Time with Patient: Less than 30
--- NOTE | 2022-06-30 14:32 | P.PN ---
Subjective HISTORY OF PRESENTING ILLNESS Patient has a known history of multivessel coronary artery disease, and is post stent to the LAD and a totally occluded RCA, COPD, hyperlipidemia, hypertension, cardiomyopathy with an EF of 2025%, moderate to severe mitral regurgitation, current smoker. Patient follows with Dr. Elias in the office. 4 days ago luisa michaels underwent a cardiac catheterization with Dr. Elias and received PCI to the circumflex and balloon angioplasty to the LAD. He presented to the ER with cough and increased shortness of breath. Patient was at home woke up in the [place] night short of breath he has supplemental oxygen at home took a breathing treatment and was not receiving any relief. Called EMS and was found to be hypoxic in the upper 80s on room air. Patient was placed on supplemental oxygen and received another breathing treatment. Shortness of breath was improved. Initial EKG showed sinus rhythm. Chest x-ray was negative for acute cardiopulmonary process. Initial troponin was 0.841 and BNP was 2640. Additional labs show WBC 10.2 Hbg13.3 platelets 139 sodium 139 potassium 3.8 BUN 20 creatinine 0.86 magnesium 1.7 AST 16 ALT 12. Blood pressure 139/83 pulse 74, oxygen 99% on 2 L nasal cannula. 06/29 Patient seen and examined. He admits his shortness breath is better however "still not great ". Has had good urine output with the Lasix. Denies any chest pain or pressure. 06/30 Patient seen and examined. Patient states he is feeling better and better. Has had good urine output with the Lasix IV. Denies any chest pain or pressure. Repeat troponin downtrending down to 0.2. PHYSICAL EXAMINATION Vital signs reviewed. CONSTITUTIONAL: No apparent distress. HEENT: Head is normocephalic. Pupils are equal, round. Sclerae anicteric. Mucous membranes of the mouth are moist. No JVD. No carotid bruit. CHEST EXAMINATION: Lungs are clear to auscultation. No chest wall tenderness is noted on palpation or with deep breathing. HEART EXAMINATION: Regular rate and rhythm. S1, S2 heard. No murmurs, gallops or rub. ABDOMEN: Soft, nontender. Positive bowel sounds. EXTREMITIES: 2+ peripheral pulses, no lower extremity edema and no calf tenderness. NEUROLOGIC EXAMINATION: Patient is awake, alert and oriented x3. 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 Does not appear to have any significant angina-type symptoms after his recent intervention. Continue to monitor and likely discharge home tomorrow if continues to progress. Objective - Vital Signs Vital signs: Vital Signs Temp 98.3 F 06/30/22 07:41 Pulse 76 06/30/22 13:24 Resp 20 06/30/22 11:00 BP 97/54 06/30/22 11:00 Pulse Ox 95 06/30/22 11:00 FiO2 Intake & Output 06/29/22 06/30/22 06/30/22 18:59 06:59 18:59 Intake Total 360 360 680 Output Total 1250 1450 700 Balance -890 -1090 -20 Weight 76.6 kg Intake: Oral 360 360 680 Output: Urine 1250 1450 700 Other: Voiding Method Urinal Urinal - Labs CBC & Chem 7: 06/29/22 07:20 06/29/22 07:20 Labs: Abnormal Lab Results - Last 24 Hours (Table) 06/29/22 Range/Units 07:20 Troponin I 0.277 H* (0.000-0.034) ng/mL Microbiology - Last 24 Hours (Table) 06/28/22 17:41 Blood Culture - Preliminary Blood No Growth after 24 hours 06/28/22 17:41 Blood Culture - Preliminary Blood No Growth after 24 hours
--- NOTE | 2022-06-30 15:28 | PN ---
PROGRESS NOTE DATE OF SERVICE: 06/30/2022 This 66-year-old gentleman was admitted with COPD, acute exacerbation, also had elevated troponin. No chest pain. No palpitations. No fever. PHYSICAL EXAMINATION: Pulse is 76, blood pressure _ntd respirationntd HEENT: Conjunctivae normal. NECK: No jugular venous distention. CARDIOVASCULAR: S1, S2 muffled. RESPIRATION: Breath sounds diminished at the bases. A few scattered rhonchi and crackles. ABDOMEN: Soft. NERVOUS SYSTEM: No focal deficit. LABS: Reviewed. Troponins are noted. ASSESSMENT: 1. Chronic obstructive pulmonary disease, acute exacerbation. 2. Troponin 0.841; possible acute kic-IP-sphblnl-elevation myocardial infarction. 3. History of coronary artery disease and stent. 4. Hypertension. 5. Hyperlipidemia. 6. Multiple medical issues. RECOMMENDATIONS AND DISCUSSION: I recommend to continue current medications, continue with the monitoring, symptomatic treatment. Continue the bronchodilators and antibiotics. Continue the antiplatelet agents. Prognosis guarded. Closely follow with Pulmonary and Cardiology. Further recommendations to follow. MMNAHOMIL / NATALYN: [id number] / MTDD
[2022-06-30 19:44] LABS: Glucose,Whole Blood 478 mg/dL (70-110)
[2022-06-30] MEDS: INSULIN ASPART (NovoLOG) 100 UNIT/ML VIAL SQ SCH (19:59)
[2022-06-30] MEDS: ATORVASTATIN 40 MG TAB PO SCH (19:59)
[2022-06-30] MEDS: ALPRAZolam 1 MG TAB PO PRN (20:06)
[2022-07-01 02:07] LABS: Glucose,Whole Blood 232 mg/dL (70-110)
[2022-07-01 04:12] VITALS: RESP 18
[2022-07-01 06:11] LABS: Glucose,Whole Blood 280 mg/dL (70-110)
[2022-07-01] MEDS: carvediloL 3.125 MG TAB PO SCH (06:33)
[2022-07-01] MEDS: INSULIN ASPART (NovoLOG) 100 UNIT/ML VIAL SQ SCH ×2 (06:33→11:52)
[2022-07-01] MEDS: methylPREDNISolone SOD SUCCI 125 MG/2 ML VIAL IV SCH ×2 (06:33→11:44)
[2022-07-01 07:58] VITALS: TEMP 98.3
[2022-07-01] MEDS: FUROSEMIDE 10 MG/ML 4 ML VIAL IV SCH (07:59)
[2022-07-01] MEDS: AZITHROMYCIN 500 MG TAB PO SCH (07:59)
[2022-07-01] MEDS: TICAGRELOR 90 MG TAB PO SCH (07:59)
[2022-07-01] MEDS: ASPIRIN 325 MG TAB PO SCH (07:59)
[2022-07-01] MEDS: TAMSULOSIN 0.4 MG CAP.ER.24H PO SCH (07:59)
[2022-07-01] MEDS: HEPARIN SODIUM,PORCINE/PF 5,000 UNIT/0.5 ML SYRINGE SQ SCH (07:59)
[2022-07-01] MEDS: FORMOTEROL FUMARATE 20 MCG/2 ML NEBU INHALATION SCH (08:23)
[2022-07-01] MEDS: BUDESONIDE 1 MG/2 ML NEBU INHALATION SCH (08:23)
[2022-07-01] MEDS: IPRATROPIUM-ALBUTEROL 3 ML NEB INHALATION SCH ×2 (08:23→12:02)
[2022-07-01] MEDS: ALPRAZolam 1 MG TAB PO PRN (11:03)
[2022-07-01 11:47] VITALS: BP 113/70
[2022-07-01 11:49] LABS: Glucose,Whole Blood 370 mg/dL (70-110)
--- NOTE | 2022-07-01 12:50 | P.PN ---
Subjective Progress Note Date: 07/01/22 Principal diagnosis: Shortness of breath. This is a 66-year-old male patient with a history of chronic tobacco dependence, abdominal aortic aneurysm, CVA/TIA involving the left eye in 2006, degenerative lumbar disc, BPH, hypertension, hyperlipidemia, history of high-grade stenosis of the right internal carotid artery, chronic obstructive pulmonary disease with home oxygen, congestive heart failure. He has been vaccinated and boosted against the coronavirus. He has a significant history of coronary artery disease with previous stenting to the LAD and a total occlusion of the RCA. On 06/24/2022 he was admitted electively by Dr. Elias and had undergone successful balloon angioplasty of the LAD, stenting of the circumflex. RCA remains chronically occluded with collaterals from the left coronary system. He is maintained on Brilinta and aspirin. The patient's ejection fraction is 20-25%. He presented to the emergency room early this morning with complaints of incre asing shortness of breath, cough congestion chest tightness and wheezing. Chest x-ray reveals no acute pulmonary process. EKG did not reveal any significant ST or T-wave abnormality. White count 10.2. Hemoglobin 13.3. Platelets 139. Sodium 139. Potassium 3.8. BUN 20. Creatinine 0.6. Glucose 135. AST 16. ALT 12. Troponin 0.841. ProBNP 2640. Reevaluated today on 06/29/22, patient is feeling better, but continues to have some intermittent cough and wheezing. No fever no chills no hemoptysis. Patient remains on bronchodilators, antibiotics, Lasix 40 mg IV push twice a day, some improvement over the last 24 hours but not back to his baseline. CBC is relatively normal lites are normal renal profile is normal with slight rise in his BUN up to 30 from 20 yesterday, creatinine remains 0.96 Reevaluated today on 06/30 patient is feeling and doing much better today. Hardly any cough no wheezing no shortness of breath. Remains on bronchodilators, remains on diuretics, significant improvement since admission. CBC is relatively normal electrocerebral normal renal profile is normal, blood cultures remain normal. Progress note dated 07/01/2022. 66-year-old male with history of COPD exacerbation. The patient's feeling much better today. Currently, he's on saline at 20 mL an hour, and 3 L nasal cannula. The first thing he said to me when I walked into the room was whether or not he could be discharged. He is feeling much better. He apparently has a dental appointment that's very important to him, tomorrow. I told the nurse that from my perspective, the patient could be discharged. No new labs today other than a glucose of 370. No new chest x-ray today. Objective - Vital Signs Vital signs: Vital Signs Temp 98.3 F 07/01/22 07:56 Pulse 84 07/01/22 12:12 Resp 18 07/01/22 11:46 BP 113/70 07/01/22 11:46 Pulse Ox 95 07/01/22 11:46 FiO2 Intake & Output 06/30/22 07/01/22 07/01/22 18:59 06:59 18:59 Intake Total 917 240 Output Total 1550 1550 350 Balance -633 -1550 -110 Weight 77.1 kg Intake: Oral 917 240 Output: Urine 1550 1550 350 Other: Voiding Method Urinal Urinal Urinal # Voids 1 - Exam No acute distress, oriented 3. No acute respiratory distress. Patient is currently on 3 L nasal cannula HEENT examination is grossly unremarkable. Neck supple. Full range of motion. No adenopathy thyromegaly or neck vein distention. Cardiovascular examination reveals regular rhythm rate. S1-S2 normal. No S3 or S4. No discernible murmur noted. Heart rate 84 bpm. Lungs reveal mostly clear breath sounds. Minimal scattered rhonchi. No wheezes. No crackles. Breath sounds are equal bilaterally but diminished throughout. Abdomen soft bowel sounds are heard. No masses or tenderness. Extremities are intact. No cyanosis clubbing or edema. Skin is without rash or lesion. Neurologic examination is brief but nonfocal. - Labs CBC & Chem 7: 06/29/22 07:20 06/29/22 07:20 Labs: Abnormal Lab Results - Last 24 Hours (Table) 06/30/22 07/01/22 07/01/22 Range/Units 19:43 02:05 06:10 POC Glucose (mg/dL) 478 H 232 H 280 H (70-110) mg/dL 07/01/22 Range/Units 11:45 POC Glucose (mg/dL) 370 H (70-110) mg/dL Microbiology - Last 24 Hours (Table) 06/28/22 17:41 Blood Culture - Preliminary Blood No Growth after 48 hours 06/28/22 17:41 Blood Culture - Preliminary Blood No Growth after 48 hours Assessment and Plan Assessment: Acute exacerbation of COPD. Acute on chronic systolic CHF, with severe ischemic cardiomyopathy and an ejection fraction of 20-25%. CAD, with recent stenting. Tobacco dependence syndrome. Benign essential hypertension. Hyperlipidemia. Plan: Plan dated 07/01/2022. The patient is doing much better today. He is anxious to be discharged. The patient will be assessed for home oxygen. The patient continues on appropriate medications. We will continue to follow make recommendations should the patient not be discharged. From my perspective, the patient is stable. Additional recommendations and suggestions to follow. Time with Patient: Less than 30
--- NOTE | 2022-07-01 13:39 | P.PN ---
Subjective The patient is a 66 year old male with a known history of coronary artery disease s/p PCI LAD and chronically totally occluded RCA, PAD, hyperlipidemia, and chronic tobacco use, diabetes, hypertension abdominal aortic aneurysm. He has a history of carotid disease, status post right carotid endarterectomy, has been seen by Dr. Mccullough in the past He has been followed by Dr. Elias. We have been asked to see in consultation for congestive heart failure. He presented with symptoms of progressive dyspnea, cough shortness of breath. Patient admitted for congestive heart failure and COPD exacerbation. He was started on IV Lasix. Limited echo revealed EF 30%, anterior lateral wall hypokinesis. 07/01/2022 Patient seen and examined at bedside, no acute distress. His shortness of breath has improved. Continues to have crackles in the lungs. No edema. He states he is feeling much better. He denies any chest pain. 3.1L urine output over the past 24 hours. Vital signs are stable. Labs pending. Patient very adamant on being discharged today. PHYSICAL EXAMINATION Vitals reviewed GENERAL: Well-appearing, well-nourished and in no acute distress. NECK: Supple without JVD LUNGS: Breath sounds mild crackles bilateral bases to auscultation. Respiration equal and unlabored. No wheezes, rales or rhonchi. HEART: Regular rate and rhythm, Systolic ejection murmur at apex. S1 and S2 heard. EXTREMITIES: Normal range of motion, no edema. No clubbing or cyanosis. Peripheral pulses intact. ASSESSMENT Progressive dyspnea with evidence of CHF, systolic function unknown with a combination of exacerbation of COPD Acute on chronic heart failure with reduced ejection fraction, EF 30% Multivessel coronary artery disease, status post recent PCI of circumflex as well as LAD 06/24 with known PREPRESS SPECIALIST of RCA Ischemic cardiomyopathy Acute on chronic COPD exacerbation Hypoxia Mild troponin elevation, most likely type II event. 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 Elias on 07/04/2022. Nurse practitioner note has been reviewed by physician. Signing provider agrees with the documented findings, assessment, and plan of care. Objective - Vital Signs Vital signs: Vital Signs Temp 98.3 F 07/01/22 07:56 Pulse 80 07/01/22 08:49 Resp 18 07/01/22 07:56 BP 90/51 07/01/22 07:56 Pulse Ox 94 L 07/01/22 07:56 FiO2 Intake & Output 06/30/22 07/01/22 07/01/22 18:59 06:59 18:59 Intake Total 917 240 Output Total 1550 1550 Balance -633 -1550 240 Weight 77.1 kg Intake: Oral 917 240 Output: Urine 1550 1550 Other: Voiding Method Urinal Urinal # Voids 1 - Labs CBC & Chem 7: 06/29/22 07:20 06/29/22 07:20 Labs: Abnormal Lab Results - Last 24 Hours (Table) 06/30/22 07/01/22 07/01/22 Range/Units 19:43 02:05 06:10 POC Glucose (mg/dL) 478 H 232 H 280 H (70-110) mg/dL Microbiology - Last 24 Hours (Table) 06/28/22 17:41 Blood Culture - Preliminary Blood No Growth after 48 hours 06/28/22 17:41 Blood Culture - Preliminary Blood No Growth after 48 hours
[2022-07-01 14:13] VITALS: PULSE 67
[2022-07-01] MEDS ORDERED: FUROSEMIDE 40 MG TAB PO SCH (16:00)
[2022-07-02] MEDS ORDERED: FUROSEMIDE 40 MG TAB PO SCH (09:00)
--- NOTE | 2022-07-03 03:08 | P.DS ---
Providers Date of admission: 06/28/22 09:30 Expected date of discharge: 07/01/22 Attending physician: Delbert Dobson Consults: 06/28/22 09:13 Consult Physician Routine Consulting Provider: Mallory Mercado Consult Reason/Comments: copd exacerbation Do you want consulting provider notified?: Yes 06/28/22 09:49 Consult Physician Routine Consulting Provider: Chuy Elias Consult Reason/Comments: recent cardiac cath Do you want consulting provider notified?: Yes Primary care physician: Radha Henry Hospital Course: Final diagnosis COPD, acute exacerbation Troponin0.841, possible NSTEMI History of CAD with stenting Hypertension Hyperlipidemia Multiple medical issues Discharge disposition Patient is being discharged in a stable condition with guarded prognosis to home. Patient will follow-up with Dr. Henry and Dr. Elias cardiology in the outpatient setting upon discharge. Patient is to continue with pred taper and lasix on discharge. Total time taken is greater than 35 minutes. Hospital course This is a 66-year-old male who was recently admitted with COPD, and pNA and was being closely monitored. Patient continued on duonebs, abx, IV steroids and IV lasix. Slow to improve and extremely anxious to leave. Patient has appointment with dentist in the am and refusing to miss as it takes months to get in. Patient will continue on oral lasix and encouraged repeat labs and follow up with cardiology, pulmonary, and pcp. Blood sugars are elevated and takes metformin 500mg bid and will resume and will go home on sliding scale while on steroids. Encouraged acccuchecks achs and hold if blood sugar is less than 120. Currently no reports of chest pain, worsening shortness of breath, or palpitations. Patient is afebrile. No reports of nausea or vomiting and p atient is tolerating diet. Patient will be discharged home today. Guarded prognosis as patient is high risk for readmission. Physical exam: Gen: This is a 66 year old male who is awake alert and oriented x3, ill appearing HEENT: Head is atraumatic, normocephalic. Pupils equal, round. Sclerae is anicteric. NECK: Supple. No JVD. No lymphadenopathy. No thyromegaly. LUNGS: diminished breath sounds bilaterally with wheezes and rhonchi. No intercostal retractions. HEART: Regular rate and rhythm. No murmur. ABDOMEN: Soft. Bowel sounds are present. No masses. No tenderness. EXTREMITIES: No pedal edema. No calf tenderness. NEUROLOGICAL: Patient is awake, alert and oriented x3. Cranial nerves 2 through 12 are grossly intact. Please refer to medication reconciliation sheet for a list of medications. The impression and plan of care has been dictated by Swetha Ortega, Nurse Practitioner as directed. Dr. Bronson MD I have performed a history and examination and MDM of this patient, discussed the same with the dictator, and agree with the dictator's assessment and plan as written ,documented as a scribe. Based on total visit time, I have performed more than 50% of the visit. Patient Condition at Discharge: Fair Plan - Discharge Summary Discharge Rx Participant: No New Discharge Prescriptions: New cefUROXime axetiL [Ceftin] 500 mg PO BID 4 Days #8 tab Ipratropium-Albuterol Nebulize [Duoneb 0.5 mg-3 mg/3 ml Soln] 3 ml INHALATION RT-QID PRN #0 each PRN Reason: Shortness Of Breath Or Wheezing Ipratropium-Albuterol Nebulize [Duoneb 0.5 mg-3 mg/3 ml Soln] 3 ml INHALATION RT-QID 30 Days #90 each Furosemide [Lasix] 40 mg PO BID@0900,1600 30 Days #60 tab INSULIN ASPART (NovoLOG) [NovoLOG (formulary)] 10 unit SQ ACHS 30 Days #5 each predniSONE 10 mg PO DIRECTED #30 tab Budesonide [Pulmicort] 1 mg INHALATION RT-BID 30 Days #30 each Continue Aspirin 325 mg PO DAILY ALPRAZolam [Xanax] 1 mg PO TID PRN PRN Reason: Anxiety Nitroglycerin Sl Tabs [Nitrostat] 0.4 mg SUBLINGUAL Q5M PRN #20 tab PRN Reason: Chest Pain Ticagrelor [Brilinta] 90 mg PO BID #90 tab Furosemide [Lasix] 20 mg PO DAILY PRN PRN Reason: Edema Rosuvastatin Calcium [Crestor] 20 mg PO HS Tamsulosin [Flomax] 0.4 mg PO DAILY carvediloL [Coreg] 3.125 mg PO BID-W/MEALS 30 Days #60 tab lisinopriL [Zestril] 1.25 mg PO DAILY #0 Discharge Medication List Aspirin 325 mg PO DAILY 06/28/14 [History] ALPRAZolam [Xanax] 1 mg PO TID PRN 07/14/20 [History] Nitroglycerin Sl Tabs [Nitrostat] 0.4 mg SUBLINGUAL Q5M PRN #20 tab 07/24/20 [Rx] Rosuvastatin Calcium [Crestor] 20 mg PO HS 06/02/22 [History] Tamsulosin [Flomax] 0.4 mg PO DAILY 06/02/22 [History] carvediloL [Coreg] 3.125 mg PO BID-W/MEALS 30 Days #60 tab 06/07/22 [Rx] Ticagrelor [Brilinta] 90 mg PO BID #90 tab 06/25/22 [Rx] Furosemide [Lasix] 20 mg PO DAILY PRN 06/28/22 [History] Budesonide [Pulmicort] 1 mg INHALATION RT-BID 30 Days #30 each 07/01/22 [Rx] Furosemide [Lasix] 40 mg PO BID@0900,1600 30 Days #60 tab 07/01/22 [Rx] INSULIN ASPART (NovoLOG) [NovoLOG (formulary)] 10 unit SQ ACHS 30 Days #5 each 07/01/22 [Rx] Ipratropium-Albuterol Nebulize [Duoneb 0.5 mg-3 mg/3 ml Soln] 3 ml INHALATION RT-QID 30 Days #90 each 07/01/22 [Rx] Ipratropium-Albuterol Nebulize [Duoneb 0.5 mg-3 mg/3 ml Soln] 3 ml INHALATION RT-QID PRN #0 each 07/01/22 [Rx] cefUROXime axetiL [Ceftin] 500 mg PO BID 4 Days #8 tab 07/01/22 [Rx] lisinopriL [Zestril] 1.25 mg PO DAILY #0 07/01/22 [Rx] predniSONE 10 mg PO DIRECTED #30 tab 07/01/22 [Rx] Follow up Appointment(s)/Referral(s): Chuy Elias MD [Family Provider] - 07/03/22 2:15 pm Radha Henry III, MD [Primary Care Provider] - 1-2 days (please call and make an appointment ) Ambulatory/Diagnostic Orders: Complete Blood Count w/diff [LAB.AMB] Time Frame: 3 Days, Location: None Selected Patient Instructions/Handouts: Pulmonary Edema (DC), COPD (Chronic Obstructive Pulmonary Disease) (DC) Activity/Diet/Wound Care/Special Instructions: Activity Limited until follow-up Follow-up with cardiology Follow-up with your cavalry scout outpatient Continue current medication regimen Monitor blood pressure closely and keep a diary of readings Hold blood pressure medications if top number systolic is 100 or less Into the with breathing inhalational treatments Continue to monitor Accu-Cheks closely and resuming your metformin twice daily Continue with sliding scale until blood sugars have improved while on steroids NovoLog sliding scale 0-150 equals 0 units 151-200 equals 2 units 201-250 equals 4 units 251-300 equals 6 units 301-350 equals 8 units 351-400 equals 10 units Please notify provider if blood sugar is 400 or above Recommend repeat labs in the next 2-3 days Discharge Disposition: HOME SELF-CARE
== END 2022-07-01 14:43 | disposition home or self-care (01) ==
LOC: EC 07:44 → 3SCARD 09:30
PROVIDERS: ADMIT Hospitalist; ATTEND Hospitalist
DX: J44.1 Chronic obstructive pulmonary disease with (acute) exacerbation (principal); I25.10 Atherosclerotic heart disease of native coronary artery without angina pectoris; I11.0 Hypertensive heart disease with heart failure; I50.23 Acute on chronic systolic (congestive) heart failure; E78.5 Hyperlipidemia, unspecified; R77.8 Other specified abnormalities of plasma proteins; F41.9 Anxiety disorder, unspecified; F17.200 Nicotine dependence, unspecified, uncomplicated; I71.4 Abdominal aortic aneurysm, without rupture; N40.0 Benign prostatic hyperplasia without lower urinary tract symptoms; I34.0 Nonrheumatic mitral (valve) insufficiency; I25.2 Old myocardial infarction; M51.36 Other intervertebral disc degeneration, lumbar region; I25.5 Ischemic cardiomyopathy; I65.21 Occlusion and stenosis of right carotid artery; I25.82 Chronic total occlusion of coronary artery; I73.9 Peripheral vascular disease, unspecified; Z95.5 Presence of coronary angioplasty implant and graft; Z79.82 Long term (current) use of aspirin; Z79.899 Other long term (current) drug therapy; Z88.6 Allergy status to analgesic agent; Z86.73 Personal history of transient ischemic attack (TIA), and cerebral infarction without residual deficits; Z97.4 Presence of external hearing-aid; Z80.6 Family history of leukemia; Z83.3 Family history of diabetes mellitus; Z80.1 Family history of malignant neoplasm of trachea, bronchus and lung; Z98.1 Arthrodesis status; Z79.02 Long term (current) use of antithrombotics/antiplatelets; Z99.81 Dependence on supplemental oxygen; Z20.822 Contact with and (suspected) exposure to COVID-19
CPT/HCPCS: 96376 ×4; 96365; 96367; 96372 ×4; 96375; 99291; 36415; 94640 ×8; 93005; 83880; 80053; 80048; 82533; 82553; 83735; 84484 ×2; 85025 ×2; 85610; 85730; 87040; 87635; 71045; G0378 ×4; C8924; J1100; J1940 ×4; J2930 ×4; J0456; J0696 ×4; Q9950; J1644 ×4; 93308

== ENCOUNTER 2022-07-20 18:22 | Observation (INO) | payer MEDICARE ==
[2022-07-20] MEDS ORDERED: methylPREDNISolone SOD SUCCI 125 MG/2 ML VIAL IV STA (18:47)
[2022-07-20] MEDS ORDERED: MAGNESIUM SULFATE-D5W PMX 1 GM in DEXTROSE/WATER 1 100ML.BAG IVPB STA (18:47)
[2022-07-20] MEDS ORDERED: IPRATROPIUM-ALBUTEROL 3 ML NEB INHALATION STA ×2 (18:47→18:48)
[2022-07-20] MEDS ORDERED: SODIUM CHLORIDE 0.9% 500 ML 500 ML IV STA (18:47)
[2022-07-20] MEDS ORDERED: KETOROLAC 15 MG/ML 1 ML VIAL IVP STA (18:48)
[2022-07-20] MEDS ORDERED: ASPIRIN 81 MG PO STA (18:48)
--- NOTE | 2022-07-20 19:08 | ED ---
General Adult HPI - General Chief complaint: Shortness of Breath Stated complaint: SABRINA Time Seen by Provider: 07/20/22 18:34 Source: patient, RN notes reviewed, old records reviewed Mode of arrival: ambulatory Limitations: no limitations - History of Present Illness Initial comments: Patient is a 66-year-old male with past medical history remarkable for CAD with recent cardiac stents placed, COPD on 2 L nasal cannula at home, hypertension who presents emergency Department complaining of difficulty in breathing for the last 2-3 days. Is also having a productive cough of greenish yellow mucus which is abnormal for him. Has been using his home address without improvement. Is uncertain was causing his current symptoms. Denies any sick contacts. Was vaccinated Covid. Nurse's a generalized chest tightness radiating from his sternum, however he states is primarily substernal in nature. States this is different from his cardiac pain that he had. Stents replaced in May of this year. Denies any lower extremity edema, abdominal pain, nausea, vomiting. Does endorse mild headache. No other acute complaints at this time. Presents for further evaluation over concern for upper as per symptoms. - Related Data Home Medications Medication Instructions Recorded Confirmed Aspirin 325 mg PO DAILY 06/28/14 07/20/22 ALPRAZolam [Xanax] 1 mg PO TID PRN 07/14/20 07/20/22 Rosuvastatin Calcium [Crestor] 20 mg PO HS 06/02/22 07/20/22 Tamsulosin [Flomax] 0.4 mg PO DAILY 06/02/22 07/20/22 Furosemide [Lasix] 20 mg PO DAILY PRN 06/28/22 07/20/22 INSULIN ASPART (NovoLOG) [NovoLOG See Protocol SQ ACHS 07/20/22 07/20/22 (formulary)] Nitroglycerin Sl Tabs [Nitrostat] 0.4 mg SL Q5M PRN 07/20/22 07/20/22 lisinopriL [Zestril] 1.25 mg PO DAILY@1200 07/20/22 07/20/22 Previous Rx's Medication Instructions Recorded carvediloL [Coreg] 3.125 mg PO BID-W/MEALS 30 Days 06/07/22 #60 tab Ticagrelor [Brilinta] 90 mg PO BID #90 tab 06/25/22 Budesonide [Pulmicort] 1 mg INHALATION RT-BID 30 Days #30 07/01/22 each Furosemide [Lasix] 40 mg PO BID@0900,1600 30 Days #60 07/01/22 tab Ipratropium-Albuterol Nebulize 3 ml INHALATION RT-QID 30 Days #90 07/01/22 [Duoneb 0.5 mg-3 mg/3 ml Soln] each Ipratropium-Albuterol Nebulize 3 ml INHALATION RT-QID PRN #0 each 07/01/22 [Duoneb 0.5 mg-3 mg/3 ml Soln] Allergies Allergy/AdvReac Type Severity Reaction Status Date / Time codeine Allergy Unknown Verified 07/20/22 21:21 Review of Systems ROS Statement: Those systems with pertinent positive or pertinent negative responses have been documented in the HPI. Review of Systems: CONST: Denies fever EYES: Denies blurry vision ENT: Denies nasal congestion C/V: Endorses chest pain. RESP: Endorses shortness of breath GI: Denies abdominal pain : Denies dysuria SKIN: Denies rash. MSK: Denies joint pain. NEURO: Denies headache ROS Other: All systems not noted in ROS Statement are negative. 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 Hx shingles Rt inner ear 2008, wears hearing aids. BPH, ED, disc lumbar spine. SOB w/activity. AAA, Rt carotid stenosis. Abscessed tooth sev wks ago, completed AB Rx. Last Myocardial Infarction Date:: unknown History of Any Multi-Drug Resistant Organisms: None Reported Past Surgical History: Heart Catheterization, Heart Catheterization With Stent, Hernia Repair, Tonsillectomy Additional Past Surgical History / Comment(s): 2013 Cervical Fusion. Umb hernia, ing hernia. Heart cath 2011. Bilat Cataracts Past Anesthesia/Blood Transfusion Reactions: No Reported Reaction Date of Last Stent Placement:: 1997 Past Psychological History: Anxiety Smoking Status: Current every day smoker Past Alcohol Use History: Daily Past Drug Use History: None Reported - Past Family History Brother(s) Family Medical History: Cancer, Diabetes Mellitus Additional Family Medical History / Comment(s): leukemia, lung cancer; another brother had DM, gangrene General Exam - General Exam Comments Initial Comments: General: Appears in no acute distress. Mild increased work of breathing. HEAD: Normal with no signs of head trauma. EYES: PERRLA, EOMI, conjunctiva normal, no discharge. ENT: Hearing grossly intact, normal oropharynx. RESPIRATORY: Bilateral significant end expiratory wheezing. Increased work of breathing. Pulse ox is 93% on home 2 L nasal cannula. C/V: Regular rate and rhythm. S1 and S2 auscultated, no edema, peripheral pulses 2+ and intact throughout ABD: Abd is soft, nontender, nondistended EXT: Normal range of motion, no obvious deformity SKIN: No rashes or lesions observed on exposed skin. NEURO: Alert and oriented 4. Limitations: no limitations Course Vital Signs 07/20/22 07/20/22 07/20/22 18:29 19:08 19:30 Temperature 97.8 F Pulse Rate 98 98 96 Respiratory 26 H Rate Blood Pressure 114/59 O2 Sat by Pulse 93 L Oximetry Medical Decision Making - Medical Decision Making Based on the patient's presentation and physical exam, I am concerned for COPD exacerbation however with his cardiac history and chest pain, I would like to obtain cardiac labs as well. He was in agreement this plan. We'll obtain vital signs, cardiac labs, EKG, chest x-ray. He will be treated with multiple DuoNeb breathing treatments, IV Solu-Medrol, magnesium. Will be given an aspirin empirically as well as IV Toradol for his headache. He was in agreement this plan. Vital signs are within normal limits otherwise. EKG shows no signs of acute ischemia.Chest x-ray shows no acute cardiopulmonary process. Laboratory studies are remarkable for a chronic normocytic anemia with a hemoglobin of 12.1. Troponin is indeterminate. Covid is negative. Flu is negative. Remainder the labs are unremarkable. On reevaluation, patient remains wheezy. Vital signs are stable. Oxygenation remains within normal limits on his normal 2-3 L nasal cannula. We discussed his results. Expand his COPD exacerbation with acute bronchitis. Would like to admit him for IV antibiotics, as well as further breathing treatments, steroids, evaluation by pulmonology. He was in agreement this plan. 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 I consulted Dr. Mercado of pulmonology. I spoke with the admitting physician, Dr. Gonzalez who accepted the patient. Patient was admitted in stable condition. Due to initiation of antibiotics, blood cultures were ordered and sent. - Lab Data Result diagrams: 07/20/22 19:05 07/20/22 19:05 Lab Results 07/20/22 07/20/22 07/20/22 Range/Units 19:05 19:05 19:05 WBC 8.5 (3.8-10.6) k/uL RBC 4.04 L (4.30-5.90) m/uL Hgb 12.1 L (13.0-17.5) gm/dL Hct 37.0 L (39.0-53.0) % MCV 91.8 (80.0-100.0) fL MCH 29.9 (25.0-35.0) pg MCHC 32.6 (31.0-37.0) g/dL RDW 14.1 (11.5-15.5) % Plt Count 138 L (150-450) k/uL MPV 9.0 Neutrophils % 74 % Lymphocytes % 12 % Monocytes % 7 % Eosinophils % 5 % Basophils % 0 % Neutrophils # 6.3 (1.3-7.7) k/uL Lymphocytes # 1.1 (1.0-4.8) k/uL Monocytes # 0.6 (0-1.0) k/uL Eosinophils # 0.4 (0-0.7) k/uL Basophils # 0.0 (0-0.2) k/uL PT 10.3 (9.0-12.0) sec INR 0.9 (<1.2) APTT 22.4 (22.0-30.0) sec Sodium 137 (137-145) mmol/L Potassium 3.7 (3.5-5.1) mmol/L Chloride 96 L (98-107) mmol/L Carbon Dioxide 30 (22-30) mmol/L Anion Gap 11 mmol/L BUN 30 H (9-20) mg/dL Creatinine 1.13 (0.66-1.25) mg/dL Est GFR (CKD-EPI)AfAm 77 (>60 ml/min/1.73 sqM) Est GFR (CKD-EPI)NonAf 67 (>60 ml/min/1.73 sqM) Glucose 136 H (74-99) mg/dL Calcium 9.3 (8.4-10.2) mg/dL Magnesium 1.6 (1.6-2.3) mg/dL Total Bilirubin 0.6 (0.2-1.3) mg/dL AST 17 (17-59) U/L ALT 14 (4-49) U/L Alkaline Phosphatase 91 (38-126) U/L Troponin I (0.000-0.034) ng/mL Total Protein 6.5 (6.3-8.2) g/dL Albumin 3.8 (3.5-5.0) g/dL Coronavirus (PCR) (Not Detectd) Influenza Type A RNA (Not Detectd) Influenza Type B (PCR) (Not Detectd) 07/20/22 07/20/22 07/20/22 Range/Units 19:05 19:05 19:05 WBC (3.8-10.6) k/uL RBC (4.30-5.90) m/uL Hgb (13.0-17.5) gm/dL Hct (39.0-53.0) % MCV (80.0-100.0) fL MCH (25.0-35.0) pg MCHC (31.0-37.0) g/dL RDW (11.5-15.5) % Plt Count (150-450) k/uL MPV Neutrophils % % Lymphocytes % % Monocytes % % Eosinophils % % Basophils % % Neutrophils # (1.3-7.7) k/uL Lymphocytes # (1.0-4.8) k/uL Monocytes # (0-1.0) k/uL Eosinophils # (0-0.7) k/uL Basophils # (0-0.2) k/uL PT (9.0-12.0) sec INR (<1.2) APTT (22.0-30.0) sec Sodium (137-145) mmol/L Potassium (3.5-5.1) mmol/L Chloride (98-107) mmol/L Carbon Dioxide (22-30) mmol/L Anion Gap mmol/L BUN (9-20) mg/dL Creatinine (0.66-1.25) mg/dL Est GFR (CKD-EPI)AfAm (>60 ml/min/1.73 sqM) Est GFR (CKD-EPI)NonAf (>60 ml/min/1.73 sqM) Glucose (74-99) mg/dL Calcium (8.4-10.2) mg/dL Magnesium (1.6-2.3) mg/dL Total Bilirubin (0.2-1.3) mg/dL AST (17-59) U/L ALT (4-49) U/L Alkaline Phosphatase (38-126) U/L Troponin I 0.024 (0.000-0.034) ng/mL Total Protein (6.3-8.2) g/dL Albumin (3.5-5.0) g/dL Coronavirus (PCR) Not Detected (Not Detectd) Influenza Type A RNA Not Detected (Not Detectd) Influenza Type B (PCR) Not Detected (Not Detectd) - EKG Data -: EKG Interpreted by Me EKG Comments: 12-lead Electrocardiogram Interpretation Note EKG was reviewed and interpreted by myself. 12-lead ECG performed at 1841 is interpreted by me as revealing normal sinus rhythm at a rate of 97 beats per mi nute. [place] is normal. [place] interval is 150 ms, QRS durations 102 ms, QTc is 430 ms.. There were no ST or T wave abnormalities to suggest myocardial ischemia or injury. R wave progression across the precordium was satisfactory. By my interpretation this EKG is non-diagnostic for acute ischemia. Disposition Clinical Impression: Acute bronchitis, COPD exacerbation Disposition: ADMITTED IP TO THIS HOSP Condition: Stable Time of Disposition: 21:20
[2022-07-20 19:16] LABS: Basophils % (A) 0 %; Eosinophils # (A) 0.4 k/uL (0-0.7); Eosinophils % (A) 5 %; HGB 12.1 gm/dL (13.0-17.5); Lymphocytes # (A) 1.1 k/uL (1.0-4.8); Lymphocytes % (A) 12 %; MCH 29.9 pg (25.0-35.0); MCHC 32.6 g/dL (31.0-37.0); MCV 91.8 fL (80.0-100.0); Monocytes # (A) 0.6 k/uL (0-1.0); Monocytes % (A) 7 %; Neutrophils # (A) 6.3 k/uL (1.3-7.7); Neutrophils % (A) 74 %; Platelet Count 138 k/uL (150-450); RBC 4.04 m/uL (4.30-5.90); RDW 14.1 % (11.5-15.5); WBC 8.5 k/uL (3.8-10.6)
[2022-07-20 19:27] LABS: Albumin 3.8 g/dL (3.5-5.0); Calcium 9.3 mg/dL (8.4-10.2); Magnesium 1.6 mg/dL (1.6-2.3); Potassium 3.7 mmol/L (3.5-5.1); Total Bilirubin 0.6 mg/dL (0.2-1.3); Total Protein 6.5 g/dL (6.3-8.2)
[2022-07-20 19:33] LABS: INR 0.9 (<1.2); Partial Thromboplastin Time 22.4 sec (22.0-30.0); Prothrombin Time 10.3 sec (9.0-12.0)
--- NOTE | 2022-07-20 20:43 | XR ---
EXAMINATION TYPE: XR chest 2V DATE OF EXAM: 07/20/2022 COMPARISON: 06/28/2022 HISTORY: Difficulty breathing TECHNIQUE: 3 views FINDINGS: Heart is normal. There is some mild pleural reaction and subsegmental atelectasis right melissa g base. No heart failure seen. Left lung is fairly clear. There are chest leads. There are no hilar m asses. IMPRESSION: There is some pleural reaction and subsegmental atelectasis right lung base which is impr mary compared to last exam.
[2022-07-20] MEDS ORDERED: NALOXONE 0.4 MG/ML 1 ML VIAL IV PRN (21:29)
[2022-07-20] MEDS ORDERED: ONDANSETRON 4 MG/2 ML VIAL IVP PRN (21:29)
[2022-07-20] MEDS ORDERED: DOXYCYCLINE 100 MG in SODIUM CHLORIDE 0.9% 100 ML IVPB SCH (22:00)
[2022-07-20] MEDS ORDERED: ALPRAZolam 1 MG TAB PO PRN (22:28)
[2022-07-20] MEDS ORDERED: DEXTROSE 50% SYRINGE 50 ML IVP PRN ×2 (22:30)
[2022-07-20] MEDS: methylPREDNISolone SOD SUCCI 40 MG/ML 1 ML VIAL IV SCH (23:19)
[2022-07-20] MEDS: HEPARIN SODIUM,PORCINE/PF 5,000 UNIT/0.5 ML SYRINGE SQ SCH (23:19)
[2022-07-20] MEDS: IPRATROPIUM-ALBUTEROL 3 ML NEB INHALATION SCH (23:31)
--- NOTE | 2022-07-21 00:53 | P.HPIM ---
History of Present Illness H&P Date: 07/20/22 Chief Complaint: shortness of breath 66 year old male with CAD s/p stents, COPD on 2-3 L oxygen at home patient comes in with 3 days of SOB, wheezing and productive cough of yellowish creamy sputum, no fever or chills, no known sick contacts, no recent travel. he was recently hospitalized for COPD exacerbation , and he once he ran out of his steroids he started having trouble breathing again. his breathing treatments at home are not helping. he is vaccinated against covid he admits to tobacco smoking, however he is trying to cut back. he otherwise denies any history of blood clots or recent traveling. he denies any chest pain, headache, palpitations, nausea or vomiting, denies any changes in his bowel or urinary habits. patient does not follow up OP with pulmonary he recently (may) had a follow up left heart cath , currently on Brilinta ED workup CXR showed atelactesis no leukocytosis mild anemia respiratory viral panel is negative Review of Systems Pertinent positives as noted in HPI. 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 Hx shingles Rt inner ear 2008, wears hearing aids. BPH, ED, disc lumbar spine. SOB w/activity. AAA, Rt carotid stenosis. Abscessed tooth sev wks ago, completed AB Rx. Last Myocardial Infarction Date:: unknown History of Any Multi-Drug Resistant Organisms: None Reported Past Surgical History: Heart Catheterization, Heart Catheterization With Stent, Hernia Repair, Tonsillectomy Additional Past Surgical History / Comment(s): 2013 Cervical Fusion. Umb her shana, ing hernia. Heart cath 2011. Bilat Cataracts Past Anesthesia/Blood Transfusion Reactions: No Reported Reaction Date of Last Stent Placement:: 2021 Past Psychological History: Anxiety Smoking Status: Current every day smoker Past Alcohol Use History: Daily Additional Past Alcohol Use History / Comment(s): Smoking 1 ppd, began age 3. Heavy drinker after 's , Quit 05/2018 Past Drug Use History: None Reported Additional Drug Use History / Comment(s): Occasional marijuana use, none in few months. - Past Family History Brother(s) Family Medical History: Cancer, Diabetes Mellitus Additional Family Medical History / Comment(s): leukemia, lung cancer; another brother had DM, gangrene Medications and Allergies Home Medications Medication Instructions Recorded Confirmed Type Aspirin 325 mg PO DAILY 06/28/14 07/20/22 History ALPRAZolam [Xanax] 1 mg PO TID PRN 07/14/20 07/20/22 History Rosuvastatin Calcium [Crestor] 20 mg PO HS 06/02/22 07/20/22 History Tamsulosin [Flomax] 0.4 mg PO DAILY 06/02/22 07/20/22 History carvediloL [Coreg] 3.125 mg PO BID-W/MEALS 30 Days 06/07/22 07/20/22 Rx #60 tab Ticagrelor [Brilinta] 90 mg PO BID #90 tab 06/25/22 07/20/22 Rx Furosemide [Lasix] 20 mg PO DAILY PRN 06/28/22 07/20/22 History Budesonide [Pulmicort] 1 mg INHALATION RT-BID 30 Days #30 07/01/22 07/20/22 Rx each Furosemide [Lasix] 40 mg PO BID@0900,1600 30 Days #60 07/01/22 07/20/22 Rx tab Ipratropium-Albuterol Nebulize 3 ml INHALATION RT-QID 30 Days #90 07/01/22 07/20/22 Rx [Duoneb 0.5 mg-3 mg/3 ml Soln] each Ipratropium-Albuterol Nebulize 3 ml INHALATION RT-QID PRN #0 each 07/01/22 07/20/22 Rx [Duoneb 0.5 mg-3 mg/3 ml Soln] INSULIN ASPART (NovoLOG) [NovoLOG See Protocol SQ ACHS 07/20/22 07/20/22 History (formulary)] Nitroglycerin Sl Tabs [Nitrostat] 0.4 mg SL Q5M PRN 07/20/22 07/20/22 History lisinopriL [Zestril] 1.25 mg PO DAILY@1200 07/20/22 07/20/22 History Allergies Allergy/AdvReac Type Severity Reaction Status Date / Time codeine Allergy Unknown Verified 07/20/22 21:21 Physical Exam Vitals: Vital Signs Temp Pulse Resp BP Pulse Ox 07/20/22 23:41 92 07/20/22 23:31 88 07/20/22 22:43 71 15 139/74 98 07/20/22 19:30 96 07/20/22 19:08 98 07/20/22 18:29 97.8 F 98 26 H 114/59 93 L Intake and Output 07/20/22 07/20/22 07/21/22 14:59 22:59 06:59 Other: Weight 81.647 kg Constitutional: No acute distress, conversant, pleasant Eyes: Anicteric sclerae, moist conjunctiva, Pupils equal round reactive to light ENMT: NC/AT Oropharynx clear, no erythema, or exudates Neck: Supple, FROM, no masses, or JVD No carotid bruits No thyromegaly Lungs: prolonged expiratory phase with wheezing Clear to percussion Normal respiratory effort, no accessory muscle use Cardiovascular: Heart regular in rate and rhythm, No murmurs, gallops, or rubs No peripheral edema Abdominal: Soft Nontender, no guarding, rebound or rigidity Abdomen moving with respiration Normoactive bowel sounds No hepatomegaly, No splenomegaly No palpable mass No abdominal wall hernia noted Skin: Normal temperature, tone, texture, turgor No induration No subcutaneous nodules No rash, lesions No ulcers Extremities: No digital cyanosis No clubbing Pedal pulses intact and symmetrical Radial pulses intact and symmetrical No calf tenderness Psychiatric: Alert and oriented to person, place and time Appropriate affect fair judgement Neuro Muscles Strength 5/5 in all 4 extremities Sensation to light touch grossly present throughout Cranial nerves II-XII grossly intact No focal sensory deficits Lymphatics: no palpable cervical or supraclavicular , or inguinal lymph nodes Results CBC & Chem 7: 07/20/22 19:05 07/20/22 19:05 Labs: Abnormal Lab Results - Last 24 Hours (Table) 07/20/22 07/20/22 Range/Units 19:05 19:05 RBC 4.04 L (4.30-5.90) m/uL Hgb 12.1 L (13.0-17.5) gm/dL Hct 37.0 L (39.0-53.0) % Plt Count 138 L (150-450) k/uL Chloride 96 L (98-107) mmol/L BUN 30 H (9-20) mg/dL Glucose 136 H (74-99) mg/dL Assessment and Plan Assessment: acute COPD exacerbation chronic hypoxic respiratory failure plan systemic IV steroids doxycycline resume inhalers steroids duonebs PRN counseled to quit smoking supplemental oxygen as needed supportive care pulmonary consultation respiratory viral panel is negative CXR showed atelactesis CAD s/p stents hypertension hyperlipidemia continue brilinta , statin , aspirin coreg , lasix , lisinopril full code DVT PPX heparin sc tid
[2022-07-21] MEDS: IPRATROPIUM-ALBUTEROL 3 ML NEB INHALATION SCH ×5 (03:48→20:08)
[2022-07-21 05:03] LABS: Basophils % (A) 0 %; Eosinophils % (A) 0 %; HCT 37.2 % (39.0-53.0); HGB 11.7 gm/dL (13.0-17.5); Lymphocytes # (A) 0.4 k/uL (1.0-4.8); Lymphocytes % (A) 8 %; MCH 29.2 pg (25.0-35.0); MCHC 31.6 g/dL (31.0-37.0); MCV 92.6 fL (80.0-100.0); Mean Platelet Volume 8.8; Monocytes # (A) 0.1 k/uL (0-1.0); Monocytes % (A) 2 %; Neutrophils # (A) 4.5 k/uL (1.3-7.7); Neutrophils % (A) 90 %; Platelet Count 119 k/uL (150-450); RBC 4.02 m/uL (4.30-5.90); RDW 13.9 % (11.5-15.5)
[2022-07-21 05:15] LABS: African American GFR (CKD) >90 (>60 ml/min/1.73 sqM); Anion Gap 12 mmol/L; Blood Urea Nitrogen 32 mg/dL (9-20); Carbon Dioxide 25 mmol/L (22-30); Chloride 99 mmol/L (98-107); Glucose 216 mg/dL (74-99); Non-African American GFR(CKD) 83 (>60 ml/min/1.73 sqM); Sodium 136 mmol/L (137-145)
[2022-07-21] MEDS: BUDESONIDE 1 MG/2 ML NEBU INHALATION SCH ×2 (07:27→20:08)
[2022-07-21 07:31] LABS: Glucose,Whole Blood 221 mg/dL (70-110)
[2022-07-21] MEDS: INSULIN ASPART (NovoLOG) 100 UNIT/ML VIAL SQ SCH ×4 (08:31→21:27)
[2022-07-21] MEDS: ASPIRIN 81 MG PO SCH (08:31)
[2022-07-21] MEDS: TAMSULOSIN 0.4 MG CAP.ER.24H PO SCH (08:31)
[2022-07-21] MEDS: HEPARIN SODIUM,PORCINE/PF 5,000 UNIT/0.5 ML SYRINGE SQ SCH ×3 (08:31→23:19)
[2022-07-21] MEDS: FUROSEMIDE 40 MG TAB PO SCH ×2 (08:31→16:23)
[2022-07-21] MEDS: carvediloL 3.125 MG TAB PO SCH ×2 (08:32→17:42)
[2022-07-21] MEDS: DOXYCYCLINE 100 MG CAP PO SCH ×2 (08:53→20:31)
[2022-07-21] MEDS ORDERED: FUROSEMIDE 20 MG TAB PO PRN (09:00)
[2022-07-21] MEDS ORDERED: ASPIRIN 325 MG TAB PO SCH (09:00)
[2022-07-21] MEDS ORDERED: TICAGRELOR 90 MG TAB PO SCH (09:00)
[2022-07-21] MEDS: methylPREDNISolone SOD SUCCI 40 MG/ML 1 ML VIAL IV SCH (09:20)
[2022-07-21 09:59] LABS: Appearance,Urine Cloudy (Clear); Bilirubin,Urine Negative (Negative); Blood,Urine Negative (Negative); Color,Urine Yellow; Glucose,Urine (UA) 3+ (Negative); Hyaline Casts,Urine 4 /lpf (0-2); Ketones,Urine 1+ (Negative); Leukocyte Esterase,Urine Negative (Negative); Mucus,Urine Rare /hpf; Nitrite,Urine Negative (Negative); Protein,Urine Negative (Negative); Specific Gravity,Urine 1.022 (1.001-1.035); Squamous Epithelial Cell,Urine <1 /hpf (0-4); Uric Acid Crystals,Urine Many /hpf; Urobilinogen,Urine <2.0 mg/dL (<2.0); WBC,Urine 1 /hpf (0-5)
--- NOTE | 2022-07-21 10:01 | P.CRDCN ---
History of Present Illness History of present illness: HISTORY OF PRESENTING ILLNESS Patient is a pleasant 66-year-old male with history of multivessel CAD status post stenting of the LAD, CT of the RCA, COPD, hyperlipidemia, hypertension, cardiomyopathy with EF 20-25%, moderate to severe mitral regurgitation, tobacco abuse who presents secondary to worsening shortness of breath. He states he has been having issues with shortness breath since December with numerous COPD exacerbations. Additionally had presented in May with mildly elevated troponins and had undergone stenting of the circumflex as well as angioplasty of the LAD. He had been placed on [place] after this. He does feel that any time he stops his steroids after weaning he gets more short of breath. He believes this was the case with stopping the steroids and then shortly thereafter started becoming short of breath. He is not noticed any clear correlation with starting the Brilinta however Brilinta can cause some dyspnea. Denies any orthopnea or lower extremity edema. Has been taking the Lasix twice a day. He does feel somewhat lightheaded at times which she relates since starting the carvedilol. Denies any syncope. REVIEW OF SYSTEMS At the time of my exam: CONSTITUTIONAL: Denies fever or chills. CARDIOVASCULAR: Denies chest pain, +shortness of breath, no orthopnea, PND or palpitations. RESPIRATORY: Denies cough. GASTROINTESTINAL: Denies abdominal pain, diarrhea, constipation, nausea or vomiting. MUSCULOSKELETAL: Denies myalgias. NEUROLOGIC: Denies numbness, tingling or weakness. ENDOCRINE: Denies fatigue, weight change, polydipsia or polyurina. GENITOURINARY: Denies burning, hematuria or urgency with micturation. HEMATOLOGIC: Denies history of anemia or bleeding. PHYSICAL EXAMINATION Vital signs reviewed. CONSTITUTIONAL: No apparent distress. HEENT: Head is normocephalic. Pupils are equal, round. Sclerae anicteric. Mucous membranes of the mouth are moist. No JVD. No carotid bruit. CHEST EXAMINATION: Bilateral wheeze HEART EXAMINATION: Regular rate and rhythm. S1, S2 heard. No murmurs, gallops or rub. ABDOMEN: Soft, nontender. Positive bowel sounds. EXTREMITIES: 2+ peripheral pulses, no lower extremity edema and no calf tenderness. NEUROLOGIC EXAMINATION: Patient is awake, alert and oriented x3. ASSESSMENT 1. Acute on chronic respiratory failure, suspect mainly related to COPD, mainly worsened after stopping his steroids 2. Chronic systolic heart failure, does not appear volume overloaded 3. CAD status post recent stenting of circumflex and angioplasty LAD 4. Ischemic cardiomyopathy EF 20-25% 5. Moderate to severe mitral regurgitation 6. Lightheaded episodes, may be related to severe cardiomyopathy 7. Tobacco abuse PLAN Patient's main presentation appears related to COPD with symptoms starting immediately after stopping his steroids. Does have wheezes on exam and no significant time overload noted. Continue on home Lasix and home heart failure regimen. Borderline blood pressures and has been somewhat lightheaded at home however continue with current regimen. We will stop his Brilinta as this may be exacerbating some of the dyspnea and change to Plavix with loading dose. Further recommendations to follow. 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 Hx shingles Rt inner ear 2008, wears hearing aids. BPH, ED, disc lumbar spine. SOB w/activity. AAA, Rt carotid stenosis. Abscessed tooth sev wks ago, completed AB Rx. Last Myocardial Infarction Date:: unknown History of Any Multi-Drug Resistant Organisms: None Reported Past Surgical History: Heart Catheterization, Heart Catheterization With Stent, Hernia Repair, Tonsillectomy Additional Past Surgical History / Comment(s): 2013 Cervical Fusion. Umb hernia, ing hernia. Heart cath 2011. Bilat Cataracts Past Anesthesia/Blood Transfusion Reactions: No Reported Reaction Date of Last Stent Placement:: 2021 Past Psychological History: Anxiety Smoking Status: Current every day smoker Past Alcohol Use History: Daily Additional Past Alcohol Use History / Comment(s): Smoking 1 ppd, began age 3. Heavy drinker after 's , Quit 05/2018 Past Drug Use History: None Reported Additional Drug Use History / Comment(s): Occasional marijuana use, none in few months. - Past Family History Brother(s) Family Medical History: Cancer, Diabetes Mellitus Additional Family Medical History / Comment(s): leukemia, lung cancer; another brother had DM, gangrene Medications and Allergies Home Medications Medication Instructions Recorded Confirmed Type Aspirin 325 mg PO DAILY 06/28/14 07/20/22 History ALPRAZolam [Xanax] 1 mg PO TID PRN 07/14/20 07/20/22 History Rosuvastatin Calcium [Crestor] 20 mg PO HS 06/02/22 07/20/22 History Tamsulosin [Flomax] 0.4 mg PO DAILY 06/02/22 07/20/22 History carvediloL [Coreg] 3.125 mg PO BID-W/MEALS 30 Days 06/07/22 07/20/22 Rx #60 tab Ticagrelor [Brilinta] 90 mg PO BID #90 tab 06/25/22 07/20/22 Rx Furosemide [Lasix] 20 mg PO DAILY PRN 06/28/22 07/20/22 History Budesonide [Pulmicort] 1 mg INHALATION RT-BID 30 Days #30 07/01/22 07/20/22 Rx each Furosemide [Lasix] 40 mg PO BID@0900,1600 30 Days #60 07/01/22 07/20/22 Rx tab Ipratropium-Albuterol Nebulize 3 ml INHALATION RT-QID 30 Days #90 07/01/22 07/20/22 Rx [Duoneb 0.5 mg-3 mg/3 ml Soln] each Ipratropium-Albuterol Nebulize 3 ml INHALATION RT-QID PRN #0 each 07/01/22 07/20/22 Rx [Duoneb 0.5 mg-3 mg/3 ml Soln] INSULIN ASPART (NovoLOG) [NovoLOG See Protocol SQ ACHS 07/20/22 07/20/22 History (formulary)] Nitroglycerin Sl Tabs [Nitrostat] 0.4 mg SL Q5M PRN 07/20/22 07/20/22 History lisinopriL [Zestril] 1.25 mg PO DAILY@1200 07/20/22 07/20/22 History Allergies Allergy/AdvReac Type Severity Reaction Status Date / Time codeine Allergy Unknown Verified 07/20/22 21:21 Physical Exam Vitals: Vital Signs Temp Pulse Pulse Resp BP BP Pulse Ox 07/21/22 09:35 64 16 07/21/22 08:27 64 107/63 07/21/22 07:43 74 07/21/22 07:30 70 95 07/21/22 07:00 97.8 F 71 16 95/63 98 07/21/22 03:59 92 07/21/22 03:48 90 07/21/22 03:18 97.5 F L 88 18 110/64 98 07/20/22 23:41 92 07/20/22 23:31 88 07/20/22 22:43 71 15 139/74 98 07/20/22 19:30 96 07/20/22 19:08 98 07/20/22 18:29 97.8 F 98 26 H 114/59 93 L Intake and Output 07/20/22 07/21/22 07/21/22 22:59 06:59 14:59 Other: Voiding Method Urinal # Voids 0 Weight 81.647 kg Results 07/21/22 04:22 07/21/22 04:22 Cardiac Enzymes 07/20/22 07/20/22 Range/Units 19:05 19:05 AST 17 (17-59) U/L Troponin I 0.024 (0.000-0.034) ng/mL Coagulation 07/20/22 Range/Units 19:05 PT 10.3 (9.0-12.0) sec APTT 22.4 (22.0-30.0) sec CBC 07/20/22 07/21/22 Range/Units 19:05 04:22 WBC 8.5 5.0 (3.8-10.6) k/uL RBC 4.04 L 4.02 L (4.30-5.90) m/uL Hgb 12.1 L 11.7 L (13.0-17.5) gm/dL Hct 37.0 L 37.2 L (39.0-53.0) % Plt Count 138 L 119 L (150-450) k/uL Comprehensive Metabolic Panel 07/20/22 07/21/22 Range/Units 19:05 04:22 Sodium 137 136 L (137-145) mmol/L Potassium 3.7 4.0 (3.5-5.1) mmol/L Chloride 96 L 99 (98-107) mmol/L Carbon Dioxide 30 25 (22-30) mmol/L BUN 30 H 32 H (9-20) mg/dL Creatinine 1.13 0.94 (0.66-1.25) mg/dL Glucose 136 H 216 H (74-99) mg/dL Calcium 9.3 9.0 (8.4-10.2) mg/dL AST 17 (17-59) U/L ALT 14 (4-49) U/L Alkaline Phosphatase 91 (38-126) U/L Total Protein 6.5 (6.3-8.2) g/dL Albumin 3.8 (3.5-5.0) g/dL Current Medications Generic Name Dose Route Start Last Admin Trade Name Freq PRN Reason Stop Dose Admin Albuterol/Ipratropium 3 ml 07/21/22 00:00 07/21/22 07:27 Ipratropium-Albuterol 3 Ml Neb INHALATION 3 ml RT-Q4H GIAN Administration Alprazolam 1 mg 07/20/22 22:28 Alprazolam 1 Mg Tab PO TID PRN Anxiety Aspirin 81 mg 07/21/22 09:00 07/21/22 08:31 Aspirin 81 Mg PO 81 mg DAILY GIAN Administration Atorvastatin Calcium 80 mg 07/21/22 21:00 Atorvastatin 80 Mg Tab PO HS GIAN Budesonide 1 mg 07/21/22 08:00 07/21/22 07:27 Budesonide 1 Mg/2 Ml Nebu INHALATION 1 mg RT-BID GIAN Administration Carvedilol 3.125 mg 07/21/22 07:30 07/21/22 08:32 Carvedilol 3.125 Mg Tab PO 3.125 mg BID-W/MEALS GIAN Administration Dextrose/Water 25 ml 07/20/22 22:30 Dextrose 50% Syringe 50 Ml IVP PER PROTOCOL PRN Hypoglycemia Protocol Dextrose/Water 50 ml 07/20/22 22:30 Dextrose 50% Syringe 50 Ml IVP PER PROTOCOL PRN Hypoglycemia Protocol Doxycycline Monohydrate 100 mg 07/21/22 09:00 07/21/22 08:53 Doxycycline 100 Mg Cap PO 100 mg BID GIAN Administration Protocol Furosemide 20 mg 07/21/22 09:00 Furosemide 20 Mg Tab PO DAILY PRN Edema Furosemide 40 mg 07/21/22 09:00 07/21/22 08:31 Furosemide 40 Mg Tab PO 40 mg BID@0900,1600 GIAN Administration Heparin Sodium (Porcine) 5,000 unit 07/21/22 00:00 07/21/22 08:31 Heparin Sodium,Porcine/Pf 5,000 Unit/0.5 Ml Syringe SQ 5,000 unit Q8HR GIAN Administration Insulin Aspart 0 unit 07/21/22 07:30 07/21/22 08:31 Insulin Aspart (Novolog) 100 Unit/Ml Vial SQ 6 unit AC-TID [facility] Administration Protocol Lisinopril 1.25 mg 07/21/22 12:00 Lisinopril 2.5 Mg Tab PO DAILY@1200 [facility] Methylprednisolone Sodium Succinate 60 mg 07/21/22 16:00 Methylprednisolone Sod Succi 125 Mg/2 Ml Vial IV Q8HR [facility] Naloxone HCl 0.2 mg 07/20/22 21:29 Naloxone 0.4 Mg/Ml 1 Ml Vial IV Q2M PRN Opioid Reversal Ondansetron HCl 4 mg 07/20/22 21:29 Ondansetron 4 Mg/2 Ml Vial IVP Q8HR PRN Nausea And Vomiting Tamsulosin HCl 0.4 mg 07/21/22 09:00 07/21/22 08:31 Tamsulosin 0.4 Mg Cap.Er.24h PO 0.4 mg DAILY [facility] Administration Ticagrelor 90 mg 07/21/22 09:00 07/21/22 08:31 Ticagrelor 90 Mg Tab PO 90 mg BID [facility] Administration Intake and Output 07/20/22 07/21/22 07/21/22 22:59 06:59 14:59 Other: Voiding Method Urinal # Voids 0 Weight 81.647 kg 07/21/22 04:22 07/21/22 04:22
--- NOTE | 2022-07-21 10:46 | P.CNPUL ---
History of Present Illness Consult date: 07/21/22 Requesting physician: Enio Spear Reason for consult: dyspnea Chief complaint: Shortness of breath History of present illness: 66-year-old white male patient with known history of COPD, cardiomyopathy with EF of 20-25%, moderate to severe mitral regurgitation, chronic and ongoing history of smoking, coronary artery disease with previous stenting, hypertension, hyperlipidemia who presented to the emergency department on 07/20/2022 with complaints of shortness of breath. Patient had recent cardiac stents placed. He reports worsening dyspnea, productive cough with greenish yellow mucus, wheezing. No complaints of hemoptysis. Reports chest tightness, which is different from the cardiac pain he had. Denies any lower extremity edema. Chest x-ray shows some pleural reaction and subsegmental atelectasis in the right lung base which is improved compared to his last chest x-ray from May,. Lab evaluation showed normal white count of 8.5, hemoglobin of 12.1, INR 0.9, his electrolytes were unremarkable, BUN was 30 and creatinine is 1.13. LFTs were within normal limits, urinalysis showed 3+ glucose and positive ketones, no evidence of infection, COVID-19 influenza A and B were negative. Patient does recently started wearing home oxygen on is needed basis. Review of Systems All systems: negative Constitutional: Denies chills, Denies fever Eyes: denies blurred vision, denies pain Ears, nose, mouth and throat: Denies headache, Denies sore throat Cardiovascular: Denies chest pain, Denies shortness of breath Respiratory: Reports cough with sputum, Reports dyspnea, Reports wheezing, Denies cough Gastrointestinal: Denies abdominal pain, Denies diarrhea, Denies nausea, Denies vomiting Musculoskeletal: Denies myalgias Integumentary: Denies pruritus, Denies rash Neurological: Denies numbness, Denies weakness Psychiatric: Denies anxiety, Denies depression Endocrine: Denies fatigue, Denies weight change Past Medical History Past Medical History: Coronary Artery Disease (CAD), Chest Pain / Angina, COPD, CVA/TIA, Hearing Disorder / Deafness, Hyperlipidemia, Hypertension, Myocardial Infarction ([place]), Musculoskeletal Disorder, Osteoarthritis (OA), Prostate Disorder Additional Past Medical History / Comment(s): Stroke left eye 2006, 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 Hx shingles Rt inner ear 2008, wears hearing aids. BPH, ED, disc lumbar spine. SOB w/activity. AAA, Rt carotid stenosis. Abscessed tooth sev wks ago, completed AB Rx. Last Myocardial Infarction Date:: unknown History of Any Multi-Drug Resistant Organisms: None Reported Past Surgical History: Heart Catheterization, Heart Catheterization With Stent, Hernia Repair, Tonsillectomy Additional Past Surgical History / Comment(s): 2013 Cervical Fusion. Umb hernia, ing hernia. Heart cath 2011. Bilat Cataracts Past Anesthesia/Blood Transfusion Reactions: No Reported Reaction Date of Last Stent Placement:: 2021 Past Psychological History: Anxiety Smoking Status: Current every day smoker Past Alcohol Use History: Daily Additional Past Alcohol Use History / Comment(s): Smoking 1 ppd, began age 3. Heavy drinker after 's , Quit 05/2018 Past Drug Use History: None Reported Additional Drug Use History / Comment(s): Occasional marijuana use, none in few months. - Past Family History Brother(s) Family Medical History: Cancer, Diabetes Mellitus Additional Family Medical History / Comment(s): leukemia, lung cancer; another brother had DM, gangrene Medications and Allergies Home Medications Medication Instructions Recorded Confirmed Type Aspirin 325 mg PO DAILY 06/28/14 07/20/22 History ALPRAZolam [Xanax] 1 mg PO TID PRN 07/14/20 07/20/22 History Rosuvastatin Calcium [Crestor] 20 mg PO HS 06/02/22 07/20/22 History Tamsulosin [Flomax] 0.4 mg PO DAILY 06/02/22 07/20/22 History carvediloL [Coreg] 3.125 mg PO BID-W/MEALS 30 Days 06/07/22 07/20/22 Rx #60 tab Ticagrelor [Brilinta] 90 mg PO BID #90 tab 06/25/22 07/20/22 Rx Furosemide [Lasix] 20 mg PO DAILY PRN 06/28/22 07/20/22 History Budesonide [Pulmicort] 1 mg INHALATION RT-BID 30 Days #30 07/01/22 07/20/22 Rx each Furosemide [Lasix] 40 mg PO BID@0900,1600 30 Days #60 07/01/22 07/20/22 Rx tab Ipratropium-Albuterol Nebulize 3 ml INHALATION RT-QID 30 Days #90 07/01/22 07/20/22 Rx [Duoneb 0.5 mg-3 mg/3 ml Soln] each Ipratropium-Albuterol Nebulize 3 ml INHALATION RT-QID PRN #0 each 07/01/22 Rx [Duoneb 0.5 mg-3 mg/3 ml Soln] INSULIN ASPART (NovoLOG) [NovoLOG See Protocol SQ ACHS 07/20/22 07/20/22 History (formulary)] Nitroglycerin Sl Tabs [Nitrostat] 0.4 mg SL Q5M PRN 07/20/22 07/20/22 History lisinopriL [Zestril] 1.25 mg PO DAILY@1200 07/20/22 07/20/22 History Allergies Allergy/AdvReac Type Severity Reaction Status Date / Time codeine Allergy Unknown Verified 07/20/22 21:21 Physical Exam Vitals: Vital Signs Temp Pulse Pulse Resp BP BP Pulse Ox 07/21/22 09:35 64 16 07/21/22 08:27 64 107/63 07/21/22 07:43 74 07/21/22 07:30 70 95 07/21/22 07:00 97.8 F 71 16 95/63 98 07/21/22 03:59 92 07/21/22 03:48 90 07/21/22 03:18 97.5 F L 88 18 110/64 98 07/20/22 23:41 92 07/20/22 23:31 88 07/20/22 22:43 71 15 139/74 98 07/20/22 19:30 96 07/20/22 19:08 98 07/20/22 18:29 97.8 F 98 26 H 114/59 93 L Intake and Output 07/20/22 07/21/22 07/21/22 22:59 06:59 14:59 Other: Voiding Method Urinal # Voids 0 Weight 81.647 kg GENERAL EXAM: Alert, very pleasant, 66-year-old white male on 2 L of oxygen satting 95% comfortable in no apparent distress. HEAD: Normocephalic/atraumatic. EYES: Normal reaction of pupils, equal size. Conjunctiva pink, sclera white. NOSE: Clear with pink turbinates. THROAT: No erythema or exudates. NECK: No masses, no JVD, no thyroid enlargement, no adenopathy. CHEST: No chest wall deformity. Symmetrical expansion. LUNGS: Equal air entry with no crackles, wheeze, rhonchi or dullness. CVS: Regular rate and rhythm, normal S1 and S2, no gallops, no murmurs, no rubs ABDOMEN: Soft, nontender. No hepatosplenomegaly, normal bowel sounds, no guarding or rigidity. EXTREMITIES: No clubbing, no edema, no cyanosis, 2+ pulses and upper and lower extremities. MUSCULOSKELETAL: Muscle strength and tone normal. SPINE: No scoliosis or deformity SKIN: No rashes CENTRAL NERVOUS SYSTEM: Alert and oriented -3. No focal deficits, tone is normal in all 4 extremities. PSYCHIATRIC: Alert and oriented -3. Appropriate affect. Intact judgment and insight. Results - Laboratory Findings CBC and BMP: 07/21/22 04:22 07/21/22 04:22 PT/INR, D-dimer PT 10.3 sec (9.0-12.0) 07/20/22 19:05 INR 0.9 (<1.2) 07/20/22 19:05 Abnormal lab findings: Abnormal Labs 07/20/22 07/20/22 07/21/22 19:05 19:05 04:22 RBC 4.04 L 4.02 L Hgb 12.1 L 11.7 L Hct 37.0 L 37.2 L Plt Count 138 L 119 L Lymphocytes # 0.4 L Sodium Chloride 96 L BUN 30 H Glucose 136 H POC Glucose (mg/dL) Urine Glucose (UA) Urine Ketones Uric Acid Crystals Hyaline Casts Urine Mucus 07/21/22 07/21/22 07/21/22 04:22 07:28 09:30 RBC Hgb Hct Plt Count Lymphocytes # Sodium 136 L Chloride BUN 32 H Glucose 216 H POC Glucose (mg/dL) 221 H Urine Glucose (UA) 3+ H Urine Ketones 1+ H Uric Acid Crystals Many H Hyaline Casts 4 H Urine Mucus Rare H - Diagnostic Findings Chest x-ray: report reviewed, image reviewed Assessment and Plan Plan: Assessment: #1. Shortness of breath, related to acute exacerbation of COPD. COVID-19 PCR, influenza A and B were all negative, #2. Ischemic cardiomyopathy with EF of 20-25% and chronic systolic CHF #3. CAD with recent history of stenting of the left circumflex, and PCI to the LAD #4. Moderate to severe mitral regurgitation #5. Chronic and ongoing history of tobacco dependence #6. COPD, advanced, the exact FEV1 is not known to us, but patient recently started wearing oxygen on as-needed basis #7. Anxiety #8. BPH #9. Osteoarthritis Plan: Continue breathing treatments Continue home dose diuretics We'll switch doxycycline to oral doxycycline Continue nebulized treatments and steroids We'll continue to follow his clinical course I have personally seen and examined the patient, performed the documentation and the assessment and plan as written. Number of minutes spent on the visit: [15] Time with Patient: Greater than 30
[2022-07-21 11:32] LABS: Glucose,Whole Blood 277 mg/dL (70-110)
--- NOTE | 2022-07-21 12:43 | P.PN ---
Subjective Progress Note Date: 07/21/22 Principal diagnosis: COPD exacerbation The patient is a 66-year-old male with history of chronic respiratory failure, COPD exacerbation, chronic systolic heart failure. He has chronic tobacco use although he states he is cutting down. The patient states he has multiple hospitalizations usually has an exacerbation after he stops his steroids. He states he usually goes home with a extended taper which helps to decrease his rehospitalizations. The patient was hospitalized started on nebs, IV doxycycline, steroids and supplemental oxygen. He has been seen by cardiology and pulmonology doxycycline is no change to oral. Objective - Vital Signs Vital signs: Vital Signs Temp 97.8 F 07/21/22 07:00 Pulse 84 07/21/22 12:17 Resp 16 07/21/22 09:35 BP 132/76 07/21/22 12:17 Pulse Ox 98 07/21/22 12:17 FiO2 Intake & Output 07/20/22 07/21/22 07/21/22 18:59 06:59 18:59 Weight 81.647 kg 81.647 kg Other: Voiding Method Urinal # Voids 0 - Constitutional General appearance: Present: no acute distress - Respiratory Respiratory: bilateral: wheezing - Cardiovascular Rhythm: regular - Gastrointestinal General gastrointestinal: Present: normal bowel sounds - Integumentary Integumentary: Present: normal - Musculoskeletal Musculoskeletal: Present: strength equal bilaterally - Psychiatric Psychiatric: Present: appropriate affect - Labs CBC & Chem 7: 07/21/22 04:22 07/21/22 04:22 Labs: Abnormal Lab Results - Last 24 Hours (Table) 07/20/22 07/20/22 07/21/22 Range/Units 19:05 19:05 04:22 RBC 4.04 L 4.02 L (4.30-5.90) m/uL Hgb 12.1 L 11.7 L (13.0-17.5) gm/dL Hct 37.0 L 37.2 L (39.0-53.0) % Plt Count 138 L 119 L (150-450) k/uL Lymphocytes # 0.4 L (1.0-4.8) k/uL Sodium (137-145) mmol/L Chloride 96 L (98-107) mmol/L BUN 30 H (9-20) mg/dL Glucose 136 H (74-99) mg/dL POC Glucose (mg/dL) (70-110) mg/dL Urine Glucose (UA) (Negative) Urine Ketones (Negative) Uric Acid Crystals (None) /hpf Hyaline Casts (0-2) /lpf Urine Mucus (None) /hpf 07/21/22 07/21/22 07/21/22 Range/Units 04:22 07:28 09:30 RBC (4.30-5.90) m/uL Hgb (13.0-17.5) gm/dL Hct (39.0-53.0) % Plt Count (150-450) k/uL Lymphocytes # (1.0-4.8) k/uL Sodium 136 L (137-145) mmol/L Chloride (98-107) mmol/L BUN 32 H (9-20) mg/dL Glucose 216 H (74-99) mg/dL POC Glucose (mg/dL) 221 H (70-110) mg/dL Urine Glucose (UA) 3+ H (Negative) Urine Ketones 1+ H (Negative) Uric Acid Crystals Many H (None) /hpf Hyaline Casts 4 H (0-2) /lpf Urine Mucus Rare H (None) /hpf 07/21/22 Range/Units 11:30 RBC (4.30-5.90) m/uL Hgb (13.0-17.5) gm/dL Hct (39.0-53.0) % Plt Count (150-450) k/uL Lymphocytes # (1.0-4.8) k/uL Sodium (137-145) mmol/L Chloride (98-107) mmol/L BUN (9-20) mg/dL Glucose (74-99) mg/dL POC Glucose (mg/dL) 277 H (70-110) mg/dL Urine Glucose (UA) (Negative) Urine Ketones (Negative) Uric Acid Crystals (None) /hpf Hyaline Casts (0-2) /lpf Urine Mucus (None) /hpf Assessment and Plan (1) COPD exacerbation Narrative/Plan: Appreciate pulmonary input, no oral doxycycline, continue nebs and steroids Current Visit: Yes Status: Acute Code(s): J44.1 - CHRONIC OBSTRUCTIVE PULMONARY DISEASE W (ACUTE) EXACERBATION SNOMED Code(s): 399845386 (2) Chronic systolic CHF (congestive heart failure) Narrative/Plan: Appreciate cardiology input [place] discontinued and patient loaded with Plavix, monitor fluid status Current Visit: Yes Status: Acute Code(s): I50.22 - CHRONIC SYSTOLIC (CONGESTIVE) HEART FAILURE SNOMED Code(s): 574320064 (3) Tobacco abuse Narrative/Plan: patient counselled not ready to quiet Current Visit: Yes Status: Acute Code(s): Z72.0 - TOBACCO USE SNOMED Code (s): 249946574 (4) Diabetes Narrative/Plan: Continue home regimen and Sliding scale coverage, monitor glucose levels especially in the setting of steroid use Current Visit: Yes Status: Acute Code(s): E11.9 - TYPE 2 DIABETES MELLITUS WITHOUT COMPLICATIONS SNOMED Code(s): 97289041
[2022-07-21] MEDS: methylPREDNISolone SOD SUCCI 125 MG/2 ML VIAL IV SCH ×2 (16:23→23:19)
[2022-07-21 17:10] LABS: Glucose,Whole Blood 288 mg/dL (70-110)
[2022-07-21 20:55] LABS: Glucose,Whole Blood 464 mg/dL (70-110)
[2022-07-21] MEDS ORDERED: ATORVASTATIN 80 MG TAB PO SCH (21:00)
[2022-07-21] MEDS ORDERED: CLOPIDOGREL 75 MG TAB PO ONE (21:00)
[2022-07-21] MEDS ORDERED: INSULIN ASPART (NovoLOG) 100 UNIT/ML VIAL SQ SCH (21:01)
[2022-07-22] MEDS: IPRATROPIUM-ALBUTEROL 3 ML NEB INHALATION SCH ×3 (00:03→07:54)
[2022-07-22 04:08] VITALS: RESP 16
[2022-07-22 07:05] LABS: Glucose,Whole Blood 317 mg/dL (70-110)
[2022-07-22 07:46] VITALS: BP 111/68; TEMP 98.3
[2022-07-22] MEDS: BUDESONIDE 1 MG/2 ML NEBU INHALATION SCH (07:54)
[2022-07-22 08:15] VITALS: PULSE 82
[2022-07-22] MEDS: ASPIRIN 81 MG PO SCH (08:39)
[2022-07-22] MEDS: methylPREDNISolone SOD SUCCI 125 MG/2 ML VIAL IV SCH (08:39)
[2022-07-22] MEDS: TAMSULOSIN 0.4 MG CAP.ER.24H PO SCH (08:39)
[2022-07-22] MEDS: HEPARIN SODIUM,PORCINE/PF 5,000 UNIT/0.5 ML SYRINGE SQ SCH (08:39)
[2022-07-22] MEDS: carvediloL 3.125 MG TAB PO SCH (08:40)
[2022-07-22] MEDS: FUROSEMIDE 40 MG TAB PO SCH (08:40)
[2022-07-22] MEDS: DOXYCYCLINE 100 MG CAP PO SCH (08:40)
[2022-07-22] MEDS: INSULIN ASPART (NovoLOG) 100 UNIT/ML VIAL SQ SCH (08:40)
[2022-07-22] MEDS ORDERED: CLOPIDOGREL 75 MG TAB PO SCH (09:00)
--- NOTE | 2022-07-22 10:46 | P.PN ---
Subjective Progress Note Date: 07/22/22 Principal diagnosis: COPD exacerbation. 66-year-old white male patient with known history of COPD, cardiomyopathy with EF of 20-25%, moderate to severe mitral regurgitation, chronic and ongoing history of smoking, coronary artery disease with previous stenting, hypertension, hyperlipidemia who presented to the emergency department on 07/20/2022 with complaints of shortness of breath. Patient had recent cardiac stents placed. He reports worsening dyspnea, productive cough with greenish yellow mucus, wheezing. No complaints of hemoptysis. Reports chest tightness, which is different from the cardiac pain he had. Denies any lower extremity edema. Chest x-ray shows some pleural reaction and subsegmental atelectasis in the right lung base which is improved compared to his last chest x-ray from May,. Lab evaluation showed normal white count of 8.5, hemoglobin of 12.1, INR 0.9, his electrolytes were unremarkable, BUN was 30 and creatinine is 1.13. LFTs were within normal limits, urinalysis showed 3+ glucose and positive ketones, no evidence of infection, COVID-19 influenza A and B were negative. Patient does recently started wearing home oxygen on is needed basis. Progress note dated 07/22/2022. 66-year-old male ongoing tobacco use, with history of COPD, cardiomyopathy, severe mitral regurgitation, and CAD with previous stenting. The patient is to see me in the office apparently later this month. He was admitted with a diagnosis of COPD exacerbation. He also has a history of hypertension, and hyperlipidemia. He is doing much better today, and states that is 100% improved compared to when he first came in. No new laboratory data today. Chest x-ray shows some atelectasis at the right lung base. Objective - Vital Signs Vital signs: Vital Signs Temp 98.3 F 07/22/22 07:00 Pulse 82 07/22/22 08:14 Resp 16 07/22/22 07:00 BP 111/68 07/22/22 07:00 Pulse Ox 96 07/22/22 07:55 FiO2 Intake & Output 07/21/22 07/22/22 07/22/22 18:59 06:59 18:59 Intake Total 750 Output Total 670 Balance 80 Intake: Oral 750 Output: Urine 670 Other: Voiding Method Toilet Urinal # Voids 1 - Exam No acute distress, oriented 3. No conversational dyspnea or use of accessory muscles. No audible wheezing. HEENT examination is grossly unremarkable. Neck supple. Full range of motion. No adenopathy thyromegaly or neck vein distention. Cardiovascular examination reveals regular rhythm rate. S1-S2 normal. No S3 or S4. No discernible murmur noted. Heart sounds are distant. Heart rate 82 bpm. Lungs reveal mild expiratory wheezes. Breath sounds equal bilaterally. Minimal rhonchi. No crackles. Breath sounds equal bilaterally. Room air resting saturation of 96%. Abdomen soft bowel sounds are heard. No masses or tenderness. Extremities are intact. No cyanosis clubbing or edema. Skin is without rash or lesion. Neurologic examination is brief but nonfocal. - Labs CBC & Chem 7: 07/21/22 04:22 07/21/22 04:22 Labs: Abnormal Lab Results - Last 24 Hours (Table) 07/21/22 07/21/22 07/21/22 Range/Units 11:30 17:08 20:54 POC Glucose (mg/dL) 277 H 288 H 464 H (70-110) mg/dL 07/22/22 Range/Units 07:04 POC Glucose (mg/dL) 317 H (70-110) mg/dL Microbiology - Last 24 Hours (Table) 07/20/22 23:24 Blood Culture - Preliminary Blood No Growth after 24 hours 07/20/22 22:39 Blood Culture - Preliminary Blood No Growth after 24 hours Assessment and Plan Assessment: Acute exacerbation of COPD, in a patient with ongoing tobacco use. Ischemic cardiomyopathy, with an ejection fraction of 20-25%, and chronic systolic CHF. CAD, recent stenting of left circumflex coronary artery. Moderate to severe mitral regurgitation. Chronic and ongoing history of tobacco dependence. Advanced COPD, without prior PFTs. Anxiety. BPH. Osteoarthritis. Plan: Plan dated 07/22/2022. The patient apparently has an appointment to see me later this month. I've asked him to keep that appointment. At that time, we'll do PFTs to determine the severity and type of COPD that he has. He is much better. He could be con sidered for discharge home with a prednisone burst and taper. I would start off with 40 mg a day for 4 days, 30 mg a day for 4 days, 20 mg a day for 4 days, and then 10 mg a day for 4 days, then stop. The patient does have updrafts at home, along with budesonide. No additional recommendations are made. Prognosis is guarded. The patient does continue to smoke cigarettes. Counseling is provide d. Time with Patient: Less than 30
--- NOTE | 2022-07-22 11:07 | P.DS ---
Providers Date of admission: 07/20/22 21:29 Expected date of discharge: 07/22/22 Attending physician: Gris Gonzalez MD Consults: 07/20/22 21:29 Consult Physician Routine Consulting Provider: Mallory Mercado Consult Reason/Comments: COPD exacerbation, acute bronchitis Do you want consulting provider notified?: Yes, Notify in am Primary care physician: Radha Henry Hospital Course: Discharge Diagnosis: Acute on chronic respiratory failure, secondary to COPD exacerbation. Patient was evaluated by pulmonology recommending patient follow-up in their office after completion of a prednisone taper and 10 day course of doxycycline. Patient being discharged home on COPD Navigator program and a follow up outpatient with PCP in 1-2 days and with pulmonology in one week. Patient was discharged home with prescriptions for prednisone taper, doxycycline, and Pulmicort. It is recommended patient to stop smoking. Chronic systolic heart failure, no signs of fluid overload Multivessel coronary artery disease status post recent stenting of circumflex and LAD on 06/24/22. Patient was evaluated by cardiology recommending discontinuation of Brilinta and started patient on Plavix as Brilinta has the potential to cause some dyspnea. Patient discharged home with prescription for Plavix 75 mg daily and aspirin 81 mg daily. Patient to follow-up outpatient cardiology in their office in one week. Ischemic cardiomyopathy with previously known EF of 20-25%. Moderate to severe regurgitation Hypertension Hyperlipidemia Nicotine dependence, recommend smoking cessation. Hospital Course: Patient is a very pleasant 66-year-old male with a past medical history of multivessel coronary artery disease status post stenting of the LAD on 06/24/22, hypertension, hyperlipidemia, ischemic cardiomyopathy with previously known EF of 20-25%, moderate to severe mitral regurgitation, chronic systolic heart failure, and COPD home oxygen dependent as needed and continued tobacco use. He presented to the hospital on 07/20/22 with a chief complaint of worsening shortness of breath 3 days. Patient reported he had been experiencing worsening COPD exacerbations over the past 8 months and states that each time he runs out of his steroids he feels he again starts having trouble breathing. Patient reports this is another example as he ran out of steroids and the next day began experiencing worsening shortness of breath despite use of home nebulizers, inhalers, and home oxygen as needed. Patient does report continued tobacco use but also states he is trying to cut back. Patient underwent full evaluation in the emergency department. Chest x-ray revealing subsegmental atelectasis right lung base which is improved when compared to previous exam completed on 06/28/22. Patient seen and examined at bedside. CBC revealing normocytic normochromic anemia with hemoglobin of 12.1 and mild thrombocytopenia with platelet count of 138 (likely secondary to daily platelet aggregator use with Brilinta and aspirin). CMP showing no significant abnormalities. Troponin was 0.024. EKG showing sinus rhythm at 97 bpm with no significant T-wave or ST abnormalities showing no signs of acute ischemia. Covid PCR, influenza A, and influenza B were all negative. Patient was evaluated by pulmonology re commending patient follow-up in their office after completion of a prednisone taper and 10 day course of doxycycline. Cardiology and pulmonary clearing patient for follow-up in their office. Over 2 day hospitalization course, patient's condition significantly improved and he is stable for discharge home. Patient being discharged home on COPD Navigator program and a follow up outpatient with PCP in 1-2 days and with cardiology and pulmonology in one week. Patient was discharged home with prescriptions for prednisone taper, doxycycline, Pulmicort, Plavix, and aspirin. Vital signs reviewed and stable. General: Nontoxic, no distress and appears stated age. Derm: Skin warm and dry, normal coloration for ethnicity. Head: Atraumatic, normocephalic and symmetric. Eyes: EOMs intact, no lid lag, and anicteric sclera Mouth: no lip lesions, mucus membranes moist Cardiovascular: regular rate and rhythm with normal S1S2, no murmur, positive posterior tibial pulses bilaterally, and cap refill < 2 seconds. Lungs: Respirations even, regular, and unlabored on room air. Lungs CTA bilaterally, no rhonchi, no rales, no wheezing, and no accessory muscle usage. Abdominal: soft, nontender to palpation, no guarding, no appreciable organomegaly Ext: ROM intact. No gross muscle atrophy, no edema, no contractures Neuro: Speech clear, face symmetrical and CN II-XII grossly intact with no noted focal neuro deficits Psych: Alert and oriented to person, place, time, and situation. Appropriate and pleasant affect. A total of 39 minutes of time were spent preparing this complex discharge s elyse. Pt was discharged on 07/22/22 at 10:45 AM. Tushar Araujo NP rendered care for this patient independently, reviewed the findings and plan as documented in the note above. I did not physically speak with or examine the patient on this date. Patient Condition at Discharge: Stable Plan - Discharge Summary New Discharge Prescriptions: New predniSONE 0 mg PO DIRECTED 16 Days #40 tab Budesonide [Pulmicort] 1 mg INHALATION BID #60 ml Aspirin 81 mg PO DAILY 60 Days #60 tab Clopidogrel [Plavix] 75 mg PO DAILY 60 Days #60 tab Doxycycline [Vibramycin] 100 mg PO BID 16 Days #8 capsule Continue ALPRAZolam [Xanax] 1 mg PO TID PRN PRN Reason: Anxiety Furosemide [Lasix] 20 mg PO DAILY PRN PRN Reason: Edema Nitroglycerin Sl Tabs [Nitrostat] 0.4 mg SL Q5M PRN PRN Reason: Chest Pain Rosuvastatin Calcium [Crestor] 20 mg PO HS Tamsulosin [Flomax] 0.4 mg PO DAILY carvediloL [Coreg] 3.125 mg PO BID-W/MEALS 30 Days #60 tab Ipratropium-Albuterol Nebulize [Duoneb 0.5 mg-3 mg/3 ml Soln] 3 ml INHALATION RT-QID PRN #0 each PRN Reason: Shortness Of Breath Or Wheezing Ipratropium-Albuterol Nebulize [Duoneb 0.5 mg-3 mg/3 ml Soln] 3 ml INHALATION RT-QID 30 Days #90 each Furosemide [Lasix] 40 mg PO BID@0900,1600 30 Days #60 tab Budesonide [Pulmicort] 1 mg INHALATION RT-BID 30 Days #30 each INSULIN ASPART (NovoLOG) [NovoLOG (formulary)] See Protocol SQ ACHS lisinopriL [Zestril] 1.25 mg PO DAILY@1200 Discontinued Aspirin 325 mg PO DAILY Ticagrelor [Brilinta] 90 mg PO BID #90 tab Discharge Medication List ALPRAZolam [Xanax] 1 mg PO TID PRN 07/14/20 [History] Rosuvastatin Calcium [Crestor] 20 mg PO HS 06/02/22 [History] Tamsulosin [Flomax] 0.4 mg PO DAILY 06/02/22 [History] carvediloL [Coreg] 3.125 mg PO BID-W/MEALS 30 Days #60 tab 06/07/22 [Rx] Furosemide [Lasix] 20 mg PO DAILY PRN 06/28/22 [History] Budesonide [Pulmicort] 1 mg INHALATION RT-BID 30 Days #30 each 07/01/22 [Rx] Furosemide [Lasix] 40 mg PO BID@0900,1600 30 Days #60 tab 07/01/22 [Rx] Ipratropium-Albuterol Nebulize [Duoneb 0.5 mg-3 mg/3 ml Soln] 3 ml INHALATION RT-QID 30 Days #90 each 07/01/22 [Rx] Ipratropium-Albuterol Nebulize [Duoneb 0.5 mg-3 mg/3 ml Soln] 3 ml INHALATION RT-QID PRN #0 each 07/01/22 [Rx] INSULIN ASPART (NovoLOG) [NovoLOG (formulary)] See Protocol SQ ACHS 07/20/22 [History] Nitroglycerin Sl Tabs [Nitrostat] 0.4 mg SL Q5M PRN 07/20/22 [History] lisinopriL [Zestril] 1.25 mg PO DAILY@1200 07/20/22 [History] Aspirin 81 mg PO DAILY 60 Days #60 tab 07/22/22 [Rx] Budesonide [Pulmicort] 1 mg INHALATION BID #60 ml 07/22/22 [Rx] Clopidogrel [Plavix] 75 mg PO DAILY 60 Days #60 tab 07/22/22 [Rx] Doxycycline [Vibramycin] 100 mg PO BID 16 Days #8 capsule 07/22/22 [Rx] predniSONE 0 mg PO DIRECTED 16 Days #40 tab 07/22/22 [Rx] Follow up Appointment(s)/Referral(s): Mallory Mercado MD [STAFF PHYSICIAN] - 07/30/22 1:30 pm Chuy Elias MD [STAFF PHYSICIAN] - 07/24/22 11:00 am Radha Henry III, MD [Primary Care Provider] - 1-2 days Patient Instructions/Handouts: COPD (Chronic Obstructive Pulmonary Disease) (DC), Chronic Lung Disease and Infection Prevention (DC) Activity/Diet/Wound Care/Special Instructions: Activity: As tolerated. Take breaks as needed. Diet: Heart healthy and carb consistent diet. Avoid salts, or foods with hidden salts such as canned or boxed foods and frozen dinners. Extra salt makes your heart work harder and traps the fluid in your body for longer. Special Instructions: Take all of your medications as directed and remember to keep all of your doctor's appointments and follow-up as needed. Strongly recommend smoking cessation. Thank you for allowing us to participate in your care, it was truly a pleasure having you for our patient!!! Discharge Disposition: HOME SELF-CARE
--- NOTE | 2022-07-22 11:24 | P.PN ---
Subjective Progress Note Date: 07/22/22 This is a pleasant 66-year-old male with history of multivessel CAD status post stenting of the LAD, CT of the RCA, COPD, hyperlipidemia, hypertension, cardiomyopathy with EF 20-25%, moderate to severe mitral regurgitation, tobacco abuse who presents secondary to worsening shortness of breath. He states he has been having issues with shortness breath since December with numerous COPD exacerbations. Additionally had presented in May with mildly elevated troponins and had undergone stenting of the circumflex as well as angioplasty of the LAD. He had been placed on Brilinta following this. He does feel that any time he stops his steroids after weaning he gets more short of breath. He believes this was the case with stopping the steroids and then shortly thereafter started becoming short of breath. He has not noticed any clear correlation with starting the Brilinta. Denies any orthopnea or lower extremity edema. Has been taking the Lasix twice a day. He does feel somewhat lightheaded at times which she relates since starting the carvedilol. Denies any syncope. 07/22/2022 Patient was seen and examined resting comfortably in bed receiving a nebulizer treatment. He was switched from Brilinta to Plavix yesterday. He is receiving IV Solu-Medrol and DuoNeb. Overall he is feeling a bit better today. No signs are stable and he's afebrile. He's had no chest discomfort and says he overall feels much better since having his PCI. Denies any edema, palpitations, dizziness or lightheadedness. Objective - Vital Signs Vital signs: Vital Signs Temp 98.3 F 07/22/22 07:00 Pulse 82 07/22/22 08:14 Resp 16 07/22/22 07:00 BP 111/68 07/22/22 07:00 Pulse Ox 96 07/22/22 07:55 FiO2 Intake & Output 07/21/22 07/22/22 07/22/22 18:59 06:59 18:59 Intake Total 750 Output Total 670 Balance 80 Intake: Oral 750 Output: Urine 670 Other: Voiding Method Toilet Urinal # Voids 1 - Exam PHYSICAL EXAMINATION: HEENT: Head is atraumatic, normocephalic. Pupils equal, round. Neck is supple. There is no elevated jugular venous pressure. HEART EXAMINATION: Heart sounds regular, S1 and S2 normal. No murmur or gallop heard. CHEST EXAMINATION: Lungs reveal diminished air entry bilaterally with expiratory wheezing throughout. No chest wall tenderness is noted on palpation or with deep breathing. ABDOMEN: Soft, nontender. Bowel sounds are heard. No organomegaly noted. EXTREMITIES: 2+ peripheral pulses with no evidence of peripheral edema and no calf tenderness noted. NEUROLOGIC patient is awake, alert and oriented x3. . - Labs CBC & Chem 7: 07/21/22 04:22 07/21/22 04:22 Labs: Abnormal Lab Results - Last 24 Hours (Table) 07/21/22 07/21/22 07/21/22 Range/Units 09:30 11:30 17:08 POC Glucose (mg/dL) 277 H 288 H (70-110) mg/dL Urine Glucose (UA) 3+ H (Negative) Urine Ketones 1+ H (Negative) Uric Acid Crystals Many H (None) /hpf Hyaline Casts 4 H (0-2) /lpf Urine Mucus Rare H (None) /hpf 07/21/22 07/22/22 Range/Units 20:54 07:04 POC Glucose (mg/dL) 464 H 317 H (70-110) mg/dL Urine Glucose (UA) (Negative) Urine Ketones (Negative) Uric Acid Crystals (None) /hpf Hyaline Casts (0-2) /lpf Urine Mucus (None) /hpf Microbiology - Last 24 Hours (Table) 07/20/22 23:24 Blood Culture - Preliminary Blood No Growth after 24 hours 07/20/22 22:39 Blood Culture - Preliminary Blood No Growth after 24 hours Assessment and Plan Assessment: 1. Acute exacerbation of COPD 2. Chronic systolic heart failure, does not appear volume overloaded 3. CAD status post recent stenting of circumflex and angioplasty LAD 4. Ischemic cardiomyopathy EF 20-25% 5. Moderate to severe mitral regurgitation 6. Lightheaded episodes, may be related to severe cardiomyopathy 7. Tobacco abuse Plan: From cardiology is perspective patient's main presentation appears to be related to COPD. Medications were reviewed and we will continue the same. From our standpoint patient to be discharged home when okay with pulmonary and primary. 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 Patient was seen and examined.
== END 2022-07-22 12:07 | disposition home or self-care (01) ==
LOC: EC 18:22 → 6NMEDSUR 21:29
PROVIDERS: ADMIT Internal Medicine; ATTEND Internal Medicine
DX: J44.1 Chronic obstructive pulmonary disease with (acute) exacerbation (principal); J96.21 Acute and chronic respiratory failure with hypoxia; I25.10 Atherosclerotic heart disease of native coronary artery without angina pectoris; E78.5 Hyperlipidemia, unspecified; I25.2 Old myocardial infarction; F41.9 Anxiety disorder, unspecified; I25.5 Ischemic cardiomyopathy; I11.0 Hypertensive heart disease with heart failure; I50.22 Chronic systolic (congestive) heart failure; I34.0 Nonrheumatic mitral (valve) insufficiency; N40.0 Benign prostatic hyperplasia without lower urinary tract symptoms; M19.90 Unspecified osteoarthritis, unspecified site; E11.9 Type 2 diabetes mellitus without complications; F17.200 Nicotine dependence, unspecified, uncomplicated; Z95.5 Presence of coronary angioplasty implant and graft; Z86.73 Personal history of transient ischemic attack (TIA), and cerebral infarction without residual deficits; Z79.82 Long term (current) use of aspirin; Z79.899 Other long term (current) drug therapy; Z79.4 Long term (current) use of insulin; Z79.02 Long term (current) use of antithrombotics/antiplatelets; Z88.5 Allergy status to narcotic agent; Z99.81 Dependence on supplemental oxygen; Z20.822 Contact with and (suspected) exposure to COVID-19
CPT/HCPCS: 96361 ×3; 96372 ×3; 96376 ×3; 96365; 96374; 96375; 99285; 36415; 94640 ×5; 94760 ×2; 93005; 80053; 80048; 83735; 84484; 85025 ×2; 85610; 85730; 81001; 87040; 87502; 87635; 71046; G0378 ×3; J2920; J2930 ×3; J3475; J1885; J1644 ×3; 96366; 96367

== ENCOUNTER 2022-08-08 16:49 | Emergency (ER) | payer MEDICARE ==
[2022-08-08 17:39] VITALS: TEMP 98.4
[2022-08-08 17:45] LABS: Glucose,Whole Blood 154 mg/dL (70-110)
[2022-08-08] MEDS ORDERED: SODIUM CHLORIDE 0.9% 500 ML 500 ML IV STA (18:53)
[2022-08-08 18:54] LABS: Basophils # (A) 0.1 k/uL (0-0.2); Basophils % (A) 1 %; Eosinophils # (A) 0.2 k/uL (0-0.7); Eosinophils % (A) 2 %; HCT 43.5 % (39.0-53.0); HGB 14.2 gm/dL (13.0-17.5); Lymphocytes # (A) 1.7 k/uL (1.0-4.8); Lymphocytes % (A) 19 %; MCHC 32.6 g/dL (31.0-37.0); MCV 95.1 fL (80.0-100.0); Monocytes # (A) 0.6 k/uL (0-1.0); Monocytes % (A) 7 %; Neutrophils # (A) 6.4 k/uL (1.3-7.7); Neutrophils % (A) 70 %; RBC 4.58 m/uL (4.30-5.90); RDW 15.5 % (11.5-15.5); WBC 9.1 k/uL (3.8-10.6)
[2022-08-08 18:56] LABS: Platelet Count 198 k/uL (150-450)
[2022-08-08 19:02] LABS: Albumin 4.2 g/dL (3.5-5.0); Calcium 9.9 mg/dL (8.4-10.2); Potassium 4.8 mmol/L (3.5-5.1); Total Bilirubin 0.5 mg/dL (0.2-1.3); Total Protein 6.8 g/dL (6.3-8.2)
[2022-08-08] MEDS ORDERED: SODIUM CHLORIDE 0.9% 1,000 ML IV ONE (19:09)
--- NOTE | 2022-08-08 19:11 | ED ---
Dizziness HPI - General Chief Complaint: Dizziness Stated Complaint: Dr elkins for diabetic issues Time Seen by Provider: 08/08/22 18:53 Source: patient Mode of arrival: ambulatory Limitations: no limitations - History of Present Illness Initial Comments: This is a pleasant 66-year-old male with a history of type 2 diabetes mellitus with insulin control. Patient also has a history of hypertension and COPD. Patient states he feels like he is having some lightheadedness and feels a bit out of it. Patient has had some intermittent blurred vision. Patient states that his sugars have been quite labile. States that they have been as high as 450, then over 300 this morning and now 150 in triage. Patient denying any pain. Patient states he has been on several courses of oral steroids for COPD over the past few months. Patient just finished a 16 day taper yesterday. POSITIVE for lightheadedness, patient also states that he feels a bit out of it. No headache, no fever or chills, no changes in vision, no sore throat or d ifficulty with speech, no neck pain, no chest pain or shortness of breath, no abdominal pain, no nausea or vomiting, no changes in urination or bowel movements, no numbness or tingling, no extremity pain, no skin rashes or lesions. Past medical, surgical, social, and family history reviewed. - Related Data Home Medications Medication Instructions Recorded Confirmed ALPRAZolam [Xanax] 1 mg PO TID PRN 07/14/20 07/20/22 Rosuvastatin Calcium [Crestor] 20 mg PO HS 06/02/22 07/20/22 Tamsulosin [Flomax] 0.4 mg PO DAILY 06/02/22 07/20/22 Furosemide [Lasix] 20 mg PO DAILY PRN 06/28/22 07/20/22 INSULIN ASPART (NovoLOG) [NovoLOG See Protocol SQ ACHS 07/20/22 07/20/22 (formulary)] Nitroglycerin Sl Tabs [Nitrostat] 0.4 mg SL Q5M PRN 07/20/22 07/20/22 lisinopriL [Zestril] 1.25 mg PO DAILY@1200 07/20/22 07/20/22 Previous Rx's Medication Instructions Recorded carvediloL [Coreg] 3.125 mg PO BID-W/MEALS 30 Days 06/07/22 #60 tab Budesonide [Pulmicort] 1 mg INHALATION RT-BID 30 Days #30 07/01/22 each Furosemide [Lasix] 40 mg PO BID@0900,1600 30 Days #60 07/01/22 tab Ipratropium-Albuterol Nebulize 3 ml INHALATION RT-QID 30 Days #90 07/01/22 [Duoneb 0.5 mg-3 mg/3 ml Soln] each Ipratropium-Albuterol Nebulize 3 ml INHALATION RT-QID PRN #0 each 07/01/22 [Duoneb 0.5 mg-3 mg/3 ml Soln] Aspirin 81 mg PO DAILY 60 Days #60 tab 07/22/22 Budesonide [Pulmicort] 1 mg INHALATION BID #60 ml 07/22/22 Clopidogrel [Plavix] 75 mg PO DAILY 60 Days #60 tab 07/22/22 Doxycycline [Vibramycin] 100 mg PO BID 16 Days #8 capsule 07/22/22 predniSONE 0 mg PO DIRECTED 16 Days #40 tab 07/22/22 Allergies Allergy/AdvReac Type Severity Reaction Status Date / Time codeine Allergy Unknown Verified 08/08/22 17:39 Review of Systems ROS Statement: Those systems with pertinent positive or pertinent negative responses have been documented in the HPI. ROS Other: All systems not noted in ROS Statement are negative. 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 Hx shingles Rt inner ear 2008, wears hearing aids. BPH, ED, disc lumbar spine. SOB w/activity. AAA, Rt carotid stenosis. Abscessed tooth sev wks ago, completed AB Rx. Last Myocardial Infarction Date:: unknown History of Any Multi-Drug Resistant Organisms: None Reported Past Surgical History: Heart Catheterization, Heart Catheterization With Stent, Hernia Repair, Tonsillectomy Additional Past Surgical History / Comment(s): 2013 Cervical Fusion. Umb hernia , ing hernia. Heart cath 2011. Bilat Cataracts Past Anesthesia/Blood Transfusion Reactions: No Reported Reaction Date of Last Stent Placement:: 2022 Past Psychological History: Anxiety Smoking Status: Current every day smoker Past Alcohol Use History: Daily Past Drug Use History: None Reported - Past Family History Brother(s) Family Medical History: Cancer, Diabetes Mellitus Additional Family Medical History / Comment(s): leukemia, lung cancer; another brother had DM, gangrene General Exam - General Exam Comments Initial Comments: Pleasant 66-year-old male who appears to be in no significant distress. Patient was noted have a soft systolic blood pressure on triage vitals with a systolic b lood pressure of 91. Cranial nerves II through XII are intact. Patient is alert and oriented 4. No evidence of focal neurologic deficit. Limitations: no limitations General appearance: alert, in no apparent distress Head exam: Present: atraumatic, normocephalic, normal inspection Eye exam: Present: normal appearance, PERRL, EOMI. Absent: scleral icterus, conjunctival injection, periorbital swelling ENT exam: Present: normal exam, normal oropharynx, mucous membranes moist, normal external ear exam Neck exam: Present: normal inspection, full ROM. Absent: tenderness, meningismus, lymphadenopathy Respiratory exam: Present: normal lung sounds bilaterally. Absent: respiratory distress, wheezes, rales, rhonchi, stridor, chest wall tenderness, accessory muscle use, decreased breath sounds, prolonged expiratory Cardiovascular Exam: Present: regular rate, normal rhythm, normal heart sounds. Absent: systolic murmur, diastolic murmur, rubs, gallop, clicks GI/Abdominal exam: Present: soft, normal bowel sounds. Absent: distended, tenderness, guarding, rebound, rigid Extremities exam: Present: normal inspection, full ROM, normal capillary refill. Absent: tenderness, pedal edema, joint swelling, calf tenderness Back exam: Present: normal inspection Neurological exam: Present: alert, oriented X3, CN II-XII intact Psychiatric exam: Present: normal affect, normal mood Skin exam: Present: warm, dry, intact, normal color. Absent: rash Course Vital Signs 08/08/22 08/08/22 17:36 19:46 Temperature 98.4 F Pulse Rate 95 Pulse Rate [ 86 Sitting] Pulse Rate [ 91 Standing] Pulse Rate [ 85 Supine] Respiratory 18 16 Rate Blood Pressure 91/63 Blood Pressure 124/72 [Left Arm Sitting] Blood Pressure 128/77 [Left Arm Standing] Blood Pressure 123/77 [Left Arm Supine] O2 Sat by Pulse 98 Oximetry - Reevaluation(s) Reevaluation #1: 08/08/22 20:36 Medical record is reviewed Symptoms are improved here in the emergency department Patient is informed of results and questions answered Patient in no distress EKG Findings - EKG Comments: EKG Findings:: EKG done at 1830 and read by the attending physician reveals sinus rhythm with a rate of 90, normal intervals, nonspecific ST-T wave abnormalities, no evidence of ST elevation or significant ST depression. Normal axis. Normal QRS morphology. When compared to the previous study from 07/20/2022 there are no acute changes. Procedures - Smoking Cessation Time Spent Discussing Smoking Cessation w/Patient (Minutes): 3 Patient Acknowledges Need for Cessation: Yes Medical Decision Making - Medical Decision Making Patient does have a systolic blood pressure of 91 which does bring up the possibility of exogenous adrenal insufficiency. Patient has been on multiple courses of oral corticosteroids for COPD exacerbations, to include a 16 day taper which ended yesterday. Patient in no distress as I assessed him in the room. We'll order diagnostic workup and plan for reevaluation. The statics ordered. Visual reevaluated prior to discharge and is in no distress. I suspect patient's symptomology is related to the corticosteroid taper. Patient had watchers in the 150s here. Was essentially asymptomatic. Patient has Lantus at home which she is to start tomorrow per his primary care physician. Discussed the findings with the patient. Discussed treatment plan. Patient states he feels good enough to be discharged. The case was discussed in detail with ED attending physician. Presentation, findings, treatment plan discussed in detail. [facility] [place] Dr. Andrew - Lab Data Result diagrams: 08/08/22 16:40 08/08/22 16:40 Lab Results 08/08/22 08/08/22 08/08/22 Range/Units 16:40 16:40 16:40 WBC 9.1 (3.8-10.6) k/uL RBC 4.58 (4.30-5.90) m/uL Hgb 14.2 (13.0-17.5) gm/dL Hct 43.5 (39.0-53.0) % MCV 95.1 (80.0-100.0) fL MCH 31.0 (25.0-35.0) pg MCHC 32.6 (31.0-37.0) g/dL RDW 15.5 (11.5-15.5) % Plt Count 198 D (150-450) k/uL MPV 8.0 Neutrophils % 70 % Lymphocytes % 19 % Monocytes % 7 % Eosinophils % 2 % Basophils % 1 % Neutrophils # 6.4 (1.3-7.7) k/uL Lymphocytes # 1.7 (1.0-4.8) k/uL Monocytes # 0.6 (0-1.0) k/uL Eosinophils # 0.2 (0-0.7) k/uL Basophils # 0.1 (0-0.2) k/uL PT 10.1 (9.0-12.0) sec INR 0.9 (<1.2) Sodium 139 (137-145) mmol/L Potassium 4.8 (3.5-5.1) mmol/L Chloride 101 (98-107) mmol/L Carbon Dioxide 28 (22-30) mmol/L Anion Gap 10 mmol/L BUN 29 H (9-20) mg/dL Creatinine 1.11 (0.66-1.25) mg/dL Est GFR (CKD-EPI)AfAm 79 (>60 ml/min/1.73 sqM) Est GFR (CKD-EPI)NonAf 68 (>60 ml/min/1.73 sqM) Glucose 151 H (74-99) mg/dL POC Glucose (mg/dL) (70-110) mg/dL POC Glu [employer] Production [employer] ID Calcium 9.9 (8.4-10.2) mg/dL Magnesium (1.6-2.3) mg/dL Total Bilirubin 0.5 (0.2-1.3) mg/dL AST 18 (17-59) U/L ALT 17 (4-49) U/L Alkaline Phosphatase 86 (38-126) U/L Troponin I (0.000-0.034) ng/mL NT-Pro-B Natriuret Pep pg/mL Total Protein 6.8 (6.3-8.2) g/dL Albumin 4.2 (3.5-5.0) g/dL 08/08/22 08/08/22 08/08/22 Range/Units 17:44 19:18 19:18 WBC (3.8-10.6) k/uL RBC (4.30-5.90) m/uL Hgb (13.0-17.5) gm/dL Hct (39.0-53.0) % MCV (80.0-100.0) fL MCH (25.0-35.0) pg MCHC (31.0-37.0) g/dL RDW (11.5-15.5) % Plt Count (150-450) k/uL MPV Neutrophils % % Lymphocytes % % Monocytes % % Eosinophils % % Basophils % % Neutrophils # (1.3-7.7) k/uL Lymphocytes # (1.0-4.8) k/uL Monocytes # (0-1.0) k/uL Eosinophils # (0-0.7) k/uL Basophils # (0-0.2) k/uL PT (9.0-12.0) sec INR (<1.2) Sodium (137-145) mmol/L Potassium (3.5-5.1) mmol/L Chloride (98-107) mmol/L Carbon Dioxide (22-30) mmol/L Anion Gap mmol/L BUN (9-20) mg/dL Creatinine (0.66-1.25) mg/dL Est GFR (CKD-EPI)AfAm (>60 ml/min/1.73 sqM) Est GFR (CKD-EPI)NonAf (>60 ml/min/1.73 sqM) Glucose (74-99) mg/dL POC Glucose (mg/dL) 154 H (70-110) mg/dL POC Glu [employer] Production Manager ID Ambrose Ordaz Calcium (8.4-10.2) mg/dL Magnesium 2.1 (1.6-2.3) mg/dL Total Bilirubin (0.2-1.3) mg/dL AST (17-59) U/L ALT (4-49) U/L Alkaline Phosphatase (38-126) U/L Troponin I 0.021 (0.000-0.034) ng/mL NT-Pro-B Natriuret Pep pg/mL Total Protein (6.3-8.2) g/dL Albumin (3.5-5.0) g/dL 08/08/22 Range/Units 19:18 WBC (3.8-10.6) k/uL RBC (4.30-5.90) m/uL Hgb (13.0-17.5) gm/dL Hct (39.0-53.0) % MCV (80.0-100.0) fL MCH (25.0-35.0) pg MCHC (31.0-37.0) g/dL RDW (11.5-15.5) % Plt Count (150-450) k/uL MPV Neutrophils % % Lymphocytes % % Monocytes % % Eosinophils % % Basophils % % Neutrophils # (1.3-7.7) k/uL Lymphocytes # (1.0-4.8) k/uL Monocytes # (0-1.0) k/uL Eosinophils # (0-0.7) k/uL Basophils # (0-0.2) k/uL PT (9.0-12.0) sec INR (<1.2) Sodium (137-145) mmol/L Potassium (3.5-5.1) mmol/L Chloride (98-107) mmol/L Carbon Dioxide (22-30) mmol/L Anion Gap mmol/L BUN (9-20) mg/dL Creatinine (0.66-1.25) mg/dL Est GFR (CKD-EPI)AfAm (>60 ml/min/1.73 sqM) Est GFR (CKD-EPI)NonAf (>60 ml/min/1.73 sqM) Glucose (74-99) mg/dL POC Glucose (mg/dL) (70-110) mg/dL POC Glu [employer] Production Manager ID Calcium (8.4-10.2) mg/dL Magnesium (1.6-2.3) mg/dL Total Bilirubin (0.2-1.3) mg/dL AST (17-59) U/L ALT (4-49) U/L Alkaline Phosphatase (38-126) U/L Troponin I (0.000-0.034) ng/mL NT-Pro-B Natriuret Pep 1340 pg/mL Total Protein (6.3-8.2) g/dL Albumin (3.5-5.0) g/dL When compared to previous EKG there are: no significant change - Radiology Data Radiology results: report reviewed, image reviewed Chest x-ray shows evidence of atelectasis with chronic changes in the lower lobes. No evidence of acute infiltrate. at the bilateral breath sounds were normal. Awaiting radiology interpretation. Did review this with ED attending physician. Disposition Clinical Impression: Lightheadedness, Steroid-induced hyperglycemia, Cigarette smoker Disposition: HOME SELF-CARE Condition: Good Instructions (If sedation given, give patient instructions): Dizziness (ED), Diabetic Hyperglycemia (ED), How to Stop Smoking (ED) Additional Instructions: Follow-up with your regular physician as directed. Return to the ER immediately if any symptoms worsen, new symptoms arise, or any other problems develop. Start Lantus as directed by your primary care physician. Is patient prescribed a controlled substance at d/c from ED?: No Referrals: Radha Henry III, MD [Primary Care Provider] - 1-2 days Time of Disposition: 20:36
[2022-08-08 19:12] LABS: INR 0.9 (<1.2); Prothrombin Time 10.1 sec (9.0-12.0)
[2022-08-08 19:47] VITALS: RESP 16
[2022-08-08 20:56] VITALS: BP 110/66; PULSE 76
--- NOTE | 2022-08-08 21:14 | XR ---
EXAMINATION: XR chest 1V portable DATE AND TIME: 08/08/2022 7:34 PM CLINICAL INDICATION: PHH; chest pain TECHNIQUE: AP upright portable COMPARISON: 07/20/2022 FINDINGS: There are bibasilar ill-defined added opacities, right greater than left, which can correlate with a clinical diagnosis of basilar pneumonia. The finding, however, is nonspecific and could reflect parti al atelectasis. These bibasilar findings are more mildly prominent than the prior study. The mid and upper lung zones are well expanded and clear bilaterally. The pleural spaces are negative. The cardiac silhouette is not enlarged. The remainder of the mediastinal silhouette is unremarkable. The skeletal structures and soft tissues are negative for acute findings. IMPRESSION: Bibasilar partial airlessness pattern, right greater than left.
== END 2022-08-08 20:55 | disposition home or self-care (01) ==
LOC: EC 16:49
DX: R42 Dizziness and giddiness (principal); E09.65 Drug or chemical induced diabetes mellitus with hyperglycemia; F17.210 Nicotine dependence, cigarettes, uncomplicated; I25.10 Atherosclerotic heart disease of native coronary artery without angina pectoris; E78.5 Hyperlipidemia, unspecified; I10 Essential (primary) hypertension; M19.90 Unspecified osteoarthritis, unspecified site; I25.2 Old myocardial infarction; Z86.73 Personal history of transient ischemic attack (TIA), and cerebral infarction without residual deficits; Z88.5 Allergy status to narcotic agent; Z79.4 Long term (current) use of insulin; Z79.82 Long term (current) use of aspirin; Z79.899 Other long term (current) drug therapy
CPT/HCPCS: 36415; 71045; 80053; 83735; 83880; 84484; 85025; 85610; 93005; 96360; 99284

== ENCOUNTER 2023-06-16 17:44 | Emergency (ER) | payer MEDICARE ==
[2023-06-16 17:51] VITALS: TEMP 98.5
[2023-06-16 18:08] LABS: Glucose,Whole Blood 193 mg/dL (70-110)
[2023-06-16 18:17] LABS: Basophils % (A) 0 %; Eosinophils # (A) 0.2 k/uL (0-0.7); Eosinophils % (A) 2 %; HCT 39.9 % (39.0-53.0); HGB 12.5 gm/dL (13.0-17.5); Lymphocytes # (A) 1.3 k/uL (1.0-4.8); Lymphocytes % (A) 13 %; MCH 29.2 pg (25.0-35.0); MCHC 31.4 g/dL (31.0-37.0); MCV 92.9 fL (80.0-100.0); Mean Platelet Volume 8.7; Monocytes # (A) 0.6 k/uL (0-1.0); Monocytes % (A) 6 %; Neutrophils # (A) 7.8 k/uL (1.3-7.7); Neutrophils % (A) 78 %; Platelet Count 173 k/uL (150-450); RBC 4.29 m/uL (4.30-5.90); RDW 14.8 % (11.5-15.5); WBC 10.1 k/uL (3.8-10.6)
--- NOTE | 2023-06-16 18:21 | ED ---
Fall HPI - General Chief Complaint: Fall Stated Complaint: chest pain,head injury Time Seen by Provider: 06/16/23 17:55 Source: patient, RN notes reviewed, old records reviewed Mode of arrival: ambulatory Limitations: no limitations - History of Present Illness Initial Comments: This is a 67-year-old male to the ER for a fall. Patient of fall off a sca ffolding hitting his head on Plavix Coumadin. Patient has no current headache without loss of consciousness with family was concerned over her shortness of breath. Patient did land on the right side of his chest as well as complaining of some right-sided chest pain. With minimal SOB. Denies drugs or alcohol today. MD Complaint: fall -: hour(s) Fall From: from height (distance) When Fall Occurred: 1-[address] Fall Occurred: home Loss of Consciousness: none Prolonged Down Time?: no Symptoms Prior to Fall: none Location: head, chest Severity: moderate Severity scale (1-10): 6 Quality: stabbing Context: tripped/slipped Associated Symptoms: denies - Related Data Home Medications Medication Instructions Recorded Confirmed ALPRAZolam [Xanax] 1 mg PO TID PRN 07/14/20 07/20/22 Rosuvastatin Calcium [Crestor] 20 mg PO HS 06/02/22 07/20/22 Tamsulosin [Flomax] 0.4 mg PO DAILY 06/02/22 07/20/22 Furosemide [Lasix] 20 mg PO DAILY PRN 06/28/22 07/20/22 INSULIN ASPART (NovoLOG) [NovoLOG See Protocol SQ ACHS 07/20/22 07/20/22 (formulary)] Nitroglycerin Sl Tabs [Nitrostat] 0.4 mg SL Q5M PRN 07/20/22 07/20/22 lisinopriL [Zestril] 1.25 mg PO DAILY@1200 07/20/22 07/20/22 Previous Rx's Medication Instructions Recorded carvediloL [Coreg] 3.125 mg PO BID-W/MEALS 30 Days 06/07/22 #60 tab Budesonide [Pulmicort] 1 mg INHALATION RT-BID 30 Days #30 07/01/22 each Furosemide [Lasix] 40 mg PO BID@0900,1600 30 Days #60 07/01/22 tab Ipratropium-Albuterol Nebulize 3 ml INHALATION RT-QID 30 Days #90 07/01/22 [Duoneb 0.5 mg-3 mg/3 ml Soln] each Ipratropium-Albuterol Nebulize 3 ml INHALATION RT-QID PRN #0 each 07/01/22 [Duoneb 0.5 mg-3 mg/3 ml Soln] Aspirin 81 mg PO DAILY 60 Days #60 tab 07/22/22 Budesonide [Pulmicort] 1 mg INHALATION BID #60 ml 07/22/22 Clopidogrel [Plavix] 75 mg PO DAILY 60 Days #60 tab 07/22/22 Doxycycline [Vibramycin] 100 mg PO BID 16 Days #8 capsule 07/22/22 predniSONE 0 mg PO DIRECTED 16 Days #40 tab 07/22/22 Docusate Calcium 240 mg PO ONCE 7 Days #7 capsule 06/20/23 HYDROcodone/APAP 10-325MG [Cheraw 1 tab PO Q6HR PRN 5 Days #20 tab 06/20/23 10-325] Lidocaine 5% Patch [Lidoderm 5% 1 patch TOPICAL DAILY #7 patch 06/20/23 Patch] Allergies Allergy/AdvReac Type Severity Reaction Status Date / Time codeine Allergy Unknown Verified 06/20/23 14:08 Review of Systems ROS Statement: Those systems with pertinent positive or pertinent negative responses have been documented in the HPI. ROS Other: All systems not noted in ROS Statement are negative. 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 Hx shingles Rt inner ear 2008, wears hearing aids. BPH, ED, disc lumbar spine. SOB w/activity. AAA, Rt carotid stenosis. Abscessed tooth sev wks ago, completed AB Rx. Last Myocardial Infarction Date:: unknown History of Any Multi-Drug Resistant Organisms: None Reported Past Surgical History: Heart Catheterization, Heart Catheterization With Stent, Hernia Repair, Tonsillectomy Additional Past Surgical History / Comment(s): 2013 Cervical Fusion. Umb hernia, ing hernia. Heart cath 2011. Bilat Cataracts Past Anesthesia/Blood Transfusion Reactions: No Reported Reaction Date of Last Stent Placement:: 2021 Past Psychological History: Anxiety Smoking Status: Current every day smoker Past Alcohol Use History: Daily Past Drug Use History: None Reported - Past Family History Brother(s) Family Medical History: Cancer, Diabetes Mellitus Additional Family Medical History / Comment(s): leukemia, lung cancer; another brother had DM, gangrene General Exam Limitations: no limitations General appearance: alert, in no apparent distress Head exam: Present: normocephalic, normal inspection. Absent: atraumatic (Posterior occipital laceration) Eye exam: Present: normal appearance, PERRL, EOMI. Absent: scleral icterus, conjunctival injection, periorbital swelling ENT exam: Present: normal exam, mucous membranes moist Neck exam: Present: normal inspection. Absent: tenderness, meningismus, lymphadenopathy Respiratory exam: Present: normal lung sounds bilaterally. Absent: respiratory distress, wheezes, rales, rhonchi, stridor Cardiovascular Exam: Present: regular rate, normal rhythm, normal heart sounds. Absent: systolic murmur, diastolic murmur, rubs, gallop, clicks GI/Abdominal exam: Present: soft, normal bowel sounds. Absent: distended, tenderness, guarding, rebound, rigid Extremities exam: Present: normal inspection, full ROM, normal capillary refill. Absent: tenderness, pedal edema, joint swelling, calf tenderness Back exam: Present: normal inspection Neurological exam: Present: alert, oriented X3, CN II-XII intact Psychiatric exam: Present: normal affect, normal mood Skin exam: Present: warm, dry, intact, normal color. Absent: rash Course Vital Signs 06/16/23 06/16/23 17:47 20:21 Temperature 98.5 F Pulse Rate 84 77 Respiratory 16 18 Rate Blood Pressure 150/80 161/98 O2 Sat by Pulse 96 98 Oximetry - Reevaluation(s) Reevaluation #1: 06/17/23 00:33 Medical records reviewed Level II trauma paged in triage Reevaluation #2: 06/17/23 00:33 Patient symptoms are improved Reevaluation #3: 06/17/23 00:33 Patient informed results and questions answered Reevaluation #4: 06/16/23 19:57 Was pt. sent in by a medical professional or institution? @ -no Did you speak to anyone other than the patient for history? @ -no Did you review nursing and triage notes? @ -agree Were old charts reviewed? @ -yes Differential Diagnosis? @ -prior EKG interpreted by me (3pts min.)? @ -yes X-rays interpreted by me (1pt min.)? @ -yes CT interpreted by me (1pt min.)? @ -yes U/S interpreted by me (1pt. min.)? @ -no What testing was considered but not performed? (CT, X-rays, U/S, labs)? Why? @ -no What meds were considered but not given? Why? @ -no Did you discuss the management of the patient with other professionals? @ -no Did you reconcile home meds? @ -no Was smoking cessation discussed for >3mins.? @ -no Was critical care preformed (if so, how long)? @ -no Were there social determinants of health that impacted care today? How? (Homelessness, low income, unemployed, alcoholism, drug addiction, transportation, low edu. Level, literacy, decrease access to med. care, senior living, rehab)? @ -no Was there de-escalation of care discussed even if they declined? (Discuss DNR or withdrawal of care, Hospice)? @ -no What co-morbidities impacted this encounter? (DM, HTN, Smoking, COPD, CAD, Cancer, CVA, Hep., AIDS, mental health diagnosis, sleep apnea, morbid obesity)? @ -none Was patient admitted / discharged? @ -67 male to the emergency department for fall. Fall on blood thinners from height overall 4 feet. Patient did hit his head with no loss of consciousness does have had laceration which is repaired. Otherwise patient has no significant medical injury and can be discharged home Discharge Undiagnosed new problem with uncertain prognosis? @ -no Drug Therapy requiring intensive monitoring for toxicity (Heparin, Nitro, Insulin, Cardizem)? @ -no Were any procedures done? @ -no Diagnosis/symptom? @ -Fall, head injury Acute, or Chronic, or Acute on Chronic? @ -acute Uncomplicated (without systemic symptoms) or Complicated (systemic symptoms)? @ -complicated Side effects of treatment? @ -no Exacerbation, Progression, or Severe Exacerbation] @ -no Poses a threat to life or bodily function? @ -yes Medical Decision Making - Medical Decision Making 67 male to the emergency department for fall. Fall on blood thinners from height overall 4 feet. Patient did hit his head with no loss of consciousness does have had laceration which is repaired. Otherwise patient has no significant medical injury and can be discharged home - Lab Data Result diagrams: 06/16/23 18:11 06/16/23 18:11 Lab Results 06/16/23 06/16/23 06/16/23 Range/Units 18:07 18:11 18:11 WBC 10.1 (3.8-10.6) k/uL RBC 4.29 L (4.30-5.90) m/uL Hgb 12.5 L (13.0-17.5) gm/dL Hct 39.9 (39.0-53.0) % MCV 92.9 (80.0-100.0) fL MCH 29.2 (25.0-35.0) pg MCHC 31.4 (31.0-37.0) g/dL RDW 14.8 (11.5-15.5) % Plt Count 173 (150-450) k/uL MPV 8.7 Neutrophils % 78 % Lymphocytes % 13 % Monocytes % 6 % Eosinophils % 2 % Basophils % 0 % Neutrophils # 7.8 H (1.3-7.7) k/uL Lymphocytes # 1.3 (1.0-4.8) k/uL Monocytes # 0.6 (0-1.0) k/uL Eosinophils # 0.2 (0-0.7) k/uL Basophils # 0.0 (0-0.2) k/uL PT 10.5 (9.0-12.0) sec INR 1.0 (<1.2) APTT 23.0 (22.0-30.0) sec Sodium (137-145) mmol/L Potassium (3.5-5.1) mmol/L Chloride (98-107) mmol/L Carbon Dioxide (22-30) mmol/L Anion Gap mmol/L BUN (9-20) mg/dL Creatinine (0.66-1.25) mg/dL Est GFR (CKD-EPI)AfAm (>60 ml/min/1.73 sqM) Est GFR (CKD-EPI)NonAf (>60 ml/min/1.73 sqM) Glucose (74-99) mg/dL POC Glucose (mg/dL) 193 H (70-110) mg/dL POC Glu Chief Information Security Officer ID Pepito Guido Calcium (8.4-10.2) mg/dL Total Bilirubin (0.2-1.3) mg/dL AST (17-59) U/L ALT (4-49) U/L Alkaline Phosphatase (38-126) U/L Troponin I (0.000-0.034) ng/mL Total Protein (6.3-8.2) g/dL Albumin (3.5-5.0) g/dL Serum Alcohol mg/dL Blood Type Blood Type Recheck Bld Type Recheck Status Antibody Screen Spec Expiration Date 06/16/23 06/16/23 06/16/23 Range/Units 18:11 18:11 18:34 WBC (3.8-10.6) k/uL RBC (4.30-5.90) m/uL Hgb (13.0-17.5) gm/dL Hct (39.0-53.0) % MCV (80.0-100.0) fL MCH (25.0-35.0) pg MCHC (31.0-37.0) g/dL RDW (11.5-15.5) % Plt Count (150-450) k/uL MPV Neutrophils % % Lymphocytes % % Monocytes % % Eosinophils % % Basophils % % Neutrophils # (1.3-7.7) k/uL Lymphocytes # (1.0-4.8) k/uL Monocytes # (0-1.0) k/uL Eosinophils # (0-0.7) k/uL Basophils # (0-0.2) k/uL PT (9.0-12.0) sec INR (<1.2) APTT (22.0-30.0) sec Sodium 138 (137-145) mmol/L Potassium 4.1 (3.5-5.1) mmol/L Chloride 108 H (98-107) mmol/L Carbon Dioxide 21 L (22-30) mmol/L Anion Gap 9 mmol/L BUN 24 H (9-20) mg/dL Creatinine 1.21 (0.66-1.25) mg/dL Est GFR (CKD-EPI)AfAm 70 (>60 ml/min/1.73 sqM) Est GFR (CKD-EPI)NonAf 61 (>60 ml/min/1.73 sqM) Glucose 206 H (74-99) mg/dL POC Glucose (mg/dL) (70-110) mg/dL POC Glu Chief Information Security Officer ID Calcium 9.2 (8.4-10.2) mg/dL Total Bilirubin 0.5 (0.2-1.3) mg/dL AST 21 (17-59) U/L ALT 18 (4-49) U/L Alkaline Phosphatase 94 (38-126) U/L Troponin I <0.012 (0.000-0.034) ng/mL Total Protein 6.8 (6.3-8.2) g/dL Albumin 3.8 (3.5-5.0) g/dL Serum Alcohol <10 mg/dL Blood Type O Positive Blood Type Recheck O Pos Bld Type Recheck Status No Antibody Screen NEGATIVE Spec Expiration Date 06/19/20232333 - EKG Data -: EKG Interpreted by Me (EKG is rate of 85 QRS 109 QTC 434) - Radiology Data Radiology results: report reviewed (Chest x-ray pelvis x-ray and CT brain C- spine is negative for significant traumatic injury), image reviewed Disposition Clinical Impression: Fall, Chest pain, Chest wall contusion, Rib contusion, Head injury, Scalp laceration Disposition: HOME SELF-CARE Condition: Good Instructions (If sedation given, give patient instructions): Fall Prevention for Older Adults (ED), Head Injury (ED), Staple Care (ED) Is patient prescribed a controlled substance at d/c from ED?: No Referrals: Radha Henry III, MD [Primary Care Provider] - 1-2 days Time of Disposition: 19:55
[2023-06-16 18:27] LABS: ALT 18 U/L (4-49); AST 21 U/L (17-59); African American GFR (CKD) 70 (>60 ml/min/1.73 sqM); Albumin 3.8 g/dL (3.5-5.0); Alcohol <10 mg/dL; Alkaline Phosphatase 94 U/L (38-126); Anion Gap 9 mmol/L; Blood Urea Nitrogen 24 mg/dL (9-20); Calcium 9.2 mg/dL (8.4-10.2); Carbon Dioxide 21 mmol/L (22-30); Chloride 108 mmol/L (98-107); Glucose 206 mg/dL (74-99); Non-African American GFR(CKD) 61 (>60 ml/min/1.73 sqM); Potassium 4.1 mmol/L (3.5-5.1); Sodium 138 mmol/L (137-145); Total Bilirubin 0.5 mg/dL (0.2-1.3); Total Protein 6.8 g/dL (6.3-8.2)
[2023-06-16 18:31] LABS: Prothrombin Time 10.5 sec (9.0-12.0)
--- NOTE | 2023-06-16 18:45 | XR ---
EXAMINATION TYPE: XR chest 1V portable DATE OF EXAM: 06/16/2023 6:18 PM COMPARISON: Chest radiographs from 08/08/2022. TECHNIQUE: XR chest 1V portable Frontal view of the chest. CLINICAL INDICATION:Male, 67 years old with history of trauma; FINDINGS: Lungs/Pleura: There is no evidence of pleural effusion, focal consolidation, or pneumothorax. Pulmonary vascularity: Unremarkable. Heart/mediastinum: Cardiomediastinal silhouette is unremarkable. Atherosclerotic calcifications are seen in the aorta. Musculoskeletal: No acute osseous pathology. There is fixation hardware in the lower cervical spine. IMPRESSION: No acute cardiopulmonary disease/process.
--- NOTE | 2023-06-16 18:46 | XR ---
EXAMINATION TYPE: XR pelvis AP view DATE OF EXAM: 06/16/2023 6:19 PM INDICATION: Patient age:Male; 67 years old; Reason for study: Trauma; . COMPARISON: None TECHNIQUE: The pelvis was examined in a single projection. FINDINGS: There is no evidence of fracture or dislocation. There is no soft tissue abnormality. No a bnormal calcifications are present. The spine appears intact. IMPRESSION: No acute osseous pathology.
--- NOTE | 2023-06-16 18:50 | CT ---
EXAMINATION TYPE: CT brain cspine wo con CT DLP: 1453.8 mGycm, Automated exposure control for dose reduction was used. DATE OF EXAM: 06/16/2023 6:29 PM COMPARISON: None. CLINICAL INDICATION:Male, 67 years old with history of Injury; PAIN AFTER FALL A FEW FEET. LACERATION TO BACK OF HEAD TECHNIQUE: Brain: Multiple axial CT images of the brain were obtained without IV contrast. Cspine: Axial CT images from the skull base to the inferior aspect of T2 we obtained without intraven ous contrast. Coronal and sagittal reformatted images were also reviewed. FINDINGS: Brain: Extra-axial spaces: No abnormal extra-axial fluid collections. Ventricular system: Dilatation in proportion to cerebral atrophy. Cerebral parenchyma: Cerebral atrophy. No acute intraparenchymal hemorrhage or mass effect. The mota -white junction is well differentiated. Scattered hypoattenuating areas are seen within the white mat ter. Cerebellum: Unremarkable. Mass effect: No evidence of midline shift. Intracranial vasculature: Atherosclerotic calcifications of the intracranial vessels. Soft tissues: Normal. Calvarium/osseous structures: No depressed skull fracture. Paranasal sinuses and mastoid air cells: Jolanta bullosa bilaterally. Visualized orbits: Bilateral aphakia Cervical spine: Fracture: None. Osseous structures: Postsurgical changes to the C5-C6 and C7 levels. Hardware appears intact. Multile harpal degenerative disc disease changes with endplate spurring and disc osteophyte complex's. Vertebral alignment: Grade 1 anterolisthesis of C7 on T1. Spinal canal/Neural Foramina: Disc osteophyte complexes at C5-C7. With at least mild spinal canal glory nosis. No evidence for significant neural foraminal stenosis. Neck soft tissues: Prevertebral soft tissues are within normal limits. Other: The airway is patent. Calcification of the nuchal ligament. IMPRESSION: 1. No acute intracranial process. 2. Nonspecific white matter changes, likely secondary to chronic small vessel ischemic disease. 3. No evidence of cervical spine fracture. 4. Postsurgical changes to the cervical spine with hardware intact. 5. Mild multilevel degenerative disc disease. Grade 1 anterolisthesis of C7 on T1.
[2023-06-16] MEDS ORDERED: DIPH,PERTUS(ACELL)TETVAC-LF 0.5 ML VIAL IM ONE (18:54)
[2023-06-16] MEDS ORDERED: HYDROmorphone 1 MG/ML 1 ML SYRINGE IVP STA (18:54)
[2023-06-16 20:23] VITALS: BP 161/98; PULSE 77; RESP 18
== END 2023-06-16 20:22 | disposition home or self-care (01) ==
LOC: EC 17:44
DX: S20.219A Contusion of unspecified front wall of thorax, initial encounter (principal); S01.01XA Laceration without foreign body of scalp, initial encounter; I10 Essential (primary) hypertension; F41.9 Anxiety disorder, unspecified; E78.5 Hyperlipidemia, unspecified; I25.10 Atherosclerotic heart disease of native coronary artery without angina pectoris; I25.2 Old myocardial infarction; J44.9 Chronic obstructive pulmonary disease, unspecified; M19.90 Unspecified osteoarthritis, unspecified site; F17.200 Nicotine dependence, unspecified, uncomplicated; Z79.02 Long term (current) use of antithrombotics/antiplatelets; Z79.4 Long term (current) use of insulin; Z79.899 Other long term (current) drug therapy; Z88.5 Allergy status to narcotic agent; Z23 Encounter for immunization; W01.198A Fall on same level from slipping, tripping and stumbling with subsequent striking against other object, initial encounter
CPT/HCPCS: 36415; 93005; 86900; 86901; 80053; 84484; 85025; 85610; 85730; 86850; 72170; 71045; 72125; 70450; 90715; 99284; 96374; 90471; G0480; J1170; 80320

== ENCOUNTER 2023-09-03 13:21 | Observation (INO) | payer MEDICARE ==
[2023-09-03] MEDS ORDERED: IPRATROPIUM 0.5 MG/2.5 ML NEBU INHALATION STA (14:01)
[2023-09-03] MEDS ORDERED: methylPREDNISolone SOD SUCCI 125 MG/2 ML VIAL IV STA (14:01)
[2023-09-03] MEDS ORDERED: ALBUTEROL NEBULIZED 2.5 MG/3 ML INHALATION STA (14:01)
--- NOTE | 2023-09-03 14:11 | ED ---
General Adult HPI - General Chief complaint: Shortness of Breath Stated complaint: SOB Time Seen by Provider: 09/03/23 13:40 Source: patient, RN notes reviewed, old records reviewed Mode of arrival: ambulatory Limitations: no limitations - History of Present Illness Initial comments: This is a 67-year-old male who is a smoker and has COPD per patient states she also has congestive heart. Patient states he started having a sinus infection on Friday and it progressed and now is coughing quite a bit is very short of breath. Patient states he takes Lasix once a day he is supposed to take twice a day but he can't get up all night to go to the bathroom. Patient denies any swelling to the legs. Patient denies any chest pain or palpitations. Patient denies any fevers or chills. Patient denies any abdominal pain. - Related Data Home Medications Medication Instructions Recorded Confirmed ALPRAZolam [Xanax] 1 mg PO TID PRN 07/14/20 07/20/22 Rosuvastatin Calcium [Crestor] 20 mg PO HS 06/02/22 07/20/22 Tamsulosin [Flomax] 0.4 mg PO DAILY 06/02/22 07/20/22 Furosemide [Lasix] 20 mg PO DAILY PRN 06/28/22 07/20/22 INSULIN ASPART (NovoLOG) [NovoLOG See Protocol SQ ACHS 07/20/22 07/20/22 (formulary)] Nitroglycerin Sl Tabs [Nitrostat] 0.4 mg SL Q5M PRN 07/20/22 07/20/22 lisinopriL [Zestril] 1.25 mg PO DAILY@1200 07/20/22 07/20/22 Previous Rx's Medication Instructions Recorded carvediloL [Coreg] 3.125 mg PO BID-W/MEALS 30 Days 06/07/22 #60 tab Budesonide [Pulmicort] 1 mg INHALATION RT-BID 30 Days #30 07/01/22 each Furosemide [Lasix] 40 mg PO BID@0900,1600 30 Days #60 07/01/22 tab Ipratropium-Albuterol Nebulize 3 ml INHALATION RT-QID 30 Days #90 07/01/22 [Duoneb 0.5 mg-3 mg/3 ml Soln] each Ipratropium-Albuterol Nebulize 3 ml INHALATION RT-QID PRN #0 each 07/01/22 [Duoneb 0.5 mg-3 mg/3 ml Soln] Aspirin 81 mg PO DAILY 60 Days #60 tab 07/22/22 Budesonide [Pulmicort] 1 mg INHALATION BID #60 ml 07/22/22 Clopidogrel [Plavix] 75 mg PO DAILY 60 Days #60 tab 07/22/22 Doxycycline [Vibramycin] 100 mg PO BID 16 Days #8 capsule 07/22/22 predniSONE 0 mg PO DIRECTED 16 Days #40 tab 07/22/22 Docusate Calcium 240 mg PO ONCE 7 Days #7 capsule 06/20/23 HYDROcodone/APAP 10-325MG [[place] 1 tab PO Q6HR PRN 5 Days #20 tab 06/20/23 10-325] Lidocaine 5% Patch [Lidoderm 5% 1 patch TOPICAL DAILY #7 patch 06/20/23 Patch] Allergies Allergy/AdvReac Type Severity Reaction Status Date / Time codeine Allergy Unknown Verified 09/03/23 13:31 Review of Systems ROS Statement: Those systems with pertinent positive or pertinent negative responses have been documented in the HPI. ROS Other: All systems not noted in ROS Statement are negative. 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 Hx shingles Rt inner ear 2008, wears hearing aids. BPH, ED, disc lumbar spine. SOB w/activity. AAA, Rt carotid stenosis. Abscessed tooth sev wks ago, completed AB Rx. Last Myocardial Infarction Date:: unknown History of Any Multi-Drug Resistant Organisms: None Reported Past Surgical History: Heart Catheterization, Heart Catheterization With Stent, Hernia Repair, Tonsillectomy Additional Past Surgical History / Comment(s): 2013 Cervical Fusion. Umb hernia, ing hernia. Heart cath 2011. Bilat Cataracts Past Anesthesia/Blood Transfusion Reactions: No Reported Reaction Date of Last Stent Placement:: 2021 Past Psychological History: Anxiety Smoking Status: Current every day smoker Past Alcohol Use History: Daily Past Drug Use History: None Reported - Past Family History Brother(s) Family Medical History: Cancer, Diabetes Mellitus Additional Family Medical History / Comment(s): leukemia, lung cancer; another brother had DM, gangrene General Exam - General Exam Comments Initial Comments: GENERAL: Patient is well-developed and well-nourished. Patient is nontoxic and well- hydrated and is in milde distress. ENT: Neck is soft and supple. No significant lymphadenopathy is noted. Oropharynx is clear. Moist mucous membranes. Neck has full range of motion without eliciting any pain. EYES: The sclera were anicteric and conjunctiva were pink and moist. Extraocular movements were intact and pupils were equal round and reactive to light. Eyelids were unremarkable. PULMONARY: patient has rhonchi throughout. Patient is constantly coughing during the exam CARDIOVASCULAR: There is a regular rate and rhythm without any murmurs gallops or rubs. ABDOMEN: Soft and nontender with normal bowel sounds. SKIN: Skin is clear with no lesions or rashes and otherwise unremarkable. NEUROLOGIC: Patient is alert and oriented x3. Cranial nerves II through XII are grossly intact. Motor and sensory are also intact. minimal edema bilaterally MUSCULOSKELETAL: Normal extremities with adequate strength and full range of motion. No lower extremity swelling or edema. No calf tenderness. LYMPHATICS: No significant lymphadenopathy is noted PSYCHIATRIC: Normal psychiatric evaluation. Limitations: no limitations Course Vital Signs 09/03/23 09/03/23 09/03/23 13:29 13:44 15:03 Temperature 97.5 F L Pulse Rate 91 90 Respiratory 24 24 20 Rate Blood Pressure 98/63 107/70 O2 Sat by Pulse 92 L 92 L Oximetry Medical Decision Making - Medical Decision Making EKG shows sinus rhythm at 91 bpm UT interval 154 QRS is 99 Q-T intervals 370 QTC is 420. Patient's EKG shows T-wave ainversion in leads V4 V5 and V6 Was pt. sent in by a medical professional or institution (, PA, SR VICE PRESIDENT, urgent care, hospital, or penitentiary...) When possible be specific @ -[No] Did you speak to anyone other than the patient for history (EMS, parent, family, police, friend...)? What history was obtained from this source @ -[No] Did you review nursing and triage notes (agree or disagree)? Why? @ -[I reviewed and agree with nursing and triage notes] Were old charts reviewed (outside hosp., previous admission, EMS record, old EKG, old radiological studies, urgent care reports/EKG's, penitentiary records)? Report findings @ -I reviewed Prior charts prior lab working prior radiological studies on this patient Differential Diagnosis (chest pain, altered mental status, abdominal pain women, abdominal pain men, vaginal bleeding, weakness, fever, dyspnea, syncope, headache, dizziness, GI bleed, back pain, seizure, CVA, palpatations, mental health, musculoskeletal)? @ -Differential Dyspnea: Coronary syndrome, arrhythmia, tamponade, asthma, COPD, pulmonary embolism, pneumonia, pneumothorax, pulmonary effusion, anaphylaxis, diabetic ketoacidosis, flailed chest, pulmonary contusion, diaphragmatic rupture, anemia, neuromuscular, this is not meant to be an all-inclusive list. EKG interpreted by me (3pts min.). @ -[As above] X-rays interpreted by me (1pt min.). @ -The chest x-ray shows small pleural effusions with atelectasis in the bases CT interpreted by me (1pt min.). @ -[None done] U/S interpreted by me (1pt. min.). @ -[None done] What testing was considered but not performed or refused? (CT, X-rays, U/S, labs)? Why? @ -[None] What meds were considered but not given or refused? Why? @ -[None] Did you discuss the management of the patient with other professionals (professionals i.e. , PA, SR VICE PRESIDENT, lab, RT, psych nurse, social work lecturer, food bagging machine operator, teacher, motor equipment commanding officer, disability case manager)? Give summary @ -I spoke with some physicians and they agreed to admit the patient Was smoking cessation discussed for >3mins.? @ -[No] Was critical care preformed (if so, how long)? @ -[No] Were there social determinants of health that impacted care today? How? (Homelessness, low income, unemployed, alcoholism, drug addiction, transportation, low edu. Level, literacy, decrease access to med. care, fdc, rehab)? @ -[No] Was there de-escalation of care discussed even if they declined (Discuss DNR or withdrawal of care, Hospice)? DNR status @ -[No] What co-morbidities impacted this encounter? (DM, HTN, Smoking, COPD, CAD, Cancer, CVA, ARF, Chemo, Hep., AIDS, mental health diagnosis, sleep apnea, morbid obesity)? @ -[None] Was patient admitted / discharged? Hospital course, mention meds given and route, prescriptions, significant lab abnormalities, going to OR and other pertinent info. @ -Received multiple breathing treatments as well as steroids in the emergency department. Patient also received antibiotics and a dose of Lasix. I spoke with some physicians agreed to admit the patient and the patient I wrote ad mitting orders Undiagnosed new problem with uncertain prognosis? @ -[No] Drug Therapy requiring intensive monitoring for toxicity (Heparin, Nitro, Insulin, Cardizem)? @ -[No] Were any procedures done? @ -[No] Diagnosis/symptom? @ -COPD exacerbation Acute, or Chronic, or Acute on Chronic? @ -Acute Uncomplicated (without systemic symptoms) or Complicated (systemic symptoms)? @ -Complicated Side effects of treatment? @ -[No] Exacerbation, Progression, or Severe Exacerbation? @ -[No] Poses a threat to life or bodily function? How? (Chest pain, [place], [place], pneumonia, PE, COPD, DKA, ARF, appy, cholecystitis, CVA, Diverticulitis, Homicidal, Suicidal, threat to staff... and all critical care pts) @ -Yes this can lead to severe hypoxia and and organ dysfunction - Lab Data Result diagrams: 09/03/23 14:01 09/03/23 14:01 Lab Results 09/03/23 09/03/23 09/03/23 Range/Units 14:01 14:01 14:01 WBC 9.1 (3.8-10.6) k/uL RBC 4.73 (4.30-5.90) m/uL Hgb 13.7 (13.0-17.5) gm/dL Hct 42.6 (39.0-53.0) % MCV 90.1 (80.0-100.0) fL MCH 28.9 (25.0-35.0) pg MCHC 32.1 (31.0-37.0) g/dL RDW 13.4 (11.5-15.5) % Plt Count 215 (150-450) k/uL MPV 8.5 Neutrophils % 69 % Lymphocytes % 14 % Monocytes % 7 % Eosinophils % 8 % Basophils % 0 % Neutrophils # 6.3 (1.3-7.7) k/uL Lymphocytes # 1.3 (1.0-4.8) k/uL Monocytes # 0.6 (0-1.0) k/uL Eosinophils # 0.7 (0-0.7) k/uL Basophils # 0.0 (0-0.2) k/uL PT 10.5 (9.0-12.0) sec INR 1.0 (<1.2) APTT 25.0 (22.0-30.0) sec Sodium 138 (137-145) mmol/L Potassium 4.3 (3.5-5.1) mmol/L Chloride 100 (98-107) mmol/L Carbon Dioxide 25 (22-30) mmol/L Anion Gap 13 mmol/L BUN 27 H (9-20) mg/dL Creatinine 1.17 (0.66-1.25) mg/dL Est GFR (CKD-EPI)AfAm 73 (>60 ml/min/1.73 sqM) Est GFR (CKD-EPI)NonAf 63 (>60 ml/min/1.73 sqM) Glucose 147 H (74-99) mg/dL Plasma Lactic Acid Lion (0.7-2.0) mmol/L Calcium 9.2 (8.4-10.2) mg/dL Magnesium 2.0 (1.6-2.3) mg/dL Total Bilirubin 0.5 (0.2-1.3) mg/dL AST 19 (17-59) U/L ALT 15 (4-49) U/L Alkaline Phosphatase 153 H (38-126) U/L Troponin I (0.000-0.034) ng/mL NT-Pro-B Natriuret Pep 1390 pg/mL Total Protein 7.3 (6.3-8.2) g/dL Albumin 4.2 (3.5-5.0) g/dL 09/03/23 09/03/23 Range/Units 14:01 14:01 WBC (3.8-10.6) k/uL RBC (4.30-5.90) m/uL Hgb (13.0-17.5) gm/dL Hct (39.0-53.0) % MCV (80.0-100.0) fL MCH (25.0-35.0) pg MCHC (31.0-37.0) g/dL RDW (11.5-15.5) % Plt Count (150-450) k/uL MPV Neutrophils % % Lymphocytes % % Monocytes % % Eosinophils % % Basophils % % Neutrophils # (1.3-7.7) k/uL Lymphocytes # (1.0-4.8) k/uL Monocytes # (0-1.0) k/uL Eosinophils # (0-0.7) k/uL Basophils # (0-0.2) k/uL PT (9.0-12.0) sec INR (<1.2) APTT (22.0-30.0) sec Sodium (137-145) mmol/L Potassium (3.5-5.1) mmol/L Chloride (98-107) mmol/L Carbon Dioxide (22-30) mmol/L Anion Gap mmol/L BUN (9-20) mg/dL Creatinine (0.66-1.25) mg/dL Est GFR (CKD-EPI)AfAm (>60 ml/min/1.73 sqM) Est GFR (CKD-EPI)NonAf (>60 ml/min/1.73 sqM) Glucose (74-99) mg/dL Plasma Lactic Acid Lion 1.1 (0.7-2.0) mmol/L Calcium (8.4-10.2) mg/dL Magnesium (1.6-2.3) mg/dL Total Bilirubin (0.2-1.3) mg/dL AST (17-59) U/L ALT (4-49) U/L Alkaline Phosphatase (38-126) U/L Troponin I 0.021 (0.000-0.034) ng/mL NT-Pro-B Natriuret Pep pg/mL Total Protein (6.3-8.2) g/dL Albumin (3.5-5.0) g/dL Disposition Clinical Impression: COPD exacerbation Disposition: ADMITTED IP TO THIS HOSP Referrals: [facility],Clinic [Primary Care Provider] - 1-2 days Time of Disposition: 15:21
[2023-09-03 14:37] LABS: Basophils % (A) 0 %; Eosinophils # (A) 0.7 k/uL (0-0.7); Eosinophils % (A) 8 %; HCT 42.6 % (39.0-53.0); HGB 13.7 gm/dL (13.0-17.5); Lymphocytes # (A) 1.3 k/uL (1.0-4.8); Lymphocytes % (A) 14 %; MCH 28.9 pg (25.0-35.0); MCHC 32.1 g/dL (31.0-37.0); MCV 90.1 fL (80.0-100.0); Mean Platelet Volume 8.5; Monocytes # (A) 0.6 k/uL (0-1.0); Monocytes % (A) 7 %; Neutrophils # (A) 6.3 k/uL (1.3-7.7); Neutrophils % (A) 69 %; Platelet Count 215 k/uL (150-450); RBC 4.73 m/uL (4.30-5.90); RDW 13.4 % (11.5-15.5); WBC 9.1 k/uL (3.8-10.6)
[2023-09-03 14:45] LABS: Prothrombin Time 10.5 sec (9.0-12.0)
--- NOTE | 2023-09-03 14:46 | XR ---
EXAMINATION TYPE: XR chest 2V DATE OF EXAM: 09/03/2023 2:41 PM COMPARISON: Chest radiographs from TECHNIQUE: XR chest 2V Frontal and lateral views of the chest. CLINICAL INDICATION:Male, 67 years old with history of difficulty breathing; FINDINGS: Lungs/Pleura: Trace bilateral pleural effusions. No pneumothorax. Central perihilar hilar interstitia l opacities bilaterally. Pulmonary vascularity: Unremarkable. Heart/mediastinum: Cardiomediastinal silhouette is prominent in size. Musculoskeletal: Multiple level degenerative disc disease changes seen throughout the spine. Remote r ight-sided rib fractures. Cervical fusion hardware. IMPRESSION: Bibasilar patchy airspace opacities with trace bilateral pleural effusions concerning for pneumonia v ersus atelectasis.
[2023-09-03 14:52] LABS: ALT 15 U/L (4-49); AST 19 U/L (17-59); African American GFR (CKD) 73 (>60 ml/min/1.73 sqM); Albumin 4.2 g/dL (3.5-5.0); Alkaline Phosphatase 153 U/L (38-126); Anion Gap 13 mmol/L; Blood Urea Nitrogen 27 mg/dL (9-20); Calcium 9.2 mg/dL (8.4-10.2); Carbon Dioxide 25 mmol/L (22-30); Chloride 100 mmol/L (98-107); Glucose 147 mg/dL (74-99); Non-African American GFR(CKD) 63 (>60 ml/min/1.73 sqM); Potassium 4.3 mmol/L (3.5-5.1); Sodium 138 mmol/L (137-145); Total Bilirubin 0.5 mg/dL (0.2-1.3); Total Protein 7.3 g/dL (6.3-8.2)
[2023-09-03 14:59] LABS: NT-Pro-B-Type Natriuretic Pept 1390 pg/mL
[2023-09-03] MEDS ORDERED: NALOXONE 0.4 MG/ML 1 ML VIAL IVP PRN (15:22)
[2023-09-03] MEDS ORDERED: IPRATROPIUM-ALBUTEROL 3 ML NEB INHALATION PRN (15:22)
[2023-09-03] MEDS ORDERED: FUROSEMIDE 10 MG/ML 4 ML VIAL IV STA (15:23)
[2023-09-03] MEDS ORDERED: ALPRAZolam 1 MG TAB PO PRN (16:48)
[2023-09-03] MEDS ORDERED: DEXTROSE 50% SYRINGE 50 ML IVP PRN ×2 (16:54)
--- NOTE | 2023-09-03 16:56 | P.HPIM ---
History of Present Illness H&P Date: 09/03/23 Patient is a 67-year-old male with history of hypertension, dyslipidemia, CAD status post stent, systolic CHF, type 2 diabetes, COPD, nicotine dependence presenting with shortness of breath. He claims that he was doing well up until Friday when he started having some nasal congestion. He soon recovered from his upper respiratory infection but started developing shortness of breath over the last couple of days. He's been having increased wheezing, cough, sputum production. He has been using his albuterol inhaler more frequently without any relief. He denies any chest pain, palpitations, abdominal pain, urinary or bowel complaints. He does occasionally have constipation, he has been having nausea as well, no vomiting. In the ED, vital signs have been within normal limits, on room air. WBC 9.1, hemoglobin 13.7, potassium 4.3, creatinine 1.17, glucose 147, troponin 0.021, proBNP 1300 similar to prior. EKG independently interpreted shows normal sinus rhythm. Chest x-ray independently interpreted, no clear opacity noted. Patient given oral Augmentin, IV steroids, bronchodilators. Patient admitted for COPD exacerbation. Pertinent positives and negatives as discussed in HPI, a complete review of systems was performed and all other systems are negative. Patient seen and examined at bedside. Vital signs reviewed General: nontoxic, no distress, appears at stated age Derm: warm, dry Head: atraumatic, normocephalic, symmetric Eyes: EOMI, no lid lag, anicteric sclera, pupils equal round reactive to light ENT: Nose and ears atraumatic Neck: No thyromegaly, supple Mouth: no lip lesion, mucus membranes moist Cardiovascular: S1S2 reg, no murmur, no edema Lungs: Bilateral rhonchi, scattered wheezes and, no accessory muscle use Abdominal: soft, nontender to palpation, no guarding, no appreciable organomegaly Ext: no gross muscle atrophy, muscle strength muscle strength 5 out of 5 in all 4 extremities, no contractures Neuro: CN II-XII grossly intact Psych: Alert, oriented, appropriate affect Assessment/Plan: Active: Acute COPD exacerbation Upper respiratory infection Suspected community-acquired pneumonia -Continue scheduled and as needed bronchodilators, on IV steroids, switched to oral tomorrow if improving -On oral Augmentin -Pro calcitonin ordered Type 2 diabetes -Sliding scale insulin -Hold on metformin Nicotine dependence -Counseled regarding smoking cessation Chronic: CAD status post stent Systolic CHF, not in exacerbation Type 2 diabetes Hypertension Dyslipidemia The patient is admitted with an anticipated less than 2 midnight stay as observation status for evaluation of COPD exacerbation. Surrogate decision-maker: Daughter CODE STATUS: Full code DVT prophylaxis: Lovenox Anticipated discharge date: Pending clinical course Anticipated discharge place: Pending clinical course A total of 65 minutes was spent on the care of this complex patient more than 50% of the time was spent in counseling and care coordination. 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 Hx shingles Rt inner ear 2008, wears hearing aids. BPH, ED, disc lumbar spine. SOB w/activity. AAA, Rt carotid stenosis. Abscessed tooth sev wks ago, completed AB Rx. Last Myocardial Infarction Date:: unknown History of Any Multi-Drug Resistant Organisms: None Reported Past Surgical History: Heart Catheterization, Heart Catheterization With Stent, Hernia Repair, Tonsillectomy Additional Past Surgical History / Comment(s): 2013 Cervical Fusion. Umb hernia, ing hernia. Heart cath 2011. Bilat Cataracts Past Anesthesia/Blood Transfusion Reactions: No Reported Reaction Date of Last Stent Placement:: 2021 Past Psychological History: Anxiety Smoking Status: Current every day smoker Past Alcohol Use History: Daily Past Drug Use History: None Reported - Past Family History Brother(s) Family Medical History: Cancer, Diabetes Mellitus Additional Family Medical History / Comment(s): leukemia, lung cancer; another brother had DM, gangrene Medications and Allergies Home Medications Medication Instructions Recorded Confirmed Type ALPRAZolam [Xanax] 1 mg PO TID PRN 07/14/20 09/03/23 History Rosuvastatin Calcium [Crestor] 20 mg PO DAILY 06/02/22 09/03/23 History Tamsulosin [Flomax] 0.4 mg PO DAILY 06/02/22 09/03/23 History Clopidogrel [Plavix] 75 mg PO DAILY 60 Days #60 tab 07/22/22 09/03/23 Rx Aspirin EC [Ecotrin Low Dose] 81 mg PO DAILY 09/03/23 09/03/23 History Furosemide [Lasix] 40 mg PO DAILY 09/03/23 09/03/23 History Sacubitril/Valsartan [Entresto 24 1 tab PO BID 09/03/23 09/03/23 History mg-26 mg Tablet] Spironolactone [Aldactone] 25 mg PO DAILY 09/03/23 09/03/23 History carvediloL [Coreg] 6.25 mg PO BID 09/03/23 09/03/23 History metFORMIN HCL [Glucophage] 500 mg PO BID 09/03/23 09/03/23 History Allergies Allergy/AdvReac Type Severity Reaction Status Date / Time codeine Allergy Unknown Verified 09/03/23 16:12 Physical Exam Vitals: Vital Signs Temp Pulse Resp BP Pulse Ox 09/03/23 16:00 89 22 104/70 94 L 09/03/23 15:41 80 09/03/23 15:17 87 09/03/23 15:03 90 20 107/70 92 L 09/03/23 13:44 24 09/03/23 13:29 97.5 F L 91 24 98/63 92 L Intake and Output 09/03/23 09/03/23 09/03/23 06:59 14:59 22:59 Other: Weight 83.915 kg Results CBC & Chem 7: 09/03/23 14:01 09/03/23 14:01 Labs: Abnormal Lab Results - Last 24 Hours (Table) 09/03/23 Range/Units 14:01 BUN 27 H (9-20) mg/dL Glucose 147 H (74-99) mg/dL Alkaline Phosphatase 153 H (38-126) U/L
[2023-09-03] MEDS: IPRATROPIUM-ALBUTEROL 3 ML NEB INHALATION SCH ×2 (17:00→20:36)
[2023-09-03 17:28] LABS: Glucose,Whole Blood 132 mg/dL (70-110)
[2023-09-03] MEDS: INSULIN ASPART (NovoLOG) 100 UNIT/ML VIAL SQ SCH ×2 (17:32→20:53)
[2023-09-03] MEDS: carvediloL 6.25 MG TAB PO SCH (17:37)
[2023-09-03 20:46] LABS: Glucose,Whole Blood 322 mg/dL (70-110)
[2023-09-03] MEDS: AMOXIC-POT CLAV 875-125MG 1 EACH TAB PO SCH (20:53)
[2023-09-03] MEDS: SACUBITRIL/VALSARTAN 24 MG-26 MG TABLET PO SCH (20:53)
[2023-09-03] MEDS: methylPREDNISolone SOD SUCCI 125 MG/2 ML VIAL IV SCH (20:54)
[2023-09-04] MEDS: methylPREDNISolone SOD SUCCI 125 MG/2 ML VIAL IV SCH ×2 (03:10→08:23)
[2023-09-04] MEDS ORDERED: FUROSEMIDE 10 MG/ML 4 ML VIAL IV SCH (04:00)
[2023-09-04 06:17] LABS: Glucose,Whole Blood 294 mg/dL (70-110)
[2023-09-04] MEDS: INSULIN ASPART (NovoLOG) 100 UNIT/ML VIAL SQ SCH ×2 (06:34→13:19)
[2023-09-04] MEDS: carvediloL 6.25 MG TAB PO SCH (06:34)
[2023-09-04] MEDS: SACUBITRIL/VALSARTAN 24 MG-26 MG TABLET PO SCH (08:23)
[2023-09-04] MEDS: AMOXIC-POT CLAV 875-125MG 1 EACH TAB PO SCH (08:23)
[2023-09-04 08:29] VITALS: BP 127/74; RESP 18; TEMP 98
[2023-09-04] MEDS: IPRATROPIUM-ALBUTEROL 3 ML NEB INHALATION SCH ×2 (08:43→12:02)
[2023-09-04] MEDS ORDERED: ATORVASTATIN 40 MG TAB PO SCH (09:00)
[2023-09-04] MEDS ORDERED: CLOPIDOGREL 75 MG TAB PO SCH (09:00)
[2023-09-04] MEDS ORDERED: FUROSEMIDE 40 MG TAB PO SCH (09:00)
[2023-09-04] MEDS ORDERED: ASPIRIN 81 MG PO SCH (09:00)
[2023-09-04] MEDS ORDERED: TAMSULOSIN 0.4 MG CAP.ER.24H PO SCH (09:00)
[2023-09-04] MEDS ORDERED: SPIRONOLACTONE 25 MG TAB PO SCH (09:00)
[2023-09-04 12:09] VITALS: PULSE 80
[2023-09-04 13:01] LABS: Glucose,Whole Blood 303 mg/dL (70-110)
--- NOTE | 2023-09-04 13:43 | P.DS ---
Providers Date of admission: 09/03/23 15:23 Expected date of discharge: 09/04/23 Attending physician: Collin Rosales MD Primary care physician: [facility] Hospital Course: Discharge Diagnosis: Acute COPD exacerbation Upper respiratory infection community-acquired pneumonia Type 2 diabetes Nicotine dependence CAD status post stent Systolic CHF, not in exacerbation Type 2 diabetes Hypertension Dyslipidemia Hospital Course: 67-year-old male with history of hypertension, dyslipidemia, CAD status post stent, systolic CHF, type 2 diabetes, COPD, nicotine dependence presenting with shortness of breath. In the ED, vital signs have been within normal limits, on room air. WBC 9.1, hemoglobin 13.7, potassium 4.3, creatinine 1.17, glucose 147, troponin 0.021, proBNP 1300 similar to prior. EKG independently interpreted shows normal sinus rhythm. Chest x-ray independently interpreted, no clear opacity noted. Patient given oral Augmentin, IV steroids, bronchodilators. Patient admitted for COPD exacerbation. Patient remains on room air. SOB a little better. Will be discharged home on steroids and bronchodilators. Procalcitonin slightly elevated. Also being sent home on short course of augmentin. Patient to follow up with PCP and pulmonology. Patient seen and examined at bedside. Vital signs reviewed and stable. General: nontoxic, no distress, appears at stated age Derm: warm, dry Head: atraumatic, normocephalic, symmetric Eyes: EOMI, no lid lag, anicteric sclera Mouth: no lip lesion, mucus membranes moist Cardiovascular: S1S2 reg, no murmur Lungs: CTA bilateral, no rhonchi, no rales , no accessory muscle use Abdominal: soft, nontender to palpation, no guarding, no appreciable organomegaly Ext: no gross muscle atrophy, no edema, no contractures Neuro: CN II-XI grossly intact, no focal neuro deficits Psych: Alert, oriented, appropriate affect A total of 33 minutes of time were spent preparing this complex discharge summary. Patient was discharged on 09/04/23 at 1332. Patient Condition at Discharge: Stable Plan - Discharge Summary New Discharge Prescriptions: New Amoxic-Pot Clav 875-125Mg [Augmentin 875-125] 1 each PO Q12HR #12 tab predniSONE [Deltasone] 40 mg PO DAILY #8 tab Umeclidinium Brm/Vilanterol Tr [Anoro Ellipta 62.5-25 Mcg INH] 1 puff INHALATION DAILY #1 each Albuterol Inhaler [Ventolin Hfa Inhaler] 1 puff INHALATION QID PRN #8 gm PRN Reason: Shortness Of Breath Or Wheezing Continue ALPRAZolam [Xanax] 1 mg PO TID PRN PRN Reason: Anxiety Clopidogrel [Plavix] 75 mg PO DAILY 60 Days #60 tab Furosemide [Lasix] 40 mg PO DAILY Spironolactone [Aldactone] 25 mg PO DAILY Rosuvastatin Calcium [Crestor] 20 mg PO DAILY Tamsulosin [Flomax] 0.4 mg PO DAILY Aspirin EC [Ecotrin Low Dose] 81 mg PO DAILY carvediloL [Coreg] 6.25 mg PO BID Sacubitril/Valsartan [Entresto 24 mg-26 mg Tablet] 1 tab PO BID metFORMIN HCL [Glucophage] 500 mg PO BID #60 tab Discharge Medication List ALPRAZolam [Xanax] 1 mg PO TID PRN 07/14/20 [History] Rosuvastatin Calcium [Crestor] 20 mg PO DAILY 06/02/22 [History] Tamsulosin [Flomax] 0.4 mg PO DAILY 06/02/22 [History] Clopidogrel [Plavix] 75 mg PO DAILY 60 Days #60 tab 07/22/22 [Rx] Aspirin EC [Ecotrin Low Dose] 81 mg PO DAILY 09/03/23 [History] Furosemide [Lasix] 40 mg PO DAILY 09/03/23 [History] Sacubitril/Valsartan [Entresto 24 mg-26 mg Tablet] 1 tab PO BID 09/03/23 [History] Spironolactone [Aldactone] 25 mg PO DAILY 09/03/23 [History] carvediloL [Coreg] 6.25 mg PO BID 09/03/23 [History] Albuterol Inhaler [Ventolin Hfa Inhaler] 1 puff INHALATION QID PRN #8 gm 09/04/23 [Rx] Amoxic-Pot Clav 875-125Mg [Augmentin 875-125] 1 each PO Q12HR #12 tab 09/04/23 [Rx] Umeclidinium Brm/Vilanterol Tr [Anoro Ellipta 62.5-25 Mcg INH] 1 puff INHALATION DAILY #1 each 09/04/23 [Rx] metFORMIN HCL [Glucophage] 500 mg PO BID #60 tab 09/04/23 [Rx] predniSONE [Deltasone] 40 mg PO DAILY #8 tab 09/04/23 [Rx] Follow up Appointment(s)/Referral(s): [facility],Clinic [Primary Care Provider] - 1-2 days Patient Instructions/Handouts: COPD (Chronic Obstructive Pulmonary Disease) ([place]) Activity/Diet/Wound Care/Special Instructions: Please see your pcp and pulmonology. Discharge Disposition: HOME SELF-CARE
== END 2023-09-04 15:34 | disposition home or self-care (01) ==
LOC: EC 13:21 → SUPCPDRO 13:21 → 6NMEDSUR 15:23
PROVIDERS: ADMIT Student in an Organized Health Care Education/Training Program; ATTEND Student in an Organized Health Care Education/Training Program
DX: J44.1 Chronic obstructive pulmonary disease with (acute) exacerbation (principal); J44.0 Chronic obstructive pulmonary disease with (acute) lower respiratory infection; J18.9 Pneumonia, unspecified organism; I11.0 Hypertensive heart disease with heart failure; I50.22 Chronic systolic (congestive) heart failure; E11.9 Type 2 diabetes mellitus without complications; I25.10 Atherosclerotic heart disease of native coronary artery without angina pectoris; E78.5 Hyperlipidemia, unspecified; M19.90 Unspecified osteoarthritis, unspecified site; N40.0 Benign prostatic hyperplasia without lower urinary tract symptoms; N52.9 Male erectile dysfunction, unspecified; I71.40 Abdominal aortic aneurysm, without rupture, unspecified; I65.21 Occlusion and stenosis of right carotid artery; H91.90 Unspecified hearing loss, unspecified ear; K59.00 Constipation, unspecified; I25.2 Old myocardial infarction; F41.9 Anxiety disorder, unspecified; F17.200 Nicotine dependence, unspecified, uncomplicated; Z79.82 Long term (current) use of aspirin; Z79.02 Long term (current) use of antithrombotics/antiplatelets; Z79.84 Long term (current) use of oral hypoglycemic drugs; Z79.4 Long term (current) use of insulin; Z79.51 Long term (current) use of inhaled steroids; Z79.899 Other long term (current) drug therapy; Z88.5 Allergy status to narcotic agent; Z86.73 Personal history of transient ischemic attack (TIA), and cerebral infarction without residual deficits; Z97.4 Presence of external hearing-aid; Z86.19 Personal history of other infectious and parasitic diseases; Z95.5 Presence of coronary angioplasty implant and graft; Z98.1 Arthrodesis status; Z98.42 Cataract extraction status, left eye; Z98.41 Cataract extraction status, right eye; Z98.890 Other specified postprocedural states; Z71.6 Tobacco abuse counseling; Z83.3 Family history of diabetes mellitus; Z80.6 Family history of leukemia; Z80.1 Family history of malignant neoplasm of trachea, bronchus and lung
CPT/HCPCS: 96376 ×2; 96374; 99285; 36415; 94640 ×4; 93005; 83880; 80053; 83605; 83735; 84484; 85025; 85610; 85730; 87040; 83036; 84145; 71046; G0378 ×2; J2930 ×2

== ENCOUNTER → 2024-05-18 | Outpatient (CLI) | payer OTHER ==
--- NOTE | 2024-05-18 13:45 | CT ---
EXAMINATION TYPE: CT cervical spine wo con DATE OF EXAM: 05/18/2024 COMPARISON: 06/16/2023. HISTORY: cervicalgia CT DLP: 583.[address] of the cervical spine was performed with bone and soft tissue window settings submitted . Coronal and sagittal reconstruction is obtained. Postsurgical changes to the C5-C6 and C7 levels. Hardware appears intact. Multilevel degenerative dis c disease changes with endplate spurring and disc osteophyte complex's. Vertebral alignment: Grade 1 anterolisthesis of C7 on T1. Spinal canal/Neural Foramina: Disc osteophyte complexes at C5-C7. Modera te central stenosis at C5-6 and C7-T1. No evidence for significant neural foraminal stenosis. IMPRESSION: 1. Stable postoperative appearance at C5-6 and C6-7. 2. Central stenosis as noted.
== END | disposition home or self-care (01) ==
LOC: RADCTMAIN 13:12
PROVIDERS: ATTEND Family Medicine
DX: M48.02 Spinal stenosis, cervical region (principal)
CPT/HCPCS: 72125

== ENCOUNTER 2025-03-22 18:05 | Inpatient (IN) | payer OTHER, MEDICARE ==
--- NOTE | 2025-03-22 18:35 | ED ---
General Adult HPI - General Chief complaint: Chest Pain Stated complaint: chest pain, SABRINA Time Seen by Provider: 03/22/25 18:22 Source: patient, RN notes reviewed, old records reviewed Mode of arrival: ambulatory Limitations: no limitations - History of Present Illness Initial comments: 69-year-old male presenting for evaluation of dyspnea and chest pain. Symptoms began several hours prior to arrival. Patient has history of both COPD and CAD with multiple stenting. Pain does not radiate. No vomiting. Patient does report increased cough which is productive and worsening dyspnea. - Related Data Home Medications Medication Instructions Recorded Confirmed ALPRAZolam [Xanax] 1 mg PO TID PRN 07/14/20 09/03/23 Rosuvastatin Calcium [Crestor] 20 mg PO DAILY 06/02/22 09/03/23 Tamsulosin [Flomax] 0.4 mg PO DAILY 06/02/22 09/03/23 Aspirin EC [Ecotrin Low Dose] 81 mg PO DAILY 09/03/23 09/03/23 Furosemide [Lasix] 40 mg PO DAILY 09/03/23 09/03/23 Sacubitril/Valsartan [Entresto 24 1 tab PO BID 09/03/23 09/03/23 mg-26 mg Tablet] Spironolactone [Aldactone] 25 mg PO DAILY 09/03/23 09/03/23 carvediloL [Coreg] 6.25 mg PO BID 09/03/23 09/03/23 Previous Rx's Medication Instructions Recorded Clopidogrel [Plavix] 75 mg PO DAILY 60 Days #60 tab 07/22/22 Albuterol Inhaler [Ventolin Hfa 1 puff INHALATION QID PRN #8 gm 09/04/23 Inhaler] Amoxic-Pot Clav 875-125Mg 1 each PO Q12HR #12 tab 09/04/23 [Augmentin 875-125] Umeclidinium Brm/Vilanterol Tr 1 puff INHALATION DAILY #1 each 09/04/23 [Anoro Ellipta 62.5-25 Mcg INH] metFORMIN HCL [Glucophage] 500 mg PO BID #60 tab 09/04/23 predniSONE [Deltasone] 40 mg PO DAILY #8 tab 09/04/23 Allergies Allergy/AdvReac Type Severity Reaction Status Date / Time codeine Allergy Unknown Verified 09/03/23 16:12 Review of Systems ROS Statement: Those systems with pertinent positive or pertinent negative responses have been documented in the HPI. ROS Other: All systems not noted in ROS Statement are negative. 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 Hx shingles Rt inner ear 2008, wears hearing aids. BPH, ED, disc lumbar spine. SOB w/activity. AAA, Rt carotid stenosis. Abscessed tooth sev wks ago, completed AB Rx. Last Myocardial Infarction Date:: unknown History of Any Multi-Drug Resistant Organisms: None Reported Past Surgical History: Heart Catheterization, Heart Catheterization With Stent, Hernia Repair, Tonsillectomy Additional Past Surgical History / Comment(s): 2013 Cervical Fusion. Umb hernia, ing hernia. Heart cath 2011. Bilat Cataracts Past Anesthesia/Blood Transfusion Reactions: No Reported Reaction Date of Last Stent Placement:: 2021 Past Psychological History: Anxiety Smoking Status: Current every day smoker Past Alcohol Use History: Daily Past Drug Use History: None Reported - Past Family History Brother(s) Family Medical History: Cancer, Diabetes Mellitus Additional Family Medical History / Comment(s): leukemia, lung cancer; another brother had DM, gangrene General Exam Limitations: no limitations General appearance: alert, in distress Head exam: Present: atraumatic, normocephalic Eye exam: Present: normal appearance, PERRL ENT exam: Present: normal exam, mucous membranes moist Respiratory exam: Present: respiratory distress, wheezes, rales, decreased breath sounds Cardiovascular Exam: Present: normal rhythm, tachycardia GI/Abdominal exam: Present: soft. Absent: distended, tenderness Extremities exam: Present: normal inspection, normal capillary refill. Absent: pedal edema, calf tenderness Neurological exam: Present: alert, oriented X3, CN II-XII intact. Absent: motor sensory deficit Psychiatric exam: Present: anxious Skin exam: Present: warm, dry, intact Course Vital Signs 03/22/25 18:06 Temperature 97.5 F L Pulse Rate 122 H Respiratory 18 Rate Blood Pressure 175/96 O2 Sat by Pulse 94 L Oximetry Medical Decision Making - Medical Decision Making Was pt. sent in by a medical professional or institution (MARIUM Gomez, FIELD COLLECTOR, urgent care, hospital, or penitentiary...) When possible be specific @ -No Did you speak to anyone other than the patient for history (EMS, parent, family, police, friend...)? What history was obtained from this source @ -No Did you review nursing and triage notes (agree or disagree)? Why? @ -I reviewed and agree with nursing and triage notes Were old charts reviewed (outside hosp., previous admission, EMS record, old EKG, old radiological studies, urgent care reports/EKG's, penitentiary records)? Report findings @ -No old charts were reviewed Differential Dyspnea: Coronary syndrome, arrhythmia, tamponade, asthma, COPD, pulmonary embolism, pneumonia, pneumothorax, pulmonary effusion, anaphylaxis, diabetic ketoacidosis, flailed chest, pulmonary contusion, diaphragmatic rupture, anemia, neuromuscular, this is not meant to be an all-inclusive list. EKG interpreted by me (3pts min.). @ -Sinus tach 125, NC interval 125, QRS duration 114, QTc 404 X-rays interpreted by me (1pt min.). @Chest x-ray consistent with acute CHF CT interpreted by me (1pt min.). @ -None done U/S interpreted by me (1pt. min.). @ -None done What testing was considered but not performed or refused? (CT, X-rays, U/S, labs)? Why? @ -None What meds were considered but not given or refused? Why? @ -None Did you discuss the management of the patient with other professionals (professionals i.e. MARIUM Gomez, FIELD COLLECTOR, lab, RT, psych nurse, addiction social worker, buyer broker, teacher, operations officer, complex case manager)? Give summary @Case discussed with cardiology Dr. Lorenzana regarding EKG changes, no ST segment elevation. patient admitted to [facility] with cardiology on consult. Was smoking cessation discussed for >3mins.? @ -No Was critical care preformed (if so, how long)? @ -[Yes, 35 minutes Were there social determinants of health that impacted care today? How? (Homelessness, low income, unemployed, alcoholism, drug addiction, transportation, low edu. Level, literacy, decrease access to med. care, half-way, rehab)? @ -No Was there de-escalation of care discussed even if they declined (Discuss DNR or withdrawal of care, Hospice)? DNR status @ -No What co-morbidities impacted this encounter? (DM, HTN, Smoking, COPD, CAD, Cancer, CVA, ARF, Chemo, Hep., AIDS, mental health diagnosis, sleep apnea, morbid obesity)? @ -CAD, COPD, heart failure Was patient admitted / discharged? Hospital course, mention meds given and route, prescriptions, significant lab abnormalities, going to OR and other pertinent info. @ -69-year-old male presenting with dyspnea, central chest pain for the past several hours. Patient has history of CAD and COPD. He is wheezing with rales on lung auscultation. He is mildly tachycardic. Patient is complaining of substernal chest pain. Workup reveals acute CHF and non-ST segment elevated ME with an elevated troponin and elevated BNP. Patient is given aspirin, nitroglycerin, started on heparin, given Lipitor. He is admitted to internal medicine with cardiology on consult. Undiagnosed new problem with uncertain prognosis? @ -No Drug Therapy requiring intensive monitoring for toxicity (Heparin, Nitro, Insulin, Cardizem)? @ -No Were any procedures done? @ -No Diagnosis/symptom? @NSTEMI, CHF Acute, or Chronic, or Acute on Chronic? @Acute Uncomplicated (without systemic symptoms) or Complicated (systemic symptoms)? @ -Default Side effects of treatment? @ -No Exacerbation, Progression, or Severe Exacerbation? @ -No Poses a threat to life or bodily function? How? (Chest pain, USA, ME, pneumonia, PE, COPD, DKA, ARF, appy, cholecystitis, CVA, Diverticulitis, Homicidal, Suicidal, threat to staff... and all critical care pts) @ Yes, ACS, cardiogenic shock, heart failure - Lab Data Result diagrams: 03/22/25 18:34 03/22/25 18:34 Lab Results 03/22/25 03/22/25 03/22/25 Range/Units 18:34 18:34 18:34 WBC 12.52 H (4.50-10.00) 10*3/uL RBC 5.07 (4.40-5.60) 10*6/uL Hgb 14.3 (13.0-17.0) g/dL Hct 44.4 (39.6-50.0) % MCV 87.6 (80.0-97.0) fL MCH 28.2 (27.0-32.0) pg MCHC 32.2 (32.0-37.0) g/dL Plt Count 185 (140-440) 10*3/uL MPV 10.8 (9.5-12.2) fL Immature Gran % (Auto) 0.5 % Neutrophils % 84.9 % Lymphocytes % 7.8 % Monocytes % 6.1 % Eosinophils % 0.2 % Basophils % 0.5 % Immature Gran # 0.06 H (0.00-0.04) 10*3/uL Neutrophils # 10.64 H (1.80-7.70) 10*3/uL Lymphocytes # 0.98 (0.90-5.00) 10*3/uL Monocytes # 0.76 (0.20-1.00) 10*3/uL Eosinophils # 0.02 L (0.04-0.35) 10*3/uL Basophils # 0.06 (0.00-0.10) 10*3/uL PT 11.3 (10.0-12.5) sec INR 1.0 (<1.2) APTT 22.5 (22.0-30.0) sec Sodium 137 (137-145) mmol/L Potassium 4.4 (3.5-5.1) mmol/L Chloride 100 (98-107) mmol/L Carbon Dioxide 25 (22-30) mmol/L Anion Gap 12 mmol/L BUN 20 (9-20) mg/dL Creatinine 1.34 H (0.66-1.25) mg/dL Est GFR (CKD-EPI)AfAm 62 (>60 ml/min/1.73 sqM) Est GFR (CKD-EPI)NonAf 53 (>60 ml/min/1.73 sqM) Glucose 331 H (74-99) mg/dL Calcium 9.0 (8.4-10.2) mg/dL Magnesium 1.8 (1.6-2.3) mg/dL Total Bilirubin 0.5 (0.2-1.3) mg/dL AST 63 H (17-59) U/L ALT 15 (4-49) U/L Alkaline Phosphatase 128 H (38-126) U/L Troponin I (0.000-0.034) ng/mL NT-Pro-B Natriuret Pep 9120 pg/mL Total Protein 7.2 (6.3-8.2) g/dL Albumin 4.1 (3.5-5.0) g/dL 03/22/25 Range/Units 18:34 WBC (4.50-10.00) 10*3/uL RBC (4.40-5.60) 10*6/uL Hgb (13.0-17.0) g/dL Hct (39.6-50.0) % MCV (80.0-97.0) fL MCH (27.0-32.0) pg MCHC (32.0-37.0) g/dL Plt Count (140-440) 10*3/uL MPV (9.5-12.2) fL Immature Gran % (Auto) % Neutrophils % % Lymphocytes % % Monocytes % % Eosinophils % % Basophils % % Immature Gran # (0.00-0.04) 10*3/uL Neutrophils # (1.80-7.70) 10*3/uL Lymphocytes # (0.90-5.00) 10*3/uL Monocytes # (0.20-1.00) 10*3/uL Eosinophils # (0.04-0.35) 10*3/uL Basophils # (0.00-0.10) 10*3/uL PT (10.0-12.5) sec INR (<1.2) APTT (22.0-30.0) sec Sodium (137-145) mmol/L Potassium (3.5-5.1) mmol/L Chloride (98-107) mmol/L Carbon Dioxide (22-30) mmol/L Anion Gap mmol/L BUN (9-20) mg/dL Creatinine (0.66-1.25) mg/dL Est GFR (CKD-EPI)AfAm (>60 ml/min/1.73 sqM) Est GFR (CKD-EPI)NonAf (>60 ml/min/1.73 sqM) Glucose (74-99) mg/dL Calcium (8.4-10.2) mg/dL Magnesium (1.6-2.3) mg/dL Total Bilirubin (0.2-1.3) mg/dL AST (17-59) U/L ALT (4-49) U/L Alkaline Phosphatase (38-126) U/L Troponin I 3.670 H* (0.000-0.034) ng/mL NT-Pro-B Natriuret Pep pg/mL Total Protein (6.3-8.2) g/dL Albumin (3.5-5.0) g/dL Critical Care Time Critical Care Time: Yes Total Critical Care Time: 35 Disposition Clinical Impression: Acute non-ST elevation myocardial infarction (NSTEMI), Tobacco abuse, CHF (congestive heart failure) Disposition: ADMITTED IP TO THIS HOSP Condition: Stable Is patient prescribed a controlled substance at d/c from ED?: No Referrals: Blayne Curry DO [Primary Care Provider] - 1-2 days Time of Disposition: 19:31
[2025-03-22 18:40] LABS: Basophils # (A) 0.06 10*3/uL (0.00-0.10); Basophils % (A) 0.5 %; Eosinophils # (A) 0.02 10*3/uL (0.04-0.35); Eosinophils % (A) 0.2 %; HCT 44.4 % (39.6-50.0); HGB 14.3 g/dL (13.0-17.0); Lymphocytes # (A) 0.98 10*3/uL (0.90-5.00); Lymphocytes % (A) 7.8 %; MCH 28.2 pg (27.0-32.0); MCHC 32.2 g/dL (32.0-37.0); MCV 87.6 fL (80.0-97.0); Mean Platelet Volume 10.8 fL (9.5-12.2); Monocytes # (A) 0.76 10*3/uL (0.20-1.00); Monocytes % (A) 6.1 %; Neutrophils # (A) 10.64 10*3/uL (1.80-7.70); Neutrophils % (A) 84.9 %; Platelet Count 185 10*3/uL (140-440); RBC 5.07 10*6/uL (4.40-5.60); RDW 13.8 % (11.5-14.5); WBC 12.52 10*3/uL (4.50-10.00)
[2025-03-22] MEDS: methylPREDNISolone SOD SUCCI 125 MG/2 ML VIAL IV STA (18:42)
[2025-03-22 18:50] LABS: ALT 15 U/L (4-49); AST 63 U/L (17-59); African American GFR (CKD) 62 (>60 ml/min/1.73 sqM); Albumin 4.1 g/dL (3.5-5.0); Alkaline Phosphatase 128 U/L (38-126); Anion Gap 12 mmol/L; Blood Urea Nitrogen 20 mg/dL (9-20); Carbon Dioxide 25 mmol/L (22-30); Chloride 100 mmol/L (98-107); Glucose 331 mg/dL (74-99); Magnesium 1.8 mg/dL (1.6-2.3); Non-African American GFR(CKD) 53 (>60 ml/min/1.73 sqM); Potassium 4.4 mmol/L (3.5-5.1); Sodium 137 mmol/L (137-145); Total Bilirubin 0.5 mg/dL (0.2-1.3); Total Protein 7.2 g/dL (6.3-8.2)
[2025-03-22] MEDS: ASPIRIN 325 MG TAB PO STA (18:50)
--- NOTE | 2025-03-22 18:51 | XR ---
EXAMINATION TYPE: XR chest 1V portable DATE OF EXAM: 03/22/2025 6:42 PM COMPARISON: 09/03/2023 CLINICAL INDICATION: Male, 69 years old with history of chest pain, TECHNIQUE: XR chest 1V portable view(s) obtained. FINDINGS: The heart size is normal. The pulmonary vasculature is prominent. There may be mild increased lung markings. IMPRESSION: 1. Clinical correlation for overload or early congestive heart failure. [facility], , 03/22/2025 6:49 PM
[2025-03-22 18:56] LABS: Partial Thromboplastin Time 22.5 sec (22.0-30.0); Prothrombin Time 11.3 sec (10.0-12.5)
[2025-03-22 18:59] LABS: NT-Pro-B-Type Natriuretic Pept 9120 pg/mL
[2025-03-22] MEDS ORDERED: MORPHINE SULFATE 2 MG/ML SYRINGE IVP PRN (19:24)
[2025-03-22] MEDS: HEPARIN SODIUM 1,000 UN/ML (10ML VL) IV ONE (19:25)
[2025-03-22] MEDS: HEPARIN SOD,PORK IN 0.45% NACL 25,000 UNIT in 0.45% NACL 1 250ML.BAG IV SCH (19:26)
[2025-03-22] MEDS: MORPHINE SULFATE 2 MG/ML SYRINGE IVP STA (19:33)
[2025-03-22] MEDS: NITROGLYCERIN OINT 1 INCH/GM PACKET TOPICAL STA (19:36)
[2025-03-22] MEDS: FUROSEMIDE 10 MG/ML 4 ML VIAL IV STA (19:37)
[2025-03-22] MEDS: ATORVASTATIN 80 MG TAB PO SCH (19:40)
[2025-03-22] MEDS: ALBUTEROL NEBULIZED 2.5 MG/3 ML INHALATION STA (19:45)
[2025-03-22] MEDS: IPRATROPIUM-ALBUTEROL 3 ML NEB INHALATION STA (19:45)
[2025-03-22] MEDS ORDERED: DEXTROSE 50% SYRINGE 50 ML IVP PRN ×2 (20:06)
[2025-03-22 21:59] LABS: Glucose,Whole Blood 309 mg/dL (70-110)
[2025-03-22] MEDS: METOPROLOL TARTRATE 25 MG TAB PO SCH (22:13)
[2025-03-22] MEDS: INSULIN LISPRO (HumaLOG) 100 UNIT/ML 10 mL VL SQ SCH (22:14)
[2025-03-22] MEDS: ALPRAZolam 1 MG TAB PO STA (23:26)
[2025-03-22] MEDS: NITROGLYCERIN-D5W PMX 50 MG in DEXTROSE/WATER 1 250ML.BAG IV SCH (23:30)
[2025-03-22 23:31] LABS: Glucose,Whole Blood 329 mg/dL (70-110)
--- NOTE | 2025-03-22 23:39 | P.HPIM ---
History of Present Illness H&P Date: 03/22/25 Patient is a 69-year-old male with CAD (stent placement x 3), COPD (on home oxygen but noncompliant), CHF (EF of 30% on May 2022), hypertension, hyperlipidemia, osteoarthritis, BPH, anxiety history of CVA and right carotid stenosis and current daily smoker here for evaluation of chest pain. Today at around 2 PM, patient was in his car running errands when he suddenly had chest pressure that was midsternal with radiation to the epigastric area with an intensity of 8 out of 10 that was constant that is worse with lying down and exertion and relieved with leaning forward or sitting up. He also had associated difficulty of breathing that was nonpleuritic. He attempted to use his albuterol inhaler but it did not improve his symptoms. He denied palpitations, extremity swelling, focal weakness, facial asymmetry, vision changes, recent illness or hospitalization. On admission: Vitals: 97.5 Fahrenheit, pulse rate 122, respiratory rate 18, blood pressure 175/96, O2 saturation 94% on 2 L nasal cannula Labs: WBC 12.52, hemoglobin 14.3, platelet count 1 85,000, sodium 137, potassium 4.4, BUN 20, creatinine 1.34, glucose 331, magnesium 1.8, calcium 9. Troponin was elevated at 3.67, proBNP 9120. Liver enzymes showed AST 63, ALT 15 and alk phos 128.. Imaging: Chest x-ray showed pulmonary vasculature was prominent and increased mild lung markings for clinical correlation of volume overload. EKG showed sinus tachycardia with a rate of [address] changes, good R wave progression, QTc 404 MS. ED documentation reviewed. Heparin drip, aspirin, high intensity statin, IV Lasix initiated in the ED. Given one-time dose of IV Solu-Medrol, DuoNeb and morphine in the ED. Review of systems: Pertinent positives and negatives as discussed in HPI, a complete review of systems was performed and all other systems are negative. Social history: Tobacco: Current daily smoker. Smokes 1 pack a day for 66 years Alcohol: Former heavy alcohol intake. Quit in 2018 Recreational drugs: History of methamphetamine use Travel: No recent prolonged travel Physical examination: Vital signs reviewed General: non toxic, no distress, appears at stated age, on nasal cannula Derm: no unusual rashes/lesions, warm Head: atraumatic, normocephalic, symmetric Eyes: EOMI, anicteric sclera, pupils equal round reactive to light ENT: Nose and ears atraumatic Neck: No cervical lymphadenopathy, trachea midline, supple Mouth: no lip lesion, mucus membranes moist Cardiovascular: S1S2 tachycardic, no murmur Lungs: diffuse expiratory stridor no accessory muscle use Abdominal: soft, nondistended, nontender to palpation, no guarding Ext: muscle strength 5 out of 5 in all 4 extremities grossly, no gross muscle atrophy, no contractures, positive dorsalis pedis pulse bilateral, no edema Neuro: CN II-XI grossly intact, no gross focal neuro deficits Psych: Alert and oriented x 3, appropriate affect and mood Assessment/Plan: 69-year-old male with CAD status post stent placement, and known CHF with EF of 30% here for shortness of breath and chest pressure. Found to have elevated troponin on labs concerning for NSTEMI. Chest x-ray concerning for CHF exacerbation The patient is admitted with an anticipated greater than 2 midnight stay for evaluation of NSTEMI and CHF exacerbation Active: #. NSTEMI -Cardiac monitoring -Supplemental oxygen as needed -Heart healthy diet. N.p.o. at midnight -Trend troponin -EKG as needed -Nitroglycerin drip for chest pain - Continue with heparin drip. Monitor PTT for bleeding -Given aspirin 325 mg once in the ED -Continue with aspirin 81 mg daily -Continue lipitor 80 mg daily -Metoprolol tartarate 50 mg mg PO twice daily -Cardiology consulted #. Acute Systolic CHF exacerbation (EF 30% based on echo May 2022) -Fluid restriction -Strict Is and Os. -Echocardiogram -GDMT: Losartan 25mg daily, dapagliflozin 10 mg daily. Initiate spironolactone and carvedilol on discharge - Continue with furosemide 40 mg IV every 12 hours -Consult cardiology Chronic Conditions: #. Diabetes mellitus with hyperglycemia - Check Hemoglobin A1c -Hold home medications -Glucose Accu-Cheks ACHS -Initiate Insulin sliding scale ACHS -Monitor for hypoglycemia #. COPD, not in exacerbation #. Hypertension #. Hyperlipidemia #. Osteoarthritis #. BPH #. Anxiety #. History of CVA -Initiate tamsulosin 0.4 mg daily DVT ppx: Heparin drip CODE STATUS: No code Discussed with: Patient Anticipated discharge place: Home Swetha Coleman MD PGY-1 Internal Medicine Dictation was produced using [employer] dictation software. please excuse any grammatical, word or spelling errors. 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 Hx shingles Rt inner ear 2008, wears hearing aids. BPH, ED, disc lumbar spine. SOB w/activity. AAA, Rt carotid stenosis. Abscessed tooth sev wks ago, completed AB Rx. Last Myocardial Infarction Date:: unknown History of Any Multi-Drug Resistant Organisms: None Reported Past Surgical History: Heart Catheterization, Heart Catheterization With Stent, Hernia Repair, Tonsillectomy Additional Past Surgical History / Comment(s): 2013 Cervical Fusion. Umb hernia, ing hernia. Heart cath 2011. Bilat Cataracts Past Anesthesia/Blood Transfusion Reactions: No Reported Reaction Date of Last Stent Placement:: 2021 Past Psychological History: Anxiety Smoking Status: Current every day smoker Past Alcohol Use History: Daily Past Drug Use History: None Reported - Past Family History Brother(s) Family Medical History: Cancer, Diabetes Mellitus Additional Family Medical History / Comment(s): leukemia, lung cancer; another brother had DM, gangrene Medications and Allergies Home Medications Medication Instructions Recorded Confirmed Type Rosuvastatin Calcium [Crestor] 40 mg PO DIRECTED 06/02/22 03/22/25 History Furosemide [Lasix] 40 mg PO DIRECTED 09/03/23 03/22/25 History Allergies Allergy/AdvReac Type Severity Reaction Status Date / Time codeine Allergy Unknown Verified 03/22/25 20:50 Physical Exam Vitals: Vital Signs Temp Pulse Resp BP Pulse Ox 03/22/25 18:06 97.5 F L 122 H 18 175/96 94 L Intake and Output 03/22/25 03/22/25 03/22/25 06:59 14:59 22:59 Other: Weight 83.915 kg Results CBC & Chem 7: 03/22/25 18:34 03/22/25 18:34 Labs: Abnormal Lab Results - Last 24 Hours (Table) 03/22/25 03/22/25 03/22/25 Range/Units 18:34 18:34 18:34 WBC 12.52 H (4.50-10.00) 10*3/uL Immature Gran # 0.06 H (0.00-0.04) 10*3/uL Neutrophils # 10.64 H (1.80-7.70) 10*3/uL Eosinophils # 0.02 L (0.04-0.35) 10*3/uL Creatinine 1.34 H (0.66-1.25) mg/dL Glucose 331 H (74-99) mg/dL AST 63 H (17-59) U/L Alkaline Phosphatase 128 H (38-126) U/L Troponin I 3.670 H* (0.000-0.034) ng/mL
[2025-03-23] MEDS ORDERED: NITROGLYCERIN OINT 1 INCH/GM PACKET TOPICAL SCH
[2025-03-23 03:48] LABS: African American GFR (CKD) 65 (>60 ml/min/1.73 sqM); Anion Gap 11 mmol/L; Blood Urea Nitrogen 19 mg/dL (9-20); Calcium 9.1 mg/dL (8.4-10.2); Carbon Dioxide 26 mmol/L (22-30); Chloride 97 mmol/L (98-107); Glucose 313 mg/dL (74-99); Non-African American GFR(CKD) 56 (>60 ml/min/1.73 sqM); Potassium 4.3 mmol/L (3.5-5.1); Sodium 134 mmol/L (137-145)
[2025-03-23] MEDS: ACETAMINOPHEN TAB 325 MG TAB PO PRN (04:48)
[2025-03-23] MEDS: HEPARIN SODIUM 1,000 UN/ML (10ML VL) IV PRN (04:52)
[2025-03-23 06:21] LABS: Basophils # (A) 0.01 10*3/uL (0.00-0.10); Basophils % (A) 0.1 %; HGB 13.8 g/dL (13.0-17.0); Lymphocytes # (A) 0.77 10*3/uL (0.90-5.00); Lymphocytes % (A) 9.7 %; MCH 28.3 pg (27.0-32.0); MCHC 32.1 g/dL (32.0-37.0); MCV 88.1 fL (80.0-97.0); Monocytes # (A) 0.37 10*3/uL (0.20-1.00); Monocytes % (A) 4.7 %; Neutrophils # (A) 6.75 10*3/uL (1.80-7.70); Platelet Count 195 10*3/uL (140-440); RBC 4.88 10*6/uL (4.40-5.60); RDW 13.8 % (11.5-14.5); WBC 7.94 10*3/uL (4.50-10.00)
[2025-03-23] MEDS: FUROSEMIDE 10 MG/ML 4 ML VIAL IV SCH (06:24)
[2025-03-23 06:30] LABS: INR 1.1 (<1.2); Prothrombin Time 12.3 sec (10.0-12.5)
[2025-03-23] MEDS ORDERED: NITROGLYCERIN SL TABS 0.4 MG TAB SUBLINGUAL PRN (08:22)
[2025-03-23] MEDS ORDERED: ALPRAZolam 0.25 MG TAB PO PRN (08:22)
[2025-03-23] MEDS: ASPIRIN 81 MG PO SCH (08:31)
[2025-03-23] MEDS: ATORVASTATIN 80 MG TAB PO STA (08:42)
[2025-03-23] MEDS: TAMSULOSIN 0.4 MG CAP.ER.24H PO SCH (08:42)
[2025-03-23] MEDS: METOPROLOL TARTRATE 25 MG TAB PO SCH (08:43)
[2025-03-23] MEDS: SODIUM CHLORIDE 0.9% 1,000 ML IV SCH ×2 (08:46→11:43)
[2025-03-23] MEDS ORDERED: ASPIRIN 325 MG TAB PO SCH (09:00)
[2025-03-23] MEDS: HEPARIN SODIUM,PORCINE 10,000 UNIT in SODIUM CHLORIDE 0.9% 1,000 ML IRRIGATION PRN (09:06)
[2025-03-23] MEDS: HEPARIN SODIUM,PORCINE (1 ML) 2,500 UNIT in SODIUM CHLORIDE 0.9% 250 ML IRRIGATION PRN (09:11)
[2025-03-23] MEDS: MIDAZOLAM 2 MG/2 ML VIAL IVP ONE (09:17)
[2025-03-23] MEDS: LIDOCAINE 1% INJ 10MG/ML (20 ML MDV) SQ ONE (09:17)
[2025-03-23] MEDS: HEPARIN SODIUM 1,000 UN/ML (10ML VL) IVP ONE (09:40)
[2025-03-23] MEDS: TICAGRELOR 90 MG TAB PO ONE (09:44)
[2025-03-23] MEDS: NITROGLYCERIN 1000MCG/10ML SYRINGE INTRACORON ONE (10:05)
[2025-03-23] MEDS: IOPAMIDOL-370 100ML BTL INJ ONE ×2 (10:10)
[2025-03-23] MEDS ORDERED: TAMSULOSIN 0.4 MG CAP.ER.24H PO SCH (10:30)
[2025-03-23 10:32] LABS: Chol/HDL Ratio 4.34 Ratio; LDL Cholesterol,Calculated 109.6 mg/dL (0.0-131.0); VLDL Calculation 18.92 mg/dL (5.00-40.00)
[2025-03-23 11:22] LABS: Glucose,Whole Blood 240 mg/dL (70-110)
[2025-03-23] MEDS: DAPAGLIFLOZIN PROPANEDIOL 10 MG TABLET PO SCH (11:33)
[2025-03-23] MEDS: ASPIRIN 325 MG TAB PO STA (11:33)
[2025-03-23] MEDS: ALPRAZolam 0.5 MG TAB PO PRN (11:42)
--- NOTE | 2025-03-23 11:45 | P.CRDCN ---
History of Present Illness Consult date: 03/23/25 Requesting physician: Herminio Ernandez Reason for Consult (text): NSTEMI Chief complaint: Chest pain History of present illness: Patient is a 69 year old male with past medical history of CAD s/p prior stenting, ischemic cardiomyopathy, diabetes mellitus, hypertension, hyperlipidemia, history of CVA, tobacco dependence, COPD presented to the ED with chest pain. Patient reports chest pain that began while he was in vehicle going running errands. The pain radiated to the epigastric area. He sat there for a minute. He then realized he couldn't drive. Associated with that he reports having shortness of breath mainly with exertion. Patient is a current everyday smoker and reports former daily alcohol use as well as marijuana use. Denies fever, chills, palpitations, nausea, vomiting, hematuria, dysuria, hematochezia, melena, headache, slurred speech, numbness, tingling, dizziness, l ightheadedness, blurred vision, double vision. ED documentation reviewed. In the ED patient was treated with Aspirn 325 mg, Heparin drip furosemide 40 mg IV, Solu-Medrol 125 mg, Nitro-Bid ointment. Patient has had multiple stents in the past, with first stent being in 1997. In the year 2021 he had successful stenting of the left circumflex vessel and balloon angioplasty of the LAD. Previously he had prior stenting to the LAD. He has totally occluded RCA. Echocardiogram done on September 22 showed severe LV dysfunction with ejection fraction 20 to 25%, RVSP 40 mmHg. Vitals T 97.5 F, HI 85 bpm, RR 20, BP 126/78, oxygen saturation 98% on 2 L oxygen via nasal cannula EKG independently interpreted as sinus rhythm, LVH, rate 82 bpm, QTc 488 ms Chest x-ray shows prominent pulmonary vasculature Labs show WBC 10.94, hemoglobin 13.8, platelet count 195, INR 1.1, sodium 134, potassium 4.3, creatinine 1.28, A1c 10.3 Troponin 3.67, 18.3, 36, 52.3, 60.4 Lipid panel shows triglycerides 94.6, cholesterol 167, LDL 109.6, VLDL 18.92, HDL 38.5 Review of systems: Pertinent positives and negatives as discussed in HPI, a complete review of systems was performed and all other systems are negative. Physical examination: Vital signs reviewed GENERAL: This is a 69 -year-old male in no acute distress HEENT: Head is atraumatic, normocephalic. Pupils equal, round. Sclerae is anicteric NECK: Supple, No JVD, No carotid bruit LUNGS: Clear to auscultation, No wheezes or rhonchi, No intercostal retractions HEART: Regular rate and rhythm, no murmur or gallop or rub ABDOMEN: Soft, No tenderness EXTREMITIES: No pedal edema, No calf tenderness. NEUROLOGICAL: Patient is awake and alert Assessment: NSTEMI, probable circumflex occlusion CAD, multivessel S/p LCx stent, prior stenting to LAD and balloon angioplasty of LAD Ischemic cardiomyopathy, EF 25% Tobacco dependence COPD Diabetes mellitus Hypertension Hyperlipidemia BPH History of CVA Plan: Continue Heparin drip Continue Aspirin 81 mg PO daily, Lipitor 80 mg PO daily, Farxiga 10 mg PO daily, Lasix 40 mg IV Q12HR, Losartan 25 mg PO daily, Lopressor 50 mg PO BID Hydration with 0.9 NS at 100ml/hr Obtain echocardiogram, TSH Continue telemetry monitoring Schedule cardiac cath today. NPO 2 hours prior Dictation was produced using Myand[employer] dictation software. please excuse any grammatical, word or spelling errors. 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 Hx shingles Rt inner ear 2008, wears hearing aids. BPH, ED, disc lumbar spine. SOB w/activity. AAA, Rt carotid stenosis. Abscessed tooth sev wks ago, completed AB Rx. Last Myocardial Infarction Date:: unknown History of Any Multi-Drug Resistant Organisms: None Reported Past Surgical History: Heart Catheterization, Heart Catheterization With Stent, Hernia Repair, Tonsillectomy Additional Past Surgical History / Comment(s): 2013 Cervical Fusion. Umb hernia, ing hernia. Heart cath 2011. Bilat Cataracts Past Anesthesia/Blood Transfusion Reactions: No Reported Reaction Date of Last Stent Placement:: 2021 Past Psychological History: Anxiety Smoking Status: Current every day smoker Past Alcohol Use History: Daily Past Drug Use History: None Reported - Past Family History Brother(s) Family Medical History: Cancer, Diabetes Mellitus Additional Family Medical History / Comment(s): leukemia, lung cancer; another brother had DM, gangrene Medications and Allergies Home Medications Medication Instructions Recorded Confirmed Type Rosuvastatin Calcium [Crestor] 40 mg PO DAILY 06/02/22 03/23/25 History Furosemide [Lasix] 40 mg PO BID PRN 09/03/23 03/23/25 History Albuterol Nebulized [Ventolin 2.5 mg INHALATION DIRECTED PRN 03/23/25 03/23/25 History Nebulized] Clopidogrel [Plavix] 75 mg PO DIRECTED 03/23/25 03/23/25 History Spironolactone [Aldactone] 25 mg PO DIRECTED 03/23/25 03/23/25 History Tamsulosin [Flomax] 0.4 mg PO DIRECTED 03/23/25 03/23/25 History carvediloL [Coreg] 6.25 mg PO DIRECTED 03/23/25 03/23/25 History metFORMIN HCL [Glucophage] 500 mg PO DIRECTED 03/23/25 03/23/25 History Allergies Allergy/AdvReac Type Severity Reaction Status Date / Time codeine Allergy Unknown Verified 03/22/25 20:50 Physical Exam Vitals: Vital Signs Temp Pulse Resp BP Pulse Ox 03/23/25 08:45 85 20 126/78 98 03/23/25 08:34 98 03/23/25 07:38 85 18 125/81 99 03/23/25 06:00 84 18 147/102 98 03/23/25 03:00 85 17 138/97 97 03/23/25 00:25 91 17 146/91 95 03/23/25 00:04 99 17 147/95 95 03/22/25 23:35 97 19 158/107 96 03/22/25 22:15 105 H 18 167/110 98 03/22/25 20:11 118 H 03/22/25 19:46 122 H 03/22/25 19:33 118 H 18 168/116 92 L 03/22/25 18:06 97.5 F L 122 H 18 175/96 94 L Intake and Output 03/22/25 03/23/25 03/23/25 22:59 06:59 14:59 Intake Total 94 Balance 94 Intake: Intake, IV Titration 94 Amount Heparin Sod,Pork in 0.45% 94 NaCl 25,000 unit In 0.45 % NaCl 1 250ml.bag @ 11. 917 UNITS/KG/HR 10 mls/hr IV .Q24H [facility] Rx#: [id number] Other: Weight 83.915 kg Results 03/23/25 06:13 03/23/25 02:36 Cardiac Enzymes 03/22/25 03/22/25 03/22/25 Range/Units 18:34 18:34 21:02 AST 63 H (17-59) U/L Troponin I 3.670 H* 18.300 H* (0.000-0.034) ng/mL 03/22/25 03/23/25 03/23/25 Range/Units 23:39 02:36 06:13 AST (17-59) U/L Troponin I 36.000 H* 52.300 H* 60.400 H* (0.000-0.034) ng/mL Coagulation 03/22/25 03/23/25 03/23/25 Range/Units 18:34 02:36 06:13 PT 11.3 12.3 (10.0-12.5) sec APTT 22.5 31.5 H (22.0-30.0) sec CBC 03/22/25 03/23/25 Range/Units 18:34 06:13 WBC 12.52 H 7.94 (4.50-10.00) 10*3/uL RBC 5.07 4.88 (4.40-5.60) 10*6/uL Hgb 14.3 13.8 (13.0-17.0) g/dL Hct 44.4 43.0 (39.6-50.0) % Plt Count 185 195 (140-440) 10*3/uL Comprehensive Metabolic Panel 03/22/25 03/23/25 Range/Units 18:34 02:36 Sodium 137 134 L (137-145) mmol/L Potassium 4.4 4.3 (3.5-5.1) mmol/L Chloride 100 97 L (98-107) mmol/L Carbon Dioxide 25 26 (22-30) mmol/L BUN 20 19 (9-20) mg/dL Creatinine 1.34 H 1.28 H (0.66-1.25) mg/dL Glucose 331 H 313 H (74-99) mg/dL Calcium 9.0 9.1 (8.4-10.2) mg/dL AST 63 H (17-59) U/L ALT 15 (4-49) U/L Alkaline Phosphatase 128 H (38-126) U/L Total Protein 7.2 (6.3-8.2) g/dL Albumin 4.1 (3.5-5.0) g/dL Current Medications Generic Name Dose Route Start Last Admin Trade Name Freq PRN Reason Stop Dose Admin Acetaminophen 650 mg 03/22/25 23:34 03/23/25 04:48 Acetaminophen Tab 325 Mg Tab PO 650 mg Q6HR PRN Administration Mild Pain or Fever > 100.5 Alprazolam 0.25 mg 03/23/25 08:22 Alprazolam 0.25 Mg Tab PO Q6HR PRN Mild Anxiety Alprazolam 0.5 mg 03/23/25 08:22 Alprazolam 0.5 Mg Tab PO Q6HR PRN Moderate Anxiety Aspirin 81 mg 03/23/25 09:00 03/23/25 08:31 Aspirin 81 Mg PO Not Given DAILY [facility] Atorvastatin Calcium 80 mg 03/22/25 19:30 03/23/25 08:44 Atorvastatin 80 Mg Tab PO Not Given DAILY [facility] Dapagliflozin 10 mg 03/23/25 09:00 Dapagliflozin Propanediol 10 Mg Tablet PO DAILY [facility] Dextrose/Water 25 ml 03/22/25 20:06 Dextrose 50% Syringe 50 Ml IVP PER PROTOCOL PRN Hypoglycemia Protocol Dextrose/Water 50 ml 03/22/25 20:06 Dextrose 50% Syringe 50 Ml IVP PER PROTOCOL PRN Hypoglycemia Protocol Furosemide 40 mg 03/23/25 06:00 03/23/25 06:24 Furosemide 10 Mg/Ml 4 Ml Vial IV 40 mg Q12H [facility] Administration Heparin Sodium (Porcine) 0 unit 03/22/25 19:08 03/23/25 04:52 Heparin Sodium 1,000 Un/Ml (10ml Vl) IV 2,097 unit PER PROTOCOL PRN Administration Low PTT Protocol Heparin Sodium/Sodium Chloride 250 mls @ 10 mls/hr 03/22/25 19:30 03/23/25 04:50 25,000 unit/ Sodium Chloride IV 13.917 units/kg/hr .Q24H [facility] 11.678 mls/hr Titration Protocol 11.917 UNITS/KG/HR Nitroglycerin/Dextrose 50 mg/ 250 mls @ 1.5 mls/hr 03/22/25 22:30 03/22/25 23:30 IV Solution IV 5 mcg/min .Q24H [facility] 1.5 mls/hr Administration Protocol 5 MCG/MIN Sodium Chloride 1,000 mls @ 100 mls/hr 03/23/25 08:30 03/23/25 09:11 Saline 0.9% IV 0 mls .Q10H [facility] Administration Insulin Human Lispro 0 unit 03/22/25 21:00 03/23/25 08:43 Insulin Lispro (Humalog) 100 Unit/Ml 10 Ml Vl SQ Not Given ACHS [facility] Protocol Losartan Potassium 25 mg 03/23/25 09:00 Losartan 25 Mg Tab PO DAILY [facility] Metoprolol Tartrate 50 mg 03/23/25 09:00 03/23/25 08:43 Metoprolol Tartrate 25 Mg Tab PO 50 mg BID [facility] Administration Morphine Sulfate 2 mg 03/22/25 19:24 Morphine Sulfate 2 Mg/Ml Syringe IVP Q5M PRN Chest Pain Nitroglycerin 0.4 mg 03/23/25 08:22 Nitroglycerin Sl Tabs 0.4 Mg Tab SUBLINGUAL Q5M PRN Chest Pain Tamsulosin HCl 0.4 mg 03/23/25 08:30 03/23/25 08:42 Tamsulosin 0.4 Mg Cap.Er.24h PO 0.4 mg [id number] [facility] Administration Intake and Output 03/22/25 03/23/25 03/23/25 22:59 06:59 14:59 Intake Total 94 Balance 94 Intake: Intake, IV Titration 94 Amount Heparin Sod,Pork in 0.45% 94 NaCl 25,000 unit In 0.45 % NaCl 1 250ml.bag @ 11. 917 UNITS/KG/HR 10 mls/hr IV .Q24H [facility] Rx#: [id number] Other: Weight 83.915 kg 03/23/25 06:13 03/23/25 02:36
--- NOTE | 2025-03-23 11:57 | P.PN ---
Subjective Progress Note Date: 03/23/25 Hospital Course: Patient is a 69-year-old male with CAD (stent placement x 3), COPD (on home oxygen but noncompliant), CHF (EF of 30% on May 2022), hypertension, hyperlipidemia, osteoarthritis, BPH, anxiety history of CVA and right carotid stenosis and current daily smoker here for evaluation of chest pain. Today at around 2 PM, patient was in his car running errands when he suddenly had chest pressure that was midsternal with radiation to the epigastric area with an intensity of 8 out of 10 that was constant that is worse with lying down and exertion and relieved with leaning forward or sitting up. He also had associated difficulty of breathing that was nonpleuritic. He attempted to use his albuterol inhaler but it did not improve his symptoms. He denied palpitatio ns, extremity swelling, focal weakness, facial asymmetry, vision changes, recent illness or hospitalization. On admission: Vitals: 97.5 Fahrenheit, pulse rate 122, respiratory rate 18, blood pressure 175/96, O2 saturation 94% on 2 L nasal cannula Labs: WBC 12.52, hemoglobin 14.3, platelet count 1 85,000, sodium 137, potassium 4.4, BUN 20, creatinine 1.34, glucose 331, magnesium 1.8, calcium 9. Troponin was elevated at 3.67, proBNP 9120. Liver enzymes showed AST 63, ALT 15 and alk phos 128.. Imaging: Chest x-ray showed pulmonary vasculature was prominent and increased mild lung markings for clinical correlation of volume overload. EKG showed sinus tachycardia with a rate of [address] changes, good R wave progression, QTc 404 MS. ED documentation reviewed. Heparin drip, aspirin, high intensity statin, IV Lasix initiated in the ED. Given one-time dose of IV Solu-Medrol, DuoNeb and morphine in the ED. Subjective: Patient seen and evaluated at bedside. No events overnight. Still has complaint of chest pain. Pertinent positives and negatives as discussed above, a complete review of systems was performed and all other systems are negative. Vitals: Signs Reviewed Physical Exam: General: nontoxic, no distress, appears at stated age Derm: warm, dry, intact Head: atraumatic, normocephalic, symmetric Eyes: EOMI, anicteric sclera Mouth: no lip lesion, mucus membranes moist Cardiovascular: S1 S2 reg, no murmur, rubs, or gallops Lungs: CTA bilateral, no rhonchi, no rales, no accessory muscle use Abdominal: soft, non-tender to palpataion, no appreciable organomegaly Extremities: no gross muscle atrophy, no edema, no contractures Neuro: Alert, Oriented, CNII-XII grossly intact, gait normal Psych: well appearing, appropriate affect Data Received Today: Pertinent Labs: Troponin 52.3 => 60.4, APTT 31.5, sodium 134, BUN 19, creatinine 1.28, glucose 313 Imaging: Echocardiogram pending Assessment and Plan: 69-year-old male with CAD status post stent placement, and known CHF with EF of 30% here for shortness of breath and chest pressure. Found to have elevated troponin on labs concerning for NSTEMI. Chest x-ray concerning for CHF exacerbation The patient is admitted with an anticipated greater than 2 midnight stay for evaluation of NSTEMI and CHF exacerbation. Active: #. Acute NSTEMI - Cardiac monitoring - Supplemental oxygen as needed - Heart healthy diet. NPO at midnight - troponin 52.3 => 60.4, continue to trend for peak/plateau - Nitroglycerin drip for chest pain - Continue with heparin drip. Monitor PTT for bleeding - Given aspirin 325 mg once in the ED - Continue with aspirin 81 mg daily - Continue lipitor 80 mg daily - Metoprolol tartarate 50 mg mg PO twice daily - TSH ordered - Discussed case with cardiology, left circumflex occlusion, s/p stent #. Ischemic cardiomyopathy (EF 30% based on echo May 2022) - Fluid restriction - Strict Is and Os. - Daily weights - Echocardiogram pending - GDMT: Losartan 25mg daily, dapagliflozin 10 mg daily. Initiate spironolactone on discharge - Continue with furosemide 40 mg IV every 12 hours - Discussed with cardiology, patient may benefit from ICD, however patient refusing #. Diabetes mellitus with hyperglycemia - Check Hemoglobin A1c - Hold home medications - Glucose Accu-Cheks ACHS - Initiate Insulin sliding scale ACHS - Monitor for hypoglycemia Chronic Conditions: #. COPD, not in exacerbation #. Hypertension #. Hyperlipidemia #. Osteoarthritis #. BPH #. Anxiety #. History of CVA -Initiate tamsulosin 0.4 mg daily DVT ppx: IV heparin drip Code status: No code Anticipated discharge place: Pending clinical course Anticipated discharge time: Pending clinical course Mary Simon MD PGY-1 IM Dictation was produced using [employer] dictation software. please excuse any grammatical, word or spelling errors. I have seen and evaluated the patient today. Discussed with the resident and agree with the residents finding and plan as documented in the resident's note. Changes highlighted in blue font. Objective - Vital Signs Vital signs: Vital Signs Temp 97.5 F L 03/22/25 18:06 Pulse 84 03/23/25 06:00 Resp 18 03/23/25 06:00 BP 147/102 03/23/25 06:00 Pulse Ox 98 03/23/25 06:00 FiO2 Intake & Output 03/22/25 03/23/25 03/23/25 18:59 06:59 18:59 Intake Total 94 Balance 94 Weight 83.915 kg Intake: Intake, IV Titration 94 Amount Heparin Sod,Pork in 0.45% 94 NaCl 25,000 unit In 0.45 % NaCl 1 250ml.bag @ 11. 917 UNITS/KG/HR 10 mls/hr IV .Q24H [facility] Rx#: [id number] - Labs CBC & Chem 7: 03/23/25 06:13 03/23/25 02:36 Labs: Abnormal Lab Results - Last 24 Hours (Table) 03/22/25 03/22/25 03/22/25 Range/Units 18:34 18:34 18:34 WBC 12.52 H (4.50-10.00) 10*3/uL Immature Gran # 0.06 H (0.00-0.04) 10*3/uL Neutrophils # 10.64 H (1.80-7.70) 10*3/uL Lymphocytes # (0.90-5.00) 10*3/uL Eosinophils # 0.02 L (0.04-0.35) 10*3/uL APTT (22.0-30.0) sec Sodium (137-145) mmol/L Chloride (98-107) mmol/L Creatinine 1.34 H (0.66-1.25) mg/dL Glucose 331 H (74-99) mg/dL POC Glucose (mg/dL) (70-110) mg/dL AST 63 H (17-59) U/L Alkaline Phosphatase 128 H (38-126) U/L Troponin I 3.670 H* (0.000-0.034) ng/mL 03/22/25 03/22/25 03/22/25 Range/Units 21:02 21:57 23:30 WBC (4.50-10.00) 10*3/uL Immature Gran # (0.00-0.04) 10*3/uL Neutrophils # (1.80-7.70) 10*3/uL Lymphocytes # (0.90-5.00) 10*3/uL Eosinophils # (0.04-0.35) 10*3/uL APTT (22.0-30.0) sec Sodium (137-145) mmol/L Chloride (98-107) mmol/L Creatinine (0.66-1.25) mg/dL Glucose (74-99) mg/dL POC Glucose (mg/dL) 309 H 329 H (70-110) mg/dL AST (17-59) U/L Alkaline Phosphatase (38-126) U/L Troponin I 18.300 H* (0.000-0.034) ng/mL 03/22/25 03/23/25 03/23/25 Range/Units 23:39 02:36 02:36 WBC (4.50-10.00) 10*3/uL Immature Gran # (0.00-0.04) 10*3/uL Neutrophils # (1.80-7.70) 10*3/uL Lymphocytes # (0.90-5.00) 10*3/uL Eosinophils # (0.04-0.35) 10*3/uL APTT 31.5 H (22.0-30.0) sec Sodium (137-145) mmol/L Chloride (98-107) mmol/L Creatinine (0.66-1.25) mg/dL Glucose (74-99) mg/dL POC Glucose (mg/dL) (70-110) mg/dL AST (17-59) U/L Alkaline Phosphatase (38-126) U/L Troponin I 36.000 H* 52.300 H* (0.000-0.034) ng/mL 03/23/25 03/23/25 03/23/25 Range/Units 02:36 06:13 06:13 WBC (4.50-10.00) 10*3/uL Immature Gran # (0.00-0.04) 10*3/uL Neutrophils # (1.80-7.70) 10*3/uL Lymphocytes # 0.77 L (0.90-5.00) 10*3/uL Eosinophils # 0.00 L (0.04-0.35) 10*3/uL APTT (22.0-30.0) sec Sodium 134 L (137-145) mmol/L Chloride 97 L (98-107) mmol/L Creatinine 1.28 H (0.66-1.25) mg/dL Glucose 313 H (74-99) mg/dL POC Glucose (mg/dL) (70-110) mg/dL AST (17-59) U/L Alkaline Phosphatase (38-126) U/L Troponin I 60.400 H* (0.000-0.034) ng/mL
--- NOTE | 2025-03-23 12:19 | CC ---
CARDIAC CATHETERIZATION REPORT PROCEDURES PERFORMED: 1. Left heart catheterization and coronary angiography. 2. Percutaneous transluminal coronary angioplasty. 3. and stenting of a totally occluded mid circumflex coronary artery with a drug- eluting stent. Date of Procedure: 03/23/25 PERFORMED BY: Dr. Lisa Arita. ANESTHESIA: Moderate conscious sedation time was 52 minutes. The patient was administered Versed. Oxygen saturation, hemodynamics, and EKG were monitored closely. CLINICAL INFORMATION: Mr. Meet Haas is a __[id number] gentleman who has most of his healthcare at the [facility]. He has known history of CAD, total occlusion of RCA which is a chronic occlusion collateralized from the left system. He also has a stent in the proximal LAD placed several years ago. In 2021, he presented with unstable angina, underwent stenting of mid circumflex with a 3.5 caliber 15 mm long Xience stent and another 3.0 caliber 12 mm long Xience stent. He also had a dilatation of the LAD performed with a 3.5 balloon. He presented to the hospital with chest pain strongly suggestive of angina, went on to have a troponin up to 60. He was placed on a heparin drip. He was brought in for the procedure expeditiously. His radial pulses were suboptimal. He has known ischemic cardiomyopathy with ejection fraction in the range of 25% to 30%,He was advised cardiac catheterization and PCI based on findings. PROCEDURE NOTE: Under local anesthesia and strict aseptic precautions, a 6-Japanese introducer was placed in the right femoral artery. Using a standard Petra catheter, I performed coronary angiography and a pigtail catheter was used to check LV pressure, but LV-gram was not performed. Following this, I proceeded to perform PCI of a totally occluded circumflex in the mid portion well beyond the previously stented segment. Following the procedure, the sheath was sutured and he was sent to the [facility] for the sheath to be pulled when ACT comes less than 180. The patient received 180 mg of Brilinta and he will be on aspirin and Brilinta combination without interruption for 1 year. CARDIAC CATHETERIZATION FINDINGS: Left main coronary artery: Short patent vessel. No significant disease. Bifurcates into LAD and circumflex. Left anterior descending coronary artery: This vessel has a 40% ostial lesion as it comes off. There is a mid LAD portion which is stented and the stented segment is widely patent with no more than 40% narrowing and the caliber of the vessel is good distally in the distal 1/4th. There is a subtotal occlusion of the LAD and it gives off 2 branches, 1 is curves over the apex to supply the inferior portion and 1 lateral portion, but the amount of myocardium beyond this occlusion of about 90% is limited. Most of the LAD is free of significant disease and stented segment has no more than 40% stenosis with brisk flow. Left posterior circumflex coronary artery: This vessel is probably a codominant vessel that is totally occluded in the midportion after 2 obtuse marginal branches. The midportion of circumflex that was stented in 2021 is widely patent. The total occlusion is seen as a cutoff. There is also a groove branch noted. Right coronary artery: This vessel is totally occluded chronically and has limited antegrade flow. There are both ipsilateral collaterals from the conus branch coming down to distal RCA as well as collaterals coming from the left system as well opacifying the distal branches of the RCA. The left ventricular end-diastolic pressure was 15 mmHg without any gradient across the aortic valve. FINAL IMPRESSION: This patient has normal filling pressures. No gradient. Left main is free of significant disease. Circumflex distally is 100% occluded, appears to be the culprit lesion. Previously stented mid circumflex stent is patent. LAD stent is patent with brisk flow. No more than 40% narrowing. Distal LAD at the apex has a subtotal occlusion. The RCA is totally occluded, collateralized both ipsilateral and contralateral collaterals. RECOMMENDATIONS: I recommended PCI of circumflex and proceeded to perform in the same setting. PCI PROCEDURE DETAILS: I used a JL4 6-Japanese guide catheter and a run-through wire. The lesion was crossed. Wire was kept distally. A 2.5 caliber Trek balloon initially and then an NC Trek balloon following that was used to pre-dilate the total occlusion. After a favorable flow in it, I decided to deploy a stent to the distal portion. An 18 mm long 2.25 caliber Xience stent was deployed at 12 to 13 atmospheres. Excellent angiographic result was achieved. The outflow was not a whole lot, but there was good JERE-3 flow at the end of the procedure with complete resolution of the patient's chest pain also. Excellent angiographic result was achieved. Because of the distal nature of the lesion and tortuosity, I decided not to do any IVUS assessment. JERE-3 flow with relief of chest pain was noted with excellent angiographic result. The patient tolerated the procedure well, was sent to the [facility] and details were discussed with the patient and family. I expect he will be discharged the next 48 hours if he remains stable. Echocardiogram will be ordered. BRANDI / WOJCIECH: [id number] / [id number]
--- NOTE | 2025-03-23 13:22 | CA ---
Transthoracic Echo Report Name: Meet Haas Age: 69 Gender: M : 1955 Exam Date: 03/23/2025 10:45 Exam Location: [facility] Ht (in): 69 Wt (lb): 185 Ordering Physician: Herminio Ernandez MD Attending/Referring Phys: [id number], [employer] Specialist Alis Covarrubias RDCS Procedure CPT: Indications: nstemi Cardiac Hx: Technical Quality: Technically difficult study Contrast 1: Definity Total Dose (mL): 5 Contrast 2: Total Dose (mL): MEASUREMENTS (Male / Female) Normal Values 2D ECHO LV Diastolic Diameter PLAX 5.9 cm 4.2 - 5.9 / 3.9 - 5.3 cm LV Systolic Diameter PLAX 5.6 cm IVS Diastolic Thickness 1.1 cm 0.6 - 1.0 / 0.6 - 0.9 cm LVPW Diastolic Thickness 1.4 cm 0.6 - 1.0 / 0.6 - 0.9 cm LV Relative Wall Thickness 0.4 LVOT Diameter 2.1 cm LV Diastolic Volume MOD BP 196.4 cm??? 67 - 155 / 56 - 104 cm??? LV Systolic Volume MOD BP 156.6 cm??? 22 - 58 / 19 - 49 cm??? LV Ejection Fraction MOD BP 20.3 % >= 55 % LV Cardiac Index MOD BP 1290.7 cm???/min???m??? LV Diastolic Volume MOD 4C 198.1 cm??? LV Systolic Volume MOD 4C 171.5 cm??? LV Ejection Fraction MOD 4C 13.4 % LV Cardiac Index MOD 4C 862.0 cm???/min???m??? LV Diastolic Length 4C 9.6 cm LV Systolic Length 4C 8.8 cm LV Diastolic Volume MOD 2C 181.2 cm??? LV Systolic Volume MOD 2C 137.7 cm??? LV Ejection Fraction MOD 2C 24.0 % LV Cardiac Index MOD 2C 1409.7 cm???/min???m??? LV Diastolic Length 2C 8.9 cm LV Systolic Length 2C 8.4 cm LA Volume 92.1 cm??? 18 - 58 / 22 - 52 cm??? LA Volume Index 45.2 cm???/m??? 16 - 28 cm???/m??? Ascending Aorta Diameter 3.7 cm M-MODE LV Diastolic Diameter MM 7.4 cm 4.2 - 5.9 / 3.9 - 5.3 cm LV Systolic Diameter MM 6.5 cm LV Cardiac Index MM Teich 2371.6 cm???/min???m??? IVS Diastolic Thickness MM 1.6 cm 0.6 - 1.0 / 0.6 - 0.9 cm LVPW Diastolic Thickness MM 1.7 cm 0.6 - 1.0 / 0.6 - 0.9 cm LV Relative Wall Thickness MM 0.5 0.24 - 0.42 / 0.22 - 0.42 LV Mass Index MM 350.6 g/m??? 49 - 115 / 43 - 95 g/m??? DOPPLER AV Peak Velocity 101.3 cm/s AV Peak Gradient 4.1 mmHg AV Mean Velocity 67.4 cm/s AV Mean Gradient 2.1 mmHg AV Velocity Time Integral 16.6 cm LVOT Peak Velocity 60.1 cm/s LVOT Peak Gradient 1.4 mmHg LVOT Velocity Time Integral 10.5 cm LVOT Stroke Volume 37.7 cm??? LVOT Stroke Volume Index 18.9 ml/m??? LVOT Cardiac Index 1221.8 cm???/min???m??? AV Area Cont Eq vti 2.3 cm??? AV Area Cont Eq pk 2.1 cm??? MV Area PHT 6.3 cm??? MR Peak Velocity 491.5 cm/s MR Peak Gradient 96.6 mmHg Mitral E Point Velocity 75.5 cm/s Mitral A Point Velocity 28.4 cm/s Mitral E to A Ratio 2.7 MV Deceleration Time 120.9 ms FINDINGS Left Ventricle Left ventricular ejection fraction is estimated at 20-25 %. Lateral, anterolateral anteroapical and anteroseptal akinesis. Mildly dilated left ventricle.Mildly increased left ventricular wall thickness. Right Ventricle Mild right ventricular dilatation. reduced right ventricular global systolic function. Unable to estimate the right ventricular systolic pressure. Right Atrium Normal right atrial size. Left Atrium Normal left atrial size. Severely increased left atrial volume. Mildly increased left atrial area. Mitral Valve Structurally normal mitral valve. No mitral stenosis. No evidence for mitral valve prolapse. moderate mitral regurgitation. Aortic Valve Aortic valve not well visualized. No aortic valve stenosis or regurgitation. Tricuspid Valve Tricuspid valve not well visualized. No tricuspid stenosis. No tricuspid regurgitation. Pulmonic Valve Pulmonic valve not well visualized. Pericardium No pericardial effusion. Aorta Aortic annulus normal. CONCLUSIONS Technically difficult study. Definity ECHO contrast used for improved visualization of the endocardial borders (inadequate visualization of two or more contiguous segments). Severely impaired left ventricular systolic function with segmental wall motion abnormality Moderate eccentric mitral regurgitation Previewed by: Dr. Pedro Luis Ulloa MD (Electronically Signed) Final Date: 23 March 2025 13:22
[2025-03-23 17:16] LABS: Glucose,Whole Blood 91 mg/dL (70-110)
[2025-03-23 17:16] LABS: Glucose,Whole Blood 89 mg/dL (70-110)
[2025-03-23] MEDS: LOSARTAN 25 MG TAB PO SCH (19:22)
[2025-03-23 21:17] LABS: Glucose,Whole Blood 196 mg/dL (70-110)
[2025-03-24 06:13] LABS: Basophils # (A) 0.03 10*3/uL (0.00-0.10); Basophils % (A) 0.3 %; Eosinophils # (A) 0.01 10*3/uL (0.04-0.35); Eosinophils % (A) 0.1 %; HCT 40.6 % (39.6-50.0); HGB 12.8 g/dL (13.0-17.0); Lymphocytes # (A) 0.97 10*3/uL (0.90-5.00); Lymphocytes % (A) 10.1 %; MCH 28.1 pg (27.0-32.0); MCHC 31.5 g/dL (32.0-37.0); Mean Platelet Volume 11.3 fL (9.5-12.2); Monocytes # (A) 0.79 10*3/uL (0.20-1.00); Monocytes % (A) 8.2 %; Neutrophils # (A) 7.78 10*3/uL (1.80-7.70); Platelet Count 170 10*3/uL (140-440); RBC 4.56 10*6/uL (4.40-5.60); RDW 14.1 % (11.5-14.5); WBC 9.61 10*3/uL (4.50-10.00)
[2025-03-24 06:30] LABS: Glucose,Whole Blood 198 mg/dL (70-110)
[2025-03-24 06:42] LABS: ALT 29 U/L (4-49); AST 179 U/L (17-59); African American GFR (CKD) 69 (>60 ml/min/1.73 sqM); Albumin 3.6 g/dL (3.5-5.0); Alkaline Phosphatase 102 U/L (38-126); Anion Gap 8 mmol/L; Blood Urea Nitrogen 20 mg/dL (9-20); Calcium 9.1 mg/dL (8.4-10.2); Carbon Dioxide 31 mmol/L (22-30); Chloride 97 mmol/L (98-107); Glucose 182 mg/dL (74-99); Magnesium 1.9 mg/dL (1.6-2.3); Non-African American GFR(CKD) 60 (>60 ml/min/1.73 sqM); Potassium 3.8 mmol/L (3.5-5.1); Sodium 136 mmol/L (137-145); Total Bilirubin 0.5 mg/dL (0.2-1.3); Total Protein 6.4 g/dL (6.3-8.2)
[2025-03-24] MEDS: TICAGRELOR 90 MG TAB PO SCH (08:43)
[2025-03-24] MEDS: SPIRONOLACTONE 25 MG TAB PO SCH (08:43)
--- NOTE | 2025-03-24 10:58 | XR ---
EXAMINATION TYPE: XR chest 1V portable DATE OF EXAM: 03/24/2025 10:49 AM COMPARISON: Chest radiographs from 03/22/2025 TECHNIQUE: XR chest 1V portable Portable AP radiograph of the chest. CLINICAL INDICATION:Male, 69 years old with history of heart failure; FINDINGS: Lungs/Pleura: There is no evidence of pleural effusion, focal consolidation, or pneumothorax. Pulmonary vascularity: Unremarkable. Heart/mediastinum: Cardiomediastinal silhouette is unremarkable. Atherosclerotic calcifications are seen in the aorta. Musculoskeletal: No acute osseous pathology. Partial visualization of cervical fusion hardware. IMPRESSION: No acute cardiopulmonary disease/process. [facility], , 03/24/2025 10:55 AM
[2025-03-24 11:07] LABS: Glucose,Whole Blood 123 mg/dL (70-110)
[2025-03-24 11:46] VITALS: BMI 25.5
--- NOTE | 2025-03-24 11:57 | P.PN ---
Subjective Progress Note Date: 03/24/25 Hospital Course: Patient is a 69-year-old male with CAD (stent placement x 3), COPD (on home oxygen but noncompliant), CHF (EF of 30% on May 2022), hypertension, hyperlipidemia, osteoarthritis, BPH, anxiety history of CVA and right carotid stenosis and current daily smoker here for evaluation of chest pain. Today at around 2 PM, patient was in his car running errands when he suddenly had chest pressure that was midsternal with radiation to the epigastric area with an intensity of 8 out of 10 that was constant that is worse with lying down and exertion and relieved with leaning forward or sitting up. He also had associated difficulty of breathing that was nonpleuritic. He attempted to use his albuterol inhaler but it did not improve his symptoms. He denied palpitatio ns, extremity swelling, focal weakness, facial asymmetry, vision changes, recent illness or hospitalization. On admission: Vitals: 97.5 Fahrenheit, pulse rate 122, respiratory rate 18, blood pressure 175/96, O2 saturation 94% on 2 L nasal cannula Labs: WBC 12.52, hemoglobin 14.3, platelet count 1 85,000, sodium 137, potassium 4.4, BUN 20, creatinine 1.34, glucose 331, magnesium 1.8, calcium 9. Troponin was elevated at 3.67, proBNP 9120. Liver enzymes showed AST 63, ALT 15 and alk phos 128.. Imaging: Chest x-ray showed pulmonary vasculature was prominent and increased mild lung markings for clinical correlation of volume overload. EKG showed sinus tachycardia with a rate of [address] changes, good R wave progression, QTc 404 MS. ED documentation reviewed. Heparin drip, aspirin, high intensity statin, IV Lasix initiated in the ED. Given one-time dose of IV Solu-Medrol, DuoNeb and morphine in the ED. Subjective: Patient was seen evaluated bedside in ICU status post heart catheterization with stent placement in left circumflex artery. Patient states he feels much better this morning denies any chest pain. However he still states he feels short of breath and admits to orthopnea. Pertinent positives and negatives as discussed above, a complete review of systems was performed and all other systems are negative. Vitals: Signs Reviewed Physical Exam: General: nontoxic, no distress, appears at stated age Derm: warm, dry, intact Head: atraumatic, normocephalic, symmetric Eyes: EOMI, anicteric sclera Mouth: no lip lesion, mucus membranes moist Cardiovascular: Inspiratory bilateral crackles Lungs: CTA bilateral, no rhonchi, no rales, no accessory muscle use Abdominal: soft, non-tender to palpataion, no appreciable organomegaly Extremities: no gross muscle atrophy, no edema, no contractures Neuro: Alert, Oriented, CNII-XII grossly intact, gait normal Psych: well appearing, appropriate affect Data Received Today: Pertinent Labs: Sodium 136, chloride 97, CO2 31, BUN 20, creatinine 1.22 WBC 9.61 Imaging: Repeat CXR independently interpreted displaying no acute cardiopulmonary process Assessment and Plan: 69-year-old male with CAD status post stent placement, and known CHF with EF of 30% here for shortness of breath and chest pressure. Found to have elevated troponin on labs concerning for NSTEMI. Chest x-ray concerning for CHF exacerbation The patient is admitted with an anticipated greater than 2 midnight stay for evaluation of NSTEMI and CHF exacerbation. Active: #. Acute NSTEMI #. Left circumflex occlusion status post stent - Cardiac monitoring - troponin 52.3 => 60.4, => 200 - Continue with aspirin 81 mg daily Continue with Brilinta 90 mg p.o. twice daily - Continue lipitor 80 mg daily - Metoprolol tartarate 50 mg mg PO twice daily - TSH 1.740 -Cardiology following #. Ischemic cardiomyopathy (EF 20-25%) - Repeat CXR independently interpreted displaying no acute cardiopulmonary process - Fluid restriction - Strict Is and Os. - Daily weights - Echocardiogram showing EF of 20-25%, severely impaired left ventricular systolic function with segmental wall motion abnormality, moderate eccentric mitral regurgitation - GDMT: Losartan increased to 50 mg PO HS, Farxiga 10 mg daily. Continue with Aldactone 25 mg p.o. daily - Continue with furosemide 40 mg IV every 12 hours, monitor electrolytes - Patient refusing ICD - Cardiology following, pending recommendations #. Diabetes mellitus with hyperglycemia - Check Hemoglobin A1c - Hold home medications - Glucose Accu-Cheks ACHS - Initiate Insulin sliding scale ACHS - Monitor for hypoglycemia Chronic Conditions: #. COPD, not in exacerbation #. Hypertension #. Hyperlipidemia #. Osteoarthritis #. BPH #. Anxiety #. History of CVA -Initiate tamsulosin 0.4 mg daily DVT ppx: Heparin 5000 SQ q8 hours Code status: No code Anticipated discharge place: Pending clinical course Anticipated discharge time: Pending clinical course Mary Simon MD PGY-1 IM Dictation was produced using [employer] dictation software. please excuse any grammatical, word or spelling errors. I have seen and evaluated the patient today. Discussed with the resident and agree with the residents finding and plan as documented in the resident's note. Changes highlighted in blue font. Objective - Vital Signs Vital signs: Vital Signs Temp 98 F 03/24/25 04:00 Pulse 74 03/24/25 06:00 Resp 18 03/24/25 06:00 BP 102/64 03/24/25 06:00 Pulse Ox 93 L 03/24/25 06:00 FiO2 Intake & Output 03/23/25 03/23/25 03/24/25 06:59 18:59 06:59 Intake Total 94 1170.78 749.25 Output Total 300 1400 Balance 94 870.78 -650.75 Weight 79.6 kg 78.4 kg Intake: IV 1025 470 Sodium Chloride 0.9% 1, 525 470 000 ml @ 75 mls/hr IV . [id number] GIAN Rx#:[id number] Intake, IV Titration 94 145.78 29.25 Amount Heparin Sod,Pork in 0.45% 94 145.78 NaCl 25,000 unit In 0.45 % NaCl 1 250ml.bag @ 11. 917 UNITS/KG/HR 10 mls/hr IV .Q24H GIAN Rx#: [id number] Nitroglycerin-D5w Pmx 50 29.25 mg In Dextrose/Water 1 250ml.bag @ 5 MCG/MIN 1.5 mls/hr IV .Q24H GIAN Rx#: [id number] Oral 250 Output: Urine 300 1400 Other: Voiding Method Urinal Urinal # Voids 0 0 - Labs CBC & Chem 7: 03/24/25 05:34 03/24/25 05:34 Labs: Abnormal Lab Results - Last 24 Hours (Table) 03/23/25 03/23/25 03/23/25 Range/Units 02:30 06:13 06:13 Hgb (13.0-17.0) g/dL MCHC (32.0-37.0) g/dL Neutrophils # (1.80-7.70) 10*3/uL Eosinophils # (0.04-0.35) 10*3/uL APTT (22.0-30.0) sec Sodium (137-145) mmol/L Chloride (98-107) mmol/L Carbon Dioxide (22-30) mmol/L Glucose (74-99) mg/dL POC Glucose (mg/dL) (70-110) mg/dL Hemoglobin A1c 10.3 H (<=6.0) % AST (17-59) U/L Troponin I 60.400 H* (0.000-0.034) ng/mL HDL Cholesterol 38.50 L (40.00-60.00) mg/dL 03/23/25 03/23/25 03/23/25 Range/Units 11:20 11:22 11:22 Hgb (13.0-17.0) g/dL MCHC (32.0-37.0) g/dL Neutrophils # (1.80-7.70) 10*3/uL Eosinophils # (0.04-0.35) 10*3/uL APTT 73.2 H (22.0-30.0) sec Sodium (137-145) mmol/L Chloride (98-107) mmol/L Carbon Dioxide (22-30) mmol/L Glucose (74-99) mg/dL POC Glucose (mg/dL) 240 H (70-110) mg/dL Hemoglobin A1c (<=6.0) % AST (17-59) U/L Troponin I 212.000 H* (0.000-0.034) ng/mL HDL Cholesterol (40.00-60.00) mg/dL 03/23/25 03/24/25 03/24/25 Range/Units 21:15 05:34 05:34 Hgb 12.8 L (13.0-17.0) g/dL MCHC 31.5 L (32.0-37.0) g/dL Neutrophils # 7.78 H (1.80-7.70) 10*3/uL Eosinophils # 0.01 L (0.04-0.35) 10*3/uL APTT (22.0-30.0) sec Sodium 136 L (137-145) mmol/L Chloride 97 L (98-107) mmol/L Carbon Dioxide 31 H (22-30) mmol/L Glucose 182 H (74-99) mg/dL POC Glucose (mg/dL) 196 H (70-110) mg/dL Hemoglobin A1c (<=6.0) % AST 179 H (17-59) U/L Troponin I (0.000-0.034) ng/mL HDL Cholesterol (40.00-60.00) mg/dL 03/24/ Range/Units 06:28 Hgb (13.0-17.0) g/dL MCHC (32.0-37.0) g/dL Neutrophils # (1.80-7.70) 10*3/uL Eosinophils # (0.04-0.35) 10*3/uL APTT (22.0-30.0) sec Sodium (137-145) mmol/L Chloride (98-107) mmol/L Carbon Dioxide (22-30) mmol/L Glucose (74-99) mg/dL POC Glucose (mg/dL) 198 H (70-110) mg/dL Hemoglobin A1c (<=6.0) % AST (17-59) U/L Troponin I (0.000-0.034) ng/mL HDL Cholesterol (40.00-60.00) mg/dL
[2025-03-24 16:15] LABS: Glucose,Whole Blood 212 mg/dL (70-110)
[2025-03-24] MEDS: HEPARIN SODIUM,PORCINE 5,000 UNIT/ML 1 ML VIAL SQ SCH (17:19)
[2025-03-24] MEDS: LOSARTAN 50 MG TAB PO SCH (20:30)
[2025-03-24] MEDS: METOPROLOL TARTRATE 50 MG TAB PO SCH (20:30)
[2025-03-24 20:32] LABS: Glucose,Whole Blood 139 mg/dL (70-110)
--- NOTE | 2025-03-24 22:21 | P.PN ---
Subjective Progress Note Date: 03/24/25 History of present illness: Patient is a 69 year old male with past medical history of CAD s/p prior sten ting, ischemic cardiomyopathy, diabetes mellitus, hypertension, hyperlipidemia, history of CVA, tobacco dependence, COPD presented to the ED with chest pain. Patient reports chest pain that began while he was in vehicle going running errands. The pain radiated to the epigastric area. He sat there for a minute. He then realized he couldn't drive. Associated with that he reports having shortness of breath mainly with exertion. Patient is a current everyday smoker and reports former daily alcohol use as well as marijuana use. Denies fever, chills, palpitations, nausea, vomiting, hematuria, dysuria, hematochezia, melena, headache, slurred speech, numbness, tingling, dizziness, lightheadedness, blurred vision, double vision. ED documentation reviewed. In the ED patient was treated with Aspirn 325 mg, Heparin drip furosemide 40 mg IV, Solu-Medrol 125 mg, Nitro-Bid ointment. Patient has had multiple stents in the past, with first stent being in 1997. In the year 2021 he had successful stenting of the left circumflex vessel and balloon angioplasty of the LAD. Previously he had prior stenting to the LAD. He has totally occluded RCA. Echocardiogram done on September 22 showed severe LV dysfunction with ejection fraction 20 to 25%, RVSP 40 mmHg. Vitals T 97.5 F, HI 85 bpm, RR 20, BP 126/78, oxygen saturation 98% on 2 L oxygen via nasal cannula EKG independently interpreted as sinus rhythm, LVH, rate 82 bpm, QTc 488 ms Chest x-ray shows prominent pulmonary vasculature Labs show WBC 10.94, hemoglobin 13.8, platelet count 195, INR 1.1, sodium 134, potassium 4.3, creatinine 1.28, A1c 10.3 Troponin 3.67, 18.3, 36, 52.3, 60.4 Lipid panel shows triglycerides 94.6, cholesterol 167, LDL 109.6, VLDL 18.92, HDL 38.5 Progress note 03/24/2025 Status post PCI to distal LCx yesterday. Denies any chest pain chest pressure shortness of breath. Hemodynamically stable We had discussion about LifeVest, and AICD. Seems like his LVEF was low even before this presentation. He needs more time to think about the LifeVest and make a decision tomorrow Physical examination: GENERAL: This is a 69 -year-old male in no acute distress HEENT: Head is atraumatic, normocephalic. Pupils equal, round. Sclerae is anicteric NECK: Supple, No JVD, No carotid bruit LUNGS: Clear to auscultation, No wheezes or rhonchi, No intercostal retractions HEART: Regular rate and rhythm, no murmur or gallop or rub ABDOMEN: Soft, No tenderness EXTREMITIES: No pedal edema, No calf tenderness. 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 There is concerns about prescription coverage. If covered, discharge him on Entresto. Objective - Vital Signs Vital signs: Vital Signs Temp 97.8 F 03/24/25 20:00 Pulse 86 03/24/25 20:00 Resp 22 03/24/25 20:00 BP 111/72 03/24/25 20:00 Pulse Ox 94 L 03/24/25 20:00 FiO2 Intake & Output 03/24/25 03/24/25 03/25/25 06:59 18:59 06:59 Intake Total 749.25 700 Output Total 1400 700 Balance -650.75 0 Weight 78.4 kg 78.4 kg Intake: IV 470 0 Sodium Chloride 0.9% 1, 470 0 000 ml @ 75 mls/hr IV . [id number] [facility] Rx#:[id number] Intake, IV Titration 29.25 Amount Nitroglycerin-D5w Pmx 50 29.25 mg In Dextrose/Water 1 250ml.bag @ 5 MCG/MIN 1.5 mls/hr IV .Q24H [facility] Rx#: [id number] Oral 250 700 Output: Urine 1400 700 Other: Voiding Method Urinal Urinal Urinal # Voids 0 1 - Labs CBC & Chem 7: 03/24/25 05:34 03/24/25 05:34 Labs: Abnormal Lab Results - Last 24 Hours (Table) 03/24/25 03/24/25 03/24/25 Range/Units 05:34 05:34 06:28 Hgb 12.8 L (13.0-17.0) g/dL MCHC 31.5 L (32.0-37.0) g/dL Neutrophils # 7.78 H (1.80-7.70) 10*3/uL Eosinophils # 0.01 L (0.04-0.35) 10*3/uL Sodium 136 L (137-145) mmol/L Chloride 97 L (98-107) mmol/L Carbon Dioxide 31 H (22-30) mmol/L Glucose 182 H (74-99) mg/dL POC Glucose (mg/dL) 198 H (70-110) mg/dL AST 179 H (17-59) U/L 03/24/25 03/24/25 03/24/25 Range/Units 11:04 16:13 20:27 Hgb (13.0-17.0) g/dL MCHC (32.0-37.0) g/dL Neutrophils # (1.80-7.70) 10*3/uL Eosinophils # (0.04-0.35) 10*3/uL Sodium (137-145) mmol/L Chloride (98-107) mmol/L Carbon Dioxide (22-30) mmol/L Glucose (74-99) mg/dL POC Glucose (mg/dL) 123 H 212 H 139 H (70-110) mg/dL AST (17-59) U/L
[2025-03-25 04:58] VITALS: RESP 18
[2025-03-25 05:45] LABS: Glucose,Whole Blood 148 mg/dL (70-110)
[2025-03-25 07:05] LABS: Basophils # (A) 0.04 10*3/uL (0.00-0.10); Basophils % (A) 0.5 %; Eosinophils # (A) 0.09 10*3/uL (0.04-0.35); Eosinophils % (A) 1.2 %; HCT 43.2 % (39.6-50.0); HGB 13.3 g/dL (13.0-17.0); Lymphocytes # (A) 1.17 10*3/uL (0.90-5.00); Lymphocytes % (A) 15.7 %; MCH 27.9 pg (27.0-32.0); MCHC 30.8 g/dL (32.0-37.0); MCV 90.6 fL (80.0-97.0); Mean Platelet Volume 11.3 fL (9.5-12.2); Monocytes # (A) 0.72 10*3/uL (0.20-1.00); Monocytes % (A) 9.7 %; Neutrophils # (A) 5.39 10*3/uL (1.80-7.70); Neutrophils % (A) 72.5 %; Platelet Count 183 10*3/uL (140-440); RBC 4.77 10*6/uL (4.40-5.60); RDW 14.1 % (11.5-14.5); WBC 7.44 10*3/uL (4.50-10.00)
[2025-03-25 07:06] LABS: ALT 21 U/L (4-49); AST 61 U/L (17-59); African American GFR (CKD) 65 (>60 ml/min/1.73 sqM); Albumin 3.7 g/dL (3.5-5.0); Alkaline Phosphatase 100 U/L (38-126); Anion Gap 6 mmol/L; Blood Urea Nitrogen 20 mg/dL (9-20); Calcium 8.8 mg/dL (8.4-10.2); Carbon Dioxide 34 mmol/L (22-30); Chloride 99 mmol/L (98-107); Glucose 140 mg/dL (74-99); Non-African American GFR(CKD) 57 (>60 ml/min/1.73 sqM); Potassium 3.5 mmol/L (3.5-5.1); Sodium 139 mmol/L (137-145); Total Bilirubin 0.7 mg/dL (0.2-1.3); Total Protein 6.6 g/dL (6.3-8.2)
[2025-03-25] MEDS: TORSEMIDE 20 MG TAB PO SCH (10:57)
[2025-03-25 11:20] VITALS: BP 91/55; PULSE 81; TEMP 98
[2025-03-25 11:29] LABS: Glucose,Whole Blood 243 mg/dL (70-110)
--- NOTE | 2025-03-25 12:30 | P.DS ---
Providers Date of admission: 03/22/25 19:26 Discharge Diagnosis: Acute NSTEMI Left circumflex occlusion status post stent Ischemic cardiomyopathy, EF 20-25%, Type II diabetes mellitus with hyperglycemia COPD not in acute exacerbation Hypertension Hyperlipidemia Osteoarthritis BPH Anxiety History of CVA Hospital Course: Patient is a 69-year-old male with CAD (stent placement x 3), COPD (on home oxygen but noncompliant), CHF (EF of 30% on May 2022), hypertension, hyperlipidemia, osteoarthritis, BPH, anxiety history of CVA and right carotid stenosis and current daily smoker here for evaluation of chest pain. Today at around 2 PM, patient was in his car running errands when he suddenly had chest pressure that was midsternal with radiation to the epigastric area with an intensity of 8 out of 10 that was constant that is worse with lying down and exertion and relieved with leaning forward or sitting up. He also had associated difficulty of breathing that was nonpleuritic. He attempted to use his albuterol inhaler but it did not improve his symptoms. He denied palpitations, extremity swelling, focal weakness, facial asymmetry, vision changes, recent illness or hospitalization. On admission: Vitals: 97.5 Fahrenheit, pulse rate 122, respiratory rate 18, blood pressure 175/96, O2 saturation 94% on 2 L nasal cannula Labs: WBC 12.52, hemoglobin 14.3, platelet count 1 85,000, sodium 137, potassium 4.4, BUN 20, creatinine 1.34, glucose 331, magnesium 1.8, calcium 9. Troponin was elevated at 3.67, proBNP 9120. Liver enzymes showed AST 63, ALT 15 and alk phos 128.. Imaging: Chest x-ray showed pulmonary vasculature was prominent and increased mild lung markings for clinical correlation of volume overload. EKG showed sinus tachycardia with a rate of [address] changes, good R wave progression, QTc 404 MS. ED documentation reviewed. Heparin drip, aspirin, high intensity statin, IV Lasix initiated in the ED. Given one-time dose of IV Solu-Medrol, DuoNeb and morphine in the ED. Patient admitted for acute NSTEMI and ischemic cardiomyopathy with cardiology on the case. While admitted patient troponins elevated to peak of 212. Echocardiogram showing EF of 20-25%, severely impaired left ventricular systolic function with segmental wall motion abnormality, moderate eccentric mitral regurgitation. He was ultimately catheterized had stent placed in left circumflex artery. Patient was transferred to ICU for further monitoring and was hemodynamically stable and ultimately downgraded to the cardiac stepdown unit. Complains of no chest pain and feels much better after the procedure. He is placed back on his GDMT with some adjustments. IV diuretics converted to oral diuretic for home use. Will discharge on dual antiplatelet and statin. He was cleared by cardiology. He is to follow-up with cardiology and his PCP. Patient can be discharged home today. Patient seen and examined at bedside. Vital signs reviewed and stable. Physical examination: Vital signs reviewed General: non toxic, no distress, appears at stated age, normal weight Derm: no unusual rashes/lesions, warm Head: atraumatic, normocephalic, symmetric Eyes: EOMI, anicteric sclera, pupils equal round reactive to light ENT: Nose and ears atraumatic Neck: No cervical lymphadenopathy, trachea midline, supple Mouth: no lip lesion, mucus membranes moist Cardiovascular: S1S2 reg, no murmur, positive dorsalis pedis pulse bilateral, no edema Lungs: CTA bilateral, no rhonchi, no rales, no accessory muscle use Abdominal: soft, nontender to palpation, no guarding Ext: muscle strength 5 out of 5 in all 4 extremities grossly, no gross muscle atrophy Neuro: CN II-XI grossly intact, no gross focal neuro deficits Psych: Alert, oriented to person, place, and time A total of greater than 30 minutes of time were spent preparing this complex discharge summary. Patient was discharge on March 25, 2025 at 10:29 AM. Mary Simon MD PGY-1 IM Dictation was produced using [employer] dictation software. please excuse any grammatical, word or spelling errors. I have seen and evaluated the patient today. Discussed with the resident and agree with the residents finding and plan as documented in the resident's note. Changes highlighted in blue font. Expected date of discharge: 03/25/25 Attending physician: Collin Rosales Consults: 03/22/25 19:24 Consult Physician Urgent Consulting Provider: Christiano Lorenzaan Consult Reason/Comments: NSTEMI Do you want consulting provider notified?: Yes Primary care physician: Blayne Curry Patient Condition at Discharge: Stable Plan - Discharge Summary Discharge Rx Participant: No New Discharge Prescriptions: New Torsemide [Demadex] 10 mg PO DAILY #90 tab Dapagliflozin Propanediol [Farxiga] 10 mg PO DAILY #90 tab Aspirin 81 mg PO DAILY #90 tab Ticagrelor [Brilinta] 90 mg PO BID #120 tab Sacubitril/Valsartan [Entresto 24 mg-26 mg Tablet] 1 each PO BID #120 tablet Metoprolol Tartrate [Lopressor] 50 mg PO BID #60 tab Continue metFORMIN HCL [Glucophage] 500 mg PO DIRECTED Rosuvastatin Calcium [Crestor] 40 mg PO DAILY Tamsulosin [Flomax] 0.4 mg PO DIRECTED Albuterol Nebulized [Ventolin Nebulized] 2.5 mg INHALATION DIRECTED PRN PRN Reason: Shortness Of Breath Changed Spironolactone [Aldactone] 25 mg PO DAILY #0 Discontinued Furosemide [Lasix] 40 mg PO BID PRN PRN Reason: Edema Clopidogrel [Plavix] 75 mg PO DIRECTED carvediloL [Coreg] 6.25 mg PO DIRECTED Discharge Medication List Rosuvastatin Calcium [Crestor] 40 mg PO DAILY 06/02/22 [History] Albuterol Nebulized [Ventolin Nebulized] 2.5 mg INHALATION DIRECTED PRN 03/23/25 [History] Tamsulosin [Flomax] 0.4 mg PO DIRECTED 03/23/25 [History] metFORMIN HCL [Glucophage] 500 mg PO DIRECTED 03/23/25 [History] Aspirin 81 mg PO DAILY #90 tab 03/25/25 [Rx] Dapagliflozin Propanediol [Farxiga] 10 mg PO DAILY #90 tab 03/25/25 [Rx] Metoprolol Tartrate [Lopressor] 50 mg PO BID #60 tab 03/25/25 [Rx] Sacubitril/Valsartan [Entresto 24 mg-26 mg Tablet] 1 each PO BID #120 tablet 03/25/25 [Rx] Spironolactone [Aldactone] 25 mg PO DAILY #0 03/25/25 [Rx] Ticagrelor [Brilinta] 90 mg PO BID #120 tab 03/25/25 [Rx] Torsemide [Demadex] 10 mg PO DAILY #90 tab 03/25/25 [Rx] Follow up Appointment(s)/Referral(s): Christiano Lorenzana MD [Medical Doctor] - 1 Week Blayne Curry DO [Primary Care Provider] - 1-2 days Patient Instructions/Handouts: Moderate Sedation (DC), After Radial Heart Catheterization (GEN) Activity/Diet/Wound Care/Special Instructions: *NO LIFTING, PUSHING, OR PULLING ANYTHING OVER 5 POUNDS FOR 5 DAYS *NO DRIVING FOR 3 DAYS *YOU CAN REMOVE YOUR DRESSING TOMORROW BUT DO NOT SUBMERSE YOUR PUNCTURE SITE IN WATER FOR A FEW DAYS TO PREVENT INFECTION - SO NO TUB BATHS, POOLS, HOT TUBS, DISHES...ETC *ANY SIGNS OF BLEEDING (HARDNESS, SWELLING,O R EXCESSIVE BRUISING) HOLD DIRECT PRESSURE ON YOUR PUNCTURE SITE AND COME TO THE NEAREST EMERGENCY ROOM TO GET YOUR PUNCTURE SITE LOOKED AT - DO NOT DRIVE YOURSELF! EITHER CALL EMS OR HAVE SOMEONE DRIVE YOU! Discharge Disposition: HOME SELF-CARE
--- NOTE | 2025-03-25 12:50 | P.PN ---
Subjective Progress Note Date: 03/25/25 History of present illness: Patient is a 69 year old male with past medical history of CAD s/p prior sten ting, ischemic cardiomyopathy, diabetes mellitus, hypertension, hyperlipidemia, history of CVA, tobacco dependence, COPD presented to the ED with chest pain. Patient reports chest pain that began while he was in vehicle going running errands. The pain radiated to the epigastric area. He sat there for a minute. He then realized he couldn't drive. Associated with that he reports having shortness of breath mainly with exertion. Patient is a current everyday smoker and reports former daily alcohol use as well as marijuana use. Denies fever, chills, palpitations, nausea, vomiting, hematuria, dysuria, hematochezia, melena, headache, slurred speech, numbness, tingling, dizziness, lightheadedness, blurred vision, double vision. ED documentation reviewed. In the ED patient was treated with Aspirn 325 mg, Heparin drip furosemide 40 mg IV, Solu-Medrol 125 mg, Nitro-Bid ointment. Patient has had multiple stents in the past, with first stent being in 1997. In the year 2021 he had successful stenting of the left circumflex vessel and balloon angioplasty of the LAD. Previously he had prior stenting to the LAD. He has totally occluded RCA. Echocardiogram done on September 22 showed severe LV dysfunction with ejection fraction 20 to 25%, RVSP 40 mmHg. Vitals T 97.5 F, CT 85 bpm, RR 20, BP 126/78, oxygen saturation 98% on 2 L oxygen via nasal cannula EKG independently interpreted as sinus rhythm, LVH, rate 82 bpm, QTc 488 ms Chest x-ray shows prominent pulmonary vasculature Labs show WBC 10.94, hemoglobin 13.8, platelet count 195, INR 1.1, sodium 134, potassium 4.3, creatinine 1.28, A1c 10.3 Troponin 3.67, 18.3, 36, 52.3, 60.4 Lipid panel shows triglycerides 94.6, cholesterol 167, LDL 109.6, VLDL 18.92, HDL 38.5 Progress note 03/24/2025 Status post PCI to distal LCx yesterday. Denies any chest pain chest pressure shortness of breath. Hemodynamically stable We had discussion about LifeVest, and AICD. Seems like his LVEF was low even before this presentation. He needs more time to think about the LifeVest and make a decision tomorrow 03/25 Patient has been transferred out of the intensive care unit and is seen today on the cardiac stepdown unit. Right groin has no hematoma no tenderness no bleeding. Regarding LifeVest and AICD, patient refuses. Blood pressure 91/55, heart rate in the 70s, pulse ox 94% on room air. Repeat blood work reveals hemoglobin 13.3, BUN 20, creatinine 1.27. Physical examination: GENERAL: This is a 69 -year-old male in no acute distress HEENT: Head is atraumatic, normocephalic. Pupils equal, round. Sclerae is anicteric NECK: Supple, No JVD, No carotid bruit LUNGS: Clear to auscultation, No wheezes or rhonchi, No intercostal retractions HEART: Regular rate and rhythm, no murmur or gallop or rub ABDOMEN: Soft, No tenderness EXTREMITIES: No pedal edema, No calf tenderness. NEUROLOGICAL: Patient is awake and alert Assessment: NSTEMI, CAD, multivessel S/p LCx stent, prior stenting to LAD, known [employer] of RCA Ischemic cardiomyopathy, EF 25% Tobacco dependence COPD Diabetes mellitus Hypertension Hyperlipidemia BPH History of CVA Plan: Continue Aspirin 81 mg PO daily, Brilinta 90 twice daily, Lipitor 80 mg PO daily, Farxiga 10 mg PO daily, Lopressor 50 mg PO BID Continue Aldactone 25 g daily Continue torsemide 10 mg daily Continue Entresto. Patient is cleared for discharge from cardiology will follow-up in the office with Dr. Elias in 7 to 10 days. Nurse practitioner note has been reviewed, I agree with documented findings and plan of care. Patient was seen and examined. Objective - Vital Signs Vital signs: Vital Signs Temp 97.0 F L 03/25/25 04:50 Pulse 70 03/25/25 04:50 Resp 18 03/25/25 04:50 BP 96/51 03/25/25 04:50 Pulse Ox 93 L 03/25/25 04:50 FiO2 Intake & Output 03/24/25 03/25/25 03/25/25 18:59 06:59 18:59 Intake Total 700 240 Output Total 700 400 Balance 0 -400 240 Weight 78.4 kg 78.3 kg Intake: IV 0 Sodium Chloride 0.9% 1, 0 000 ml @ 75 mls/hr IV . [id number] [facility] Rx#:[id number] Oral 700 240 Output: Urine 700 400 Other: Voiding Method Urinal Urinal # Voids 1 - Labs CBC & Chem 7: 03/25/25 06:08 03/25/25 06:08 Labs: Abnormal Lab Results - Last 24 Hours (Table) 03/24/25 03/24/25 03/24/25 Range/Units 11:04 16:13 20:27 MCHC (32.0-37.0) g/dL Carbon Dioxide (22-30) mmol/L Creatinine (0.66-1.25) mg/dL Glucose (74-99) mg/dL POC Glucose (mg/dL) 123 H 212 H 139 H (70-110) mg/dL AST (17-59) U/L 03/25/25 03/25/25 03/25/25 Range/Units 05:43 06:08 06:08 MCHC 30.8 L (32.0-37.0) g/dL Carbon Dioxide 34 H (22-30) mmol/L Creatinine 1.27 H (0.66-1.25) mg/dL Glucose 140 H (74-99) mg/dL POC Glucose (mg/dL) 148 H (70-110) mg/dL AST 61 H (17-59) U/L
== END 2025-03-25 12:27 | disposition home or self-care (01) | DRG 321 ==
LOC: EC 18:05 → 3SCARD 19:26 → 2SICU 03-23 10:15 → 3SCARD 03-24 18:01
PROVIDERS: ADMIT Student in an Organized Health Care Education/Training Program; ATTEND Student in an Organized Health Care Education/Training Program
PROC: 027034Z Dilation of Coronary Artery, One Artery with Drug-eluting Intraluminal Device, Percutaneous Approach (ICD-10-PCS; principal; 2025-03-23 08:56)
PROC: B2111ZZ Fluoroscopy of Multiple Coronary Arteries using Low Osmolar Contrast (ICD-10-PCS; principal; 2025-03-23 08:56)
PROC: 4A023N7 Measurement of Cardiac Sampling and Pressure, Left Heart, Percutaneous Approach (ICD-10-PCS; principal; 2025-03-23 08:56)
DX: I21.4 Non-ST elevation (NSTEMI) myocardial infarction (principal); I50.23 Acute on chronic systolic (congestive) heart failure; I11.0 Hypertensive heart disease with heart failure; E11.65 Type 2 diabetes mellitus with hyperglycemia; J44.9 Chronic obstructive pulmonary disease, unspecified; F15.11 Other stimulant abuse, in remission; I34.0 Nonrheumatic mitral (valve) insufficiency; I65.21 Occlusion and stenosis of right carotid artery; I71.40 Abdominal aortic aneurysm, without rupture, unspecified; I25.110 Atherosclerotic heart disease of native coronary artery with unstable angina pectoris; Z99.81 Dependence on supplemental oxygen; H91.90 Unspecified hearing loss, unspecified ear; E78.5 Hyperlipidemia, unspecified; I25.5 Ischemic cardiomyopathy; F41.9 Anxiety disorder, unspecified; N40.0 Benign prostatic hyperplasia without lower urinary tract symptoms; F17.210 Nicotine dependence, cigarettes, uncomplicated; I25.2 Old myocardial infarction; Z91.199 Patient's noncompliance with other medical treatment and regimen due to unspecified reason; Z79.02 Long term (current) use of antithrombotics/antiplatelets; Z79.84 Long term (current) use of oral hypoglycemic drugs; Z79.899 Other long term (current) drug therapy; Z95.5 Presence of coronary angioplasty implant and graft; Z86.73 Personal history of transient ischemic attack (TIA), and cerebral infarction without residual deficits; Z98.1 Arthrodesis status; Z88.5 Allergy status to narcotic agent
CPT/HCPCS: 36415; 71045; 80048; 80053; 80061; 83036; 83735; 83880; 84443; 84484; 85025; 85610; 85730; 93005; 93306; 93458; 94760; 96365; 96366; 96375; 96376; 99291